=== PATIENT | male | born 1960 | race Asian ===

== ENCOUNTER 2020-04-15 07:06 | Day surgery (SDC) | payer OTHER ==
[2020-04-15] MEDS ORDERED: DEXAMETHASONE SODIUM PHOSPHATE IVPB ONE (09:30)
[2020-04-15] MEDS ORDERED: PALONOSETRON HCL 0.25 MG/5 ML VIAL IVPUSH ONE (09:30)
[2020-04-15] MEDS ORDERED: DIPHENHYDRAMINE IVPB ONE (09:30)
[2020-04-15] MEDS ORDERED: [UNRECOGNIZED DRUG - OTHER] IVPB ONE (09:30)
[2020-04-15] MEDS ORDERED: LEUCOVORIN IVPB ONE (10:00)
[2020-04-15] MEDS ORDERED: DEXTROSE 5% IVPB ONE (10:00)
[2020-04-15] MEDS ORDERED: WATER IVPB ONE (10:00)
[2020-04-15] MEDS ORDERED: OXALIPLATIN 100 MG, OXALIPLATIN 30 MG in DEXTROSE 5%-WATER - 500 ML IV ONE (10:00)
[2020-04-15 10:14] LABS: BASO % 0.3 % (0-2.0); EOS % 0.2 % (0-4.5); HEMATOCRIT 43.1 % (35.4-49); HEMOGLOBIN 14.2 GM/dL (11.7-16.9); LYMPH % 6.1 % (8-40); MCH 33.1 pg (25.7-33.7); MEAN CELL VOLUME 100.2 fl (80-96); MEAN PLT VOLUME 9.3 fl (7.5-11.1); MONO % 1.2 % (3.8-10.2); NEUT % 92.2 % (42.8-82.8); PLATELET COUNT 72 K/MM3 (134-434); RDW 14.5 % (11.9-15.9); WHITE BLOOD COUNT 6.7 K/mm3 (4.0-10.0)
[2020-04-15] MEDS ORDERED: DEXTROSE 5% IV ONE (10:48)
[2020-04-15] MEDS ORDERED: OXALIPLATIN IV ONE (10:48)
[2020-04-15] MEDS ORDERED: WATER IV ONE (10:48)
[2020-04-15 11:18] LABS: ANISOCYTOSIS 1+; MACROCYTOSIS 1+; PLATELET ESTIMATE DECREASED
[2020-04-15 11:31] LABS: ALBUMIN 3.7 g/dl (3.4-5.0); BILIRUBIN,DIRECT 0.2 mg/dL (0.0-0.2); BILIRUBIN,TOTAL 0.5 mg/dL (0.2-1); BLOOD UREA NITROGEN 17.1 mg/dL (7-18); CALCIUM 9.1 mg/dL (8.5-10.1); CREATININE 0.8 mg/dL (0.55-1.3); POTASSIUM 3.5 mmol/L (3.5-5.1); TOT PROT 7.4 g/dl (6.4-8.2)
[2020-04-15] MEDS ORDERED: FLUOROURACIL 3,000 MG in SODIUM CHLORIDE 32 ML CP ONE (13:00)
[2020-04-15 16:12] VITALS: TEMP 98.4
[2020-04-15 16:13] VITALS: BP 121/79; PULSE 80
== END 2020-04-15 16:10 | disposition home or self-care (01) ==
LOC: JONCCHEMO 07:06
PROVIDERS: ATTEND Nurse Practitioner Family
PROC: 3E04305 Introduction of Other Antineoplastic into Central Vein, Percutaneous Approach (ICD-10-PCS; principal; 2020-04-15)
PROC: 3E04305 Introduction of Other Antineoplastic into Central Vein, Percutaneous Approach (ICD-10-PCS; 2020-04-15)
PROC: 3E043GC Introduction of Other Therapeutic Substance into Central Vein, Percutaneous Approach (ICD-10-PCS; 2020-04-15)
DX: Z51.11 Encounter for antineoplastic chemotherapy (principal); C20 Malignant neoplasm of rectum; I10 Essential (primary) hypertension; E11.9 Type 2 diabetes mellitus without complications; E78.00 Pure hypercholesterolemia, unspecified
CPT/HCPCS: 36415; 80048; 80076; 82607; 83735; 85025; 96366; 96367; 96375; 96413; 96415; G0498; J2469; J9263

== ENCOUNTER 2020-04-17 07:18 | Day surgery (SDC) | payer OTHER ==
[2020-04-17 17:39] VITALS: BP 120/75; PULSE 84; TEMP 98
[2020-04-17] MEDS ORDERED: PORTA CATH FLUSH 10 ML IVPUSH ONE (17:51)
== END 2020-04-17 14:30 | disposition home or self-care (01) ==
LOC: JONCCHEMO 07:18
PROVIDERS: ATTEND Internal Medicine Hematology & Oncology
PROC: 2W54XYZ Removal of Other Device on Chest Wall (ICD-10-PCS; principal; 2020-04-17)
DX: Z53.8 Procedure and treatment not carried out for other reasons (principal)
CPT/HCPCS: 96379

== ENCOUNTER 2020-04-29 07:16 | Day surgery (SDC) | payer OTHER ==
[2020-04-29] MEDS ORDERED: PALONOSETRON HCL 0.25 MG/5 ML VIAL IVPUSH ONE (09:30)
[2020-04-29] MEDS ORDERED: [UNRECOGNIZED DRUG - OTHER] IVPB ONE (09:30)
[2020-04-29] MEDS ORDERED: DEXAMETHASONE SODIUM PHOSPHATE IVPB ONE (09:30)
[2020-04-29] MEDS ORDERED: DIPHENHYDRAMINE IVPB ONE (09:30)
[2020-04-29 09:59] LABS: BASO % 0.4 % (0-2.0); EOS % 0.8 % (0-4.5); HEMATOCRIT 42.4 % (35.4-49); HEMOGLOBIN 13.9 GM/dL (11.7-16.9); LYMPH % 5.9 % (8-40); MCH 32.3 pg (25.7-33.7); MCHC 32.8 g/dl (32.0-35.9); MEAN CELL VOLUME 98.4 fl (80-96); MONO % 1.9 % (3.8-10.2); PLATELET COUNT 68 K/MM3 (134-434); RBC 4.31 M/mm3 (4.00-5.60); RDW 13.9 % (11.9-15.9); WHITE BLOOD COUNT 7.2 K/mm3 (4.0-10.0)
[2020-04-29] MEDS ORDERED: LEUCOVORIN IVPB ONE (10:00)
[2020-04-29] MEDS ORDERED: OXALIPLATIN 100 MG, OXALIPLATIN 30 MG in DEXTROSE 5%-WATER - 500 ML IV ONE (10:00)
[2020-04-29] MEDS ORDERED: DEXTROSE 5% IVPB ONE (10:00)
[2020-04-29] MEDS ORDERED: WATER IVPB ONE (10:00)
[2020-04-29 10:20] LABS: ANISOCYTOSIS 0; MACROCYTOSIS 0; PLATELET ESTIMATE DECREASED
[2020-04-29 10:23] LABS: BLOOD UREA NITROGEN 17.6 mg/dL (7-18); CALCIUM 9.1 mg/dL (8.5-10.1); CREATININE 0.7 mg/dL (0.55-1.3); POTASSIUM 3.7 mmol/L (3.5-5.1)
[2020-04-29 10:32] LABS: MAGNESIUM 1.8 mg/dL (1.8-2.4)
[2020-04-29 10:47] LABS: INR 1.02 (0.83-1.09)
[2020-04-29 11:36] LABS: ALBUMIN 3.6 g/dl (3.4-5.0); BILIRUBIN,DIRECT 0.1 mg/dL (0.0-0.2); BILIRUBIN,TOTAL 0.4 mg/dL (0.2-1); TOT PROT 7.3 g/dl (6.4-8.2)
[2020-04-29] MEDS ORDERED: OXALIPLATIN IV ONE (11:43)
[2020-04-29] MEDS ORDERED: DEXTROSE 5% IV ONE (11:43)
[2020-04-29] MEDS ORDERED: WATER IV ONE (11:43)
[2020-04-29] MEDS ORDERED: FLUOROURACIL CP ONE ×2 (11:45→12:00)
[2020-04-29] MEDS ORDERED: SODIUM CHLORIDE CP ONE ×2 (11:45→12:00)
[2020-04-29 18:00] VITALS: BP 143/75; PULSE 76; TEMP 98.3
[2020-04-29] MEDS ORDERED: PORTA CATH FLUSH 10 ML IVPUSH ONE (18:00)
== END 2020-04-29 18:01 | disposition home or self-care (01) ==
LOC: JONCCHEMO 07:16
PROVIDERS: ATTEND Internal Medicine Hematology & Oncology
PROC: 3E04305 Introduction of Other Antineoplastic into Central Vein, Percutaneous Approach (ICD-10-PCS; principal; 2020-04-29)
PROC: 3E04305 Introduction of Other Antineoplastic into Central Vein, Percutaneous Approach (ICD-10-PCS; 2020-04-29)
PROC: 3E043GC Introduction of Other Therapeutic Substance into Central Vein, Percutaneous Approach (ICD-10-PCS; 2020-04-29)
DX: Z51.11 Encounter for antineoplastic chemotherapy (principal); C20 Malignant neoplasm of rectum; E11.9 Type 2 diabetes mellitus without complications; I10 Essential (primary) hypertension; E78.00 Pure hypercholesterolemia, unspecified
CPT/HCPCS: 36415; 80048; 80076; 82378; 82607; 82728; 83540; 83550; 83735; 85025; 85610; 96367; 96368; 96375; 96413; 96415; G0498; J2469; J9263

== ENCOUNTER 2020-05-01 07:16 | Day surgery (SDC) | payer OTHER ==
[2020-05-01 15:40] VITALS: BP 100/53; PULSE 72; TEMP 98.1
[2020-05-01] MEDS ORDERED: PORTA CATH FLUSH 10 ML IVPUSH ONE (15:40)
== END 2020-05-01 17:48 | disposition home or self-care (01) ==
LOC: JONCCHEMO 07:16
PROVIDERS: ATTEND Nurse Practitioner Family
DX: Z53.8 Procedure and treatment not carried out for other reasons (principal)

== ENCOUNTER 2020-12-09 04:59 | Day surgery (SDC) | payer OTHER ==
[2020-12-05 16:53] VITALS: BMI 35.4
[2020-12-09 14:47] VITALS: BP 125/75; PULSE 67; TEMP 98
== END 2020-12-09 14:35 | disposition home or self-care (01) ==
LOC: JRADIR 04:59
PROVIDERS: ATTEND Internal Medicine Hematology & Oncology
PROC: 07DD3ZX Extraction of Aortic Lymphatic, Percutaneous Approach, Diagnostic (ICD-10-PCS; principal; 2020-12-09)
DX: C20 Malignant neoplasm of rectum (principal); C77.2 Secondary and unspecified malignant neoplasm of intra-abdominal lymph nodes
CPT/HCPCS: 49180; 82962

== ENCOUNTER 2021-01-14 04:19 | Day surgery (SDC) | payer OTHER ==
[2021-01-14 07:25] VITALS: BMI 35.2
[2021-01-14 08:42] VITALS: TEMP 97.6
[2021-01-14 09:09] VITALS: PULSE 86
[2021-01-14 09:35] VITALS: BP 100/58
== END 2021-01-14 10:05 | disposition home or self-care (01) ==
LOC: JASU-ENDO 04:19
PROVIDERS: ATTEND Internal Medicine Gastroenterology
PROC: 0DBM8ZX Excision of Descending Colon, Via Natural or Artificial Opening Endoscopic, Diagnostic (ICD-10-PCS; 2021-01-14)
PROC: 0DBH8ZX Excision of Cecum, Via Natural or Artificial Opening Endoscopic, Diagnostic (ICD-10-PCS; principal; 2021-01-14 08:13)
DX: Z12.11 Encounter for screening for malignant neoplasm of colon (principal); Z86.010 Personal history of colon polyps; C20 Malignant neoplasm of rectum; D12.0 Benign neoplasm of cecum; D12.3 Benign neoplasm of transverse colon; K63.5 Polyp of colon
CPT/HCPCS: 82962; 88305-TC

== ENCOUNTER 2021-01-20 06:28 | Day surgery (SDC) | payer OTHER ==
[2021-01-20 08:45] LABS: CALCIUM 9.1 mg/dL (8.5-10.1)
[2021-01-20 08:47] LABS: BLOOD UREA NITROGEN 19.4 mg/dL (7-18); MAGNESIUM 1.7 mg/dL (1.8-2.4)
[2021-01-20 08:50] LABS: BILIRUBIN,DIRECT 0.2 mg/dL (0.0-0.2); BILIRUBIN,TOTAL 0.6 mg/dL (0.2-1); CREATININE 0.8 mg/dL (0.55-1.3); IRON SERUM 117 ug/dL (50-175)
[2021-01-20 08:51] LABS: TOT PROT 7.6 g/dl (6.4-8.2)
[2021-01-20 08:52] LABS: TOTAL IRON BINDING CAPACITY 329 ug/dL (250-450)
[2021-01-20] MEDS ORDERED: SODIUM CHLORIDE 250 ML IV ONE (09:00)
[2021-01-20] MEDS ORDERED: DEXAMETHASONE SODIUM PHOSPHATE 10 MG in SODIUM CHLORIDE 50 ML IVPB ONE (09:30)
[2021-01-20] MEDS ORDERED: PALONOSETRON HCL 0.25 MG/5 ML VIAL IVPUSH ONE (09:30)
[2021-01-20] MEDS ORDERED: ATROPINE SULFATE 1 MG/10 ML DISP.SYRIN IVPUSH ONE (09:30)
[2021-01-20 09:34] LABS: BASO % 0.8 % (0-2.0); EOS % 3.8 % (0-4.5); HEMATOCRIT 36.4 % (35.4-49); HEMOGLOBIN 12.6 GM/dL (11.7-16.9); LYMPH % 14.9 % (8-40); MCH 32.3 pg (25.7-33.7); MCHC 34.6 g/dl (32.0-35.9); MEAN CELL VOLUME 93.2 fl (80-96); NEUT % 72.5 % (42.8-82.8); PLATELET COUNT 164 K/MM3 (134-434); RDW 13.4 % (11.9-15.9)
[2021-01-20] MEDS ORDERED: BEVACIZUMAB AWWB IVPB ONE (10:00)
[2021-01-20] MEDS ORDERED: MAGNESIUM OXIDE 400 MG TABLET (FP) PO ONE (10:00)
[2021-01-20] MEDS ORDERED: SODIUM CHLORIDE IVPB ONE (10:00)
[2021-01-20] MEDS ORDERED: LEUCOVORIN INJECTION - 832 MG in DEXTROSE 5%-WATER - 250 ML IVPB ONE (10:30)
[2021-01-20] MEDS ORDERED: IRINOTECAN HCL 370 MG in DEXTROSE 5%-WATER - 500 ML IVPB ONE (10:30)
[2021-01-20] MEDS ORDERED: FLUOROURACIL 500 MG/10 ML VIAL IVPUSH ONE (12:00)
[2021-01-20] MEDS ORDERED: SODIUM CHLORIDE CP ONE (12:15)
[2021-01-20] MEDS ORDERED: FLUOROURACIL CP ONE (12:15)
[2021-01-20 17:35] VITALS: TEMP 98.1
[2021-01-20 17:49] VITALS: BP 127/72; PULSE 70
== END 2021-01-20 14:30 | disposition home or self-care (01) ==
LOC: JONCCHEMO 06:28
PROVIDERS: ATTEND Internal Medicine Hematology & Oncology
PROC: 3E043GC Introduction of Other Therapeutic Substance into Central Vein, Percutaneous Approach (ICD-10-PCS; principal; 2021-01-20)
PROC: 3E043GC Introduction of Other Therapeutic Substance into Central Vein, Percutaneous Approach (ICD-10-PCS; 2021-01-20)
PROC: 3E04305 Introduction of Other Antineoplastic into Central Vein, Percutaneous Approach (ICD-10-PCS; 2021-01-20)
DX: Z51.11 Encounter for antineoplastic chemotherapy (principal); C20 Malignant neoplasm of rectum; I10 Essential (primary) hypertension; E11.9 Type 2 diabetes mellitus without complications; E78.00 Pure hypercholesterolemia, unspecified; Z79.84 Long term (current) use of oral hypoglycemic drugs
CPT/HCPCS: 36415; 80048; 80076; 82378; 82728; 83540; 83550; 83735; 84156; 85025; 96360; 96375; 96413; 96415; G0498; J2469; J9190; J9206; Q5107

== ENCOUNTER 2021-01-22 07:01 | Day surgery (SDC) | payer OTHER ==
[2021-01-22] MEDS ORDERED: SODIUM CHLORIDE 500 ML IV ONE (10:00)
[2021-01-22 16:32] VITALS: TEMP 97.9
[2021-01-22] MEDS ORDERED: PORTA CATH FLUSH 10 ML IVPUSH ONE (16:42)
[2021-01-22 16:43] VITALS: BP 118/69; PULSE 56
== END 2021-01-22 12:30 | disposition home or self-care (01) ==
LOC: JONCNONCHE 07:01
PROVIDERS: ATTEND Internal Medicine Hematology & Oncology
PROC: 3E0437Z Introduction of Electrolytic and Water Balance Substance into Central Vein, Percutaneous Approach (ICD-10-PCS; principal; 2021-01-22)
DX: C20 Malignant neoplasm of rectum (principal); Z76.89 Persons encountering health services in other specified circumstances; I10 Essential (primary) hypertension; E11.9 Type 2 diabetes mellitus without complications; E78.00 Pure hypercholesterolemia, unspecified
CPT/HCPCS: 96360

== ENCOUNTER 2021-02-03 07:19 | Day surgery (SDC) | payer OTHER ==
[2021-02-03 08:39] LABS: EOS % 4.9 % (0-4.5); HEMATOCRIT 34.8 % (35.4-49); HEMOGLOBIN 12.1 GM/dL (11.7-16.9); LYMPH % 15.2 % (8-40); MCH 32.4 pg (25.7-33.7); MCHC 34.8 g/dl (32.0-35.9); MEAN CELL VOLUME 93.2 fl (80-96); MEAN PLT VOLUME 7.6 fl (7.5-11.1); MONO % 9.7 % (3.8-10.2); NEUT % 69.2 % (42.8-82.8); PLATELET COUNT 180 K/MM3 (134-434); RBC 3.73 M/mm3 (4.00-5.60); RDW 13.9 % (11.9-15.9); WHITE BLOOD COUNT 4.3 K/mm3 (4.0-10.0)
[2021-02-03 08:59] LABS: ALBUMIN 3.8 g/dl (3.4-5.0); CALCIUM 8.9 mg/dL (8.5-10.1); MAGNESIUM 1.7 mg/dL (1.8-2.4)
[2021-02-03] MEDS ORDERED: SODIUM CHLORIDE 250 ML IV ONE (09:00)
[2021-02-03 09:02] LABS: BILIRUBIN,DIRECT 0.2 mg/dL (0.0-0.2)
[2021-02-03 09:03] LABS: CREATININE 0.9 mg/dL (0.55-1.3)
[2021-02-03 09:04] LABS: TOT PROT 7.2 g/dl (6.4-8.2)
[2021-02-03 09:05] LABS: BILIRUBIN,TOTAL 0.4 mg/dL (0.2-1)
[2021-02-03] MEDS ORDERED: MAGNESIUM SULF 50% (8.12 MEQ/2 ML-1 GM VIAL) IVPB ONE (09:21)
[2021-02-03] MEDS ORDERED: DEXAMETHASONE SODIUM PHOSPHATE 6 MG in SODIUM CHLORIDE 50 ML IVPB ONE (09:30)
[2021-02-03] MEDS ORDERED: PALONOSETRON HCL 0.25 MG/5 ML VIAL IVPUSH ONE (09:30)
[2021-02-03] MEDS ORDERED: ATROPINE SULFATE 1 MG/10 ML DISP.SYRIN IVPUSH ONE (09:30)
[2021-02-03] MEDS ORDERED: MAGNESIUM SULFATE IN WATER 2 GM/50 ML IVPB IVPB ONE (09:30)
[2021-02-03] MEDS ORDERED: SODIUM CHLORIDE IVPB ONE (10:00)
[2021-02-03] MEDS ORDERED: BEVACIZUMAB AWWB IVPB ONE (10:00)
[2021-02-03] MEDS ORDERED: LEUCOVORIN INJECTION - 832 MG in DEXTROSE 5%-WATER - 250 ML IVPB ONE (10:30)
[2021-02-03] MEDS ORDERED: IRINOTECAN HCL 370 MG in DEXTROSE 5%-WATER - 500 ML IVPB ONE (10:30)
[2021-02-03] MEDS ORDERED: FLUOROURACIL 500 MG/10 ML VIAL IVPUSH ONE (12:00)
[2021-02-03] MEDS ORDERED: SODIUM CHLORIDE CP ONE (12:15)
[2021-02-03] MEDS ORDERED: FLUOROURACIL CP ONE (12:15)
[2021-02-03 15:48] VITALS: TEMP 98.2
[2021-02-03 17:38] VITALS: BP 108/52; PULSE 69
== END 2021-02-03 13:10 | disposition home or self-care (01) ==
LOC: JONCCHEMO 07:19
PROVIDERS: ATTEND Internal Medicine Hematology & Oncology
DX: Z51.11 Encounter for antineoplastic chemotherapy (principal); C20 Malignant neoplasm of rectum
CPT/HCPCS: 36415; 80048; 80076; 83735; 84156; 85025; 96361; 96367; 96375; 96413; 96417; G0498; J2469; J9190; J9206; Q5107

== ENCOUNTER 2021-02-05 08:01 | Day surgery (SDC) | payer OTHER ==
[2021-02-05] MEDS ORDERED: MAGNESIUM SULFATE IV ONE (10:00)
[2021-02-05] MEDS ORDERED: POTASSIUM CHLORIDE IV ONE (10:00)
[2021-02-05] MEDS ORDERED: SODIUM CHLORIDE IV ONE (10:00)
[2021-02-05 17:49] VITALS: PULSE 67; TEMP 97.8
[2021-02-05 18:07] VITALS: BP 99/60
== END 2021-02-05 14:00 | disposition home or self-care (01) ==
LOC: JONCNONCHE 08:01
PROVIDERS: ATTEND Internal Medicine Hematology & Oncology
DX: C20 Malignant neoplasm of rectum (principal); Z76.89 Persons encountering health services in other specified circumstances
CPT/HCPCS: 96360

== ENCOUNTER 2021-02-17 06:59 | Day surgery (SDC) | payer OTHER ==
[2021-02-17 08:50] LABS: BASO % 1.3 % (0-2.0); EOS % 4.3 % (0-4.5); HEMATOCRIT 33.2 % (35.4-49); HEMOGLOBIN 11.5 GM/dL (11.7-16.9); LYMPH % 14.6 % (8-40); MCH 32.8 pg (25.7-33.7); MCHC 34.6 g/dl (32.0-35.9); MEAN PLT VOLUME 7.7 fl (7.5-11.1); MONO % 9.7 % (3.8-10.2); NEUT % 70.1 % (42.8-82.8); PLATELET COUNT 159 K/MM3 (134-434); RBC 3.49 M/mm3 (4.00-5.60); RDW 14.5 % (11.9-15.9); WHITE BLOOD COUNT 4.1 K/mm3 (4.0-10.0)
[2021-02-17] MEDS ORDERED: SODIUM CHLORIDE 250 ML IV ONE (09:00)
[2021-02-17 09:15] LABS: ALBUMIN 3.6 g/dl (3.4-5.0); BLOOD UREA NITROGEN 18.2 mg/dL (7-18); CALCIUM 8.4 mg/dL (8.5-10.1); MAGNESIUM 1.7 mg/dL (1.8-2.4)
[2021-02-17 09:18] LABS: BILIRUBIN,DIRECT 0.2 mg/dL (0.0-0.2); CREATININE 0.9 mg/dL (0.55-1.3)
[2021-02-17 09:20] LABS: BILIRUBIN,TOTAL 0.5 mg/dL (0.2-1); TOT PROT 6.8 g/dl (6.4-8.2)
[2021-02-17] MEDS ORDERED: PALONOSETRON HCL 0.25 MG/5 ML VIAL IVPUSH ONE (10:00)
[2021-02-17] MEDS ORDERED: DEXAMETHASONE SODIUM PHOSPHATE 6 MG in SODIUM CHLORIDE 50 ML IVPB ONE (10:00)
[2021-02-17] MEDS ORDERED: ATROPINE SO4 0.4 MG/1 ML VIAL IVPUSH ONE (10:00)
[2021-02-17] MEDS ORDERED: BEVACIZUMAB AWWB IVPB ONE (10:30)
[2021-02-17] MEDS ORDERED: SODIUM CHLORIDE IVPB ONE (10:30)
[2021-02-17] MEDS ORDERED: MAGNESIUM OXIDE 400 MG TABLET (FP) PO ONE (10:30)
[2021-02-17] MEDS ORDERED: LEUCOVORIN INJECTION - 832 MG in DEXTROSE 5%-WATER - 250 ML IVPB ONE (11:00)
[2021-02-17] MEDS ORDERED: IRINOTECAN HCL 370 MG in DEXTROSE 5%-WATER - 500 ML IVPB ONE (11:30)
[2021-02-17] MEDS ORDERED: FLUOROURACIL 2,500 MG/50 ML VIAL IVPUSH ONE (13:00)
[2021-02-17] MEDS ORDERED: SODIUM CHLORIDE CP ONE (13:15)
[2021-02-17] MEDS ORDERED: FLUOROURACIL CP ONE (13:15)
[2021-02-17 17:38] VITALS: TEMP 97.7
[2021-02-17 17:39] VITALS: BP 133/74; PULSE 77
== END 2021-02-17 12:40 | disposition home or self-care (01) ==
LOC: JONCCHEMO 06:59
PROVIDERS: ATTEND Internal Medicine Hematology & Oncology
DX: Z51.11 Encounter for antineoplastic chemotherapy (principal); C20 Malignant neoplasm of rectum
CPT/HCPCS: 36415; 80048; 80076; 83036; 83735; 84156; 85025; 96361; 96375; 96413; 96415; 96417; G0498; J2469; J9206; Q5107

== ENCOUNTER 2021-02-19 07:08 | Day surgery (SDC) | payer OTHER ==
[2021-02-19] MEDS ORDERED: MAGNESIUM SULFATE IVPB ONE (10:00)
[2021-02-19] MEDS ORDERED: SODIUM CHLORIDE IVPB ONE (10:00)
[2021-02-19] MEDS ORDERED: POTASSIUM CHLORIDE IVPB ONE (10:00)
[2021-02-19 16:44] VITALS: TEMP 98.2
[2021-02-19 16:52] VITALS: BP 104/61; PULSE 59
== END 2021-02-19 12:45 | disposition home or self-care (01) ==
LOC: JONCCHEMO 07:08
PROVIDERS: ATTEND Internal Medicine Hematology & Oncology
PROC: 3E043GC Introduction of Other Therapeutic Substance into Central Vein, Percutaneous Approach (ICD-10-PCS; principal; 2021-02-19)
DX: C20 Malignant neoplasm of rectum (principal); Z76.89 Persons encountering health services in other specified circumstances
CPT/HCPCS: 96365

== ENCOUNTER 2021-03-03 07:32 | Day surgery (SDC) | payer OTHER ==
[2021-03-03 08:19] LABS: BASO % 1.1 % (0-2.0); EOS % 4.5 % (0-4.5); HEMATOCRIT 34.6 % (35.4-49); HEMOGLOBIN 11.6 GM/dL (11.7-16.9); LYMPH % 14.6 % (8-40); MCH 32.5 pg (25.7-33.7); MCHC 33.6 g/dl (32.0-35.9); MEAN CELL VOLUME 96.9 fl (80-96); MEAN PLT VOLUME 7.9 fl (7.5-11.1); MONO % 8.6 % (3.8-10.2); NEUT % 71.2 % (42.8-82.8); PLATELET COUNT 155 K/MM3 (134-434); RBC 3.57 M/mm3 (4.00-5.60); RDW 16.2 % (11.9-15.9); WHITE BLOOD COUNT 4.2 K/mm3 (4.0-10.0)
[2021-03-03 08:38] LABS: ALBUMIN 3.9 g/dl (3.4-5.0); BLOOD UREA NITROGEN 18.6 mg/dL (7-18); CALCIUM 8.7 mg/dL (8.5-10.1)
[2021-03-03 08:39] LABS: MAGNESIUM 1.9 mg/dL (1.8-2.4)
[2021-03-03 08:41] LABS: BILIRUBIN,DIRECT 0.2 mg/dL (0.0-0.2)
[2021-03-03 08:42] LABS: CREATININE 0.9 mg/dL (0.55-1.3)
[2021-03-03 08:43] LABS: BILIRUBIN,TOTAL 0.7 mg/dL (0.2-1)
[2021-03-03] MEDS ORDERED: SODIUM CHLORIDE 250 ML IV ONE (09:00)
[2021-03-03] MEDS ORDERED: DEXAMETHASONE SODIUM PHOSPHATE 6 MG in SODIUM CHLORIDE 50 ML IVPB ONE (10:00)
[2021-03-03] MEDS ORDERED: ATROPINE SO4 0.4 MG/1 ML VIAL IVPUSH ONE (10:00)
[2021-03-03] MEDS ORDERED: PALONOSETRON HCL 0.25 MG/5 ML VIAL IVPUSH ONE (10:00)
[2021-03-03] MEDS ORDERED: SODIUM CHLORIDE IVPB ONE (10:30)
[2021-03-03] MEDS ORDERED: BEVACIZUMAB AWWB IVPB ONE (10:30)
[2021-03-03] MEDS ORDERED: LEUCOVORIN INJECTION - 848 MG in DEXTROSE 5%-WATER - 250 ML IVPB ONE (11:00)
[2021-03-03] MEDS ORDERED: IRINOTECAN HCL 380 MG in DEXTROSE 5%-WATER - 500 ML IVPB ONE (11:30)
[2021-03-03] MEDS ORDERED: FLUOROURACIL 2,500 MG/50 ML VIAL IVPUSH ONE (12:30)
[2021-03-03] MEDS ORDERED: FLUOROURACIL CP ONE (12:30)
[2021-03-03] MEDS ORDERED: SODIUM CHLORIDE CP ONE (12:30)
[2021-03-03 15:28] VITALS: TEMP 98.3
[2021-03-03 15:32] VITALS: BP 113/62; PULSE 68
== END 2021-03-03 14:10 | disposition home or self-care (01) ==
LOC: JONCCHEMO 07:32
PROVIDERS: ATTEND Internal Medicine Hematology & Oncology
DX: Z51.11 Encounter for antineoplastic chemotherapy (principal); C20 Malignant neoplasm of rectum
CPT/HCPCS: 36415; 80048; 80076; 82378; 82607; 82746; 83735; 84156; 85025; 96361; 96366; 96367; 96375; 96413; 96417; G0498; J2469; J9206; Q5107

== ENCOUNTER 2021-03-05 08:15 | Day surgery (SDC) | payer OTHER ==
[2021-03-05] MEDS ORDERED: SODIUM CHLORIDE IVPB ONE (12:30)
[2021-03-05] MEDS ORDERED: MAGNESIUM SULFATE IVPB ONE (12:30)
[2021-03-05] MEDS ORDERED: POTASSIUM CHLORIDE IVPB ONE (12:30)
[2021-03-05 15:32] VITALS: TEMP 98.6
[2021-03-05 15:36] VITALS: BP 115/72; PULSE 65
== END 2021-03-05 14:50 | disposition home or self-care (01) ==
LOC: JONCNONCHE 08:15
PROVIDERS: ATTEND Internal Medicine Hematology & Oncology
DX: C20 Malignant neoplasm of rectum (principal); Z76.89 Persons encountering health services in other specified circumstances
CPT/HCPCS: 96360

== ENCOUNTER 2021-03-17 06:39 | Day surgery (SDC) | payer OTHER ==
[~2021-03-17 06:39] MED LIST: BEVACIZUMAB AWWB IVPB ONE; SODIUM CHLORIDE IVPB ONE
[2021-03-17 08:34] LABS: BASO % 1.1 % (0-2.0); EOS % 4.6 % (0-4.5); HEMATOCRIT 33.5 % (35.4-49); HEMOGLOBIN 11.3 GM/dL (11.7-16.9); LYMPH % 15.1 % (8-40); MCH 32.9 pg (25.7-33.7); MCHC 33.8 g/dl (32.0-35.9); MEAN CELL VOLUME 97.3 fl (80-96); MEAN PLT VOLUME 7.8 fl (7.5-11.1); MONO % 9.8 % (3.8-10.2); NEUT % 69.4 % (42.8-82.8); PLATELET COUNT 149 K/MM3 (134-434); RBC 3.45 M/mm3 (4.00-5.60); RDW 17.8 % (11.9-15.9); WHITE BLOOD COUNT 3.9 K/mm3 (4.0-10.0)
[2021-03-17 08:59] LABS: CALCIUM 8.7 mg/dL (8.5-10.1)
[2021-03-17 09:00] LABS: ALBUMIN 3.7 g/dl (3.4-5.0); BLOOD UREA NITROGEN 24.3 mg/dL (7-18); MAGNESIUM 2.2 mg/dL (1.8-2.4)
[2021-03-17] MEDS ORDERED: SODIUM CHLORIDE 250 ML IV ONE (09:00)
[2021-03-17 09:03] LABS: BILIRUBIN,DIRECT 0.2 mg/dL (0.0-0.2); CREATININE 0.8 mg/dL (0.55-1.3)
[2021-03-17 09:04] LABS: BILIRUBIN,TOTAL 0.5 mg/dL (0.2-1)
[2021-03-17 09:10] LABS: TOT PROT 6.7 g/dl (6.4-8.2)
[2021-03-17] MEDS ORDERED: PALONOSETRON HCL 0.25 MG/5 ML VIAL IVPUSH ONE (09:30)
[2021-03-17] MEDS ORDERED: SODIUM CHLORIDE IVPB ONE (09:30)
[2021-03-17] MEDS ORDERED: DEXAMETHASONE SODIUM PHOSPHATE 6 MG in SODIUM CHLORIDE 50 ML IVPB ONE (09:30)
[2021-03-17] MEDS ORDERED: ATROPINE SULFATE 1 MG/10 ML DISP.SYRIN IVPUSH ONE (09:30)
[2021-03-17] MEDS ORDERED: BEVACIZUMAB AWWB IVPB ONE (09:30)
[2021-03-17] MEDS ORDERED: WATER IVPB ONE (10:30)
[2021-03-17] MEDS ORDERED: DEXTROSE 5% IVPB ONE (10:30)
[2021-03-17] MEDS ORDERED: IRINOTECAN HCL 380 MG in DEXTROSE 5%-WATER - 500 ML IVPB ONE (10:30)
[2021-03-17] MEDS ORDERED: LEUCOVORIN IVPB ONE (10:30)
[2021-03-17] MEDS ORDERED: FLUOROURACIL 2,500 MG/50 ML VIAL IVPUSH ONE (12:00)
[2021-03-17] MEDS ORDERED: SODIUM CHLORIDE CP ONE (12:15)
[2021-03-17] MEDS ORDERED: FLUOROURACIL CP ONE (12:15)
[2021-03-17 14:46] VITALS: TEMP 97.8
[2021-03-17] MEDS ORDERED: PORTA CATH FLUSH 10 ML IVPUSH ONE (14:46)
[2021-03-17 16:03] VITALS: BP 127/70; PULSE 59
== END 2021-03-17 14:45 | disposition home or self-care (01) ==
LOC: JONCCHEMO 06:39
PROVIDERS: ATTEND Internal Medicine Hematology & Oncology
DX: Z51.11 Encounter for antineoplastic chemotherapy (principal); C20 Malignant neoplasm of rectum
CPT/HCPCS: 36415; 80048; 80076; 83735; 84156; 85025; 96361; 96368; 96375; 96413; 96417; G0498; J2469; J9206; Q5107

== ENCOUNTER 2021-03-19 06:45 | Day surgery (SDC) | payer OTHER ==
[2021-03-19] MEDS ORDERED: POTASSIUM CHLORIDE IV ONE (10:00)
[2021-03-19] MEDS ORDERED: SODIUM CHLORIDE IV ONE (10:00)
[2021-03-19] MEDS ORDERED: MAGNESIUM SULFATE IV ONE (10:00)
[2021-03-19 19:06] VITALS: BP 119/64; PULSE 64; TEMP 98.2
== END 2021-03-19 12:45 | disposition home or self-care (01) ==
LOC: JONCNONCHE 06:45
PROVIDERS: ATTEND Internal Medicine Hematology & Oncology
PROC: 3E0437Z Introduction of Electrolytic and Water Balance Substance into Central Vein, Percutaneous Approach (ICD-10-PCS; principal; 2021-03-19)
DX: C20 Malignant neoplasm of rectum (principal); Z76.89 Persons encountering health services in other specified circumstances
CPT/HCPCS: 96360

== ENCOUNTER 2021-03-31 07:17 | Day surgery (SDC) | payer OTHER ==
[2021-03-31 08:41] LABS: BASO % 1.6 % (0-2.0); EOS % 6.5 % (0-4.5); HEMATOCRIT 36.5 % (35.4-49); HEMOGLOBIN 12.1 GM/dL (11.7-16.9); LYMPH % 17.7 % (8-40); MCH 32.6 pg (25.7-33.7); MCHC 33.1 g/dl (32.0-35.9); MEAN CELL VOLUME 98.5 fl (80-96); MEAN PLT VOLUME 7.8 fl (7.5-11.1); MONO % 13.1 % (3.8-10.2); NEUT % 61.1 % (42.8-82.8); PLATELET COUNT 164 10^3/uL (134-434); RBC 3.71 M/mm3 (4.00-5.60); RDW 18.2 % (11.9-15.9); WHITE BLOOD COUNT 3.5 K/mm3 (4.0-10.0)
[2021-03-31 08:59] LABS: ALBUMIN 3.7 g/dl (3.4-5.0); CALCIUM 9.3 mg/dL (8.5-10.1)
[2021-03-31] MEDS ORDERED: SODIUM CHLORIDE 250 ML IV ONE (09:00)
[2021-03-31 09:01] LABS: BILIRUBIN,DIRECT 0.2 mg/dL (0.0-0.2)
[2021-03-31 09:02] LABS: CREATININE 0.9 mg/dL (0.55-1.3)
[2021-03-31 09:03] LABS: BILIRUBIN,TOTAL 0.6 mg/dL (0.2-1)
[2021-03-31 09:06] LABS: BLOOD UREA NITROGEN 22.2 mg/dL (7-18)
[2021-03-31] MEDS ORDERED: PALONOSETRON HCL 0.25 MG/5 ML VIAL IVPUSH ONE (09:30)
[2021-03-31] MEDS ORDERED: DEXAMETHASONE SODIUM PHOSPHATE 6 MG in SODIUM CHLORIDE 50 ML IVPB ONE (09:30)
[2021-03-31] MEDS ORDERED: ATROPINE SULFATE 1 MG/10 ML DISP.SYRIN IVPUSH ONE (09:30)
[2021-03-31] MEDS ORDERED: SODIUM CHLORIDE IVPB ONE (10:00)
[2021-03-31] MEDS ORDERED: BEVACIZUMAB AWWB IVPB ONE (10:00)
[2021-03-31] MEDS ORDERED: DEXTROSE 5% IVPB ONE (10:30)
[2021-03-31] MEDS ORDERED: IRINOTECAN HCL 380 MG in DEXTROSE 5%-WATER - 500 ML IVPB ONE (10:30)
[2021-03-31] MEDS ORDERED: WATER IVPB ONE (10:30)
[2021-03-31] MEDS ORDERED: LEUCOVORIN IVPB ONE (10:30)
[2021-03-31] MEDS ORDERED: FLUOROURACIL 2,500 MG/50 ML VIAL IVPUSH ONE (12:00)
[2021-03-31] MEDS ORDERED: SODIUM CHLORIDE CP ONE (12:15)
[2021-03-31] MEDS ORDERED: FLUOROURACIL CP ONE (12:15)
[2021-03-31 18:15] VITALS: TEMP 97.9
[2021-03-31 18:28] VITALS: BP 137/79; PULSE 64
== END 2021-03-31 15:15 | disposition home or self-care (01) ==
LOC: JONCCHEMO 07:17
PROVIDERS: ATTEND Internal Medicine Hematology & Oncology
DX: Z51.11 Encounter for antineoplastic chemotherapy (principal); C20 Malignant neoplasm of rectum
CPT/HCPCS: 36415; 80048; 80076; 83735; 84156; 85025; 96361; 96367; 96375; 96413; 96417; G0498; J2469; J9206; Q5107

== ENCOUNTER 2021-04-02 07:05 | Day surgery (SDC) | payer OTHER ==
[2021-04-02] MEDS ORDERED: SODIUM CHLORIDE IV ONE (10:00)
[2021-04-02] MEDS ORDERED: MAGNESIUM SULFATE IV ONE (10:00)
[2021-04-02] MEDS ORDERED: POTASSIUM CHLORIDE IV ONE (10:00)
[2021-04-02 17:47] VITALS: TEMP 97.8
[2021-04-02 17:48] VITALS: BP 119/71; PULSE 63
[2021-04-02] MEDS ORDERED: PORTA CATH FLUSH 10 ML IVPUSH ONE (17:55)
== END 2021-04-02 13:20 | disposition home or self-care (01) ==
LOC: JONCCHEMO 07:05
PROVIDERS: ATTEND Internal Medicine Hematology & Oncology
DX: C20 Malignant neoplasm of rectum (principal); Z76.89 Persons encountering health services in other specified circumstances
CPT/HCPCS: 96360

== ENCOUNTER 2021-04-15 07:11 | Day surgery (SDC) | payer OTHER ==
[2021-04-15] MEDS ORDERED: SODIUM CHLORIDE 250 ML IV ONE (09:00)
[2021-04-15 09:07] LABS: BASO % 1.3 % (0-2.0); EOS % 8.3 % (0-4.5); HEMATOCRIT 35.4 % (35.4-49); HEMOGLOBIN 11.9 GM/dL (11.7-16.9); LYMPH % 14.6 % (8-40); MCH 33.2 pg (25.7-33.7); MCHC 33.5 g/dl (32.0-35.9); MEAN CELL VOLUME 99.1 fl (80-96); MEAN PLT VOLUME 7.7 fl (7.5-11.1); MONO % 12.7 % (3.8-10.2); NEUT % 63.1 % (42.8-82.8); PLATELET COUNT 164 10^3/uL (134-434); RBC 3.57 M/mm3 (4.00-5.60); RDW 18.3 % (11.9-15.9); WHITE BLOOD COUNT 3.5 K/mm3 (4.0-10.0)
[2021-04-15 09:13] LABS: ALBUMIN 3.7 g/dl (3.4-5.0); CALCIUM 8.8 mg/dL (8.5-10.1)
[2021-04-15 09:14] LABS: BLOOD UREA NITROGEN 19.4 mg/dL (7-18); MAGNESIUM 2.1 mg/dL (1.8-2.4)
[2021-04-15 09:16] LABS: BILIRUBIN,DIRECT 0.2 mg/dL (0.0-0.2)
[2021-04-15 09:17] LABS: CREATININE 0.8 mg/dL (0.55-1.3)
[2021-04-15 09:18] LABS: BILIRUBIN,TOTAL 0.7 mg/dL (0.2-1); TOT PROT 6.9 g/dl (6.4-8.2)
[2021-04-15] MEDS ORDERED: MAGNESIUM SULFATE IVPB ONE (10:00)
[2021-04-15] MEDS ORDERED: DEXAMETHASONE SODIUM PHOSPHATE 6 MG in SODIUM CHLORIDE 50 ML IVPB ONE (10:00)
[2021-04-15] MEDS ORDERED: SODIUM CHLORIDE IVPB ONE ×2 (10:00→10:30)
[2021-04-15] MEDS ORDERED: PALONOSETRON HCL 0.25 MG/5 ML VIAL IVPUSH ONE (10:00)
[2021-04-15] MEDS ORDERED: POTASSIUM CHLORIDE IVPB ONE (10:00)
[2021-04-15] MEDS ORDERED: ATROPINE SO4 0.4 MG/1 ML VIAL IVPUSH ONE (10:00)
[2021-04-15] MEDS ORDERED: BEVACIZUMAB AWWB IVPB ONE (10:30)
[2021-04-15] MEDS ORDERED: WATER IVPB ONE ×2 (11:00→11:30)
[2021-04-15] MEDS ORDERED: LEUCOVORIN IVPB ONE (11:00)
[2021-04-15] MEDS ORDERED: DEXTROSE 5% IVPB ONE ×2 (11:00→11:30)
[2021-04-15] MEDS ORDERED: IRINOTECAN HCL IVPB ONE (11:30)
[2021-04-15] MEDS ORDERED: FLUOROURACIL 500 MG/10 ML VIAL IVPUSH ONE (12:30)
[2021-04-15] MEDS ORDERED: FLUOROURACIL CP ONE (12:45)
[2021-04-15] MEDS ORDERED: SODIUM CHLORIDE CP ONE (12:45)
[2021-04-15 15:54] VITALS: TEMP 98.2
[2021-04-15 15:56] VITALS: BP 122/70; PULSE 76
== END 2021-04-15 14:35 | disposition home or self-care (01) ==
LOC: JONCCHEMO 07:11
PROVIDERS: ATTEND Internal Medicine Hematology & Oncology
DX: Z12.11 Encounter for screening for malignant neoplasm of colon (principal); C20 Malignant neoplasm of rectum
CPT/HCPCS: 36415; 80048; 80076; 83735; 84156; 85025; 96361; 96367; 96375; 96411; 96413; G0498; J2469; J9190; J9206; Q5107

== ENCOUNTER 2021-04-17 06:36 | Day surgery (SDC) | payer OTHER ==
[2021-04-17] MEDS ORDERED: SODIUM CHLORIDE IV ONE (12:00)
[2021-04-17] MEDS ORDERED: POTASSIUM CHLORIDE IV ONE (12:00)
[2021-04-17] MEDS ORDERED: MAGNESIUM SULFATE IV ONE (12:00)
[2021-04-17 16:15] VITALS: TEMP 98.1
[2021-04-17 16:18] VITALS: BP 100/51; PULSE 67
== END 2021-04-17 13:30 | disposition home or self-care (01) ==
LOC: JONCNONCHE 06:36
PROVIDERS: ATTEND Internal Medicine Hematology & Oncology
DX: Z53.8 Procedure and treatment not carried out for other reasons (principal)

== ENCOUNTER 2021-04-28 05:31 | Day surgery (SDC) | payer OTHER ==
[2021-04-28] MEDS ORDERED: SODIUM CHLORIDE 250 ML IV ONE (09:00)
[2021-04-28 09:44] LABS: BASO % 1.3 % (0-2.0); EOS % 4.7 % (0-4.5); LYMPH % 15.5 % (8-40); MCH 32.6 pg (25.7-33.7); MCHC 32.6 g/dl (32.0-35.9); MEAN CELL VOLUME 100.2 fl (80-96); MEAN PLT VOLUME 8.3 fl (7.5-11.1); MONO % 9.2 % (3.8-10.2); NEUT % 69.3 % (42.8-82.8); PLATELET COUNT 178 10^3/uL (134-434); RBC 3.69 M/mm3 (4.00-5.60); RDW 17.6 % (11.9-15.9); WHITE BLOOD COUNT 3.7 K/mm3 (4.0-10.0)
[2021-04-28 10:00] LABS: CALCIUM 9.1 mg/dL (8.5-10.1)
[2021-04-28] MEDS ORDERED: PALONOSETRON HCL 0.25 MG/5 ML VIAL IVPUSH ONE (10:00)
[2021-04-28] MEDS ORDERED: DEXAMETHASONE SODIUM PHOSPHATE 6 MG in SODIUM CHLORIDE 50 ML IVPB ONE (10:00)
[2021-04-28] MEDS ORDERED: ATROPINE SO4 0.4 MG/1 ML VIAL IVPUSH ONE (10:00)
[2021-04-28 10:01] LABS: ALBUMIN 3.7 g/dl (3.4-5.0); BLOOD UREA NITROGEN 21.9 mg/dL (7-18); MAGNESIUM 2.1 mg/dL (1.8-2.4)
[2021-04-28 10:03] LABS: BILIRUBIN,DIRECT 0.2 mg/dL (0.0-0.2)
[2021-04-28 10:04] LABS: CREATININE 0.9 mg/dL (0.55-1.3)
[2021-04-28 10:05] LABS: BILIRUBIN,TOTAL 0.5 mg/dL (0.2-1)
[2021-04-28] MEDS ORDERED: BEVACIZUMAB AWWB IVPB ONE ×2 (10:30→12:30)
[2021-04-28] MEDS ORDERED: SODIUM CHLORIDE IVPB ONE ×2 (10:30→12:30)
[2021-04-28] MEDS ORDERED: LEUCOVORIN INJECTION - 856 MG in DEXTROSE 5%-WATER - 250 ML IVPB ONE (11:00)
[2021-04-28] MEDS ORDERED: WATER IVPB ONE (11:30)
[2021-04-28] MEDS ORDERED: IRINOTECAN HCL IVPB ONE (11:30)
[2021-04-28] MEDS ORDERED: DEXTROSE 5% IVPB ONE (11:30)
[2021-04-28] MEDS ORDERED: FLUOROURACIL 500 MG/10 ML VIAL IVPUSH ONE (12:30)
[2021-04-28] MEDS ORDERED: FLUOROURACIL CP ONE (13:00)
[2021-04-28] MEDS ORDERED: SODIUM CHLORIDE CP ONE (13:00)
[2021-04-28 16:23] VITALS: BP 118/69; PULSE 75; TEMP 97.4
== END 2021-04-28 16:29 | disposition home or self-care (01) ==
LOC: JONCCHEMO 05:31
PROVIDERS: ATTEND Internal Medicine Hematology & Oncology
DX: Z51.11 Encounter for antineoplastic chemotherapy (principal); C20 Malignant neoplasm of rectum
CPT/HCPCS: 36415; 80048; 80076; 82378; 82728; 83540; 83550; 83735; 84156; 85025; 96361; 96367; 96375; 96413; 96417; G0498; J2469; J9190; J9206; Q5107

== ENCOUNTER 2021-04-30 06:50 | Day surgery (SDC) | payer OTHER ==
[2021-04-30] MEDS ORDERED: SODIUM CHLORIDE IVPB ONE (10:00)
[2021-04-30] MEDS ORDERED: POTASSIUM CHLORIDE IVPB ONE (10:00)
[2021-04-30] MEDS ORDERED: MAGNESIUM SO4 IVPB ONE (10:00)
[2021-04-30 16:10] VITALS: TEMP 98
[2021-04-30 16:17] VITALS: BP 117/71; PULSE 71
== END 2021-04-30 15:05 | disposition home or self-care (01) ==
LOC: JONCNONCHE 06:50
PROVIDERS: ATTEND Internal Medicine Hematology & Oncology
PROC: 3E0437Z Introduction of Electrolytic and Water Balance Substance into Central Vein, Percutaneous Approach (ICD-10-PCS; principal; 2021-04-30)
DX: C20 Malignant neoplasm of rectum (principal); Z76.89 Persons encountering health services in other specified circumstances
CPT/HCPCS: 96360

== ENCOUNTER → 2021-05-12 | Day surgery (SDC) | payer OTHER ==
[~2021-05-12] MED LIST changes: +ATROPINE SO4 0.4 MG/1 ML VIAL IVPUSH ONE; +DEXAMETHASONE SODIUM PHOSPHATE 6 MG in SODIUM CHLORIDE 50 ML IVPB ONE; +FLUOROURACIL 5,100 MG in SODIUM CHLORIDE 3.8 ML CP ONE; +FLUOROURACIL 500 MG/10 ML VIAL IVPUSH ONE; +IRINOTECAN HCL 380 MG in DEXTROSE 5%-WATER - 500 ML IVPB ONE; +LEUCOVORIN INJECTION - 852 MG in DEXTROSE 5%-WATER - 250 ML IVPB ONE; +PALONOSETRON HCL 0.25 MG/5 ML VIAL IVPUSH ONE; +SODIUM CHLORIDE 250 ML IV ONE
[2021-05-12 08:50] LABS: BASO % 1.2 % (0-2.0); EOS % 4.2 % (0-4.5); HEMATOCRIT 32.4 % (35.4-49); HEMOGLOBIN 11.2 GM/dL (11.7-16.9); LYMPH % 12.1 % (8-40); MCH 34.8 pg (25.7-33.7); MCHC 34.6 g/dl (32.0-35.9); MEAN CELL VOLUME 100.8 fl (80-96); MEAN PLT VOLUME 8.2 fl (7.5-11.1); MONO % 11.1 % (3.8-10.2); NEUT % 71.4 % (42.8-82.8); PLATELET COUNT 155 10^3/uL (134-434); RBC 3.22 M/mm3 (4.00-5.60); RDW 16.9 % (11.9-15.9); WHITE BLOOD COUNT 4.1 K/mm3 (4.0-10.0)
[2021-05-12 09:07] LABS: ALBUMIN 3.4 g/dl (3.4-5.0); CALCIUM 8.1 mg/dL (8.5-10.1); MAGNESIUM 1.9 mg/dL (1.8-2.4)
[2021-05-12 09:10] LABS: BILIRUBIN,DIRECT 0.2 mg/dL (0.0-0.2); CREATININE 0.9 mg/dL (0.55-1.3)
[2021-05-12 09:12] LABS: BILIRUBIN,TOTAL 0.5 mg/dL (0.2-1); TOT PROT 6.5 g/dl (6.4-8.2)
== END | disposition home or self-care (01) ==
LOC: JONCCHEMO 06:21
PROVIDERS: ATTEND Internal Medicine Hematology & Oncology
DX: Z53.8 Procedure and treatment not carried out for other reasons (principal)
CPT/HCPCS: 36415; 80048; 80076; 83735; 84156; 85025; 96365

== ENCOUNTER → 2021-05-14 | Day surgery (SDC) | payer OTHER | END | disposition home or self-care (01) | LOC: JRADIR 08:34 | PROVIDERS: ATTEND Internal Medicine Hematology & Oncology | PROC: 4A043B0 Measurement of Venous Pressure, Central, Percutaneous Approach (ICD-10-PCS; principal; 2021-05-14) | DX: C20 Malignant neoplasm of rectum (principal) | CPT/HCPCS: 36598 ==

== ENCOUNTER 2021-05-19 06:43 | Day surgery (SDC) | payer OTHER ==
[2021-05-19] MEDS ORDERED: SODIUM CHLORIDE 250 ML IV ONE (09:00)
[2021-05-19 09:01] LABS: BASO % 1.6 % (0-2.0); EOS % 7.9 % (0-4.5); HEMATOCRIT 36.9 % (35.4-49); HEMOGLOBIN 12.4 GM/dL (11.7-16.9); LYMPH % 14.6 % (8-40); MCH 34.4 pg (25.7-33.7); MCHC 33.8 g/dl (32.0-35.9); MEAN CELL VOLUME 101.9 fl (80-96); MEAN PLT VOLUME 8.1 fl (7.5-11.1); MONO % 19.7 % (3.8-10.2); NEUT % 56.2 % (42.8-82.8); PLATELET COUNT 172 10^3/uL (134-434); RBC 3.62 M/mm3 (4.00-5.60); RDW 17.1 % (11.9-15.9)
[2021-05-19 09:27] LABS: ALBUMIN 3.9 g/dl (3.4-5.0); BLOOD UREA NITROGEN 21.5 mg/dL (7-18); CALCIUM 8.9 mg/dL (8.5-10.1)
[2021-05-19 09:28] LABS: MAGNESIUM 2.1 mg/dL (1.8-2.4)
[2021-05-19 09:30] LABS: BILIRUBIN,DIRECT 0.2 mg/dL (0.0-0.2)
[2021-05-19] MEDS ORDERED: ATROPINE SO4 0.4 MG/1 ML VIAL IVPUSH ONE (09:30)
[2021-05-19] MEDS ORDERED: DEXAMETHASONE SODIUM PHOSPHATE 6 MG in SODIUM CHLORIDE 50 ML IVPB ONE (09:30)
[2021-05-19] MEDS ORDERED: PALONOSETRON HCL 0.25 MG/5 ML VIAL IVPUSH ONE (09:30)
[2021-05-19 09:32] LABS: BILIRUBIN,TOTAL 0.7 mg/dL (0.2-1); CREATININE 0.9 mg/dL (0.55-1.3); TOT PROT 7.4 g/dl (6.4-8.2)
[2021-05-19] MEDS ORDERED: BEVACIZUMAB AWWB IVPB ONE (10:00)
[2021-05-19] MEDS ORDERED: SODIUM CHLORIDE IVPB ONE (10:00)
[2021-05-19] MEDS ORDERED: LEUCOVORIN INJECTION - 852 MG in DEXTROSE 5%-WATER - 250 ML IVPB ONE (10:30)
[2021-05-19] MEDS ORDERED: IRINOTECAN HCL 380 MG in DEXTROSE 5%-WATER - 500 ML IVPB ONE (10:30)
[2021-05-19 10:37] LABS: ANISOCYTOSIS 1+; MACROCYTOSIS 1+; PLATELET ESTIMATE NORMAL
[2021-05-19] MEDS ORDERED: FLUOROURACIL 500 MG/10 ML VIAL IVPUSH ONE (12:00)
[2021-05-19] MEDS ORDERED: FLUOROURACIL 5,100 MG in SODIUM CHLORIDE 3.8 ML CP ONE (12:15)
[2021-05-19 16:24] VITALS: BP 117/63; PULSE 72; TEMP 97.6
== END 2021-05-19 14:00 | disposition home or self-care (01) ==
LOC: JONCNONCHE 06:43
PROVIDERS: ATTEND Internal Medicine Hematology & Oncology
DX: Z51.11 Encounter for antineoplastic chemotherapy (principal); C20 Malignant neoplasm of rectum
CPT/HCPCS: 36415; 80048; 80076; 83735; 84156; 85025; 96361; 96367; 96375; 96411; 96413; 96417; G0498; J2469; J9190; J9206; Q5107

== ENCOUNTER 2021-05-21 07:10 | Day surgery (SDC) | payer OTHER ==
[2021-05-21] MEDS ORDERED: SODIUM CHLORIDE IV ONE (10:00)
[2021-05-21] MEDS ORDERED: POTASSIUM CHLORIDE IV ONE (10:00)
[2021-05-21] MEDS ORDERED: MAGNESIUM SULFATE IV ONE (10:00)
[2021-05-21 18:47] VITALS: BP 116/64; PULSE 72; TEMP 97.9
[2021-05-21] MEDS ORDERED: PORTA CATH FLUSH 10 ML IVPUSH ONE (18:47)
== END 2021-05-21 14:00 | disposition home or self-care (01) ==
LOC: JONCNONCHE 07:10
PROVIDERS: ATTEND Nurse Practitioner Family
PROC: 3E0337Z Introduction of Electrolytic and Water Balance Substance into Peripheral Vein, Percutaneous Approach (ICD-10-PCS; principal; 2021-05-21)
DX: Z76.89 Persons encountering health services in other specified circumstances (principal); C20 Malignant neoplasm of rectum; E11.9 Type 2 diabetes mellitus without complications; I10 Essential (primary) hypertension; E78.00 Pure hypercholesterolemia, unspecified
CPT/HCPCS: 96360

== ENCOUNTER 2021-06-02 06:49 | Day surgery (SDC) | payer OTHER ==
[2021-06-02 08:56] LABS: BASO % 1.1 % (0-2.0); EOS % 8.7 % (0-4.5); HEMATOCRIT 36.8 % (35.4-49); HEMOGLOBIN 12.5 GM/dL (11.7-16.9); LYMPH % 13.3 % (8-40); MCH 34.7 pg (25.7-33.7); MEAN CELL VOLUME 101.9 fl (80-96); MEAN PLT VOLUME 7.7 fl (7.5-11.1); MONO % 14.5 % (3.8-10.2); NEUT % 62.4 % (42.8-82.8); PLATELET COUNT 150 10^3/uL (134-434); RBC 3.61 M/mm3 (4.00-5.60); RDW 15.4 % (11.9-15.9); WHITE BLOOD COUNT 4.5 K/mm3 (4.0-10.0)
[2021-06-02] MEDS ORDERED: SODIUM CHLORIDE 250 ML IV ONE (09:00)
[2021-06-02 09:18] LABS: ALBUMIN 3.7 g/dl (3.4-5.0); BLOOD UREA NITROGEN 24.9 mg/dL (7-18); MAGNESIUM 2.3 mg/dL (1.8-2.4)
[2021-06-02 09:20] LABS: BILIRUBIN,DIRECT 0.2 mg/dL (0.0-0.2)
[2021-06-02 09:21] LABS: CREATININE 0.9 mg/dL (0.55-1.3)
[2021-06-02 09:22] LABS: BILIRUBIN,TOTAL 0.5 mg/dL (0.2-1); TOT PROT 7.4 g/dl (6.4-8.2)
[2021-06-02] MEDS ORDERED: DEXAMETHASONE SODIUM PHOSPHATE 6 MG in SODIUM CHLORIDE 50 ML IVPB ONE (09:30)
[2021-06-02] MEDS ORDERED: ATROPINE SO4 0.4 MG/1 ML VIAL IVPUSH ONE (09:30)
[2021-06-02] MEDS ORDERED: PALONOSETRON HCL 0.25 MG/5 ML VIAL IVPUSH ONE (09:30)
[2021-06-02] MEDS ORDERED: SODIUM CHLORIDE IVPB ONE (10:00)
[2021-06-02] MEDS ORDERED: BEVACIZUMAB AWWB IVPB ONE (10:00)
[2021-06-02] MEDS ORDERED: IRINOTECAN HCL IVPB ONE (10:30)
[2021-06-02] MEDS ORDERED: WATER IVPB ONE (10:30)
[2021-06-02] MEDS ORDERED: DEXTROSE 5% IVPB ONE (10:30)
[2021-06-02] MEDS ORDERED: LEUCOVORIN INJECTION - 856 MG in DEXTROSE 5%-WATER - 250 ML IVPB ONE (10:30)
[2021-06-02] MEDS ORDERED: FLUOROURACIL 500 MG/10 ML VIAL IVPUSH ONE (12:00)
[2021-06-02] MEDS ORDERED: FLUOROURACIL CP ONE (12:15)
[2021-06-02] MEDS ORDERED: SODIUM CHLORIDE CP ONE (12:15)
[2021-06-03 08:29] VITALS: BP 116/53; PULSE 78; TEMP 97.8
== END 2021-06-02 13:50 | disposition home or self-care (01) ==
LOC: JONCCHEMO 06:49
PROVIDERS: ATTEND Internal Medicine Hematology & Oncology
DX: Z51.11 Encounter for antineoplastic chemotherapy (principal); C20 Malignant neoplasm of rectum
CPT/HCPCS: 36415; 80048; 80076; 83735; 85025; 96361; 96367; 96375; 96411; 96413; G0498; J2469; J9190; J9206; Q5107

== ENCOUNTER 2021-06-04 06:47 | Day surgery (SDC) | payer OTHER ==
[2021-06-04] MEDS ORDERED: SODIUM CHLORIDE IV ONE (10:00)
[2021-06-04] MEDS ORDERED: POTASSIUM CHLORIDE IV ONE (10:00)
[2021-06-04] MEDS ORDERED: MAGNESIUM SULFATE IV ONE (10:00)
[2021-06-04 15:06] VITALS: PULSE 86; TEMP 98.4
[2021-06-04 15:11] VITALS: BP 116/64
== END 2021-06-04 13:20 | disposition home or self-care (01) ==
LOC: JONCNONCHE 06:47
PROVIDERS: ATTEND Internal Medicine Hematology & Oncology
DX: C20 Malignant neoplasm of rectum (principal); Z76.89 Persons encountering health services in other specified circumstances
CPT/HCPCS: 96360

== ENCOUNTER 2021-06-17 06:54 | Day surgery (SDC) | payer OTHER ==
[2021-06-17 08:50] LABS: HEMATOCRIT 30.6 % (35.4-49); HEMOGLOBIN 10.8 GM/dL (11.7-16.9); MCH 34.9 pg (25.7-33.7); MCHC 35.4 g/dl (32.0-35.9); MEAN CELL VOLUME 98.5 fl (80-96); MEAN PLT VOLUME 7.5 fl (7.5-11.1); PLATELET COUNT 162 10^3/uL (134-434); RBC 3.11 M/mm3 (4.00-5.60); RDW 15.2 % (11.9-15.9); WHITE BLOOD COUNT 2.2 K/mm3 (4.0-10.0)
[2021-06-17] MEDS ORDERED: SODIUM CHLORIDE 250 ML IV ONE (09:00)
[2021-06-17 09:15] LABS: CALCIUM 8.5 mg/dL (8.5-10.1)
[2021-06-17 09:16] LABS: ALBUMIN 3.3 g/dl (3.4-5.0); BLOOD UREA NITROGEN 24.5 mg/dL (7-18)
[2021-06-17 09:19] LABS: BILIRUBIN,DIRECT 0.2 mg/dL (0.0-0.2)
[2021-06-17 09:20] LABS: BILIRUBIN,TOTAL 0.5 mg/dL (0.2-1); TOT PROT 6.7 g/dl (6.4-8.2)
[2021-06-17 09:51] LABS: ANISOCYTOSIS 0; HELMET CELLS 0; HOWELL-JOLLY BODIES 0; MACROCYTOSIS 0; OVALOCYTE 0; PLATELET ESTIMATE NORMAL; ROULEAU 0; SICKELED CELLS 0; TARGET CELLS 0; TEAR DROP CELLS 0; TOXIC GRANULATION 0
[2021-06-17] MEDS ORDERED: PALONOSETRON HCL 0.25 MG/5 ML VIAL IVPUSH ONE (10:00)
[2021-06-17] MEDS ORDERED: ATROPINE SO4 0.4 MG/1 ML VIAL IVPUSH ONE (10:00)
[2021-06-17] MEDS ORDERED: TBO-FILGRASTIM 480 MCG/0.8 ML DISP.SYRIN SQ ONE (10:00)
[2021-06-17] MEDS ORDERED: DEXAMETHASONE SODIUM PHOSPHATE 6 MG in SODIUM CHLORIDE 50 ML IVPB ONE (10:00)
[2021-06-17] MEDS ORDERED: SODIUM CHLORIDE IVPB ONE (10:30)
[2021-06-17] MEDS ORDERED: BEVACIZUMAB AWWB IVPB ONE (10:30)
[2021-06-17] MEDS ORDERED: LEUCOVORIN INJECTION - 856 MG in DEXTROSE 5%-WATER - 250 ML IVPB ONE (11:00)
[2021-06-17] MEDS ORDERED: DEXTROSE 5% IVPB ONE (11:30)
[2021-06-17] MEDS ORDERED: IRINOTECAN HCL IVPB ONE (11:30)
[2021-06-17] MEDS ORDERED: WATER IVPB ONE (11:30)
[2021-06-17] MEDS ORDERED: SODIUM CHLORIDE CP ONE (13:00)
[2021-06-17] MEDS ORDERED: FLUOROURACIL 2,500 MG/50 ML VIAL IVPUSH ONE (13:00)
[2021-06-17] MEDS ORDERED: FLUOROURACIL CP ONE (13:00)
[2021-06-17] MEDS ORDERED: PORTA CATH FLUSH 10 ML IVPUSH ONE (16:54)
[2021-06-17 16:55] VITALS: BP 107/66; PULSE 79; TEMP 98.2
== END 2021-06-17 11:20 | disposition home or self-care (01) ==
LOC: JONCCHEMO 06:54
PROVIDERS: ATTEND Internal Medicine Hematology & Oncology
PROC: 3E013GC Introduction of Other Therapeutic Substance into Subcutaneous Tissue, Percutaneous Approach (ICD-10-PCS; principal; 2021-06-17)
PROC: 3E0337Z Introduction of Electrolytic and Water Balance Substance into Peripheral Vein, Percutaneous Approach (ICD-10-PCS; 2021-06-17)
DX: Z76.89 Persons encountering health services in other specified circumstances (principal); C20 Malignant neoplasm of rectum
CPT/HCPCS: 36415; 80048; 80076; 82378; 83735; 84156; 85025; 96360; 96372; J1447

== ENCOUNTER 2021-06-18 08:00 | Day surgery (SDC) | payer OTHER ==
[2021-06-18] MEDS ORDERED: TBO-FILGRASTIM 480 MCG/0.8 ML DISP.SYRIN SQ ONE (10:00)
[2021-06-18 16:54] VITALS: BP 117/71; PULSE 82; TEMP 98.4
== END 2021-06-18 11:05 | disposition home or self-care (01) ==
LOC: JONCCHEMO 08:00
PROVIDERS: ATTEND Internal Medicine Hematology & Oncology
PROC: 3E013GC Introduction of Other Therapeutic Substance into Subcutaneous Tissue, Percutaneous Approach (ICD-10-PCS; principal; 2021-06-18)
DX: Z76.89 Persons encountering health services in other specified circumstances (principal); C20 Malignant neoplasm of rectum
CPT/HCPCS: 96372; J1447

== ENCOUNTER 2021-06-23 07:36 | Day surgery (SDC) | payer OTHER ==
[2021-06-23] MEDS ORDERED: SODIUM CHLORIDE 250 ML IV ONE (09:00)
[2021-06-23 09:05] VITALS: BP 111/66; PULSE 73; TEMP 98
[2021-06-23 09:09] LABS: HEMATOCRIT 35.5 % (35.4-49); HEMOGLOBIN 12.1 GM/dL (11.7-16.9); MCH 34.2 pg (25.7-33.7); MEAN CELL VOLUME 100.5 fl (80-96); MEAN PLT VOLUME 8.9 fl (7.5-11.1); PLATELET COUNT 138 10^3/uL (134-434); RBC 3.54 M/mm3 (4.00-5.60); RDW 15.5 % (11.9-15.9); WHITE BLOOD COUNT 6.6 K/mm3 (4.0-10.0)
[2021-06-23 09:22] LABS: ALBUMIN 3.6 g/dl (3.4-5.0); BLOOD UREA NITROGEN 16.6 mg/dL (7-18); MAGNESIUM 1.8 mg/dL (1.8-2.4)
[2021-06-23 09:25] LABS: BILIRUBIN,DIRECT 0.2 mg/dL (0.0-0.2); CREATININE 0.8 mg/dL (0.55-1.3)
[2021-06-23 09:27] LABS: BILIRUBIN,TOTAL 0.5 mg/dL (0.2-1); TOT PROT 7.4 g/dl (6.4-8.2)
[2021-06-23 09:59] LABS: ANISOCYTOSIS 1+; MACROCYTOSIS 1+; PLATELET ESTIMATE DECREASED
[2021-06-23] MEDS ORDERED: ATROPINE SO4 0.4 MG/1 ML VIAL IVPUSH ONE (10:00)
[2021-06-23] MEDS ORDERED: PALONOSETRON HCL 0.25 MG/5 ML VIAL IVPUSH ONE (10:00)
[2021-06-23] MEDS ORDERED: DEXAMETHASONE SODIUM PHOSPHATE 6 MG in SODIUM CHLORIDE 50 ML IVPB ONE (10:00)
[2021-06-23] MEDS ORDERED: BEVACIZUMAB AWWB IVPB ONE (10:30)
[2021-06-23] MEDS ORDERED: SODIUM CHLORIDE IVPB ONE (10:30)
[2021-06-23] MEDS ORDERED: LEUCOVORIN INJECTION - 856 MG in DEXTROSE 5%-WATER - 250 ML IVPB ONE (11:00)
[2021-06-23] MEDS ORDERED: WATER IVPB ONE (11:30)
[2021-06-23] MEDS ORDERED: IRINOTECAN HCL IVPB ONE (11:30)
[2021-06-23] MEDS ORDERED: DEXTROSE 5% IVPB ONE (11:30)
[2021-06-23] MEDS ORDERED: FLUOROURACIL CP ONE (13:00)
[2021-06-23] MEDS ORDERED: FLUOROURACIL 500 MG/10 ML VIAL IVPUSH ONE (13:00)
[2021-06-23] MEDS ORDERED: SODIUM CHLORIDE CP ONE (13:00)
[2021-06-23] MEDS ORDERED: PORTA CATH FLUSH 10 ML IVPUSH ONE (17:42)
== END 2021-06-23 15:00 | disposition home or self-care (01) ==
LOC: JONCCHEMO 07:36
PROVIDERS: ATTEND Internal Medicine Hematology & Oncology
DX: Z51.11 Encounter for antineoplastic chemotherapy (principal); C20 Malignant neoplasm of rectum
CPT/HCPCS: 36415; 80048; 80076; 83735; 84156; 85025; 96361; 96366; 96367; 96375; 96411; 96413; 96415; 96417; G0498; J2469; J9190; J9206; Q5107

== ENCOUNTER 2021-06-25 07:06 | Day surgery (SDC) | payer OTHER ==
[2021-06-25] MEDS ORDERED: SODIUM CHLORIDE IVPB ONE (10:00)
[2021-06-25] MEDS ORDERED: POTASSIUM CHLORIDE IVPB ONE (10:00)
[2021-06-25] MEDS ORDERED: MAGNESIUM SULFATE IVPB ONE (10:00)
[2021-06-25 17:09] VITALS: BP 108/65; PULSE 84; TEMP 98.6
[2021-06-25] MEDS ORDERED: PORTA CATH FLUSH 10 ML IVPUSH ONE (17:09)
== END 2021-06-25 12:20 | disposition home or self-care (01) ==
LOC: JONCNONCHE 07:06
PROVIDERS: ATTEND Internal Medicine Hematology & Oncology
PROC: 3E0437Z Introduction of Electrolytic and Water Balance Substance into Central Vein, Percutaneous Approach (ICD-10-PCS; principal; 2021-06-25)
DX: C20 Malignant neoplasm of rectum (principal); Z76.89 Persons encountering health services in other specified circumstances
CPT/HCPCS: 96360

== ENCOUNTER 2021-07-07 07:20 | Day surgery (SDC) | payer OTHER ==
[2021-07-07 08:20] LABS: BASO % 1.9 % (0-2.0); EOS % 10.8 % (0-4.5); HEMATOCRIT 34.9 % (35.4-49); HEMOGLOBIN 11.8 GM/dL (11.7-16.9); LYMPH % 12.4 % (8-40); MCH 34.2 pg (25.7-33.7); MEAN CELL VOLUME 100.7 fl (80-96); MEAN PLT VOLUME 7.4 fl (7.5-11.1); MONO % 8.2 % (3.8-10.2); NEUT % 66.7 % (42.8-82.8); PLATELET COUNT 207 10^3/uL (134-434); RBC 3.46 M/mm3 (4.00-5.60); WHITE BLOOD COUNT 4.6 K/mm3 (4.0-10.0)
[2021-07-07 08:41] LABS: ALBUMIN 3.5 g/dl (3.4-5.0); BLOOD UREA NITROGEN 20.4 mg/dL (7-18); CALCIUM 8.8 mg/dL (8.5-10.1); MAGNESIUM 1.9 mg/dL (1.8-2.4)
[2021-07-07 08:44] LABS: BILIRUBIN,DIRECT 0.2 mg/dL (0.0-0.2)
[2021-07-07 08:45] LABS: CREATININE 0.9 mg/dL (0.55-1.3)
[2021-07-07 08:46] LABS: BILIRUBIN,TOTAL 0.5 mg/dL (0.2-1); TOT PROT 7.3 g/dl (6.4-8.2)
[2021-07-07] MEDS ORDERED: SODIUM CHLORIDE 250 ML IV ONE (09:00)
[2021-07-07] MEDS ORDERED: DEXAMETHASONE SODIUM PHOSPHATE 6 MG in SODIUM CHLORIDE 50 ML IVPB ONE (09:30)
[2021-07-07] MEDS ORDERED: ATROPINE SO4 0.4 MG/1 ML VIAL IVPUSH ONE (09:30)
[2021-07-07] MEDS ORDERED: PALONOSETRON HCL 0.25 MG/5 ML VIAL IVPUSH ONE (09:30)
[2021-07-07] MEDS ORDERED: BEVACIZUMAB AWWB IVPB ONE (10:00)
[2021-07-07] MEDS ORDERED: SODIUM CHLORIDE IVPB ONE (10:00)
[2021-07-07] MEDS ORDERED: LEUCOVORIN INJECTION - 856 MG in DEXTROSE 5%-WATER - 250 ML IVPB ONE (10:30)
[2021-07-07] MEDS ORDERED: DEXTROSE 5% IVPB ONE (10:30)
[2021-07-07] MEDS ORDERED: WATER IVPB ONE (10:30)
[2021-07-07] MEDS ORDERED: IRINOTECAN HCL IVPB ONE (10:30)
[2021-07-07] MEDS ORDERED: FLUOROURACIL 500 MG/10 ML VIAL IVPUSH ONE (12:00)
[2021-07-07] MEDS ORDERED: SODIUM CHLORIDE CP ONE (12:15)
[2021-07-07] MEDS ORDERED: FLUOROURACIL CP ONE (12:15)
[2021-07-07 17:00] VITALS: TEMP 97.2
[2021-07-07 17:01] VITALS: BP 115/68; PULSE 78
== END 2021-07-07 13:50 | disposition home or self-care (01) ==
LOC: JONCCHEMO 07:20
PROVIDERS: ATTEND Internal Medicine Hematology & Oncology
DX: Z51.11 Encounter for antineoplastic chemotherapy (principal); C20 Malignant neoplasm of rectum
CPT/HCPCS: 36415; 80048; 80076; 83735; 84156; 85025; 96361; 96411; 96413; 96417; G0498; J2469; J9190; J9206; Q5107

== ENCOUNTER 2021-07-09 07:46 | Day surgery (SDC) | payer OTHER ==
[2021-07-09] MEDS ORDERED: SODIUM CHLORIDE IVPB ONE (10:00)
[2021-07-09] MEDS ORDERED: POTASSIUM CHLORIDE IVPB ONE (10:00)
[2021-07-09] MEDS ORDERED: MAGNESIUM SULFATE IVPB ONE (10:00)
[2021-07-09 17:17] VITALS: TEMP 97.9
[2021-07-09 17:22] VITALS: BP 127/72; PULSE 59
[2021-07-09] MEDS ORDERED: PORTA CATH FLUSH 10 ML IVPUSH ONE (17:22)
== END 2021-07-09 13:30 | disposition home or self-care (01) ==
LOC: JONCNONCHE 07:46
PROVIDERS: ATTEND Internal Medicine Hematology & Oncology
PROC: 3E0437Z Introduction of Electrolytic and Water Balance Substance into Central Vein, Percutaneous Approach (ICD-10-PCS; principal; 2021-07-09)
DX: C20 Malignant neoplasm of rectum (principal); Z76.89 Persons encountering health services in other specified circumstances
CPT/HCPCS: 96360

== ENCOUNTER 2021-07-21 06:55 | Day surgery (SDC) | payer OTHER ==
[2021-07-21] MEDS ORDERED: PROCHLORPERAZINE INJECTION 10 MG/2 ML VIAL IVPB ONE (08:48)
[2021-07-21 08:55] LABS: BASO % 1.5 % (0-2.0); EOS % 3.5 % (0-4.5); HEMATOCRIT 32.7 % (35.4-49); HEMOGLOBIN 11.1 GM/dL (11.7-16.9); LYMPH % 20.1 % (8-40); MCH 34.2 pg (25.7-33.7); MEAN CELL VOLUME 100.7 fl (80-96); MEAN PLT VOLUME 8.3 fl (7.5-11.1); MONO % 17.1 % (3.8-10.2); NEUT % 57.8 % (42.8-82.8); PLATELET COUNT 159 10^3/uL (134-434); RBC 3.24 M/mm3 (4.00-5.60); RDW 15.9 % (11.9-15.9); WHITE BLOOD COUNT 2.4 K/mm3 (4.0-10.0)
[2021-07-21] MEDS ORDERED: SODIUM CHLORIDE 250 ML IV ONE (09:00)
[2021-07-21 09:23] LABS: ALBUMIN 3.3 g/dl (3.4-5.0); BLOOD UREA NITROGEN 18.9 mg/dL (7-18); CALCIUM 8.8 mg/dL (8.5-10.1); MAGNESIUM 1.8 mg/dL (1.8-2.4)
[2021-07-21 09:26] LABS: BILIRUBIN,DIRECT 0.2 mg/dL (0.0-0.2); CREATININE 0.9 mg/dL (0.55-1.3)
[2021-07-21 09:28] LABS: BILIRUBIN,TOTAL 0.5 mg/dL (0.2-1)
[2021-07-21] MEDS ORDERED: DEXAMETHASONE SODIUM PHOSPHATE 6 MG in SODIUM CHLORIDE 50 ML IVPB ONE (09:30)
[2021-07-21] MEDS ORDERED: ATROPINE SO4 0.4 MG/1 ML VIAL IVPUSH ONE (09:30)
[2021-07-21] MEDS ORDERED: PALONOSETRON HCL 0.25 MG/5 ML VIAL IVPUSH ONE (09:30)
[2021-07-21] MEDS ORDERED: TBO-FILGRASTIM 480 MCG/0.8 ML DISP.SYRIN SQ ONE (09:33)
[2021-07-21] MEDS ORDERED: SODIUM CHLORIDE IVPB ONE (10:00)
[2021-07-21] MEDS ORDERED: BEVACIZUMAB AWWB IVPB ONE (10:00)
[2021-07-21] MEDS ORDERED: IRINOTECAN HCL 380 MG in DEXTROSE 5%-WATER - 500 ML IVPB ONE (10:30)
[2021-07-21] MEDS ORDERED: LEUCOVORIN INJECTION - 852 MG in DEXTROSE 5%-WATER - 250 ML IVPB ONE (10:30)
[2021-07-21] MEDS ORDERED: FLUOROURACIL 500 MG/10 ML VIAL IVPUSH ONE (12:00)
[2021-07-21] MEDS ORDERED: FLUOROURACIL 5,100 MG in SODIUM CHLORIDE 3.8 ML CP ONE (12:15)
[2021-07-21 17:37] VITALS: BP 121/68; PULSE 76; TEMP 98.3
== END 2021-07-21 11:25 | disposition home or self-care (01) ==
LOC: JONCCHEMO 06:55
PROVIDERS: ATTEND Internal Medicine Hematology & Oncology
PROC: 3E013GC Introduction of Other Therapeutic Substance into Subcutaneous Tissue, Percutaneous Approach (ICD-10-PCS; principal; 2021-07-21)
DX: C19 Malignant neoplasm of rectosigmoid junction (principal); C78.7 Secondary malignant neoplasm of liver and intrahepatic bile duct; E11.9 Type 2 diabetes mellitus without complications; Z79.4 Long term (current) use of insulin; Z76.89 Persons encountering health services in other specified circumstances
CPT/HCPCS: 36415; 80048; 80076; 83735; 84156; 85025; 96372; J1447

== ENCOUNTER 2021-07-28 07:31 | Day surgery (SDC) | payer OTHER ==
[2021-07-28 08:28] LABS: HEMATOCRIT 36.1 % (35.4-49); HEMOGLOBIN 12.3 GM/dL (11.7-16.9); MCH 34.3 pg (25.7-33.7); MCHC 34.1 g/dl (32.0-35.9); MEAN CELL VOLUME 100.4 fl (80-96); PLATELET COUNT 136 10^3/uL (134-434); RDW 16.1 % (11.9-15.9); WHITE BLOOD COUNT 5.8 K/mm3 (4.0-10.0)
[2021-07-28 08:47] LABS: ALBUMIN 3.6 g/dl (3.4-5.0); BLOOD UREA NITROGEN 21.9 mg/dL (7-18); CALCIUM 9.5 mg/dL (8.5-10.1); MAGNESIUM 1.6 mg/dL (1.8-2.4)
[2021-07-28 08:49] LABS: ADD RBC MORPHOLOGY YES; BILIRUBIN,DIRECT 0.2 mg/dL (0.0-0.2)
[2021-07-28 08:50] LABS: CREATININE 0.9 mg/dL (0.55-1.3)
[2021-07-28 08:51] LABS: BILIRUBIN,TOTAL 0.4 mg/dL (0.2-1); TOT PROT 7.3 g/dl (6.4-8.2)
[2021-07-28] MEDS ORDERED: SODIUM CHLORIDE 250 ML IV ONE (09:00)
[2021-07-28] MEDS ORDERED: MAGNESIUM SULF 50% (8.12 MEQ/2 ML-1 GM VIAL) IVPB ONE (09:23)
[2021-07-28] MEDS ORDERED: MAGNESIUM SULFATE IN WATER 2 GM/50 ML IVPB IVPB ONE (09:30)
[2021-07-28] MEDS ORDERED: PALONOSETRON HCL 0.25 MG/5 ML VIAL IVPUSH ONE (09:30)
[2021-07-28] MEDS ORDERED: DEXAMETHASONE SODIUM PHOSPHATE 6 MG in SODIUM CHLORIDE 50 ML IVPB ONE (09:30)
[2021-07-28] MEDS ORDERED: ATROPINE SO4 0.4 MG/1 ML VIAL IVPUSH ONE (09:30)
[2021-07-28] MEDS ORDERED: PROCHLORPERAZINE INJECTION 10 MG/2 ML VIAL IVPB ONE (09:45)
[2021-07-28] MEDS ORDERED: BEVACIZUMAB AWWB IVPB ONE (10:00)
[2021-07-28] MEDS ORDERED: SODIUM CHLORIDE IVPB ONE (10:00)
[2021-07-28] MEDS ORDERED: IRINOTECAN HCL 380 MG in DEXTROSE 5%-WATER - 500 ML IVPB ONE (10:30)
[2021-07-28] MEDS ORDERED: LEUCOVORIN INJECTION - 852 MG in DEXTROSE 5%-WATER - 250 ML IVPB ONE (10:30)
[2021-07-28 11:25] LABS: ANISOCYTOSIS 0; MACROCYTOSIS 0; PLATELET ESTIMATE DECREASED; TEAR DROP CELLS 1+
[2021-07-28] MEDS ORDERED: FLUOROURACIL 500 MG/10 ML VIAL IVPUSH ONE (12:00)
[2021-07-28] MEDS ORDERED: FLUOROURACIL 5,100 MG in SODIUM CHLORIDE 3.8 ML CP ONE (12:15)
[2021-07-28 15:49] VITALS: BP 127/72; PULSE 76; TEMP 98.1
== END 2021-07-28 14:55 | disposition home or self-care (01) ==
LOC: JONCCHEMO 07:31
PROVIDERS: ATTEND Internal Medicine Hematology & Oncology
DX: Z51.11 Encounter for antineoplastic chemotherapy (principal); C19 Malignant neoplasm of rectosigmoid junction; C78.7 Secondary malignant neoplasm of liver and intrahepatic bile duct; E11.9 Type 2 diabetes mellitus without complications; Z79.4 Long term (current) use of insulin
CPT/HCPCS: 36415; 80048; 80076; 83735; 85025; 96361; 96366; 96367; 96375; 96411; 96413; 96415; 96417; G0498; J2469; J9190; J9206; Q5107

== ENCOUNTER 2021-07-30 07:43 | Day surgery (SDC) | payer OTHER ==
[2021-07-30] MEDS ORDERED: MAGNESIUM SULFATE IVPB ONE (10:00)
[2021-07-30] MEDS ORDERED: SODIUM CHLORIDE IVPB ONE (10:00)
[2021-07-30] MEDS ORDERED: POTASSIUM CHLORIDE IVPB ONE (10:00)
[2021-07-30 19:12] VITALS: BP 125/72
[2021-07-30 19:13] VITALS: PULSE 59; TEMP 98
== END 2021-07-30 14:45 | disposition home or self-care (01) ==
LOC: JONCNONCHE 07:43
PROVIDERS: ATTEND Internal Medicine Hematology & Oncology
PROC: 3E0437Z Introduction of Electrolytic and Water Balance Substance into Central Vein, Percutaneous Approach (ICD-10-PCS; principal; 2021-07-30)
DX: C19 Malignant neoplasm of rectosigmoid junction (principal); Z76.89 Persons encountering health services in other specified circumstances
CPT/HCPCS: 96360

== ENCOUNTER → 2021-08-11 | Day surgery (SDC) | payer OTHER ==
[~2021-08-11] MED LIST changes: +DEXTROSE 5% IVPB ONE; -FLUOROURACIL 5,100 MG in SODIUM CHLORIDE 3.8 ML CP ONE; +FLUOROURACIL CP ONE; -IRINOTECAN HCL 380 MG in DEXTROSE 5%-WATER - 500 ML IVPB ONE; +IRINOTECAN HCL IVPB ONE; -LEUCOVORIN INJECTION - 852 MG in DEXTROSE 5%-WATER - 250 ML IVPB ONE; +LEUCOVORIN INJECTION - 856 MG in DEXTROSE 5%-WATER - 250 ML IVPB ONE; +PROCHLORPERAZINE INJECTION 10 MG/2 ML VIAL IVPB ONE; +SODIUM CHLORIDE CP ONE; +WATER IVPB ONE
[2021-08-11 08:41] LABS: BASO % 0.9 % (0-2.0); HEMATOCRIT 34.4 % (35.4-49); HEMOGLOBIN 11.6 GM/dL (11.7-16.9); LYMPH % 12.3 % (8-40); MCH 33.8 pg (25.7-33.7); MCHC 33.9 g/dl (32.0-35.9); MEAN CELL VOLUME 99.9 fl (80-96); MEAN PLT VOLUME 7.5 fl (7.5-11.1); MONO % 9.6 % (3.8-10.2); NEUT % 70.2 % (42.8-82.8); PLATELET COUNT 186 10^3/uL (134-434); RBC 3.44 M/mm3 (4.00-5.60); RDW 16.3 % (11.9-15.9); WHITE BLOOD COUNT 4.5 K/mm3 (4.0-10.0)
[2021-08-11 08:58] LABS: CALCIUM 9.3 mg/dL (8.5-10.1)
[2021-08-11 08:59] LABS: ALBUMIN 3.3 g/dl (3.4-5.0); BLOOD UREA NITROGEN 25.9 mg/dL (7-18)
[2021-08-11 09:02] LABS: BILIRUBIN,DIRECT 0.2 mg/dL (0.0-0.2)
[2021-08-11 09:04] LABS: BILIRUBIN,TOTAL 0.6 mg/dL (0.2-1); TOT PROT 6.9 g/dl (6.4-8.2)
[2021-08-11 09:23] LABS: MAGNESIUM 1.9 mg/dL (1.8-2.4)
== END | disposition home or self-care (01) ==
LOC: JONCCHEMO 07:08
PROVIDERS: ATTEND Internal Medicine Hematology & Oncology
DX: Z53.8 Procedure and treatment not carried out for other reasons (principal)
CPT/HCPCS: 36415; 80048; 80076; 83735; 84156; 85025; 96365

== ENCOUNTER 2021-08-12 07:02 | Day surgery (SDC) | payer OTHER ==
[2021-08-12] MEDS ORDERED: SODIUM CHLORIDE 250 ML IV ONE (09:30)
[2021-08-12] MEDS ORDERED: PALONOSETRON HCL 0.25 MG/5 ML VIAL IVPUSH ONE (10:00)
[2021-08-12] MEDS ORDERED: DEXAMETHASONE SODIUM PHOSPHATE 6 MG in SODIUM CHLORIDE 50 ML IVPB ONE (10:00)
[2021-08-12] MEDS ORDERED: ATROPINE SO4 0.4 MG/1 ML VIAL IVPUSH ONE (10:00)
[2021-08-12] MEDS ORDERED: PROCHLORPERAZINE INJECTION 10 MG/2 ML VIAL IVPB ONE (10:00)
[2021-08-12] MEDS ORDERED: SODIUM CHLORIDE IVPB ONE (10:30)
[2021-08-12] MEDS ORDERED: BEVACIZUMAB AWWB IVPB ONE (10:30)
[2021-08-12] MEDS ORDERED: LEUCOVORIN INJECTION - 856 MG in DEXTROSE 5%-WATER - 250 ML IVPB ONE (11:00)
[2021-08-12] MEDS ORDERED: IRINOTECAN HCL IVPB ONE (11:00)
[2021-08-12] MEDS ORDERED: DEXTROSE 5% IVPB ONE (11:00)
[2021-08-12] MEDS ORDERED: WATER IVPB ONE (11:00)
[2021-08-12] MEDS ORDERED: FLUOROURACIL 500 MG/10 ML VIAL IVPUSH ONE (12:30)
[2021-08-12] MEDS ORDERED: SODIUM CHLORIDE CP ONE (12:45)
[2021-08-12] MEDS ORDERED: FLUOROURACIL CP ONE (12:45)
[2021-08-12 17:53] VITALS: TEMP 97.8
[2021-08-12 17:55] VITALS: BP 99/54; PULSE 73
== END 2021-08-12 14:00 | disposition home or self-care (01) ==
LOC: JONCCHEMO 07:02
PROVIDERS: ATTEND Internal Medicine Hematology & Oncology
DX: Z51.11 Encounter for antineoplastic chemotherapy (principal); C19 Malignant neoplasm of rectosigmoid junction
CPT/HCPCS: 96367; 96375; 96411; 96413; 96417; G0498; J2469; J9190; J9206; Q5107

== ENCOUNTER 2021-08-14 08:09 | Day surgery (SDC) | payer OTHER ==
[2021-08-14] MEDS ORDERED: SODIUM CHLORIDE IV ONE (10:00)
[2021-08-14] MEDS ORDERED: POTASSIUM CHLORIDE IV ONE (10:00)
[2021-08-14] MEDS ORDERED: MAGNESIUM SULFATE IV ONE (10:00)
[2021-08-14 16:38] VITALS: TEMP 98
[2021-08-15 10:50] VITALS: BP 116/62; PULSE 61
== END 2021-08-14 14:10 | disposition home or self-care (01) ==
LOC: JONCNONCHE 08:09
PROVIDERS: ATTEND Internal Medicine Hematology & Oncology
PROC: 3E0437Z Introduction of Electrolytic and Water Balance Substance into Central Vein, Percutaneous Approach (ICD-10-PCS; principal; 2021-08-14)
DX: C19 Malignant neoplasm of rectosigmoid junction (principal); Z76.89 Persons encountering health services in other specified circumstances
CPT/HCPCS: 96360

== ENCOUNTER 2021-08-25 07:23 | Day surgery (SDC) | payer OTHER ==
[2021-08-25 08:52] LABS: BASO % 1.3 % (0-2.0); EOS % 3.7 % (0-4.5); HEMATOCRIT 33.9 % (35.4-49); HEMOGLOBIN 11.6 GM/dL (11.7-16.9); MCH 34.1 pg (25.7-33.7); MCHC 34.2 g/dl (32.0-35.9); MEAN CELL VOLUME 99.9 fl (80-96); MEAN PLT VOLUME 7.6 fl (7.5-11.1); MONO % 12.8 % (3.8-10.2); NEUT % 63.2 % (42.8-82.8); PLATELET COUNT 179 10^3/uL (134-434); RBC 3.39 M/mm3 (4.00-5.60); WHITE BLOOD COUNT 3.1 K/mm3 (4.0-10.0)
[2021-08-25] MEDS ORDERED: SODIUM CHLORIDE 250 ML IV ONE (09:00)
[2021-08-25 09:30] LABS: ALBUMIN 3.6 g/dl (3.4-5.0); BLOOD UREA NITROGEN 18.8 mg/dL (7-18)
[2021-08-25 09:33] LABS: BILIRUBIN,DIRECT 0.2 mg/dL (0.0-0.2); CREATININE 0.9 mg/dL (0.55-1.3)
[2021-08-25 09:35] LABS: BILIRUBIN,TOTAL 0.5 mg/dL (0.2-1); TOT PROT 7.1 g/dl (6.4-8.2)
[2021-08-25] MEDS ORDERED: DEXAMETHASONE SODIUM PHOSPHATE 6 MG in SODIUM CHLORIDE 50 ML IVPB ONE (10:00)
[2021-08-25] MEDS ORDERED: PALONOSETRON HCL 0.25 MG/5 ML VIAL IVPUSH ONE (10:00)
[2021-08-25] MEDS ORDERED: ATROPINE SO4 0.4 MG/1 ML VIAL IVPUSH ONE (10:00)
[2021-08-25] MEDS ORDERED: PROCHLORPERAZINE INJECTION 10 MG/2 ML VIAL IVPB ONE (10:00)
[2021-08-25] MEDS ORDERED: BEVACIZUMAB AWWB IVPB ONE (10:30)
[2021-08-25] MEDS ORDERED: SODIUM CHLORIDE IVPB ONE (10:30)
[2021-08-25] MEDS ORDERED: LEUCOVORIN INJECTION - 856 MG in DEXTROSE 5%-WATER - 250 ML IVPB ONE (11:00)
[2021-08-25] MEDS ORDERED: IRINOTECAN HCL IVPB ONE (11:30)
[2021-08-25] MEDS ORDERED: WATER IVPB ONE (11:30)
[2021-08-25] MEDS ORDERED: DEXTROSE 5% IVPB ONE (11:30)
[2021-08-25] MEDS ORDERED: FLUOROURACIL 2,500 MG/50 ML VIAL IVPUSH ONE (13:00)
[2021-08-25] MEDS ORDERED: SODIUM CHLORIDE CP ONE (13:15)
[2021-08-25] MEDS ORDERED: FLUOROURACIL CP ONE (13:15)
[2021-08-25 17:11] VITALS: TEMP 97.7
[2021-08-25 17:12] VITALS: BP 97/54; PULSE 79
[2021-08-27 14:11] LABS: TOTAL PROTEIN, URINE <4.0 mg/dL (Not Estab.)
== END 2021-08-25 16:00 | disposition home or self-care (01) ==
LOC: JONCCHEMO 07:23
PROVIDERS: ATTEND Internal Medicine Hematology & Oncology
DX: Z51.11 Encounter for antineoplastic chemotherapy (principal); C19 Malignant neoplasm of rectosigmoid junction
CPT/HCPCS: 36415; 80048; 80076; 83735; 84156; 84157; 85025; 96361; 96367; 96375; 96411; 96413; 96415; 96417; G0498; J2469; J9206; Q5107

== ENCOUNTER 2021-08-27 08:36 | Day surgery (SDC) | payer OTHER ==
[2021-08-27] MEDS ORDERED: MAGNESIUM SULFATE IVPB ONE (10:00)
[2021-08-27] MEDS ORDERED: SODIUM CHLORIDE IVPB ONE (10:00)
[2021-08-27] MEDS ORDERED: POTASSIUM CHLORIDE IVPB ONE (10:00)
[2021-08-27] MEDS ORDERED: PORTA CATH FLUSH 10 ML IVPUSH ONE (13:45)
[2021-08-27 13:46] VITALS: TEMP 98.3
[2021-08-27 13:48] VITALS: BP 100/57; PULSE 69
== END 2021-08-27 14:00 | disposition home or self-care (01) ==
LOC: JONCNONCHE 08:36
PROVIDERS: ATTEND Internal Medicine Hematology & Oncology
PROC: 3E0437Z Introduction of Electrolytic and Water Balance Substance into Central Vein, Percutaneous Approach (ICD-10-PCS; principal; 2021-08-27)
DX: C19 Malignant neoplasm of rectosigmoid junction (principal); Z76.89 Persons encountering health services in other specified circumstances
CPT/HCPCS: 96360

== ENCOUNTER 2021-09-08 07:16 | Day surgery (SDC) | payer OTHER ==
[2021-09-08 08:53] LABS: BASO % 1.8 % (0-2.0); EOS % 4.3 % (0-4.5); HEMATOCRIT 34.5 % (35.4-49); HEMOGLOBIN 11.7 GM/dL (11.7-16.9); LYMPH % 21.2 % (8-40); MCH 34.3 pg (25.7-33.7); MEAN CELL VOLUME 100.8 fl (80-96); MONO % 19.4 % (3.8-10.2); NEUT % 53.3 % (42.8-82.8); PLATELET COUNT 177 10^3/uL (134-434); RBC 3.42 M/mm3 (4.00-5.60); RDW 16.6 % (11.9-15.9); WHITE BLOOD COUNT 2.6 K/mm3 (4.0-10.0)
[2021-09-08 09:12] LABS: CALCIUM 9.1 mg/dL (8.5-10.1)
[2021-09-08 09:13] LABS: ALBUMIN 3.6 g/dl (3.4-5.0); BLOOD UREA NITROGEN 15.9 mg/dL (7-18); MAGNESIUM 2.1 mg/dL (1.8-2.4)
[2021-09-08 09:15] LABS: BILIRUBIN,DIRECT 0.2 mg/dL (0.0-0.2)
[2021-09-08 09:16] LABS: CREATININE 0.9 mg/dL (0.55-1.3)
[2021-09-08 09:17] LABS: BILIRUBIN,TOTAL 0.7 mg/dL (0.2-1); TOT PROT 7.1 g/dl (6.4-8.2)
[2021-09-08] MEDS ORDERED: TBO-FILGRASTIM 480 MCG/0.8 ML DISP.SYRIN SQ ONE (09:40)
[2021-09-08] MEDS ORDERED: SODIUM CHLORIDE 250 ML IV ONE (10:00)
[2021-09-08] MEDS ORDERED: ATROPINE SO4 0.4 MG/1 ML VIAL IVPUSH ONE (10:30)
[2021-09-08] MEDS ORDERED: PROCHLORPERAZINE INJECTION 10 MG/2 ML VIAL IVPB ONE (10:30)
[2021-09-08] MEDS ORDERED: PALONOSETRON HCL 0.25 MG/5 ML VIAL IVPUSH ONE (10:30)
[2021-09-08] MEDS ORDERED: DEXAMETHASONE SODIUM PHOSPHATE 6 MG in SODIUM CHLORIDE 50 ML IVPB ONE (10:30)
[2021-09-08] MEDS ORDERED: SODIUM CHLORIDE IVPB ONE (11:00)
[2021-09-08] MEDS ORDERED: BEVACIZUMAB AWWB IVPB ONE (11:00)
[2021-09-08] MEDS ORDERED: IRINOTECAN HCL IVPB ONE (11:30)
[2021-09-08] MEDS ORDERED: LEUCOVORIN INJECTION - 856 MG in DEXTROSE 5%-WATER - 250 ML IVPB ONE (11:30)
[2021-09-08] MEDS ORDERED: WATER IVPB ONE (11:30)
[2021-09-08] MEDS ORDERED: DEXTROSE 5% IVPB ONE (11:30)
[2021-09-08] MEDS ORDERED: FLUOROURACIL 2,500 MG/50 ML VIAL IVPUSH ONE (13:00)
[2021-09-08] MEDS ORDERED: FLUOROURACIL CP ONE (13:15)
[2021-09-08] MEDS ORDERED: SODIUM CHLORIDE CP ONE (13:15)
[2021-09-08 16:25] VITALS: BP 107/63; PULSE 77; TEMP 97.7
== END 2021-09-08 10:30 | disposition home or self-care (01) ==
LOC: JONCCHEMO 07:16
PROVIDERS: ATTEND Internal Medicine Hematology & Oncology
PROC: 3E013GC Introduction of Other Therapeutic Substance into Subcutaneous Tissue, Percutaneous Approach (ICD-10-PCS; principal; 2021-09-08)
DX: C19 Malignant neoplasm of rectosigmoid junction (principal); Z76.89 Persons encountering health services in other specified circumstances
CPT/HCPCS: 36415; 80048; 80076; 82378; 83735; 84156; 85025; 96372; J1447

== ENCOUNTER 2021-09-09 07:31 | Day surgery (SDC) | payer OTHER ==
[2021-09-09 09:38] LABS: HEMATOCRIT 34.1 % (35.4-49); HEMOGLOBIN 11.6 GM/dL (11.7-16.9); MCH 34.2 pg (25.7-33.7); MCHC 34.1 g/dl (32.0-35.9); MEAN CELL VOLUME 100.4 fl (80-96); MEAN PLT VOLUME 7.6 fl (7.5-11.1); PLATELET COUNT 152 10^3/uL (134-434); RBC 3.39 M/mm3 (4.00-5.60); WHITE BLOOD COUNT 5.3 K/mm3 (4.0-10.0)
[2021-09-09] MEDS ORDERED: SODIUM CHLORIDE 250 ML IV ONE (10:00)
[2021-09-09 10:20] LABS: ANISOCYTOSIS 0; MACROCYTOSIS 0; PLATELET ESTIMATE DECREASED
[2021-09-09] MEDS ORDERED: PROCHLORPERAZINE INJECTION 10 MG/2 ML VIAL IVPB ONE (10:30)
[2021-09-09] MEDS ORDERED: PALONOSETRON HCL 0.25 MG/5 ML VIAL IVPUSH ONE (10:30)
[2021-09-09] MEDS ORDERED: ATROPINE SO4 0.4 MG/1 ML VIAL IVPUSH ONE (10:30)
[2021-09-09] MEDS ORDERED: DEXAMETHASONE SODIUM PHOSPHATE 6 MG in SODIUM CHLORIDE 50 ML IVPB ONE (10:30)
[2021-09-09] MEDS ORDERED: BEVACIZUMAB AWWB IVPB ONE ×3 (11:00→12:30)
[2021-09-09] MEDS ORDERED: SODIUM CHLORIDE IVPB ONE ×3 (11:00→12:30)
[2021-09-09] MEDS ORDERED: IRINOTECAN HCL IVPB ONE ×2 (11:30→13:00)
[2021-09-09] MEDS ORDERED: WATER IVPB ONE ×4 (11:30→13:00)
[2021-09-09] MEDS ORDERED: DEXTROSE 5% IVPB ONE ×4 (11:30→13:00)
[2021-09-09] MEDS ORDERED: LEUCOVORIN INJECTION - 856 MG in DEXTROSE 5%-WATER - 250 ML IVPB ONE (11:30)
[2021-09-09] MEDS ORDERED: LEUCOVORIN IVPB ONE ×2 (12:15→13:00)
[2021-09-09] MEDS ORDERED: FLUOROURACIL 2,500 MG/50 ML VIAL IVPUSH ONE (13:00)
[2021-09-09] MEDS ORDERED: FLUOROURACIL 5,100 MG in SODIUM CHLORIDE 3.8 ML CP ONE (13:15)
[2021-09-09 15:51] VITALS: TEMP 98.2
[2021-09-09 16:01] VITALS: BP 129/73; PULSE 91
== END 2021-09-09 16:01 | disposition home or self-care (01) ==
LOC: JONCCHEMO 07:31
PROVIDERS: ATTEND Internal Medicine Hematology & Oncology
DX: Z51.11 Encounter for antineoplastic chemotherapy (principal); C19 Malignant neoplasm of rectosigmoid junction
CPT/HCPCS: 36415; 85025; 96366; 96367; 96375; 96413; 96415; 96417; G0498; J2469; J9206; Q5107

== ENCOUNTER 2021-09-11 07:47 | Day surgery (SDC) | payer OTHER ==
[2021-09-11] MEDS ORDERED: SODIUM CHLORIDE IVPB ONE (10:00)
[2021-09-11] MEDS ORDERED: MAGNESIUM SULFATE IVPB ONE (10:00)
[2021-09-11] MEDS ORDERED: POTASSIUM CHLORIDE IVPB ONE (10:00)
[2021-09-11 16:40] VITALS: TEMP 98
[2021-09-11 16:43] VITALS: BP 110/67; PULSE 66
== END 2021-09-11 14:00 | disposition home or self-care (01) ==
LOC: JONCCHEMO 07:47
PROVIDERS: ATTEND Internal Medicine Hematology & Oncology
DX: C19 Malignant neoplasm of rectosigmoid junction (principal); Z76.89 Persons encountering health services in other specified circumstances
CPT/HCPCS: 96360

== ENCOUNTER 2021-09-12 11:45 | Day surgery (SDC) | payer OTHER ==
[~2021-09-12 11:45] MED LIST changes: -ATROPINE SO4 0.4 MG/1 ML VIAL IVPUSH ONE; -BEVACIZUMAB AWWB IVPB ONE; -DEXAMETHASONE SODIUM PHOSPHATE 6 MG in SODIUM CHLORIDE 50 ML IVPB ONE; -DEXTROSE 5% IVPB ONE; -FLUOROURACIL 500 MG/10 ML VIAL IVPUSH ONE; -FLUOROURACIL CP ONE; -IRINOTECAN HCL IVPB ONE; -LEUCOVORIN INJECTION - 856 MG in DEXTROSE 5%-WATER - 250 ML IVPB ONE; -PALONOSETRON HCL 0.25 MG/5 ML VIAL IVPUSH ONE; -PROCHLORPERAZINE INJECTION 10 MG/2 ML VIAL IVPB ONE; -SODIUM CHLORIDE 250 ML IV ONE; -SODIUM CHLORIDE CP ONE; -SODIUM CHLORIDE IVPB ONE; +TBO-FILGRASTIM 480 MCG/0.8 ML DISP.SYRIN SQ ONE; -WATER IVPB ONE
[2021-09-12 16:13] VITALS: BP 101/57; PULSE 75; TEMP 98
== END 2021-09-12 12:00 | disposition home or self-care (01) ==
LOC: JONCCHEMO 11:45
PROVIDERS: ATTEND Internal Medicine Hematology & Oncology
PROC: 3E013GC Introduction of Other Therapeutic Substance into Subcutaneous Tissue, Percutaneous Approach (ICD-10-PCS; principal; 2021-09-12)
DX: C19 Malignant neoplasm of rectosigmoid junction (principal); Z76.89 Persons encountering health services in other specified circumstances
CPT/HCPCS: 96372; J1447

== ENCOUNTER 2021-09-22 07:00 | Day surgery (SDC) | payer OTHER ==
[2021-09-22 08:36] LABS: HEMATOCRIT 32.5 % (35.4-49); HEMOGLOBIN 11.1 GM/dL (11.7-16.9); MCHC 34.1 g/dl (32.0-35.9); MEAN CELL VOLUME 99.7 fl (80-96); MEAN PLT VOLUME 7.3 fl (7.5-11.1); PLATELET COUNT 201 10^3/uL (134-434); RBC 3.26 M/mm3 (4.00-5.60); RDW 16.6 % (11.9-15.9); WHITE BLOOD COUNT 2.1 K/mm3 (4.0-10.0)
[2021-09-22] MEDS ORDERED: TBO-FILGRASTIM 480 MCG/0.8 ML DISP.SYRIN SQ ONE (08:53)
[2021-09-22 09:02] LABS: ALBUMIN 3.3 g/dl (3.4-5.0); BLOOD UREA NITROGEN 21.2 mg/dL (7-18); CALCIUM 9.2 mg/dL (8.5-10.1)
[2021-09-22 09:04] LABS: BILIRUBIN,DIRECT 0.2 mg/dL (0.0-0.2)
[2021-09-22 09:06] LABS: CREATININE 1.1 mg/dL (0.55-1.3); TOT PROT 7.1 g/dl (6.4-8.2)
[2021-09-22 09:09] LABS: BILIRUBIN,TOTAL 0.6 mg/dL (0.2-1)
[2021-09-22] MEDS ORDERED: SODIUM CHLORIDE 250 ML IV ONE (10:00)
[2021-09-22] MEDS ORDERED: DEXAMETHASONE SODIUM PHOSPHATE 6 MG in SODIUM CHLORIDE 50 ML IVPB ONE (10:30)
[2021-09-22] MEDS ORDERED: PROCHLORPERAZINE INJECTION 10 MG/2 ML VIAL IVPB ONE (10:30)
[2021-09-22] MEDS ORDERED: PALONOSETRON HCL 0.25 MG/5 ML VIAL IVPUSH ONE (10:30)
[2021-09-22] MEDS ORDERED: ATROPINE SO4 0.4 MG/1 ML VIAL IVPUSH ONE (10:30)
[2021-09-22] MEDS ORDERED: BEVACIZUMAB AWWB IVPB ONE (11:00)
[2021-09-22] MEDS ORDERED: SODIUM CHLORIDE IVPB ONE (11:00)
[2021-09-22] MEDS ORDERED: IRINOTECAN HCL 380 MG in DEXTROSE 5%-WATER - 500 ML IVPB ONE (11:30)
[2021-09-22] MEDS ORDERED: LEUCOVORIN INJECTION - 852 MG in DEXTROSE 5%-WATER - 250 ML IVPB ONE (11:30)
[2021-09-22 12:14] LABS: ANISOCYTOSIS 2+; MACROCYTOSIS 1+; OVALOCYTE 1+; PLATELET ESTIMATE NORMAL; TEAR DROP CELLS 1+
[2021-09-22] MEDS ORDERED: FLUOROURACIL 2,500 MG/50 ML VIAL IVPUSH ONE (13:00)
[2021-09-22] MEDS ORDERED: FLUOROURACIL 5,100 MG in SODIUM CHLORIDE 3.8 ML CP ONE (13:15)
[2021-09-22 17:12] VITALS: BP 120/61; PULSE 90; TEMP 98
[2021-09-25 15:08] LABS: TOTAL PROTEIN, URINE 7.1 mg/dL (Not Estab.)
== END 2021-09-22 09:45 | disposition home or self-care (01) ==
LOC: JONCCHEMO 07:00
PROVIDERS: ATTEND Internal Medicine Hematology & Oncology
PROC: 3E013GC Introduction of Other Therapeutic Substance into Subcutaneous Tissue, Percutaneous Approach (ICD-10-PCS; principal; 2021-09-22)
DX: C19 Malignant neoplasm of rectosigmoid junction (principal); Z76.89 Persons encountering health services in other specified circumstances
CPT/HCPCS: 36415; 80048; 80076; 83735; 84156; 84157; 85025; 96372; J1447

== ENCOUNTER 2021-09-23 07:44 | Day surgery (SDC) | payer OTHER ==
[2021-09-23] MEDS ORDERED: TBO-FILGRASTIM 480 MCG/0.8 ML DISP.SYRIN SQ ONE (08:00)
[2021-09-23 16:47] VITALS: BP 123/69; PULSE 88; TEMP 98.3
== END 2021-09-23 08:40 | disposition home or self-care (01) ==
LOC: JONCCHEMO 07:44
PROVIDERS: ATTEND Internal Medicine Hematology & Oncology
PROC: 3E013GC Introduction of Other Therapeutic Substance into Subcutaneous Tissue, Percutaneous Approach (ICD-10-PCS; principal; 2021-09-23)
DX: C19 Malignant neoplasm of rectosigmoid junction (principal); Z76.89 Persons encountering health services in other specified circumstances
CPT/HCPCS: 96372; J1447

== ENCOUNTER 2021-09-24 07:02 | Day surgery (SDC) | payer OTHER ==
[2021-09-24 08:35] LABS: HEMATOCRIT 31.6 % (35.4-49); HEMOGLOBIN 10.7 GM/dL (11.7-16.9); MCH 34.1 pg (25.7-33.7); MCHC 33.9 g/dl (32.0-35.9); MEAN CELL VOLUME 100.4 fl (80-96); MEAN PLT VOLUME 7.9 fl (7.5-11.1); PLATELET COUNT 184 10^3/uL (134-434); RBC 3.15 M/mm3 (4.00-5.60); WHITE BLOOD COUNT 18.7 K/mm3 (4.0-10.0)
[2021-09-24] MEDS ORDERED: SODIUM CHLORIDE 250 ML IV ONE (10:00)
[2021-09-24] MEDS ORDERED: ATROPINE SO4 0.4 MG/1 ML VIAL IVPUSH ONE (10:30)
[2021-09-24] MEDS ORDERED: PALONOSETRON HCL 0.25 MG/5 ML VIAL IVPUSH ONE (10:30)
[2021-09-24] MEDS ORDERED: PROCHLORPERAZINE INJECTION 10 MG/2 ML VIAL IVPB ONE (10:30)
[2021-09-24] MEDS ORDERED: DEXAMETHASONE SODIUM PHOSPHATE 6 MG in SODIUM CHLORIDE 50 ML IVPB ONE (10:30)
[2021-09-24 10:45] LABS: ANISOCYTOSIS 1+; MACROCYTOSIS 1+; PLATELET ESTIMATE NORMAL
[2021-09-24] MEDS ORDERED: SODIUM CHLORIDE IVPB ONE (11:00)
[2021-09-24] MEDS ORDERED: BEVACIZUMAB AWWB IVPB ONE (11:00)
[2021-09-24] MEDS ORDERED: LEUCOVORIN INJECTION - 852 MG in DEXTROSE 5%-WATER - 250 ML IVPB ONE (11:30)
[2021-09-24] MEDS ORDERED: IRINOTECAN HCL 380 MG in DEXTROSE 5%-WATER - 500 ML IVPB ONE (11:30)
[2021-09-24] MEDS ORDERED: FLUOROURACIL 2,500 MG/50 ML VIAL IVPUSH ONE (13:00)
[2021-09-24] MEDS ORDERED: FLUOROURACIL 5,100 MG in SODIUM CHLORIDE 3.8 ML CP ONE (13:15)
[2021-09-24 17:16] VITALS: TEMP 98.7
[2021-09-24 18:00] VITALS: BP 103/51; PULSE 69
[2021-09-24] MEDS ORDERED: PORTA CATH FLUSH 10 ML IVPUSH ONE ×2 (18:00→18:15)
== END 2021-09-24 15:40 | disposition home or self-care (01) ==
LOC: JONCNONCHE 07:02
PROVIDERS: ATTEND Internal Medicine Hematology & Oncology
DX: Z51.11 Encounter for antineoplastic chemotherapy (principal); C19 Malignant neoplasm of rectosigmoid junction
CPT/HCPCS: 36415; 85025; 96361; 96366; 96367; 96375; 96411; 96413; 96417; G0498; J2469; J9206; Q5107

== ENCOUNTER 2021-09-26 07:25 | Day surgery (SDC) | payer OTHER ==
[2021-09-26] MEDS ORDERED: POTASSIUM CHLORIDE IV ONE (12:30)
[2021-09-26] MEDS ORDERED: SODIUM CHLORIDE IV ONE (12:30)
[2021-09-26] MEDS ORDERED: MAGNESIUM SULFATE IV ONE (12:30)
[2021-09-26 16:34] VITALS: BP 139/79; PULSE 69; TEMP 97.9
== END 2021-09-26 14:00 | disposition home or self-care (01) ==
LOC: JONCNONCHE 07:25
PROVIDERS: ATTEND Internal Medicine Hematology & Oncology
PROC: 3E0437Z Introduction of Electrolytic and Water Balance Substance into Central Vein, Percutaneous Approach (ICD-10-PCS; principal; 2021-09-26)
DX: C19 Malignant neoplasm of rectosigmoid junction (principal); Z76.89 Persons encountering health services in other specified circumstances
CPT/HCPCS: 96360

== ENCOUNTER 2021-10-28 08:16 | Day surgery (SDC) | payer OTHER ==
[2021-10-28 09:57] LABS: BASO % 1.3 % (0-2.0); EOS % 9.5 % (0-4.5); HEMATOCRIT 36.3 % (35.4-49); HEMOGLOBIN 11.7 GM/dL (11.7-16.9); LYMPH % 10.7 % (8-40); MCHC 32.3 g/dl (32.0-35.9); MEAN CELL VOLUME 99.1 fl (80-96); MEAN PLT VOLUME 8.6 fl (7.5-11.1); MONO % 10.9 % (3.8-10.2); NEUT % 67.6 % (42.8-82.8); PLATELET COUNT 233 10^3/uL (134-434); RBC 3.66 M/mm3 (4.00-5.60); RDW 16.3 % (11.9-15.9); WHITE BLOOD COUNT 7.7 K/mm3 (4.0-10.0)
[2021-10-28] MEDS ORDERED: SODIUM CHLORIDE 250 ML IV ONE (10:00)
[2021-10-28 10:29] LABS: CALCIUM 9.2 mg/dL (8.5-10.1)
[2021-10-28 10:30] LABS: ALBUMIN 3.7 g/dl (3.4-5.0); BLOOD UREA NITROGEN 22.6 mg/dL (7-18); MAGNESIUM 1.7 mg/dL (1.8-2.4)
[2021-10-28] MEDS ORDERED: DEXAMETHASONE SODIUM PHOSPHATE 6 MG in SODIUM CHLORIDE 50 ML IVPB ONE (10:30)
[2021-10-28] MEDS ORDERED: PROCHLORPERAZINE INJECTION 10 MG/2 ML VIAL IVPB ONE (10:30)
[2021-10-28] MEDS ORDERED: PALONOSETRON HCL 0.25 MG/5 ML VIAL IVPUSH ONE (10:30)
[2021-10-28] MEDS ORDERED: ATROPINE SO4 0.4 MG/1 ML VIAL IVPUSH ONE (10:30)
[2021-10-28 10:32] LABS: BILIRUBIN,DIRECT 0.2 mg/dL (0.0-0.2)
[2021-10-28 10:33] LABS: BILIRUBIN,TOTAL 0.6 mg/dL (0.2-1); TOT PROT 7.1 g/dl (6.4-8.2)
[2021-10-28] MEDS ORDERED: MAGNESIUM SULF 50% (8.12 MEQ/2 ML-1 GM VIAL) IVPB ONE (10:33)
[2021-10-28] MEDS ORDERED: MAGNESIUM SULFATE IN WATER 2 GM/50 ML IVPB IVPB ONE (11:00)
[2021-10-28] MEDS ORDERED: SODIUM CHLORIDE IVPB ONE (11:00)
[2021-10-28] MEDS ORDERED: BEVACIZUMAB AWWB IVPB ONE (11:00)
[2021-10-28] MEDS ORDERED: LEUCOVORIN INJECTION - 876 MG in DEXTROSE 5%-WATER - 250 ML IVPB ONE (11:30)
[2021-10-28] MEDS ORDERED: IRINOTECAN HCL IVPB ONE (11:30)
[2021-10-28] MEDS ORDERED: WATER IVPB ONE (11:30)
[2021-10-28] MEDS ORDERED: DEXTROSE 5% IVPB ONE (11:30)
[2021-10-28] MEDS ORDERED: FLUOROURACIL 2,500 MG/50 ML VIAL IVPUSH ONE (13:00)
[2021-10-28] MEDS ORDERED: FLUOROURACIL CP ONE (13:10)
[2021-10-28] MEDS ORDERED: SODIUM CHLORIDE CP ONE (13:10)
[2021-10-28 17:44] VITALS: BP 99/49; PULSE 77; TEMP 97.8
== END 2021-10-28 17:00 | disposition home or self-care (01) ==
LOC: JONCCHEMO 08:16
PROVIDERS: ATTEND Internal Medicine Hematology & Oncology
DX: Z51.11 Encounter for antineoplastic chemotherapy (principal); C19 Malignant neoplasm of rectosigmoid junction
CPT/HCPCS: 36415; 80048; 80076; 83735; 84156; 85025; 96361; 96366; 96367; 96375; 96413; 96415; 96417; G0498; J2469; J9206; Q5107

== ENCOUNTER 2021-10-30 07:56 | Day surgery (SDC) | payer OTHER ==
[2021-10-30] MEDS ORDERED: MAGNESIUM SULFATE IN WATER 2 GM/50 ML IVPB IVPB ONE (10:00)
[2021-10-30] MEDS ORDERED: SODIUM CHLORIDE 500 ML IV ONE (10:00)
[2021-10-30] MEDS ORDERED: KCL 10 MEQ IVPB 10 MEQ/100 ML INFUS.BAG IVPB ONE (10:00)
[2021-10-30 16:20] VITALS: BP 144/76; PULSE 72; TEMP 98.1
== END 2021-10-30 16:20 | disposition home or self-care (01) ==
LOC: JONCNONCHE 07:56
PROVIDERS: ATTEND Internal Medicine Hematology & Oncology
PROC: 3E043GC Introduction of Other Therapeutic Substance into Central Vein, Percutaneous Approach (ICD-10-PCS; principal; 2021-10-30)
PROC: 3E043GC Introduction of Other Therapeutic Substance into Central Vein, Percutaneous Approach (ICD-10-PCS; 2021-10-30)
DX: C19 Malignant neoplasm of rectosigmoid junction (principal); Z76.89 Persons encountering health services in other specified circumstances
CPT/HCPCS: 96365; 96367

== ENCOUNTER → 2021-11-10 | Day surgery (SDC) | payer OTHER ==
[~2021-11-10] MED LIST changes: +ATROPINE SO4 0.4 MG/1 ML VIAL IVPUSH ONE; +BEVACIZUMAB AWWB IVPB ONE; +DEXAMETHASONE SODIUM PHOSPHATE 6 MG in SODIUM CHLORIDE 50 ML IVPB ONE; +FLUOROURACIL 2,500 MG/50 ML VIAL IVPUSH ONE; +FLUOROURACIL CP ONE; +IRINOTECAN HCL 380 MG in DEXTROSE 5%-WATER - 500 ML IVPB ONE; +LEUCOVORIN INJECTION - 848 MG in DEXTROSE 5%-WATER - 250 ML IVPB ONE; +PALONOSETRON HCL 0.25 MG/5 ML VIAL IVPUSH ONE; +PROCHLORPERAZINE INJECTION 10 MG/2 ML VIAL IVPB ONE; +SODIUM CHLORIDE 250 ML IV ONE; +SODIUM CHLORIDE CP ONE; +SODIUM CHLORIDE IVPB ONE; -TBO-FILGRASTIM 480 MCG/0.8 ML DISP.SYRIN SQ ONE
[2021-11-10 10:03] LABS: HEMATOCRIT 34.2 % (35.4-49); HEMOGLOBIN 11.5 GM/dL (11.7-16.9); MCH 32.7 pg (25.7-33.7); MCHC 33.6 g/dl (32.0-35.9); MEAN CELL VOLUME 97.2 fl (80-96); MEAN PLT VOLUME 7.5 fl (7.5-11.1); PLATELET COUNT 167 10^3/uL (134-434); RBC 3.52 M/mm3 (4.00-5.60); RDW 15.7 % (11.9-15.9); WHITE BLOOD COUNT 3.4 K/mm3 (4.0-10.0)
[2021-11-10 10:24] LABS: CALCIUM 9.2 mg/dL (8.5-10.1)
[2021-11-10 10:25] LABS: ALBUMIN 3.5 g/dl (3.4-5.0); BLOOD UREA NITROGEN 14.3 mg/dL (7-18); MAGNESIUM 1.6 mg/dL (1.8-2.4)
[2021-11-10 10:27] LABS: BILIRUBIN,DIRECT 0.2 mg/dL (0.0-0.2)
[2021-11-10 10:29] LABS: BILIRUBIN,TOTAL 0.6 mg/dL (0.2-1); TOT PROT 7.6 g/dl (6.4-8.2)
[2021-11-10 10:31] LABS: ANISOCYTOSIS 0; HELMET CELLS 0; HOWELL-JOLLY BODIES 0; MACROCYTOSIS 0; OVALOCYTE 0; PLATELET ESTIMATE NORMAL; ROULEAU 0; SICKELED CELLS 0; TARGET CELLS 0; TEAR DROP CELLS 0; TOXIC GRANULATION 0
== END | disposition home or self-care (01) ==
LOC: JONCCHEMO 07:51
PROVIDERS: ATTEND Internal Medicine Hematology & Oncology
DX: Z53.8 Procedure and treatment not carried out for other reasons (principal)
CPT/HCPCS: 36415; 80048; 80076; 83735; 84156; 85025

== ENCOUNTER 2021-11-24 06:50 | Day surgery (SDC) | payer OTHER ==
[2021-11-24 08:43] LABS: EOS % 1.8 % (0-4.5); HEMATOCRIT 36.8 % (35.4-49); HEMOGLOBIN 11.9 GM/dL (11.7-16.9); LYMPH % 13.4 % (8-40); MCHC 32.3 g/dl (32.0-35.9); MEAN CELL VOLUME 98.9 fl (80-96); MEAN PLT VOLUME 8.4 fl (7.5-11.1); MONO % 10.1 % (3.8-10.2); NEUT % 72.6 % (42.8-82.8); PLATELET COUNT 207 10^3/uL (134-434); RBC 3.72 M/mm3 (4.00-5.60); RDW 16.3 % (11.9-15.9); WHITE BLOOD COUNT 5.8 K/mm3 (4.0-10.0)
[2021-11-24 08:44] LABS: BASO % 2.1 % (0-2.0)
[2021-11-24 08:52] LABS: BLOOD UREA NITROGEN 15.8 mg/dL (7-18); CALCIUM 9.6 mg/dL (8.5-10.1)
[2021-11-24 08:53] LABS: ALBUMIN 3.7 g/dl (3.4-5.0)
[2021-11-24 08:56] LABS: CREATININE 0.9 mg/dL (0.55-1.3)
[2021-11-24 08:57] LABS: BILIRUBIN,DIRECT 0.2 mg/dL (0.0-0.2)
[2021-11-24 08:58] LABS: BILIRUBIN,TOTAL 0.6 mg/dL (0.2-1); TOT PROT 7.5 g/dl (6.4-8.2)
[2021-11-24] MEDS ORDERED: SODIUM CHLORIDE 250 ML IV ONE (09:00)
[2021-11-24] MEDS ORDERED: ATROPINE SO4 0.4 MG/1 ML VIAL IVPUSH ONE (10:00)
[2021-11-24] MEDS ORDERED: PALONOSETRON HCL 0.25 MG/5 ML VIAL IVPUSH ONE (10:00)
[2021-11-24] MEDS ORDERED: DEXAMETHASONE SODIUM PHOSPHATE IVPB ONE (10:00)
[2021-11-24] MEDS ORDERED: [UNRECOGNIZED DRUG - OTHER] IVPB ONE (10:00)
[2021-11-24] MEDS ORDERED: PROCHLORPERAZINE IVPB ONE (10:00)
[2021-11-24] MEDS ORDERED: SODIUM CHLORIDE IVPB ONE (10:30)
[2021-11-24] MEDS ORDERED: BEVACIZUMAB AWWB IVPB ONE (10:30)
[2021-11-24] MEDS ORDERED: LEUCOVORIN INJECTION - 848 MG in DEXTROSE 5%-WATER - 250 ML IVPB ONE (11:00)
[2021-11-24] MEDS ORDERED: IRINOTECAN HCL 380 MG in DEXTROSE 5%-WATER - 500 ML IVPB ONE (11:30)
[2021-11-24] MEDS ORDERED: SODIUM CHLORIDE CP ONE (13:00)
[2021-11-24] MEDS ORDERED: FLUOROURACIL 2,500 MG/50 ML VIAL IVPUSH ONE (13:00)
[2021-11-24] MEDS ORDERED: FLUOROURACIL CP ONE (13:00)
[2021-11-24 16:18] VITALS: TEMP 97.9
[2021-11-24] MEDS ORDERED: PORTA CATH FLUSH 10 ML IVPUSH ONE (16:18)
[2021-11-25 07:50] VITALS: BP 106/47; PULSE 61
== END 2021-11-24 16:30 | disposition home or self-care (01) ==
LOC: JONCCHEMO 06:50
PROVIDERS: ATTEND Internal Medicine Hematology & Oncology
PROC: 3E04305 Introduction of Other Antineoplastic into Central Vein, Percutaneous Approach (ICD-10-PCS; principal; 2021-11-24)
PROC: 3E04305 Introduction of Other Antineoplastic into Central Vein, Percutaneous Approach (ICD-10-PCS; 2021-11-24)
PROC: 3E043GC Introduction of Other Therapeutic Substance into Central Vein, Percutaneous Approach (ICD-10-PCS; 2021-11-24)
PROC: 3E0437Z Introduction of Electrolytic and Water Balance Substance into Central Vein, Percutaneous Approach (ICD-10-PCS; 2021-11-24)
DX: Z51.11 Encounter for antineoplastic chemotherapy (principal); C20 Malignant neoplasm of rectum
CPT/HCPCS: 36415; 80048; 80076; 82378; 83735; 84156; 85025; 96361; 96366; 96367; 96375; 96413; 96417; G0498; J2469; J9206; Q5107

== ENCOUNTER 2021-11-26 08:28 | Day surgery (SDC) | payer OTHER ==
[2021-11-26] MEDS ORDERED: KCL 10 MEQ IVPB 10 MEQ/100 ML INFUS.BAG IVPB ONE (13:00)
[2021-11-26] MEDS ORDERED: MAGNESIUM SULFATE IN WATER 2 GM/50 ML IVPB IVPB ONE (13:00)
[2021-11-26] MEDS ORDERED: SODIUM CHLORIDE 500 ML IV ONE (13:00)
[2021-11-26 16:08] VITALS: TEMP 98
[2021-11-26 16:17] VITALS: BP 124/70; PULSE 65
[2021-11-26] MEDS ORDERED: PORTA CATH FLUSH 10 ML IVPUSH ONE (16:17)
== END 2021-11-26 14:15 | disposition home or self-care (01) ==
LOC: JONCNONCHE 08:28
PROVIDERS: ATTEND Internal Medicine Hematology & Oncology
PROC: 3E033GC Introduction of Other Therapeutic Substance into Peripheral Vein, Percutaneous Approach (ICD-10-PCS; principal; 2021-11-26)
PROC: 3E0337Z Introduction of Electrolytic and Water Balance Substance into Peripheral Vein, Percutaneous Approach (ICD-10-PCS; 2021-11-26)
DX: Z76.89 Persons encountering health services in other specified circumstances (principal); C20 Malignant neoplasm of rectum
CPT/HCPCS: 96365; 96368

== ENCOUNTER 2021-12-08 06:27 | Day surgery (SDC) | payer OTHER ==
[2021-12-08 08:43] LABS: BASO % 1.6 % (0-2.0); EOS % 14.2 % (0-4.5); HEMATOCRIT 32.4 % (35.4-49); HEMOGLOBIN 11.1 GM/dL (11.7-16.9); LYMPH % 19.6 % (8-40); MCH 33.5 pg (25.7-33.7); MCHC 34.3 g/dl (32.0-35.9); MEAN CELL VOLUME 97.7 fl (80-96); MEAN PLT VOLUME 7.8 fl (7.5-11.1); MONO % 12.3 % (3.8-10.2); NEUT % 52.3 % (42.8-82.8); PLATELET COUNT 155 10^3/uL (134-434); RBC 3.32 M/mm3 (4.00-5.60); RDW 16.4 % (11.9-15.9); WHITE BLOOD COUNT 2.5 K/mm3 (4.0-10.0)
[2021-12-08 08:50] LABS: BLOOD UREA NITROGEN 16.4 mg/dL (7-18); CALCIUM 8.9 mg/dL (8.5-10.1)
[2021-12-08 08:52] LABS: ALBUMIN 3.6 g/dl (3.4-5.0); MAGNESIUM 1.9 mg/dL (1.8-2.4)
[2021-12-08 08:54] LABS: BILIRUBIN,DIRECT 0.2 mg/dL (0.0-0.2); CREATININE 0.9 mg/dL (0.55-1.3)
[2021-12-08 08:56] LABS: BILIRUBIN,TOTAL 0.3 mg/dL (0.2-1); TOT PROT 6.9 g/dl (6.4-8.2)
[2021-12-08] MEDS ORDERED: SODIUM CHLORIDE 250 ML IV ONE (09:00)
[2021-12-08] MEDS ORDERED: PROCHLORPERAZINE INJECTION 10 MG/2 ML VIAL IVPB ONE (10:00)
[2021-12-08] MEDS ORDERED: ATROPINE SO4 0.4 MG/1 ML VIAL IVPUSH ONE (10:00)
[2021-12-08] MEDS ORDERED: PALONOSETRON HCL 0.25 MG/5 ML VIAL IVPUSH ONE (10:00)
[2021-12-08] MEDS ORDERED: DEXAMETHASONE SODIUM PHOSPHATE 6 MG in SODIUM CHLORIDE 50 ML IVPB ONE (10:00)
[2021-12-08] MEDS ORDERED: BEVACIZUMAB AWWB IVPB ONE (10:30)
[2021-12-08] MEDS ORDERED: SODIUM CHLORIDE IVPB ONE (10:30)
[2021-12-08] MEDS ORDERED: LEUCOVORIN INJECTION - 848 MG in DEXTROSE 5%-WATER - 250 ML IVPB ONE (11:00)
[2021-12-08] MEDS ORDERED: IRINOTECAN HCL 380 MG in DEXTROSE 5%-WATER - 500 ML IVPB ONE (11:30)
[2021-12-08] MEDS ORDERED: SODIUM CHLORIDE CP ONE (12:30)
[2021-12-08] MEDS ORDERED: FLUOROURACIL 500 MG/10 ML VIAL IVPUSH ONE (12:30)
[2021-12-08] MEDS ORDERED: FLUOROURACIL CP ONE (12:30)
[2021-12-08 16:54] VITALS: TEMP 98
[2021-12-08] MEDS ORDERED: PORTA CATH FLUSH 10 ML IVPUSH ONE (16:54)
[2021-12-08 16:57] VITALS: BP 106/53; PULSE 65
== END 2021-12-08 17:11 | disposition home or self-care (01) ==
LOC: JONCCHEMO 06:27
PROVIDERS: ATTEND Internal Medicine Hematology & Oncology
DX: Z51.11 Encounter for antineoplastic chemotherapy (principal); C19 Malignant neoplasm of rectosigmoid junction
CPT/HCPCS: 36415; 80048; 80076; 83615; 83735; 84156; 85025; 96361; 96366; 96367; 96375; 96413; 96415; 96417; G0498; J2469; J9206; Q5107

== ENCOUNTER 2021-12-10 07:08 | Day surgery (SDC) | payer OTHER ==
[2021-12-10] MEDS ORDERED: SODIUM CHLORIDE 500 ML IV ONE (10:30)
[2021-12-10] MEDS ORDERED: MAGNESIUM SULFATE IN WATER 2 GM/50 ML IVPB IVPB ONE (10:30)
[2021-12-10] MEDS ORDERED: KCL 10 MEQ IVPB 10 MEQ/100 ML INFUS.BAG IVPB ONE (10:30)
[2021-12-10 18:00] VITALS: TEMP 98
[2021-12-10 18:12] VITALS: BP 118/67; PULSE 82
== END 2021-12-10 17:00 | disposition home or self-care (01) ==
LOC: JONCNONCHE 07:08
PROVIDERS: ATTEND Internal Medicine Hematology & Oncology
PROC: 3E043GC Introduction of Other Therapeutic Substance into Central Vein, Percutaneous Approach (ICD-10-PCS; principal; 2021-12-10)
PROC: 3E043GC Introduction of Other Therapeutic Substance into Central Vein, Percutaneous Approach (ICD-10-PCS; 2021-12-10)
DX: C19 Malignant neoplasm of rectosigmoid junction (principal); Z76.89 Persons encountering health services in other specified circumstances
CPT/HCPCS: 96365; 96368

== ENCOUNTER 2021-12-15 07:42 | Day surgery (SDC) | payer OTHER ==
[2021-12-15 08:55] LABS: HEMATOCRIT 30.5 % (35.4-49); HEMOGLOBIN 10.3 GM/dL (11.7-16.9); MCH 32.8 pg (25.7-33.7); MCHC 33.8 g/dl (32.0-35.9); MEAN CELL VOLUME 96.8 fl (80-96); MEAN PLT VOLUME 8.2 fl (7.5-11.1); PLATELET COUNT 131 10^3/uL (134-434); RBC 3.15 M/mm3 (4.00-5.60); RDW 16.2 % (11.9-15.9)
[2021-12-15 09:00] LABS: WHITE BLOOD COUNT 1.2 K/mm3 (4.0-10.0)
[2021-12-15] MEDS ORDERED: TBO-FILGRASTIM 480 MCG/0.8 ML DISP.SYRIN SQ ONE (11:30)
[2021-12-15 11:59] VITALS: BP 98/62; PULSE 94; TEMP 98
[2021-12-15 12:24] LABS: ANISOCYTOSIS 0; MACROCYTOSIS 0
== END 2021-12-15 12:20 | disposition home or self-care (01) ==
LOC: JLAB 07:42 → JONCCHEMO 07:42 → EDSTATUS 10:56 → JONCCHEMO 12:20
PROVIDERS: ATTEND Internal Medicine Hematology & Oncology
PROC: 3E013GC Introduction of Other Therapeutic Substance into Subcutaneous Tissue, Percutaneous Approach (ICD-10-PCS; principal; 2021-12-15)
DX: C19 Malignant neoplasm of rectosigmoid junction (principal); Z76.89 Persons encountering health services in other specified circumstances; E11.9 Type 2 diabetes mellitus without complications; I10 Essential (primary) hypertension
CPT/HCPCS: 36415; 85025; 96372; J1447

== ENCOUNTER 2021-12-16 07:58 | Day surgery (SDC) | payer OTHER ==
[2021-12-16 08:48] VITALS: BP 113/62; PULSE 87; TEMP 98.1
[2021-12-16] MEDS ORDERED: TBO-FILGRASTIM 480 MCG/0.8 ML DISP.SYRIN SQ ONE (10:00)
== END 2021-12-16 09:50 | disposition home or self-care (01) ==
LOC: JONCCHEMO 07:58
PROVIDERS: ATTEND Internal Medicine Hematology & Oncology
PROC: 3E013GC Introduction of Other Therapeutic Substance into Subcutaneous Tissue, Percutaneous Approach (ICD-10-PCS; principal; 2021-12-16)
DX: C19 Malignant neoplasm of rectosigmoid junction (principal); Z76.89 Persons encountering health services in other specified circumstances; E11.9 Type 2 diabetes mellitus without complications; I10 Essential (primary) hypertension; Z79.84 Long term (current) use of oral hypoglycemic drugs
CPT/HCPCS: 96372; J1447

== ENCOUNTER 2021-12-17 07:43 | Day surgery (SDC) | payer OTHER ==
[2021-12-17] MEDS ORDERED: TBO-FILGRASTIM 480 MCG/0.8 ML DISP.SYRIN SQ ONE (10:00)
[2021-12-17 17:00] VITALS: BP 115/69; PULSE 74; TEMP 97.7
== END 2021-12-17 09:50 | disposition home or self-care (01) ==
LOC: JONCCHEMO 07:43
PROVIDERS: ATTEND Internal Medicine Hematology & Oncology
PROC: 3E013GC Introduction of Other Therapeutic Substance into Subcutaneous Tissue, Percutaneous Approach (ICD-10-PCS; principal; 2021-12-17)
DX: Z76.89 Persons encountering health services in other specified circumstances (principal); C19 Malignant neoplasm of rectosigmoid junction; I10 Essential (primary) hypertension; E11.9 Type 2 diabetes mellitus without complications; Z79.84 Long term (current) use of oral hypoglycemic drugs
CPT/HCPCS: 96372; J1447

== ENCOUNTER 2021-12-22 06:42 | Day surgery (SDC) | payer OTHER ==
[2021-12-22 08:55] LABS: ALBUMIN 3.7 g/dl (3.4-5.0); BLOOD UREA NITROGEN 14.4 mg/dL (7-18); CALCIUM 9.2 mg/dL (8.5-10.1); MAGNESIUM 1.9 mg/dL (1.8-2.4)
[2021-12-22 08:57] LABS: HEMATOCRIT 33.9 % (35.4-49); HEMOGLOBIN 11.2 GM/dL (11.7-16.9); MCH 32.3 pg (25.7-33.7); MCHC 33.1 g/dl (32.0-35.9); MEAN CELL VOLUME 97.6 fl (80-96); MEAN PLT VOLUME 8.2 fl (7.5-11.1); PLATELET COUNT 144 10^3/uL (134-434); RBC 3.48 M/mm3 (4.00-5.60); RDW 16.6 % (11.9-15.9); WHITE BLOOD COUNT 4.8 K/mm3 (4.0-10.0)
[2021-12-22 08:58] LABS: BILIRUBIN,DIRECT 0.1 mg/dL (0.0-0.2); CREATININE 0.9 mg/dL (0.55-1.3)
[2021-12-22 09:00] LABS: BILIRUBIN,TOTAL 0.3 mg/dL (0.2-1); TOT PROT 7.2 g/dl (6.4-8.2)
[2021-12-22] MEDS ORDERED: SODIUM CHLORIDE 250 ML IV ONE (10:00)
[2021-12-22 10:04] LABS: ANISOCYTOSIS 1+; MACROCYTOSIS 1+; OVALOCYTE 1+
[2021-12-22] MEDS ORDERED: DEXAMETHASONE SODIUM PHOSPHATE IVPB ONE (10:30)
[2021-12-22] MEDS ORDERED: PROCHLORPERAZINE IVPB ONE (10:30)
[2021-12-22] MEDS ORDERED: PALONOSETRON HCL 0.25 MG/5 ML VIAL IVPUSH ONE (10:30)
[2021-12-22] MEDS ORDERED: ATROPINE SO4 0.4 MG/1 ML VIAL IVPUSH ONE (10:30)
[2021-12-22] MEDS ORDERED: [UNRECOGNIZED DRUG - OTHER] IVPB ONE (10:30)
[2021-12-22] MEDS ORDERED: BEVACIZUMAB AWWB IVPB ONE (11:00)
[2021-12-22] MEDS ORDERED: SODIUM CHLORIDE IVPB ONE (11:00)
[2021-12-22] MEDS ORDERED: LEUCOVORIN INJECTION - 844 MG in DEXTROSE 5%-WATER - 250 ML IVPB ONE (11:30)
[2021-12-22] MEDS ORDERED: IRINOTECAN HCL 380 MG in DEXTROSE 5%-WATER - 500 ML IVPB ONE (11:30)
[2021-12-22] MEDS ORDERED: FLUOROURACIL 5,075 MG in SODIUM CHLORIDE 4.3 ML CP ONE (13:00)
[2021-12-22 15:03] VITALS: TEMP 97.9
[2021-12-22] MEDS ORDERED: PORTA CATH FLUSH 10 ML IVPUSH ONE (15:24)
[2021-12-22 15:25] VITALS: BP 113/59; PULSE 57
== END 2021-12-22 15:54 | disposition home or self-care (01) ==
LOC: JONCCHEMO 06:42
PROVIDERS: ATTEND Internal Medicine Hematology & Oncology
DX: Z51.11 Encounter for antineoplastic chemotherapy (principal); C19 Malignant neoplasm of rectosigmoid junction; E11.9 Type 2 diabetes mellitus without complications
CPT/HCPCS: 36415; 80048; 80076; 83735; 84156; 85025; 96361; 96366; 96367; 96375; 96413; 96415; 96417; G0498; J2469; J9206; Q5107

== ENCOUNTER 2021-12-24 07:27 | Day surgery (SDC) | payer OTHER ==
[2021-12-24] MEDS ORDERED: SODIUM CHLORIDE IV ONE (10:00)
[2021-12-24] MEDS ORDERED: MAGNESIUM SULFATE IV ONE (10:00)
[2021-12-24] MEDS ORDERED: POTASSIUM CHLORIDE IV ONE (10:00)
[2021-12-24 17:49] VITALS: TEMP 98.2
[2021-12-24 17:54] VITALS: BP 117/70; PULSE 62
== END 2021-12-24 14:00 | disposition home or self-care (01) ==
LOC: JONCNONCHE 07:27
PROVIDERS: ATTEND Internal Medicine Hematology & Oncology
PROC: 3E0437Z Introduction of Electrolytic and Water Balance Substance into Central Vein, Percutaneous Approach (ICD-10-PCS; principal; 2021-12-24)
DX: C19 Malignant neoplasm of rectosigmoid junction (principal); E11.9 Type 2 diabetes mellitus without complications; Z76.89 Persons encountering health services in other specified circumstances
CPT/HCPCS: 96365

== ENCOUNTER 2022-01-05 06:51 | Day surgery (SDC) | payer OTHER ==
[2022-01-05 08:31] LABS: HEMOGLOBIN 11.3 GM/dL (11.7-16.9); MCH 32.5 pg (25.7-33.7); MCHC 33.2 g/dl (32.0-35.9); MEAN CELL VOLUME 97.8 fl (80-96); MEAN PLT VOLUME 7.8 fl (7.5-11.1); PLATELET COUNT 220 10^3/uL (134-434); RBC 3.48 M/mm3 (4.00-5.60); RDW 16.9 % (11.9-15.9); WHITE BLOOD COUNT 4.6 K/mm3 (4.0-10.0)
[2022-01-05 08:52] LABS: CALCIUM 8.9 mg/dL (8.5-10.1)
[2022-01-05 08:53] LABS: ALBUMIN 3.8 g/dl (3.4-5.0); BLOOD UREA NITROGEN 22.1 mg/dL (7-18); MAGNESIUM 2.1 mg/dL (1.8-2.4)
[2022-01-05 08:55] LABS: BILIRUBIN,DIRECT 0.2 mg/dL (0.0-0.2)
[2022-01-05 08:56] LABS: CREATININE 0.9 mg/dL (0.55-1.3)
[2022-01-05 08:57] LABS: TOT PROT 7.2 g/dl (6.4-8.2)
[2022-01-05 08:58] LABS: BILIRUBIN,TOTAL 0.4 mg/dL (0.2-1)
[2022-01-05 09:38] VITALS: BP 103/44; PULSE 77; TEMP 98.3
[2022-01-05 10:00] LABS: ANISOCYTOSIS 0; HELMET CELLS 0; HOWELL-JOLLY BODIES 0; MACROCYTOSIS 0; OVALOCYTE 0; ROULEAU 0; SICKELED CELLS 0; TARGET CELLS 0; TEAR DROP CELLS 0; TOXIC GRANULATION 0
[2022-01-05] MEDS ORDERED: SODIUM CHLORIDE 250 ML IV ONE (10:00)
[2022-01-05] MEDS ORDERED: PALONOSETRON HCL 0.25 MG/5 ML VIAL IVPUSH ONE (10:30)
[2022-01-05] MEDS ORDERED: [UNRECOGNIZED DRUG - OTHER] IVPB ONE (10:30)
[2022-01-05] MEDS ORDERED: ATROPINE SO4 0.4 MG/1 ML VIAL IVPUSH ONE (10:30)
[2022-01-05] MEDS ORDERED: DEXAMETHASONE SODIUM PHOSPHATE IVPB ONE (10:30)
[2022-01-05] MEDS ORDERED: PROCHLORPERAZINE IVPB ONE (10:30)
[2022-01-05] MEDS ORDERED: BEVACIZUMAB AWWB IVPB ONE (11:00)
[2022-01-05] MEDS ORDERED: SODIUM CHLORIDE IVPB ONE (11:00)
[2022-01-05] MEDS ORDERED: IRINOTECAN HCL 380 MG in DEXTROSE 5%-WATER - 500 ML IVPB ONE (11:30)
[2022-01-05] MEDS ORDERED: LEUCOVORIN INJECTION - 848 MG in DEXTROSE 5%-WATER - 250 ML IVPB ONE (11:30)
[2022-01-05] MEDS ORDERED: FLUOROURACIL 5,100 MG in SODIUM CHLORIDE 3.8 ML CP ONE (12:00)
== END 2022-01-05 15:30 | disposition home or self-care (01) ==
LOC: JONCCHEMO 06:51
PROVIDERS: ATTEND Internal Medicine Hematology & Oncology
DX: Z51.11 Encounter for antineoplastic chemotherapy (principal); C19 Malignant neoplasm of rectosigmoid junction
CPT/HCPCS: 36415; 80048; 80076; 82378; 83735; 84156; 85025; 96361; 96367; 96375; 96413; 96417; G0498; J2469; J9206; Q5107

== ENCOUNTER 2022-01-07 07:12 | Day surgery (SDC) | payer OTHER ==
[2022-01-07] MEDS ORDERED: MAGNESIUM SULFATE IV ONE (10:00)
[2022-01-07] MEDS ORDERED: POTASSIUM CHLORIDE IV ONE (10:00)
[2022-01-07] MEDS ORDERED: SODIUM CHLORIDE IV ONE (10:00)
[2022-01-07 16:42] VITALS: BP 121/62; PULSE 65; TEMP 98.1
[2022-01-07] MEDS ORDERED: PORTA CATH FLUSH 10 ML IVPUSH ONE (16:42)
== END 2022-01-07 14:10 | disposition home or self-care (01) ==
LOC: JONCNONCHE 07:12
PROVIDERS: ATTEND Internal Medicine Hematology & Oncology
PROC: 3E0437Z Introduction of Electrolytic and Water Balance Substance into Central Vein, Percutaneous Approach (ICD-10-PCS; principal; 2022-01-07)
DX: Z76.89 Persons encountering health services in other specified circumstances (principal); C19 Malignant neoplasm of rectosigmoid junction
CPT/HCPCS: 96360

== ENCOUNTER 2022-01-19 06:51 | Day surgery (SDC) | payer OTHER ==
[2022-01-19 09:00] LABS: HEMATOCRIT 34.4 % (35.4-49); HEMOGLOBIN 11.4 GM/dL (11.7-16.9); MEAN CELL VOLUME 96.8 fl (80-96); RBC 3.55 M/mm3 (4.00-5.60); WHITE BLOOD COUNT 4.6 K/mm3 (4.0-10.0)
[2022-01-19] MEDS ORDERED: SODIUM CHLORIDE 250 ML IV ONE (09:00)
[2022-01-19 09:01] LABS: BASO % 1.7 % (0-2.0); LYMPH % 12.9 % (8-40); MCHC 33.1 g/dl (32.0-35.9); MEAN PLT VOLUME 8.5 fl (7.5-11.1); MONO % 10.9 % (3.8-10.2); NEUT % 66.5 % (42.8-82.8); PLATELET COUNT 189 10^3/uL (134-434); RDW 17.1 % (11.9-15.9)
[2022-01-19 09:19] VITALS: TEMP 98.3
[2022-01-19 09:23] LABS: ALBUMIN 3.4 g/dl (3.4-5.0); BLOOD UREA NITROGEN 19.6 mg/dL (7-18); MAGNESIUM 1.9 mg/dL (1.8-2.4)
[2022-01-19 09:25] LABS: BILIRUBIN,DIRECT 0.2 mg/dL (0.0-0.2)
[2022-01-19 09:26] LABS: CREATININE 0.9 mg/dL (0.55-1.3)
[2022-01-19 09:27] LABS: BILIRUBIN,TOTAL 0.5 mg/dL (0.2-1); TOT PROT 7.1 g/dl (6.4-8.2)
[2022-01-19] MEDS ORDERED: DEXAMETHASONE SODIUM PHOSPHATE IVPB ONE (09:30)
[2022-01-19] MEDS ORDERED: [UNRECOGNIZED DRUG - OTHER] IVPB ONE (09:30)
[2022-01-19] MEDS ORDERED: PROCHLORPERAZINE IVPB ONE (09:30)
[2022-01-19] MEDS ORDERED: ATROPINE SO4 0.4 MG/1 ML VIAL IVPUSH ONE (09:30)
[2022-01-19] MEDS ORDERED: PALONOSETRON HCL 0.25 MG/5 ML VIAL IVPUSH ONE (09:30)
[2022-01-19] MEDS ORDERED: BEVACIZUMAB AWWB IVPB ONE (10:00)
[2022-01-19] MEDS ORDERED: SODIUM CHLORIDE IVPB ONE (10:00)
[2022-01-19] MEDS ORDERED: LEUCOVORIN INJECTION - 836 MG in DEXTROSE 5%-WATER - 250 ML IVPB ONE (10:30)
[2022-01-19] MEDS ORDERED: IRINOTECAN HCL 380 MG in DEXTROSE 5%-WATER - 500 ML IVPB ONE (10:30)
[2022-01-19] MEDS ORDERED: SODIUM CHLORIDE CP ONE (12:00)
[2022-01-19] MEDS ORDERED: FLUOROURACIL CP ONE (12:00)
[2022-01-19 16:22] VITALS: BP 108/56; PULSE 64
== END 2022-01-19 14:15 | disposition home or self-care (01) ==
LOC: JONCCHEMO 06:51
PROVIDERS: ATTEND Internal Medicine Hematology & Oncology
DX: Z51.11 Encounter for antineoplastic chemotherapy (principal); C19 Malignant neoplasm of rectosigmoid junction
CPT/HCPCS: 36415; 80048; 80076; 83735; 85025; 96361; 96367; 96375; 96413; 96417; G0498; J2469; J9206; Q5107

== ENCOUNTER 2022-01-21 08:02 | Day surgery (SDC) | payer OTHER ==
[2022-01-21] MEDS ORDERED: POTASSIUM CHLORIDE 10 MEQ, MAGNESIUM SULFATE 1 GM in SODIUM CHLORIDE 500 ML IVPB ONE (09:00)
[2022-01-21 18:01] VITALS: BP 109/52; PULSE 66; TEMP 98
[2022-01-21] MEDS ORDERED: PORTA CATH FLUSH 10 ML IVPUSH PRN (18:01)
== END 2022-01-21 13:00 | disposition home or self-care (01) ==
LOC: JONCCHEMO 08:02
PROVIDERS: ATTEND Internal Medicine Hematology & Oncology
PROC: 3E0437Z Introduction of Electrolytic and Water Balance Substance into Central Vein, Percutaneous Approach (ICD-10-PCS; principal; 2022-01-21)
DX: C19 Malignant neoplasm of rectosigmoid junction (principal); Z76.89 Persons encountering health services in other specified circumstances
CPT/HCPCS: 96360

== ENCOUNTER → 2022-02-02 | Day surgery (SDC) | payer OTHER ==
[~2022-02-02] MED LIST changes: -DEXAMETHASONE SODIUM PHOSPHATE 6 MG in SODIUM CHLORIDE 50 ML IVPB ONE; +DEXAMETHASONE SODIUM PHOSPHATE IVPB ONE; -FLUOROURACIL 2,500 MG/50 ML VIAL IVPUSH ONE; +LEUCOVORIN INJECTION - 836 MG in DEXTROSE 5%-WATER - 250 ML IVPB ONE; -LEUCOVORIN INJECTION - 848 MG in DEXTROSE 5%-WATER - 250 ML IVPB ONE; +PORTA CATH FLUSH 10 ML IVPUSH PRN; -PROCHLORPERAZINE INJECTION 10 MG/2 ML VIAL IVPB ONE; +PROCHLORPERAZINE IVPB ONE; +[UNRECOGNIZED DRUG - OTHER] IVPB ONE
[2022-02-02 08:43] LABS: BASO % 1.5 % (0-2.0); EOS % 8.3 % (0-4.5); HEMOGLOBIN 11.7 GM/dL (11.7-16.9); LYMPH % 13.4 % (8-40); MCH 32.4 pg (25.7-33.7); MCHC 33.5 g/dl (32.0-35.9); MEAN CELL VOLUME 96.7 fl (80-96); MEAN PLT VOLUME 7.5 fl (7.5-11.1); NEUT % 63.8 % (42.8-82.8); PLATELET COUNT 167 10^3/uL (134-434); RBC 3.62 M/mm3 (4.00-5.60); RDW 17.8 % (11.9-15.9); WHITE BLOOD COUNT 3.6 K/mm3 (4.0-10.0)
[2022-02-02 08:59] LABS: CALCIUM 9.2 mg/dL (8.5-10.1)
[2022-02-02 09:00] LABS: ALBUMIN 3.4 g/dl (3.4-5.0); BLOOD UREA NITROGEN 16.9 mg/dL (7-18); MAGNESIUM 2.2 mg/dL (1.8-2.4)
[2022-02-02 09:02] LABS: BILIRUBIN,DIRECT 0.2 mg/dL (0.0-0.2)
[2022-02-02 09:03] LABS: CREATININE 0.9 mg/dL (0.55-1.3)
[2022-02-02 09:04] LABS: TOT PROT 6.8 g/dl (6.4-8.2)
[2022-02-02 09:05] LABS: BILIRUBIN,TOTAL 0.4 mg/dL (0.2-1)
[2022-02-02 17:53] VITALS: BP 118/82; PULSE 63; TEMP 97.5
== END | disposition home or self-care (01) ==
LOC: JONCCHEMO 06:26
PROVIDERS: ATTEND Internal Medicine Hematology & Oncology
PROC: 3E04305 Introduction of Other Antineoplastic into Central Vein, Percutaneous Approach (ICD-10-PCS; principal; 2022-02-02)
PROC: 3E043GC Introduction of Other Therapeutic Substance into Central Vein, Percutaneous Approach (ICD-10-PCS; 2022-02-02)
PROC: 3E0437Z Introduction of Electrolytic and Water Balance Substance into Central Vein, Percutaneous Approach (ICD-10-PCS; 2022-02-02)
DX: Z51.11 Encounter for antineoplastic chemotherapy (principal); C19 Malignant neoplasm of rectosigmoid junction
CPT/HCPCS: 36415; 80048; 80076; 82378; 83735; 84156; 85025; 96361; 96367; 96368; 96375; 96413; G0498; J2469; J9206; Q5107

== ENCOUNTER 2022-02-04 06:19 | Day surgery (SDC) | payer OTHER ==
[2022-02-04] MEDS ORDERED: SODIUM CHLORIDE IV ONE (10:00)
[2022-02-04] MEDS ORDERED: MAGNESIUM SO4 IV ONE (10:00)
[2022-02-04] MEDS ORDERED: POTASSIUM CHLORIDE IV ONE (10:00)
[2022-02-04 15:19] VITALS: BP 112/63; PULSE 71; TEMP 98.2
[2022-02-04] MEDS ORDERED: PORTA CATH FLUSH 10 ML IVPUSH PRN (15:19)
== END 2022-02-04 13:30 | disposition home or self-care (01) ==
LOC: JONCNONCHE 06:19
PROVIDERS: ATTEND Internal Medicine Hematology & Oncology
PROC: 3E0437Z Introduction of Electrolytic and Water Balance Substance into Central Vein, Percutaneous Approach (ICD-10-PCS; principal; 2022-02-04)
DX: C19 Malignant neoplasm of rectosigmoid junction (principal); Z76.89 Persons encountering health services in other specified circumstances
CPT/HCPCS: 96360

== ENCOUNTER 2022-02-16 07:08 | Day surgery (SDC) | payer OTHER ==
[2022-02-16 08:51] LABS: BASO % 2.4 % (0-2.0); EOS % 8.9 % (0-4.5); HEMATOCRIT 35.3 % (35.4-49); LYMPH % 13.3 % (8-40); MCH 33.2 pg (25.7-33.7); MCHC 34.1 g/dl (32.0-35.9); MEAN CELL VOLUME 97.3 fl (80-96); MEAN PLT VOLUME 7.6 fl (7.5-11.1); MONO % 12.6 % (3.8-10.2); NEUT % 62.8 % (42.8-82.8); PLATELET COUNT 194 10^3/uL (134-434); RBC 3.62 M/mm3 (4.00-5.60); RDW 17.5 % (11.9-15.9)
[2022-02-16] MEDS ORDERED: SODIUM CHLORIDE 250 ML IV ONE (09:00)
[2022-02-16 09:15] LABS: ALBUMIN 3.6 g/dl (3.4-5.0); BLOOD UREA NITROGEN 19.4 mg/dL (7-18); MAGNESIUM 2.1 mg/dL (1.8-2.4)
[2022-02-16 09:18] LABS: BILIRUBIN,DIRECT 0.1 mg/dL (0.0-0.2)
[2022-02-16 09:20] LABS: BILIRUBIN,TOTAL 0.5 mg/dL (0.2-1); TOT PROT 6.9 g/dl (6.4-8.2)
[2022-02-16] MEDS ORDERED: DEXAMETHASONE SODIUM PHOSPHATE IVPB ONE (09:30)
[2022-02-16] MEDS ORDERED: [UNRECOGNIZED DRUG - OTHER] IVPB ONE (09:30)
[2022-02-16] MEDS ORDERED: PROCHLORPERAZINE IVPB ONE (09:30)
[2022-02-16] MEDS ORDERED: PALONOSETRON HCL 0.25 MG/5 ML VIAL IVPUSH ONE (09:30)
[2022-02-16] MEDS ORDERED: ATROPINE SO4 0.4 MG/1 ML VIAL IVPUSH ONE (09:30)
[2022-02-16] MEDS ORDERED: BEVACIZUMAB AWWB IVPB ONE (10:00)
[2022-02-16] MEDS ORDERED: SODIUM CHLORIDE IVPB ONE (10:00)
[2022-02-16] MEDS ORDERED: IRINOTECAN HCL IVPB ONE (10:30)
[2022-02-16] MEDS ORDERED: DEXTROSE 5% IVPB ONE (10:30)
[2022-02-16] MEDS ORDERED: LEUCOVORIN INJECTION - 856 MG in DEXTROSE 5%-WATER - 250 ML IVPB ONE (10:30)
[2022-02-16] MEDS ORDERED: WATER IVPB ONE (10:30)
[2022-02-16] MEDS ORDERED: FLUOROURACIL CP ONE (12:00)
[2022-02-16] MEDS ORDERED: SODIUM CHLORIDE CP ONE (12:00)
[2022-02-16 17:38] VITALS: TEMP 98.4
[2022-02-16] MEDS ORDERED: PORTA CATH FLUSH 10 ML IVPUSH PRN (17:38)
[2022-02-16 17:42] VITALS: BP 115/59; PULSE 52
== END 2022-02-16 15:00 | disposition home or self-care (01) ==
LOC: JONCCHEMO 07:08
PROVIDERS: ATTEND Internal Medicine Hematology & Oncology
DX: Z51.11 Encounter for antineoplastic chemotherapy (principal); C19 Malignant neoplasm of rectosigmoid junction
CPT/HCPCS: 36415; 80048; 80076; 82378; 83735; 84156; 85025; 96361; 96367; 96375; 96411; 96413; G0498; J2469; J9206; Q5107

== ENCOUNTER 2022-02-18 07:00 | Day surgery (SDC) | payer OTHER ==
[2022-02-18] MEDS ORDERED: SODIUM CHLORIDE IVPB ONE (09:00)
[2022-02-18] MEDS ORDERED: MAGNESIUM SULFATE IVPB ONE (09:00)
[2022-02-18] MEDS ORDERED: POTASSIUM CHLORIDE IVPB ONE (09:00)
[2022-02-18 14:18] VITALS: BP 108/64; PULSE 65; TEMP 98.7
[2022-02-18] MEDS ORDERED: PORTA CATH FLUSH 10 ML IVPUSH PRN (14:18)
== END 2022-02-18 13:30 | disposition home or self-care (01) ==
LOC: JONCNONCHE 07:00
PROVIDERS: ATTEND Internal Medicine Hematology & Oncology
PROC: 3E0437Z Introduction of Electrolytic and Water Balance Substance into Central Vein, Percutaneous Approach (ICD-10-PCS; principal; 2022-02-18)
DX: C19 Malignant neoplasm of rectosigmoid junction (principal); Z76.89 Persons encountering health services in other specified circumstances
CPT/HCPCS: 96360

== ENCOUNTER 2022-03-02 06:21 | Day surgery (SDC) | payer OTHER ==
[2022-03-02 08:49] LABS: BASO % 0.8 % (0-2.0); EOS % 7.1 % (0-4.5); HEMATOCRIT 35.6 % (35.4-49); MCH 33.2 pg (25.7-33.7); MCHC 33.6 g/dl (32.0-35.9); MEAN CELL VOLUME 98.7 fl (80-96); MEAN PLT VOLUME 7.7 fl (7.5-11.1); MONO % 12.8 % (3.8-10.2); NEUT % 69.3 % (42.8-82.8); PLATELET COUNT 194 10^3/uL (134-434); RBC 3.61 M/mm3 (4.00-5.60); RDW 17.8 % (11.9-15.9); WHITE BLOOD COUNT 4.5 K/mm3 (4.0-10.0)
[2022-03-02] MEDS ORDERED: SODIUM CHLORIDE 250 ML IV ONE (09:00)
[2022-03-02] MEDS ORDERED: ATROPINE SO4 0.4 MG/1 ML VIAL IVPUSH ONE (09:30)
[2022-03-02] MEDS ORDERED: PALONOSETRON HCL 0.25 MG/5 ML VIAL IVPUSH ONE (09:30)
[2022-03-02] MEDS ORDERED: [UNRECOGNIZED DRUG - OTHER] IVPB ONE (09:30)
[2022-03-02] MEDS ORDERED: DEXAMETHASONE SODIUM PHOSPHATE IVPB ONE (09:30)
[2022-03-02] MEDS ORDERED: PROCHLORPERAZINE IVPB ONE (09:30)
[2022-03-02 09:33] VITALS: BP 96/61; PULSE 71; TEMP 98.3
[2022-03-02 09:40] LABS: ALBUMIN 3.6 g/dl (3.4-5.0); MAGNESIUM 2.3 mg/dL (1.8-2.4)
[2022-03-02 09:43] LABS: BILIRUBIN,DIRECT 0.2 mg/dL (0.0-0.2)
[2022-03-02 09:44] LABS: BILIRUBIN,TOTAL 0.6 mg/dL (0.2-1); TOT PROT 6.8 g/dl (6.4-8.2)
[2022-03-02 10:00] LABS: CREATININE 0.9 mg/dL (0.55-1.3)
[2022-03-02] MEDS ORDERED: SODIUM CHLORIDE IVPB ONE (10:00)
[2022-03-02] MEDS ORDERED: BEVACIZUMAB AWWB IVPB ONE (10:00)
[2022-03-02] MEDS ORDERED: WATER IVPB ONE (10:30)
[2022-03-02] MEDS ORDERED: DEXTROSE 5% IVPB ONE (10:30)
[2022-03-02] MEDS ORDERED: LEUCOVORIN INJECTION - 860 MG in DEXTROSE 5%-WATER - 250 ML IVPB ONE (10:30)
[2022-03-02] MEDS ORDERED: IRINOTECAN HCL IVPB ONE (10:30)
[2022-03-02] MEDS ORDERED: FLUOROURACIL CP ONE (12:00)
[2022-03-02] MEDS ORDERED: SODIUM CHLORIDE CP ONE (12:00)
[2022-03-02] MEDS ORDERED: PORTA CATH FLUSH 10 ML IVPUSH PRN (12:44)
== END 2022-03-02 14:55 | disposition home or self-care (01) ==
LOC: JONCCHEMO 06:21
PROVIDERS: ATTEND Internal Medicine Hematology & Oncology
DX: Z51.11 Encounter for antineoplastic chemotherapy (principal); C19 Malignant neoplasm of rectosigmoid junction
CPT/HCPCS: 36415; 80048; 80076; 83036; 83735; 84156; 85025; 96366; 96367; 96375; 96413; 96417; G0498; J2469; J9206; Q5107

== ENCOUNTER 2022-03-04 07:06 | Day surgery (SDC) | payer OTHER ==
[2022-03-04] MEDS ORDERED: SODIUM CHLORIDE IV ONE (10:00)
[2022-03-04] MEDS ORDERED: MAGNESIUM SULFATE IV ONE (10:00)
[2022-03-04] MEDS ORDERED: POTASSIUM CHLORIDE IV ONE (10:00)
[2022-03-04 17:45] VITALS: TEMP 97.5
[2022-03-04 17:52] VITALS: BP 105/68; PULSE 66
== END 2022-03-04 13:30 | disposition home or self-care (01) ==
LOC: JONCNONCHE 07:06
PROVIDERS: ATTEND Internal Medicine Hematology & Oncology
PROC: 3E0437Z Introduction of Electrolytic and Water Balance Substance into Central Vein, Percutaneous Approach (ICD-10-PCS; principal; 2022-03-04)
DX: C19 Malignant neoplasm of rectosigmoid junction (principal); Z76.89 Persons encountering health services in other specified circumstances
CPT/HCPCS: 96360

== ENCOUNTER 2022-03-16 07:35 | Day surgery (SDC) | payer OTHER ==
[2022-03-16] MEDS ORDERED: SODIUM CHLORIDE 250 ML IV ONE (09:00)
[2022-03-16 09:28] LABS: BASO % 1.2 % (0-2.0); EOS % 8.3 % (0-4.5); HEMATOCRIT 33.6 % (35.4-49); HEMOGLOBIN 11.1 GM/dL (11.7-16.9); LYMPH % 13.5 % (8-40); MCHC 33.1 g/dl (32.0-35.9); MEAN CELL VOLUME 99.8 fl (80-96); MEAN PLT VOLUME 7.4 fl (7.5-11.1); MONO % 11.1 % (3.8-10.2); NEUT % 65.9 % (42.8-82.8); PLATELET COUNT 190 10^3/uL (134-434); RBC 3.37 M/mm3 (4.00-5.60); RDW 16.7 % (11.9-15.9)
[2022-03-16] MEDS ORDERED: PROCHLORPERAZINE IVPB ONE (09:30)
[2022-03-16] MEDS ORDERED: PALONOSETRON HCL 0.25 MG/5 ML VIAL IVPUSH ONE (09:30)
[2022-03-16] MEDS ORDERED: ATROPINE SO4 0.4 MG/1 ML VIAL IVPUSH ONE (09:30)
[2022-03-16] MEDS ORDERED: [UNRECOGNIZED DRUG - OTHER] IVPB ONE (09:30)
[2022-03-16] MEDS ORDERED: DEXAMETHASONE SODIUM PHOSPHATE IVPB ONE (09:30)
[2022-03-16 09:38] LABS: CALCIUM 8.9 mg/dL (8.5-10.1)
[2022-03-16 09:39] LABS: ALBUMIN 3.4 g/dl (3.4-5.0); BLOOD UREA NITROGEN 18.8 mg/dL (7-18)
[2022-03-16 09:42] LABS: BILIRUBIN,DIRECT 0.2 mg/dL (0.0-0.2); CREATININE 0.8 mg/dL (0.55-1.3)
[2022-03-16 09:44] LABS: BILIRUBIN,TOTAL 0.4 mg/dL (0.2-1); TOT PROT 6.6 g/dl (6.4-8.2)
[2022-03-16] MEDS ORDERED: SODIUM CHLORIDE IVPB ONE (10:00)
[2022-03-16] MEDS ORDERED: BEVACIZUMAB AWWB IVPB ONE (10:00)
[2022-03-16 10:08] VITALS: TEMP 97.9
[2022-03-16] MEDS ORDERED: WATER IVPB ONE (10:30)
[2022-03-16] MEDS ORDERED: IRINOTECAN HCL IVPB ONE (10:30)
[2022-03-16] MEDS ORDERED: LEUCOVORIN INJECTION - 860 MG in DEXTROSE 5%-WATER - 250 ML IVPB ONE (10:30)
[2022-03-16] MEDS ORDERED: DEXTROSE 5% IVPB ONE (10:30)
[2022-03-16] MEDS ORDERED: FLUOROURACIL CP ONE (12:00)
[2022-03-16] MEDS ORDERED: SODIUM CHLORIDE CP ONE (12:00)
[2022-03-16 16:53] VITALS: BP 120/61; PULSE 55
[2022-03-16] MEDS ORDERED: PORTA CATH FLUSH 10 ML IVPUSH PRN (16:53)
== END 2022-03-16 15:45 | disposition home or self-care (01) ==
LOC: JONCCHEMO 07:35
PROVIDERS: ATTEND Internal Medicine Hematology & Oncology
DX: Z51.11 Encounter for antineoplastic chemotherapy (principal); C19 Malignant neoplasm of rectosigmoid junction
CPT/HCPCS: 36415; 80048; 80076; 82378; 83735; 84156; 85025; 96361; 96366; 96367; 96375; 96413; 96415; 96417; G0498; J2469; J9206; Q5107

== ENCOUNTER 2022-03-18 06:30 | Day surgery (SDC) | payer OTHER ==
[2022-03-18] MEDS ORDERED: MAGNESIUM SULFATE IV ONE (10:00)
[2022-03-18] MEDS ORDERED: SODIUM CHLORIDE IV ONE (10:00)
[2022-03-18] MEDS ORDERED: POTASSIUM CHLORIDE IV ONE (10:00)
[2022-03-18 18:08] VITALS: TEMP 98.1
[2022-03-18] MEDS ORDERED: PORTA CATH FLUSH 10 ML IVPUSH PRN (18:14)
[2022-03-18 18:15] VITALS: BP 111/69; PULSE 59
== END 2022-03-18 14:00 | disposition home or self-care (01) ==
LOC: JONCCHEMO 06:30
PROVIDERS: ATTEND Internal Medicine Hematology & Oncology
PROC: 3E043GC Introduction of Other Therapeutic Substance into Central Vein, Percutaneous Approach (ICD-10-PCS; principal; 2022-03-18)
DX: C19 Malignant neoplasm of rectosigmoid junction (principal); Z76.89 Persons encountering health services in other specified circumstances
CPT/HCPCS: 96365

== ENCOUNTER 2022-03-31 06:22 | Day surgery (SDC) | payer OTHER ==
[2022-03-31 08:30] LABS: BASO % 1.4 % (0-2.0); EOS % 11.1 % (0-4.5); HEMATOCRIT 34.2 % (35.4-49); HEMOGLOBIN 11.5 GM/dL (11.7-16.9); LYMPH % 12.7 % (8-40); MCH 33.2 pg (25.7-33.7); MCHC 33.6 g/dl (32.0-35.9); MEAN CELL VOLUME 98.8 fl (80-96); MEAN PLT VOLUME 7.8 fl (7.5-11.1); MONO % 13.4 % (3.8-10.2); NEUT % 61.4 % (42.8-82.8); PLATELET COUNT 199 10^3/uL (134-434); RBC 3.46 M/mm3 (4.00-5.60); RDW 16.7 % (11.9-15.9); WHITE BLOOD COUNT 4.5 K/mm3 (4.0-10.0)
[2022-03-31 09:00] LABS: ALBUMIN 3.4 g/dl (3.4-5.0); BLOOD UREA NITROGEN 22.6 mg/dL (7-18); CALCIUM 9.1 mg/dL (8.5-10.1); MAGNESIUM 1.9 mg/dL (1.8-2.4)
[2022-03-31] MEDS ORDERED: SODIUM CHLORIDE 250 ML IV ONE (09:00)
[2022-03-31 09:04] LABS: BILIRUBIN,DIRECT 0.2 mg/dL (0.0-0.2); BILIRUBIN,TOTAL 0.4 mg/dL (0.2-1); TOT PROT 6.6 g/dl (6.4-8.2)
[2022-03-31 09:16] VITALS: BP 100/59; PULSE 91; TEMP 98.2
[2022-03-31] MEDS ORDERED: PROCHLORPERAZINE INJECTION 10 MG/2 ML VIAL IVPB ONE (10:00)
[2022-03-31] MEDS ORDERED: ATROPINE SO4 0.4 MG/1 ML VIAL IVPUSH ONE (10:00)
[2022-03-31] MEDS ORDERED: DEXAMETHASONE SODIUM PHOSPHATE 6 MG in SODIUM CHLORIDE 50 ML IVPB ONE (10:00)
[2022-03-31] MEDS ORDERED: PALONOSETRON HCL 0.25 MG/5 ML VIAL IVPUSH ONE (10:00)
[2022-03-31] MEDS ORDERED: SODIUM CHLORIDE IVPB ONE (10:30)
[2022-03-31] MEDS ORDERED: BEVACIZUMAB AWWB IVPB ONE (10:30)
[2022-03-31] MEDS ORDERED: LEUCOVORIN INJECTION - 860 MG in DEXTROSE 5%-WATER - 250 ML IVPB ONE (11:00)
[2022-03-31] MEDS ORDERED: DEXTROSE 5% IVPB ONE (11:30)
[2022-03-31] MEDS ORDERED: WATER IVPB ONE (11:30)
[2022-03-31] MEDS ORDERED: IRINOTECAN HCL IVPB ONE (11:30)
[2022-03-31] MEDS ORDERED: FLUOROURACIL CP ONE (13:00)
[2022-03-31] MEDS ORDERED: SODIUM CHLORIDE CP ONE (13:00)
[2022-03-31] MEDS ORDERED: PORTA CATH FLUSH 10 ML IVPUSH PRN (16:49)
== END 2022-03-31 16:30 | disposition home or self-care (01) ==
LOC: JONCCHEMO 06:22
PROVIDERS: ATTEND Internal Medicine Hematology & Oncology
DX: Z51.11 Encounter for antineoplastic chemotherapy (principal); C20 Malignant neoplasm of rectum
CPT/HCPCS: 36415; 80048; 80076; 82378; 83735; 84156; 85025; 96361; 96366; 96367; 96375; 96413; 96415; G0498; J2469; J9206; Q5107

== ENCOUNTER 2022-04-02 06:58 | Day surgery (SDC) | payer OTHER ==
[2022-04-02] MEDS ORDERED: MAGNESIUM SULFATE IV ONE (10:00)
[2022-04-02] MEDS ORDERED: SODIUM CHLORIDE IV ONE (10:00)
[2022-04-02] MEDS ORDERED: POTASSIUM CHLORIDE IV ONE (10:00)
[2022-04-02 12:57] VITALS: TEMP 98.1
[2022-04-02] MEDS ORDERED: PORTA CATH FLUSH 10 ML IVPUSH PRN (15:42)
[2022-04-02 17:17] VITALS: BP 119/65; PULSE 61
== END 2022-04-02 14:30 | disposition home or self-care (01) ==
LOC: JONCCHEMO 06:58
PROVIDERS: ATTEND Internal Medicine Hematology & Oncology
PROC: 3E043GC Introduction of Other Therapeutic Substance into Central Vein, Percutaneous Approach (ICD-10-PCS; principal; 2022-04-02)
DX: C20 Malignant neoplasm of rectum (principal); Z76.89 Persons encountering health services in other specified circumstances
CPT/HCPCS: 96365

== ENCOUNTER 2022-04-14 06:43 | Day surgery (SDC) | payer OTHER ==
[2022-04-14 08:33] LABS: HEMATOCRIT 36.4 % (35.4-49); HEMOGLOBIN 12.2 GM/dL (11.7-16.9); MCH 33.1 pg (25.7-33.7); MCHC 33.5 g/dl (32.0-35.9); MEAN PLT VOLUME 7.2 fl (7.5-11.1); NEUT % 66.1 % (42.8-82.8); PLATELET COUNT 207 10^3/uL (134-434); RBC 3.68 M/mm3 (4.00-5.60); RDW 16.5 % (11.9-15.9); WHITE BLOOD COUNT 4.2 K/mm3 (4.0-10.0)
[2022-04-14 08:34] LABS: BASO % 1.3 % (0-2.0); EOS % 6.6 % (0-4.5); LYMPH % 13.3 % (8-40); MONO % 12.7 % (3.8-10.2)
[2022-04-14 08:51] LABS: CALCIUM 8.9 mg/dL (8.5-10.1)
[2022-04-14 08:52] LABS: ALBUMIN 3.6 g/dl (3.4-5.0); BLOOD UREA NITROGEN 22.3 mg/dL (7-18); MAGNESIUM 2.2 mg/dL (1.8-2.4)
[2022-04-14 08:54] LABS: BILIRUBIN,DIRECT 0.2 mg/dL (0.0-0.2)
[2022-04-14 08:55] LABS: CREATININE 0.9 mg/dL (0.55-1.3)
[2022-04-14 08:56] LABS: BILIRUBIN,TOTAL 0.5 mg/dL (0.2-1); TOT PROT 6.7 g/dl (6.4-8.2)
[2022-04-14] MEDS ORDERED: SODIUM CHLORIDE 250 ML IV ONE (09:00)
[2022-04-14 09:25] VITALS: TEMP 98
[2022-04-14] MEDS ORDERED: DEXAMETHASONE SODIUM PHOSPHATE IVPB ONE (09:30)
[2022-04-14] MEDS ORDERED: ATROPINE SO4 0.4 MG/1 ML VIAL IVPUSH ONE (09:30)
[2022-04-14] MEDS ORDERED: [UNRECOGNIZED DRUG - OTHER] IVPB ONE (09:30)
[2022-04-14] MEDS ORDERED: PALONOSETRON HCL 0.25 MG/5 ML VIAL IVPUSH ONE (09:30)
[2022-04-14] MEDS ORDERED: PROCHLORPERAZINE IVPB ONE (09:30)
[2022-04-14] MEDS ORDERED: SODIUM CHLORIDE IVPB ONE (10:00)
[2022-04-14] MEDS ORDERED: BEVACIZUMAB AWWB IVPB ONE (10:00)
[2022-04-14] MEDS ORDERED: LEUCOVORIN INJECTION - 860 MG in DEXTROSE 5%-WATER - 250 ML IVPB ONE (10:30)
[2022-04-14] MEDS ORDERED: WATER IVPB ONE (10:30)
[2022-04-14] MEDS ORDERED: DEXTROSE 5% IVPB ONE (10:30)
[2022-04-14] MEDS ORDERED: IRINOTECAN HCL IVPB ONE (10:30)
[2022-04-14] MEDS ORDERED: PORTA CATH FLUSH 10 ML IVPUSH PRN (11:14)
[2022-04-14] MEDS ORDERED: FLUOROURACIL CP ONE (12:00)
[2022-04-14] MEDS ORDERED: SODIUM CHLORIDE CP ONE (12:00)
[2022-04-14 17:39] VITALS: BP 127/64; PULSE 70
== END 2022-04-14 15:00 | disposition home or self-care (01) ==
LOC: JONCCHEMO 06:43
PROVIDERS: ATTEND Internal Medicine Hematology & Oncology
PROC: 3E04305 Introduction of Other Antineoplastic into Central Vein, Percutaneous Approach (ICD-10-PCS; principal; 2022-04-14)
PROC: 3E04305 Introduction of Other Antineoplastic into Central Vein, Percutaneous Approach (ICD-10-PCS; 2022-04-14)
PROC: 3E043GC Introduction of Other Therapeutic Substance into Central Vein, Percutaneous Approach (ICD-10-PCS; 2022-04-14)
PROC: 3E0437Z Introduction of Electrolytic and Water Balance Substance into Central Vein, Percutaneous Approach (ICD-10-PCS; 2022-04-14)
DX: Z51.11 Encounter for antineoplastic chemotherapy (principal); C20 Malignant neoplasm of rectum
CPT/HCPCS: 36415; 80048; 80076; 82378; 83735; 84156; 85025; 96361; 96367; 96368; 96413; 96417; G0498; J2469; J9206; Q5107

== ENCOUNTER 2022-04-16 07:03 | Day surgery (SDC) | payer OTHER ==
[2022-04-16] MEDS ORDERED: SODIUM CHLORIDE IV ONE (10:00)
[2022-04-16] MEDS ORDERED: MAGNESIUM SULFATE IV ONE (10:00)
[2022-04-16] MEDS ORDERED: POTASSIUM CHLORIDE IV ONE (10:00)
[2022-04-16 15:59] VITALS: TEMP 98.4
[2022-04-16 16:05] VITALS: BP 106/57; PULSE 59
[2022-04-16] MEDS ORDERED: PORTA CATH FLUSH 10 ML IVPUSH PRN (16:05)
== END 2022-04-16 14:30 | disposition home or self-care (01) ==
LOC: JONCCHEMO 07:03
PROVIDERS: ATTEND Internal Medicine Hematology & Oncology
PROC: 3E043GC Introduction of Other Therapeutic Substance into Central Vein, Percutaneous Approach (ICD-10-PCS; principal; 2022-04-16)
DX: Z76.89 Persons encountering health services in other specified circumstances (principal); C20 Malignant neoplasm of rectum
CPT/HCPCS: 96365

== ENCOUNTER 2022-04-27 07:56 | Day surgery (SDC) | payer OTHER ==
[2022-04-27] MEDS ORDERED: SODIUM CHLORIDE 250 ML IV ONE (09:00)
[2022-04-27 09:07] LABS: EOS % 4.6 % (0-4.5); HEMATOCRIT 36.2 % (35.4-49); HEMOGLOBIN 12.3 GM/dL (11.7-16.9); LYMPH % 9.8 % (8-40); MCH 33.2 pg (25.7-33.7); MCHC 34.1 g/dl (32.0-35.9); MEAN CELL VOLUME 97.4 fl (80-96); MEAN PLT VOLUME 7.4 fl (7.5-11.1); MONO % 12.5 % (3.8-10.2); NEUT % 72.1 % (42.8-82.8); PLATELET COUNT 215 10^3/uL (134-434); RBC 3.72 M/mm3 (4.00-5.60); RDW 16.2 % (11.9-15.9); WHITE BLOOD COUNT 5.5 K/mm3 (4.0-10.0)
[2022-04-27] MEDS ORDERED: ATROPINE SO4 0.4 MG/1 ML VIAL IVPUSH ONE (09:30)
[2022-04-27] MEDS ORDERED: PALONOSETRON HCL 0.25 MG/5 ML VIAL IVPUSH ONE (09:30)
[2022-04-27] MEDS ORDERED: DEXAMETHASONE SODIUM PHOSPHATE IVPB ONE (09:30)
[2022-04-27] MEDS ORDERED: PROCHLORPERAZINE IVPB ONE (09:30)
[2022-04-27] MEDS ORDERED: [UNRECOGNIZED DRUG - OTHER] IVPB ONE (09:30)
[2022-04-27 09:34] LABS: CALCIUM 8.8 mg/dL (8.5-10.1)
[2022-04-27 09:35] LABS: ALBUMIN 3.6 g/dl (3.4-5.0); BLOOD UREA NITROGEN 17.7 mg/dL (7-18); MAGNESIUM 2.5 mg/dL (1.8-2.4)
[2022-04-27 09:37] LABS: BILIRUBIN,DIRECT 0.2 mg/dL (0.0-0.2)
[2022-04-27 09:39] LABS: BILIRUBIN,TOTAL 0.7 mg/dL (0.2-1)
[2022-04-27] MEDS ORDERED: BEVACIZUMAB AWWB IVPB ONE (10:00)
[2022-04-27] MEDS ORDERED: SODIUM CHLORIDE IVPB ONE (10:00)
[2022-04-27] MEDS ORDERED: WATER IVPB ONE (10:30)
[2022-04-27] MEDS ORDERED: IRINOTECAN HCL IVPB ONE (10:30)
[2022-04-27] MEDS ORDERED: DEXTROSE 5% IVPB ONE (10:30)
[2022-04-27] MEDS ORDERED: LEUCOVORIN INJECTION - 860 MG in DEXTROSE 5%-WATER - 250 ML IVPB ONE (10:30)
[2022-04-27] MEDS ORDERED: FLUOROURACIL CP ONE (12:00)
[2022-04-27] MEDS ORDERED: SODIUM CHLORIDE CP ONE (12:00)
[2022-04-27 16:54] VITALS: TEMP 98.4
[2022-04-27 17:16] VITALS: BP 116/57; PULSE 76
[2022-04-27] MEDS ORDERED: PORTA CATH FLUSH 10 ML IVPUSH PRN (17:16)
== END 2022-04-27 14:45 | disposition home or self-care (01) ==
LOC: JONCCHEMO 07:56 → J7W 07:57 → JONCCHEMO 14:45
PROVIDERS: ATTEND Internal Medicine Hematology & Oncology
PROC: 3E04305 Introduction of Other Antineoplastic into Central Vein, Percutaneous Approach (ICD-10-PCS; principal; 2022-04-27)
PROC: 3E04305 Introduction of Other Antineoplastic into Central Vein, Percutaneous Approach (ICD-10-PCS; 2022-04-27)
PROC: 3E043GC Introduction of Other Therapeutic Substance into Central Vein, Percutaneous Approach (ICD-10-PCS; 2022-04-27)
PROC: 3E0437Z Introduction of Electrolytic and Water Balance Substance into Central Vein, Percutaneous Approach (ICD-10-PCS; 2022-04-27)
DX: Z51.11 Encounter for antineoplastic chemotherapy (principal); C20 Malignant neoplasm of rectum
CPT/HCPCS: 36415; 80048; 80076; 83735; 84156; 85025; 96361; 96367; 96368; 96375; 96413; 96417; G0498; J2469; J9206; Q5107

== ENCOUNTER 2022-04-29 07:50 | Day surgery (SDC) | payer OTHER ==
[2022-04-29] MEDS ORDERED: MAGNESIUM SULFATE IV ONE (10:00)
[2022-04-29] MEDS ORDERED: SODIUM CHLORIDE IV ONE (10:00)
[2022-04-29] MEDS ORDERED: POTASSIUM CHLORIDE IV ONE (10:00)
[2022-04-29 13:22] VITALS: TEMP 98.4
[2022-04-29] MEDS ORDERED: PORTA CATH FLUSH 10 ML IVPUSH PRN (14:44)
[2022-04-29 14:45] VITALS: BP 122/69; PULSE 67
== END 2022-04-29 14:00 | disposition home or self-care (01) ==
LOC: JONCCHEMO 07:50
PROVIDERS: ATTEND Internal Medicine Hematology & Oncology
PROC: 3E043GC Introduction of Other Therapeutic Substance into Central Vein, Percutaneous Approach (ICD-10-PCS; principal; 2022-04-29)
DX: C20 Malignant neoplasm of rectum (principal); Z76.89 Persons encountering health services in other specified circumstances
CPT/HCPCS: 96365

== ENCOUNTER 2022-05-19 06:14 | Day surgery (SDC) | payer OTHER ==
[2022-05-19 09:14] LABS: HEMATOCRIT 37.5 % (35.4-49); HEMOGLOBIN 12.4 GM/dL (11.7-16.9); MCH 32.2 pg (25.7-33.7); MEAN CELL VOLUME 97.5 fl (80-96); MEAN PLT VOLUME 8.1 fl (7.5-11.1); PLATELET COUNT 195 10^3/uL (134-434); RBC 3.84 M/mm3 (4.00-5.60); RDW 16.4 % (11.9-15.9)
[2022-05-19 09:43] LABS: BLOOD UREA NITROGEN 18.7 mg/dL (7-18); CALCIUM 9.4 mg/dL (8.5-10.1)
[2022-05-19 09:44] LABS: ALBUMIN 3.6 g/dl (3.4-5.0)
[2022-05-19 09:46] LABS: BILIRUBIN,DIRECT 0.2 mg/dL (0.0-0.2); CREATININE 0.9 mg/dL (0.55-1.3)
[2022-05-19 09:48] LABS: BILIRUBIN,TOTAL 0.6 mg/dL (0.2-1)
[2022-05-19 09:52] LABS: ANISOCYTOSIS 1+; MACROCYTOSIS 1+
[2022-05-19] MEDS ORDERED: PROCHLORPERAZINE INJECTION 10 MG in SODIUM CHLORIDE 50 ML IVPB ONE (10:00)
[2022-05-19] MEDS ORDERED: PALONOSETRON HCL 0.25 MG/5 ML VIAL IVPUSH ONE (10:00)
[2022-05-19] MEDS ORDERED: DEXAMETHASONE SODIUM PHOSPHATE 6 MG in SODIUM CHLORIDE 50 ML IVPB ONE (10:00)
[2022-05-19] MEDS ORDERED: SODIUM CHLORIDE 250 ML IV ONE (10:00)
[2022-05-19] MEDS ORDERED: ATROPINE SO4 0.4 MG/1 ML VIAL IVPUSH ONE (10:00)
[2022-05-19] MEDS ORDERED: BEVACIZUMAB AWWB IVPB ONE (10:30)
[2022-05-19] MEDS ORDERED: SODIUM CHLORIDE IVPB ONE (10:30)
[2022-05-19] MEDS ORDERED: LEUCOVORIN INJECTION - 856 MG in DEXTROSE 5%-WATER - 250 ML IVPB ONE (11:00)
[2022-05-19] MEDS ORDERED: DEXTROSE 5% IVPB ONE (11:30)
[2022-05-19] MEDS ORDERED: IRINOTECAN HCL IVPB ONE (11:30)
[2022-05-19] MEDS ORDERED: WATER IVPB ONE (11:30)
[2022-05-19] MEDS ORDERED: SODIUM CHLORIDE CP ONE (13:00)
[2022-05-19] MEDS ORDERED: FLUOROURACIL CP ONE (13:00)
[2022-05-19 18:12] VITALS: RESP 20; TEMP 98.5
[2022-05-19 18:19] VITALS: BP 129/67; PULSE 61
== END 2022-05-19 16:10 | disposition home or self-care (01) ==
LOC: JONCCHEMO 06:14
PROVIDERS: ATTEND Internal Medicine Hematology & Oncology
DX: Z51.11 Encounter for antineoplastic chemotherapy (principal); C20 Malignant neoplasm of rectum
CPT/HCPCS: 36415; 80048; 80076; 83735; 84156; 85025; 96366; 96367; 96375; 96413; 96417; G0498; J2469; J9206; Q5107

== ENCOUNTER 2022-05-21 07:07 | Day surgery (SDC) | payer OTHER ==
[2022-05-21] MEDS ORDERED: KCL 10 MEQ IVPB 10 MEQ/100 ML INFUS.BAG IVPB ONE (10:00)
[2022-05-21] MEDS ORDERED: MAGNESIUM SULFATE IN WATER 2 GM/50 ML IVPB IVPB ONE (10:00)
[2022-05-21] MEDS ORDERED: SODIUM CHLORIDE 500 ML IV ONE (10:00)
[2022-05-21] MEDS ORDERED: MAGNESIUM SULF 50% (8.12 MEQ/2 ML-1 GM VIAL) IVPB ONE (10:15)
[2022-05-21 12:08] VITALS: RESP 18; TEMP 98.1
[2022-05-21 16:59] VITALS: BP 123/67; PULSE 60
[2022-05-21] MEDS ORDERED: PORTA CATH FLUSH 10 ML IVPUSH PRN (16:59)
== END 2022-05-21 13:45 | disposition home or self-care (01) ==
LOC: JONCCHEMO 07:07
PROVIDERS: ATTEND Internal Medicine Hematology & Oncology
PROC: 3E043GC Introduction of Other Therapeutic Substance into Central Vein, Percutaneous Approach (ICD-10-PCS; principal; 2022-05-21)
DX: C20 Malignant neoplasm of rectum (principal); Z76.89 Persons encountering health services in other specified circumstances
CPT/HCPCS: 96365; 96368

== ENCOUNTER 2022-06-01 07:50 | Day surgery (SDC) | payer OTHER ==
[2022-06-01] MEDS ORDERED: SODIUM CHLORIDE 250 ML IV ONE (09:00)
[2022-06-01 09:38] LABS: BASO % 0.7 % (0-2.0); EOS % 13.3 % (0-4.5); HEMATOCRIT 35.6 % (35.4-49); HEMOGLOBIN 12.1 GM/dL (11.7-16.9); LYMPH % 11.4 % (8-40); MEAN PLT VOLUME 7.9 fl (7.5-11.1); NEUT % 62.6 % (42.8-82.8); PLATELET COUNT 183 10^3/uL (134-434); RBC 3.67 M/mm3 (4.00-5.60); RDW 16.2 % (11.9-15.9); WHITE BLOOD COUNT 4.3 K/mm3 (4.0-10.0)
[2022-06-01 09:49] LABS: BLOOD UREA NITROGEN 17.5 mg/dL (7-18)
[2022-06-01 09:50] LABS: ALBUMIN 3.5 g/dl (3.4-5.0); MAGNESIUM 1.9 mg/dL (1.8-2.4)
[2022-06-01 09:54] LABS: BILIRUBIN,DIRECT 0.2 mg/dL (0.0-0.2)
[2022-06-01 09:55] LABS: BILIRUBIN,TOTAL 0.5 mg/dL (0.2-1); TOT PROT 6.6 g/dl (6.4-8.2)
[2022-06-01] MEDS ORDERED: ATROPINE SO4 0.4 MG/1 ML VIAL IVPUSH ONE (10:00)
[2022-06-01] MEDS ORDERED: PROCHLORPERAZINE INJECTION 10 MG in SODIUM CHLORIDE 50 ML IVPB ONE (10:00)
[2022-06-01] MEDS ORDERED: PALONOSETRON HCL 0.25 MG/5 ML VIAL IVPUSH ONE (10:00)
[2022-06-01] MEDS ORDERED: DEXAMETHASONE SODIUM PHOSPHATE 6 MG in SODIUM CHLORIDE 50 ML IVPB ONE (10:00)
[2022-06-01] MEDS ORDERED: SODIUM CHLORIDE IVPB ONE (10:30)
[2022-06-01] MEDS ORDERED: BEVACIZUMAB AWWB IVPB ONE (10:30)
[2022-06-01] MEDS ORDERED: LEUCOVORIN INJECTION - 856 MG in DEXTROSE 5%-WATER - 250 ML IVPB ONE (11:00)
[2022-06-01] MEDS ORDERED: WATER IVPB ONE (11:30)
[2022-06-01] MEDS ORDERED: IRINOTECAN HCL IVPB ONE (11:30)
[2022-06-01] MEDS ORDERED: DEXTROSE 5% IVPB ONE (11:30)
[2022-06-01] MEDS ORDERED: FLUOROURACIL CP ONE (13:00)
[2022-06-01] MEDS ORDERED: SODIUM CHLORIDE CP ONE (13:00)
[2022-06-01 16:50] VITALS: BP 121/64; PULSE 69; RESP 18; TEMP 98.2
== END 2022-06-01 14:45 | disposition home or self-care (01) ==
LOC: JONCCHEMO 07:50
PROVIDERS: ATTEND Internal Medicine Hematology & Oncology
DX: Z51.11 Encounter for antineoplastic chemotherapy (principal); C20 Malignant neoplasm of rectum
CPT/HCPCS: 36415; 80048; 80076; 83735; 84156; 85025; 96366; 96367; 96375; 96413; 96417; G0498; J2469; J9206; Q5107

== ENCOUNTER 2022-06-03 07:08 | Day surgery (SDC) | payer OTHER ==
[2022-06-03] MEDS ORDERED: MAGNESIUM SULFATE IN WATER 2 GM/50 ML IVPB IVPB ONE (10:00)
[2022-06-03] MEDS ORDERED: SODIUM CHLORIDE 0.9%/KCL 10 MEQ/500 ML INFUS.BAG IV ONE (10:00)
[2022-06-03 15:47] VITALS: BP 127/67; PULSE 68; RESP 16; TEMP 98.4
[2022-06-03] MEDS ORDERED: PORTA CATH FLUSH 10 ML IVPUSH PRN (15:47)
== END 2022-06-03 13:30 | disposition home or self-care (01) ==
LOC: JONCCHEMO 07:08
PROVIDERS: ATTEND Internal Medicine Hematology & Oncology
PROC: 3E043GC Introduction of Other Therapeutic Substance into Central Vein, Percutaneous Approach (ICD-10-PCS; principal; 2022-06-03)
DX: C20 Malignant neoplasm of rectum (principal); Z76.89 Persons encountering health services in other specified circumstances
CPT/HCPCS: 96365

== ENCOUNTER 2022-06-16 08:04 | Day surgery (SDC) | payer OTHER ==
[2022-06-16] MEDS ORDERED: SODIUM CHLORIDE 250 ML IV ONE (09:00)
[2022-06-16 09:28] LABS: BASO % 1.3 % (0-2.0); EOS % 10.4 % (0-4.5); MCHC 33.5 g/dl (32.0-35.9); MEAN CELL VOLUME 98.6 fl (80-96); MEAN PLT VOLUME 8.1 fl (7.5-11.1); MONO % 16.2 % (3.8-10.2); NEUT % 56.1 % (42.8-82.8); PLATELET COUNT 185 10^3/uL (134-434); RBC 3.65 M/mm3 (4.00-5.60); RDW 16.4 % (11.9-15.9); WHITE BLOOD COUNT 3.5 K/mm3 (4.0-10.0)
[2022-06-16 09:29] LABS: ALBUMIN 3.4 g/dl (3.4-5.0); BLOOD UREA NITROGEN 20.7 mg/dL (7-18); CALCIUM 9.1 mg/dL (8.5-10.1)
[2022-06-16] MEDS ORDERED: DEXAMETHASONE SODIUM PHOSPHATE IVPB ONE (09:30)
[2022-06-16] MEDS ORDERED: PROCHLORPERAZINE IVPB ONE (09:30)
[2022-06-16] MEDS ORDERED: PALONOSETRON HCL 0.25 MG/5 ML VIAL IVPUSH ONE (09:30)
[2022-06-16] MEDS ORDERED: [UNRECOGNIZED DRUG - OTHER] IVPB ONE (09:30)
[2022-06-16] MEDS ORDERED: ATROPINE SO4 0.4 MG/1 ML VIAL IVPUSH ONE (09:30)
[2022-06-16 09:32] LABS: CREATININE 0.9 mg/dL (0.55-1.3)
[2022-06-16 09:34] LABS: BILIRUBIN,DIRECT 0.3 mg/dL (0.0-0.2); BILIRUBIN,TOTAL 0.7 mg/dL (0.2-1); TOT PROT 6.7 g/dl (6.4-8.2)
[2022-06-16] MEDS ORDERED: SODIUM CHLORIDE IVPB ONE (10:00)
[2022-06-16] MEDS ORDERED: BEVACIZUMAB AWWB IVPB ONE (10:00)
[2022-06-16] MEDS ORDERED: LEUCOVORIN INJECTION - 856 MG in DEXTROSE 5%-WATER - 250 ML IVPB ONE ×2 (10:30→13:00)
[2022-06-16] MEDS ORDERED: IRINOTECAN HCL IVPB ONE (10:30)
[2022-06-16] MEDS ORDERED: WATER IVPB ONE (10:30)
[2022-06-16] MEDS ORDERED: DEXTROSE 5% IVPB ONE (10:30)
[2022-06-16] MEDS ORDERED: FLUOROURACIL CP ONE (12:00)
[2022-06-16] MEDS ORDERED: SODIUM CHLORIDE CP ONE (12:00)
[2022-06-16 17:48] VITALS: RESP 18; TEMP 98.7
[2022-06-16 18:01] VITALS: BP 132/63; PULSE 64
[2022-06-16] MEDS ORDERED: PORTA CATH FLUSH 10 ML IVPUSH PRN (18:01)
== END 2022-06-16 15:45 | disposition home or self-care (01) ==
LOC: JONCCHEMO 08:04
PROVIDERS: ATTEND Internal Medicine Hematology & Oncology
DX: Z51.11 Encounter for antineoplastic chemotherapy (principal); C20 Malignant neoplasm of rectum
CPT/HCPCS: 36415; 80048; 80076; 82378; 83735; 84156; 85025; 96361; 96366; 96367; 96375; 96413; 96417; G0498; J2469; J9206; Q5107

== ENCOUNTER 2022-06-18 07:19 | Day surgery (SDC) | payer OTHER ==
[2022-06-18] MEDS ORDERED: SODIUM CHLORIDE IV ONE (10:00)
[2022-06-18] MEDS ORDERED: POTASSIUM CHLORIDE IV ONE (10:00)
[2022-06-18] MEDS ORDERED: MAGNESIUM SULFATE IV ONE (10:00)
[2022-06-18 13:06] VITALS: RESP 20; TEMP 97.9
[2022-06-18] MEDS ORDERED: PORTA CATH FLUSH 10 ML IVPUSH PRN (16:56)
[2022-06-18 16:57] VITALS: BP 125/71; PULSE 64
== END 2022-06-18 14:45 | disposition home or self-care (01) ==
LOC: JONCCHEMO 07:19
PROVIDERS: ATTEND Internal Medicine Hematology & Oncology
PROC: 3E043GC Introduction of Other Therapeutic Substance into Central Vein, Percutaneous Approach (ICD-10-PCS; principal; 2022-06-18)
DX: C20 Malignant neoplasm of rectum (principal); Z76.89 Persons encountering health services in other specified circumstances
CPT/HCPCS: 96365

== ENCOUNTER 2022-06-29 07:58 | Day surgery (SDC) | payer OTHER ==
[2022-06-29] MEDS ORDERED: SODIUM CHLORIDE 250 ML IV ONE (09:00)
[2022-06-29 09:02] LABS: BASO % 1.2 % (0-2.0); EOS % 8.4 % (0-4.5); HEMATOCRIT 35.4 % (35.4-49); MCHC 33.8 g/dl (32.0-35.9); MEAN CELL VOLUME 97.7 fl (80-96); MEAN PLT VOLUME 7.4 fl (7.5-11.1); MONO % 10.8 % (3.8-10.2); NEUT % 67.6 % (42.8-82.8); PLATELET COUNT 193 10^3/uL (134-434); RBC 3.62 M/mm3 (4.00-5.60); RDW 16.3 % (11.9-15.9); WHITE BLOOD COUNT 4.8 K/mm3 (4.0-10.0)
[2022-06-29 09:15] LABS: ALBUMIN 3.6 g/dl (3.4-5.0); BLOOD UREA NITROGEN 23.4 mg/dL (7-18); CALCIUM 9.1 mg/dL (8.5-10.1); MAGNESIUM 1.8 mg/dL (1.8-2.4)
[2022-06-29 09:17] LABS: BILIRUBIN,DIRECT 0.2 mg/dL (0.0-0.2); CREATININE 1.2 mg/dL (0.55-1.3)
[2022-06-29 09:19] LABS: BILIRUBIN,TOTAL 0.5 mg/dL (0.2-1); TOT PROT 6.7 g/dl (6.4-8.2)
[2022-06-29] MEDS ORDERED: PROCHLORPERAZINE IVPB ONE (09:30)
[2022-06-29] MEDS ORDERED: [UNRECOGNIZED DRUG - OTHER] IVPB ONE (09:30)
[2022-06-29] MEDS ORDERED: ATROPINE SO4 0.4 MG/1 ML VIAL IVPUSH ONE (09:30)
[2022-06-29] MEDS ORDERED: PALONOSETRON HCL 0.25 MG/5 ML VIAL IVPUSH ONE (09:30)
[2022-06-29] MEDS ORDERED: DEXAMETHASONE SODIUM PHOSPHATE IVPB ONE (09:30)
[2022-06-29] MEDS ORDERED: BEVACIZUMAB AWWB IVPB ONE (10:00)
[2022-06-29] MEDS ORDERED: SODIUM CHLORIDE IVPB ONE (10:00)
[2022-06-29] MEDS ORDERED: WATER IVPB ONE (10:30)
[2022-06-29] MEDS ORDERED: LEUCOVORIN INJECTION - 860 MG in DEXTROSE 5%-WATER - 250 ML IVPB ONE (10:30)
[2022-06-29] MEDS ORDERED: IRINOTECAN HCL IVPB ONE (10:30)
[2022-06-29] MEDS ORDERED: DEXTROSE 5% IVPB ONE (10:30)
[2022-06-29] MEDS ORDERED: SODIUM CHLORIDE CP ONE (12:30)
[2022-06-29] MEDS ORDERED: FLUOROURACIL CP ONE (12:30)
[2022-06-29 16:19] VITALS: BP 110/60; PULSE 84; RESP 18; TEMP 98.2
[2022-06-29] MEDS ORDERED: PORTA CATH FLUSH 10 ML IVPUSH PRN (16:19)
== END 2022-06-29 14:30 | disposition home or self-care (01) ==
LOC: JONCCHEMO 07:58
PROVIDERS: ATTEND Internal Medicine Hematology & Oncology
DX: Z51.11 Encounter for antineoplastic chemotherapy (principal); C20 Malignant neoplasm of rectum
CPT/HCPCS: 36415; 80048; 80076; 83735; 84156; 85025; 96366; 96367; 96375; 96413; 96417; G0498; J2469; J9206; Q5107

== ENCOUNTER 2022-07-01 12:45 | Day surgery (SDC) | payer OTHER ==
[~2022-07-01 12:45] MED LIST changes: -ATROPINE SO4 0.4 MG/1 ML VIAL IVPUSH ONE; -BEVACIZUMAB AWWB IVPB ONE; -DEXAMETHASONE SODIUM PHOSPHATE IVPB ONE; -FLUOROURACIL CP ONE; -IRINOTECAN HCL 380 MG in DEXTROSE 5%-WATER - 500 ML IVPB ONE; -LEUCOVORIN INJECTION - 836 MG in DEXTROSE 5%-WATER - 250 ML IVPB ONE; +MAGNESIUM SULFATE IN WATER 2 GM/50 ML IVPB IVPB ONE; -PALONOSETRON HCL 0.25 MG/5 ML VIAL IVPUSH ONE; -PORTA CATH FLUSH 10 ML IVPUSH PRN; -PROCHLORPERAZINE IVPB ONE; +SODIUM CHLORIDE 0.9%/KCL 10 MEQ/500 ML INFUS.BAG IV ONE; -SODIUM CHLORIDE 250 ML IV ONE; -SODIUM CHLORIDE CP ONE; -SODIUM CHLORIDE IVPB ONE; -[UNRECOGNIZED DRUG - OTHER] IVPB ONE
[2022-07-01] MEDS ORDERED: PORTA CATH FLUSH 10 ML IVPUSH PRN (13:00)
[2022-07-01 17:45] VITALS: RESP 18; TEMP 98.1
[2022-07-01 17:57] VITALS: BP 116/68; PULSE 60
== END 2022-07-01 15:30 | disposition home or self-care (01) ==
LOC: JONCCHEMO 12:45
PROVIDERS: ATTEND Internal Medicine Hematology & Oncology
PROC: 3E043GC Introduction of Other Therapeutic Substance into Central Vein, Percutaneous Approach (ICD-10-PCS; principal; 2022-07-01)
DX: Z76.89 Persons encountering health services in other specified circumstances (principal); C20 Malignant neoplasm of rectum
CPT/HCPCS: 96365; 96368

== ENCOUNTER 2022-07-13 07:57 | Day surgery (SDC) | payer OTHER ==
[2022-07-13 08:44] LABS: BASO % 0.5 % (0-2.0); HEMATOCRIT 37.2 % (35.4-49); LYMPH % 12.4 % (8-40); MCH 32.1 pg (25.7-33.7); MCHC 32.4 g/dl (32.0-35.9); MEAN CELL VOLUME 99.1 fl (80-96); MEAN PLT VOLUME 7.6 fl (7.5-11.1); MONO % 12.4 % (3.8-10.2); NEUT % 64.7 % (42.8-82.8); PLATELET COUNT 216 10^3/uL (134-434); RBC 3.75 M/mm3 (4.00-5.60); RDW 17.1 % (11.9-15.9); WHITE BLOOD COUNT 4.8 K/mm3 (4.0-10.0)
[2022-07-13] MEDS ORDERED: SODIUM CHLORIDE 250 ML IV ONE (09:00)
[2022-07-13 09:02] LABS: BLOOD UREA NITROGEN 17.6 mg/dL (7-18)
[2022-07-13 09:03] LABS: ALBUMIN 3.5 g/dl (3.4-5.0)
[2022-07-13 09:06] LABS: BILIRUBIN,DIRECT 0.2 mg/dL (0.0-0.2); CREATININE 0.9 mg/dL (0.55-1.3)
[2022-07-13 09:07] LABS: BILIRUBIN,TOTAL 0.6 mg/dL (0.2-1); TOT PROT 6.9 g/dl (6.4-8.2)
[2022-07-13] MEDS ORDERED: PALONOSETRON HCL 0.25 MG/5 ML VIAL IVPUSH ONE (10:00)
[2022-07-13] MEDS ORDERED: PROCHLORPERAZINE INJECTION 10 MG in SODIUM CHLORIDE 50 ML IVPB ONE (10:00)
[2022-07-13] MEDS ORDERED: DEXAMETHASONE SODIUM PHOSPHATE 6 MG in SODIUM CHLORIDE 50 ML IVPB ONE (10:00)
[2022-07-13] MEDS ORDERED: ATROPINE SO4 0.4 MG/1 ML VIAL IVPUSH ONE (10:00)
[2022-07-13] MEDS ORDERED: BEVACIZUMAB AWWB IVPB ONE (10:30)
[2022-07-13] MEDS ORDERED: SODIUM CHLORIDE IVPB ONE (10:30)
[2022-07-13] MEDS ORDERED: LEUCOVORIN INJECTION - 856 MG in DEXTROSE 5%-WATER - 250 ML IVPB ONE (11:00)
[2022-07-13] MEDS ORDERED: IRINOTECAN HCL IVPB ONE (11:30)
[2022-07-13] MEDS ORDERED: DEXTROSE 5% IVPB ONE (11:30)
[2022-07-13] MEDS ORDERED: WATER IVPB ONE (11:30)
[2022-07-13] MEDS ORDERED: SODIUM CHLORIDE CP ONE (13:00)
[2022-07-13] MEDS ORDERED: FLUOROURACIL CP ONE (13:00)
[2022-07-13 16:03] VITALS: TEMP 97.8
[2022-07-13] MEDS ORDERED: PORTA CATH FLUSH 10 ML IVPUSH PRN (16:03)
[2022-07-13 16:11] VITALS: BP 120/69; PULSE 76; RESP 20
== END 2022-07-13 17:00 | disposition home or self-care (01) ==
LOC: JONCCHEMO 07:57
PROVIDERS: ATTEND Internal Medicine Hematology & Oncology
DX: Z51.11 Encounter for antineoplastic chemotherapy (principal); C20 Malignant neoplasm of rectum
CPT/HCPCS: 36415; 80048; 80076; 82378; 83735; 84156; 85025; 96361; 96366; 96367; 96374; 96411; 96413; 96417; G0498; J2469; J9206; Q5107

== ENCOUNTER 2022-07-15 08:39 | Day surgery (SDC) | payer OTHER ==
[2022-07-15] MEDS ORDERED: SODIUM CHLORIDE IVPB ONE (10:00)
[2022-07-15] MEDS ORDERED: POTASSIUM CHLORIDE IVPB ONE (10:00)
[2022-07-15] MEDS ORDERED: MAGNESIUM SULFATE IVPB ONE (10:00)
[2022-07-15] MEDS ORDERED: PORTA CATH FLUSH 10 ML IVPUSH PRN (17:11)
[2022-07-15 17:12] VITALS: BP 116/69; PULSE 76; RESP 18; TEMP 97.9
== END 2022-07-15 15:00 | disposition home or self-care (01) ==
LOC: JONCCHEMO 08:39
PROVIDERS: ATTEND Internal Medicine Hematology & Oncology
PROC: 3E0437Z Introduction of Electrolytic and Water Balance Substance into Central Vein, Percutaneous Approach (ICD-10-PCS; principal; 2022-07-15)
DX: C20 Malignant neoplasm of rectum (principal); Z76.89 Persons encountering health services in other specified circumstances
CPT/HCPCS: 96360

== ENCOUNTER 2022-07-27 07:32 | Day surgery (SDC) | payer OTHER ==
[2022-07-27 08:29] LABS: BASO % 0.9 % (0-2.0); EOS % 10.6 % (0-4.5); HEMATOCRIT 37.3 % (35.4-49); HEMOGLOBIN 12.1 GM/dL (11.7-16.9); LYMPH % 11.3 % (8-40); MCH 32.5 pg (25.7-33.7); MCHC 32.3 g/dl (32.0-35.9); MEAN CELL VOLUME 100.6 fl (80-96); MEAN PLT VOLUME 7.3 fl (7.5-11.1); MONO % 11.3 % (3.8-10.2); NEUT % 65.9 % (42.8-82.8); PLATELET COUNT 205 10^3/uL (134-434); RBC 3.71 M/mm3 (4.00-5.60); RDW 17.2 % (11.9-15.9); WHITE BLOOD COUNT 5.5 K/mm3 (4.0-10.0)
[2022-07-27 08:48] LABS: CALCIUM 9.7 mg/dL (8.5-10.1)
[2022-07-27 08:49] LABS: ALBUMIN 3.5 g/dl (3.4-5.0); BLOOD UREA NITROGEN 22.8 mg/dL (7-18)
[2022-07-27 08:51] LABS: BILIRUBIN,DIRECT 0.2 mg/dL (0.0-0.2)
[2022-07-27 08:52] LABS: CREATININE 1.2 mg/dL (0.55-1.3)
[2022-07-27 08:53] LABS: BILIRUBIN,TOTAL 0.4 mg/dL (0.2-1)
[2022-07-27 08:54] LABS: TOT PROT 6.8 g/dl (6.4-8.2)
[2022-07-27] MEDS ORDERED: SODIUM CHLORIDE 250 ML IV ONE (09:00)
[2022-07-27] MEDS ORDERED: PROCHLORPERAZINE INJECTION 10 MG in SODIUM CHLORIDE 50 ML IVPB ONE (09:30)
[2022-07-27] MEDS ORDERED: PALONOSETRON HCL 0.25 MG/5 ML VIAL IVPUSH ONE (09:30)
[2022-07-27] MEDS ORDERED: ATROPINE SO4 0.4 MG/1 ML VIAL IVPUSH ONE (09:30)
[2022-07-27] MEDS ORDERED: DEXAMETHASONE SODIUM PHOSPHATE 6 MG in SODIUM CHLORIDE 50 ML IVPB ONE (09:30)
[2022-07-27] MEDS ORDERED: SODIUM CHLORIDE IVPB ONE (10:00)
[2022-07-27] MEDS ORDERED: BEVACIZUMAB AWWB IVPB ONE (10:00)
[2022-07-27] MEDS ORDERED: LEUCOVORIN INJECTION - 856 MG in DEXTROSE 5%-WATER - 250 ML IVPB ONE (10:30)
[2022-07-27] MEDS ORDERED: DEXTROSE 5% IVPB ONE (11:00)
[2022-07-27] MEDS ORDERED: IRINOTECAN HCL IVPB ONE (11:00)
[2022-07-27] MEDS ORDERED: WATER IVPB ONE (11:00)
[2022-07-27] MEDS ORDERED: FLUOROURACIL CP ONE (12:00)
[2022-07-27] MEDS ORDERED: SODIUM CHLORIDE CP ONE (12:00)
[2022-07-27 18:10] VITALS: BP 109/63; PULSE 80; RESP 20; TEMP 97.9
[2022-07-27] MEDS ORDERED: PORTA CATH FLUSH 10 ML IVPUSH PRN (18:41)
== END 2022-07-27 15:30 | disposition home or self-care (01) ==
LOC: JONCCHEMO 07:32
PROVIDERS: ATTEND Internal Medicine Hematology & Oncology
DX: Z51.11 Encounter for antineoplastic chemotherapy (principal); C20 Malignant neoplasm of rectum
CPT/HCPCS: 36415; 80048; 80076; 83735; 84156; 85025; 96366; 96367; 96375; 96413; 96415; 96417; G0498; J2469; J9206; Q5107

== ENCOUNTER 2022-07-29 12:40 | Day surgery (SDC) | payer OTHER ==
[2022-07-29] MEDS ORDERED: MAGNESIUM SULFATE IN WATER 2 GM/50 ML IVPB IVPB ONE (13:00)
[2022-07-29] MEDS ORDERED: SODIUM CHLORIDE 0.9%/KCL 10 MEQ/500 ML INFUS.BAG IV ONE (13:00)
[2022-07-29] MEDS ORDERED: KCL 10 MEQ IVPB 10 MEQ/100 ML INFUS.BAG IVPB ONE (13:00)
[2022-07-29] MEDS ORDERED: SODIUM CHLORIDE 500 ML IV ONE (13:00)
[2022-07-29 16:42] VITALS: BP 113/76; PULSE 70; RESP 20; TEMP 98
[2022-07-29] MEDS ORDERED: PORTA CATH FLUSH 10 ML IVPUSH PRN (16:58)
== END 2022-07-29 14:35 | disposition home or self-care (01) ==
LOC: J7W 12:40 → JONCCHEMO 12:40
PROVIDERS: ATTEND Internal Medicine Hematology & Oncology
PROC: 3E043GC Introduction of Other Therapeutic Substance into Central Vein, Percutaneous Approach (ICD-10-PCS; principal; 2022-07-29)
DX: C20 Malignant neoplasm of rectum (principal); Z76.89 Persons encountering health services in other specified circumstances
CPT/HCPCS: 96365; 96368

== ENCOUNTER 2022-08-10 07:50 | Day surgery (SDC) | payer OTHER ==
[2022-08-10 08:59] LABS: BASO % 1.3 % (0-2.0); EOS % 10.9 % (0-4.5); HEMATOCRIT 34.6 % (35.4-49); HEMOGLOBIN 11.8 GM/dL (11.7-16.9); LYMPH % 13.9 % (8-40); MCH 33.8 pg (25.7-33.7); MCHC 34.1 g/dl (32.0-35.9); MEAN CELL VOLUME 99.1 fl (80-96); MEAN PLT VOLUME 7.4 fl (7.5-11.1); MONO % 12.4 % (3.8-10.2); NEUT % 61.5 % (42.8-82.8); PLATELET COUNT 186 10^3/uL (134-434); RBC 3.49 M/mm3 (4.00-5.60); RDW 17.4 % (11.9-15.9); WHITE BLOOD COUNT 4.4 K/mm3 (4.0-10.0)
[2022-08-10] MEDS ORDERED: SODIUM CHLORIDE 250 ML IV ONE (09:00)
[2022-08-10 09:20] LABS: CALCIUM 9.1 mg/dL (8.5-10.1)
[2022-08-10 09:21] LABS: ALBUMIN 3.4 g/dl (3.4-5.0); BLOOD UREA NITROGEN 23.2 mg/dL (7-18); MAGNESIUM 1.8 mg/dL (1.8-2.4)
[2022-08-10 09:23] LABS: BILIRUBIN,DIRECT 0.2 mg/dL (0.0-0.2)
[2022-08-10 09:25] LABS: TOT PROT 6.5 g/dl (6.4-8.2)
[2022-08-10 09:26] LABS: BILIRUBIN,TOTAL 0.5 mg/dL (0.2-1)
[2022-08-10] MEDS ORDERED: PALONOSETRON HCL 0.25 MG/5 ML VIAL IVPUSH ONE (09:30)
[2022-08-10] MEDS ORDERED: DEXAMETHASONE SODIUM PHOSPHATE 6 MG in SODIUM CHLORIDE 50 ML IVPB ONE (09:30)
[2022-08-10] MEDS ORDERED: ATROPINE SO4 0.4 MG/1 ML VIAL IVPUSH ONE (09:30)
[2022-08-10] MEDS ORDERED: PROCHLORPERAZINE INJECTION 10 MG in SODIUM CHLORIDE 50 ML IVPB ONE (09:30)
[2022-08-10] MEDS ORDERED: SODIUM CHLORIDE IVPB ONE (10:00)
[2022-08-10] MEDS ORDERED: BEVACIZUMAB AWWB IVPB ONE (10:00)
[2022-08-10] MEDS ORDERED: DEXTROSE 5% IVPB ONE (10:30)
[2022-08-10] MEDS ORDERED: LEUCOVORIN INJECTION - 856 MG in DEXTROSE 5%-WATER - 250 ML IVPB ONE (10:30)
[2022-08-10] MEDS ORDERED: IRINOTECAN HCL IVPB ONE (10:30)
[2022-08-10] MEDS ORDERED: WATER IVPB ONE (10:30)
[2022-08-10] MEDS ORDERED: SODIUM CHLORIDE CP ONE (12:30)
[2022-08-10] MEDS ORDERED: FLUOROURACIL CP ONE (12:30)
[2022-08-10] MEDS ORDERED: PORTA CATH FLUSH 10 ML IVPUSH PRN (15:17)
[2022-08-10 15:18] VITALS: RESP 18; TEMP 98.4
[2022-08-10 15:45] VITALS: BP 115/66; PULSE 83
== END 2022-08-10 16:30 | disposition home or self-care (01) ==
LOC: JONCCHEMO 07:50
PROVIDERS: ATTEND Internal Medicine Hematology & Oncology
PROC: 3E04305 Introduction of Other Antineoplastic into Central Vein, Percutaneous Approach (ICD-10-PCS; principal; 2022-08-10)
PROC: 3E04305 Introduction of Other Antineoplastic into Central Vein, Percutaneous Approach (ICD-10-PCS; 2022-08-10)
PROC: 3E043GC Introduction of Other Therapeutic Substance into Central Vein, Percutaneous Approach (ICD-10-PCS; 2022-08-10)
PROC: 3E0437Z Introduction of Electrolytic and Water Balance Substance into Central Vein, Percutaneous Approach (ICD-10-PCS; 2022-08-10)
DX: Z51.11 Encounter for antineoplastic chemotherapy (principal); C20 Malignant neoplasm of rectum
CPT/HCPCS: 36415; 80048; 80076; 82378; 83735; 84156; 85025; 96361; 96366; 96367; 96375; 96413; 96417; G0498; J2469; J9206; Q5107

== ENCOUNTER 2022-08-12 12:52 | Day surgery (SDC) | payer OTHER ==
[2022-08-12] MEDS ORDERED: PORTA CATH FLUSH 10 ML IVPUSH PRN (14:25)
[2022-08-12 16:06] VITALS: RESP 18; TEMP 97.9
[2022-08-12 16:09] VITALS: BP 130/71; PULSE 70
== END 2022-08-12 14:40 | disposition home or self-care (01) ==
LOC: JONCCHEMO 12:52
PROVIDERS: ATTEND Internal Medicine Hematology & Oncology
PROC: 3E043GC Introduction of Other Therapeutic Substance into Central Vein, Percutaneous Approach (ICD-10-PCS; principal; 2022-08-12)
DX: C20 Malignant neoplasm of rectum (principal); Z76.89 Persons encountering health services in other specified circumstances
CPT/HCPCS: 96365

== ENCOUNTER 2022-08-24 07:39 | Day surgery (SDC) | payer OTHER ==
[2022-08-24 08:43] LABS: BASO % 1.2 % (0-2.0); EOS % 9.6 % (0-4.5); HEMOGLOBIN 11.9 GM/dL (11.7-16.9); LYMPH % 11.1 % (8-40); MEAN CELL VOLUME 99.9 fl (80-96); MEAN PLT VOLUME 7.7 fl (7.5-11.1); MONO % 12.8 % (3.8-10.2); NEUT % 65.3 % (42.8-82.8); PLATELET COUNT 177 10^3/uL (134-434); RBC 3.51 M/mm3 (4.00-5.60); RDW 16.8 % (11.9-15.9); WHITE BLOOD COUNT 4.9 K/mm3 (4.0-10.0)
[2022-08-24] MEDS ORDERED: SODIUM CHLORIDE 250 ML IV ONE (09:00)
[2022-08-24 09:06] LABS: ALBUMIN 3.4 g/dl (3.4-5.0); BLOOD UREA NITROGEN 23.4 mg/dL (7-18); CALCIUM 9.1 mg/dL (8.5-10.1)
[2022-08-24 09:07] LABS: MAGNESIUM 1.8 mg/dL (1.8-2.4)
[2022-08-24 09:08] LABS: BILIRUBIN,DIRECT 0.2 mg/dL (0.0-0.2)
[2022-08-24 09:10] LABS: BILIRUBIN,TOTAL 0.4 mg/dL (0.2-1); TOT PROT 6.8 g/dl (6.4-8.2)
[2022-08-24] MEDS ORDERED: PROCHLORPERAZINE INJECTION 10 MG in SODIUM CHLORIDE 50 ML IVPB ONE (09:30)
[2022-08-24] MEDS ORDERED: PALONOSETRON HCL 0.25 MG/5 ML VIAL IVPUSH ONE (09:30)
[2022-08-24] MEDS ORDERED: ATROPINE SO4 0.4 MG/1 ML VIAL IVPUSH ONE (09:30)
[2022-08-24] MEDS ORDERED: DEXAMETHASONE SODIUM PHOSPHATE 6 MG in SODIUM CHLORIDE 50 ML IVPB ONE (09:30)
[2022-08-24] MEDS ORDERED: BEVACIZUMAB AWWB IVPB ONE (10:00)
[2022-08-24] MEDS ORDERED: SODIUM CHLORIDE IVPB ONE (10:00)
[2022-08-24] MEDS ORDERED: IRINOTECAN HCL IVPB ONE (10:30)
[2022-08-24] MEDS ORDERED: WATER IVPB ONE (10:30)
[2022-08-24] MEDS ORDERED: LEUCOVORIN INJECTION - 856 MG in DEXTROSE 5%-WATER - 250 ML IVPB ONE (10:30)
[2022-08-24] MEDS ORDERED: DEXTROSE 5% IVPB ONE (10:30)
[2022-08-24] MEDS ORDERED: FLUOROURACIL CP ONE (12:30)
[2022-08-24] MEDS ORDERED: SODIUM CHLORIDE CP ONE (12:30)
[2022-08-24 17:01] VITALS: BP 103/60; PULSE 82; RESP 18; TEMP 98.6
[2022-08-24] MEDS ORDERED: PORTA CATH FLUSH 10 ML IVPUSH PRN (17:11)
== END 2022-08-24 16:00 | disposition home or self-care (01) ==
LOC: JONCCHEMO 07:39
PROVIDERS: ATTEND Internal Medicine Hematology & Oncology
DX: Z51.11 Encounter for antineoplastic chemotherapy (principal); C20 Malignant neoplasm of rectum
CPT/HCPCS: 36415; 80048; 80076; 82378; 83735; 84156; 85025; 96361; 96367; 96375; 96413; 96415; 96417; G0498; J2469; J9206; Q5107

== ENCOUNTER 2022-08-26 13:17 | Day surgery (SDC) | payer OTHER ==
[2022-08-26 16:25] VITALS: BP 119/66; PULSE 81; RESP 10; TEMP 97.6
[2022-08-26] MEDS ORDERED: PORTA CATH FLUSH 10 ML IVPUSH PRN (16:31)
== END 2022-08-26 14:30 | disposition home or self-care (01) ==
LOC: JONCCHEMO 13:17
PROVIDERS: ATTEND Internal Medicine Hematology & Oncology
PROC: 3E033GC Introduction of Other Therapeutic Substance into Peripheral Vein, Percutaneous Approach (ICD-10-PCS; principal; 2022-08-26)
DX: C20 Malignant neoplasm of rectum (principal); Z76.89 Persons encountering health services in other specified circumstances
CPT/HCPCS: 96365

== ENCOUNTER 2022-09-07 07:49 | Day surgery (SDC) | payer OTHER ==
[2022-09-07 08:35] LABS: BASO % 1.5 % (0-2.0); EOS % 14.9 % (0-4.5); HEMATOCRIT 34.7 % (35.4-49); HEMOGLOBIN 11.4 GM/dL (11.7-16.9); LYMPH % 13.9 % (8-40); MEAN CELL VOLUME 100.1 fl (80-96); MEAN PLT VOLUME 7.7 fl (7.5-11.1); MONO % 18.2 % (3.8-10.2); NEUT % 51.5 % (42.8-82.8); PLATELET COUNT 204 10^3/uL (134-434); RBC 3.46 M/mm3 (4.00-5.60); RDW 16.1 % (11.9-15.9); WHITE BLOOD COUNT 3.5 K/mm3 (4.0-10.0)
[2022-09-07] MEDS ORDERED: SODIUM CHLORIDE 250 ML IV ONE (09:00)
[2022-09-07 09:06] LABS: ALBUMIN 3.2 g/dl (3.4-5.0); BLOOD UREA NITROGEN 24.8 mg/dL (7-18)
[2022-09-07 09:08] LABS: BILIRUBIN,DIRECT 0.2 mg/dL (0.0-0.2)
[2022-09-07 09:09] LABS: CREATININE 1.2 mg/dL (0.55-1.3)
[2022-09-07 09:10] LABS: BILIRUBIN,TOTAL 0.6 mg/dL (0.2-1); TOT PROT 6.3 g/dl (6.4-8.2)
[2022-09-07] MEDS ORDERED: ATROPINE SO4 0.4 MG/1 ML VIAL IVPUSH ONE (10:00)
[2022-09-07] MEDS ORDERED: PALONOSETRON HCL 0.25 MG/5 ML VIAL IVPUSH ONE (10:00)
[2022-09-07] MEDS ORDERED: PROCHLORPERAZINE INJECTION 10 MG in SODIUM CHLORIDE 50 ML IVPB ONE (10:00)
[2022-09-07] MEDS ORDERED: DEXAMETHASONE SODIUM PHOSPHATE 6 MG in SODIUM CHLORIDE 50 ML IVPB ONE (10:00)
[2022-09-07] MEDS ORDERED: BEVACIZUMAB AWWB IVPB ONE (10:30)
[2022-09-07] MEDS ORDERED: SODIUM CHLORIDE IVPB ONE (10:30)
[2022-09-07] MEDS ORDERED: WATER IVPB ONE ×2 (11:00→11:30)
[2022-09-07] MEDS ORDERED: DEXTROSE 5% IVPB ONE ×2 (11:00→11:30)
[2022-09-07] MEDS ORDERED: LEUCOVORIN IVPB ONE (11:00)
[2022-09-07] MEDS ORDERED: IRINOTECAN HCL IVPB ONE (11:30)
[2022-09-07] MEDS ORDERED: SODIUM CHLORIDE CP ONE (13:00)
[2022-09-07] MEDS ORDERED: FLUOROURACIL CP ONE (13:00)
[2022-09-07 15:53] VITALS: RESP 20
[2022-09-07 16:10] VITALS: TEMP 98.1
[2022-09-07] MEDS ORDERED: PORTA CATH FLUSH 10 ML IVPUSH PRN (16:10)
[2022-09-07 16:18] VITALS: BP 108/58; PULSE 70
== END 2022-09-07 15:00 | disposition home or self-care (01) ==
LOC: JONCCHEMO 07:49
PROVIDERS: ATTEND Internal Medicine Hematology & Oncology
DX: C20 Malignant neoplasm of rectum (principal)
CPT/HCPCS: 36415; 80048; 80076; 83735; 84156; 85025; 96366; 96367; 96375; 96413; 96417; G0498; J2469; J9206; Q5107

== ENCOUNTER 2022-09-09 16:35 | Day surgery (SDC) | payer OTHER ==
[2022-09-09 16:39] VITALS: RESP 20
[2022-09-09 16:40] VITALS: BP 122/68; PULSE 70
[2022-09-09] MEDS ORDERED: PORTA CATH FLUSH 10 ML IVPUSH PRN (16:45)
== END 2022-09-09 16:51 | disposition home or self-care (01) ==
LOC: JONCCHEMO 16:35 → J7W 16:36 → JONCCHEMO 16:51
PROVIDERS: ATTEND Internal Medicine Hematology & Oncology
PROC: 3E043GC Introduction of Other Therapeutic Substance into Central Vein, Percutaneous Approach (ICD-10-PCS; principal; 2022-09-09)
DX: C20 Malignant neoplasm of rectum (principal); Z76.89 Persons encountering health services in other specified circumstances
CPT/HCPCS: 96365

== ENCOUNTER 2022-09-21 07:35 | Day surgery (SDC) | payer OTHER ==
[2022-09-21 08:53] LABS: HEMATOCRIT 36.2 % (35.4-49); HEMOGLOBIN 11.8 GM/dL (11.7-16.9); MCH 32.8 pg (25.7-33.7); MCHC 32.6 g/dl (32.0-35.9); MEAN CELL VOLUME 100.9 fl (80-96); MEAN PLT VOLUME 7.8 fl (7.5-11.1); PLATELET COUNT 239 10^3/uL (134-434); RBC 3.59 M/mm3 (4.00-5.60); RDW 15.7 % (11.9-15.9); WHITE BLOOD COUNT 4.6 K/mm3 (4.0-10.0)
[2022-09-21] MEDS ORDERED: SODIUM CHLORIDE 250 ML IV ONE (09:00)
[2022-09-21] MEDS ORDERED: DEXAMETHASONE SODIUM PHOSPHATE 6 MG in SODIUM CHLORIDE 50 ML IVPB ONE (09:30)
[2022-09-21] MEDS ORDERED: PROCHLORPERAZINE INJECTION 10 MG in SODIUM CHLORIDE 50 ML IVPB ONE (09:30)
[2022-09-21] MEDS ORDERED: ATROPINE SO4 0.4 MG/1 ML VIAL IVPUSH ONE (09:30)
[2022-09-21] MEDS ORDERED: PALONOSETRON HCL 0.25 MG/5 ML VIAL IVPUSH ONE (09:30)
[2022-09-21 09:36] LABS: ANISOCYTOSIS 1+; MACROCYTOSIS 1+; TEAR DROP CELLS 1+
[2022-09-21 09:59] LABS: ALBUMIN 3.4 g/dl (3.4-5.0); BLOOD UREA NITROGEN 19.5 mg/dL (7-18); CALCIUM 9.6 mg/dL (8.5-10.1)
[2022-09-21] MEDS ORDERED: BEVACIZUMAB AWWB IVPB ONE (10:00)
[2022-09-21] MEDS ORDERED: SODIUM CHLORIDE IVPB ONE (10:00)
[2022-09-21 10:01] LABS: BILIRUBIN,DIRECT 0.2 mg/dL (0.0-0.2); CREATININE 1.1 mg/dL (0.55-1.3); MAGNESIUM 1.8 mg/dL (1.8-2.4)
[2022-09-21 10:03] LABS: BILIRUBIN,TOTAL 0.4 mg/dL (0.2-1); TOT PROT 6.9 g/dl (6.4-8.2)
[2022-09-21] MEDS ORDERED: DEXTROSE 5% IVPB ONE (10:30)
[2022-09-21] MEDS ORDERED: IRINOTECAN HCL IVPB ONE (10:30)
[2022-09-21] MEDS ORDERED: WATER IVPB ONE (10:30)
[2022-09-21] MEDS ORDERED: LEUCOVORIN INJECTION - 856 MG in DEXTROSE 5%-WATER - 250 ML IVPB ONE (10:30)
[2022-09-21] MEDS ORDERED: SODIUM CHLORIDE CP ONE (12:30)
[2022-09-21] MEDS ORDERED: FLUOROURACIL CP ONE (12:30)
[2022-09-21 16:09] VITALS: TEMP 98.5
[2022-09-21] MEDS ORDERED: PORTA CATH FLUSH 10 ML IVPUSH PRN (16:16)
[2022-09-21 16:57] VITALS: BP 109/62; PULSE 64; RESP 18
== END 2022-09-21 16:00 | disposition home or self-care (01) ==
LOC: JONCCHEMO 07:35
PROVIDERS: ATTEND Internal Medicine Hematology & Oncology
DX: Z51.11 Encounter for antineoplastic chemotherapy (principal); C20 Malignant neoplasm of rectum
CPT/HCPCS: 36415; 80048; 80076; 82378; 83036; 83735; 84156; 85025; 96366; 96367; 96375; 96413; 96415; 96417; G0498; J2469; J9206; Q5107

== ENCOUNTER 2022-09-23 12:46 | Day surgery (SDC) | payer OTHER ==
[2022-09-23 14:38] VITALS: RESP 18; TEMP 97.7
[2022-09-23 14:43] VITALS: BP 105/56; PULSE 72
[2022-09-23] MEDS ORDERED: PORTA CATH FLUSH 10 ML IVPUSH PRN (14:43)
== END 2022-09-23 14:20 | disposition home or self-care (01) ==
LOC: JONCCHEMO 12:46
PROVIDERS: ATTEND Internal Medicine Hematology & Oncology
PROC: 3E043GC Introduction of Other Therapeutic Substance into Central Vein, Percutaneous Approach (ICD-10-PCS; principal; 2022-09-23)
DX: C20 Malignant neoplasm of rectum (principal)
CPT/HCPCS: 96365

== ENCOUNTER 2022-10-13 07:32 | Day surgery (SDC) | payer OTHER ==
[2022-10-13 08:46] LABS: HEMATOCRIT 36.7 % (35.4-49); MCH 32.9 pg (25.7-33.7); MCHC 32.7 g/dl (32.0-35.9); MEAN CELL VOLUME 100.8 fl (80-96); MEAN PLT VOLUME 8.1 fl (7.5-11.1); PLATELET COUNT 216 10^3/uL (134-434); RBC 3.64 M/mm3 (4.00-5.60); RDW 16.1 % (11.9-15.9); WHITE BLOOD COUNT 5.9 K/mm3 (4.0-10.0)
[2022-10-13] MEDS ORDERED: SODIUM CHLORIDE 250 ML IV ONE (09:00)
[2022-10-13 09:02] LABS: ALBUMIN 3.4 g/dl (3.4-5.0); BLOOD UREA NITROGEN 22.5 mg/dL (7-18); CALCIUM 8.9 mg/dL (8.5-10.1)
[2022-10-13 09:03] LABS: MAGNESIUM 2.1 mg/dL (1.8-2.4)
[2022-10-13 09:05] LABS: BILIRUBIN,DIRECT 0.1 mg/dL (0.0-0.2)
[2022-10-13 09:08] LABS: BILIRUBIN,TOTAL 0.4 mg/dL (0.2-1); TOT PROT 6.7 g/dl (6.4-8.2)
[2022-10-13] MEDS ORDERED: PALONOSETRON HCL 0.25 MG/5 ML VIAL IVPUSH ONE (10:00)
[2022-10-13] MEDS ORDERED: ATROPINE SO4 0.4 MG/1 ML VIAL IVPUSH ONE (10:00)
[2022-10-13] MEDS ORDERED: DEXAMETHASONE SODIUM PHOSPHATE 6 MG in SODIUM CHLORIDE 50 ML IVPB ONE (10:00)
[2022-10-13] MEDS ORDERED: PROCHLORPERAZINE INJECTION 10 MG in SODIUM CHLORIDE 50 ML IVPB ONE (10:00)
[2022-10-13 10:02] LABS: ANISOCYTOSIS 2+; MACROCYTOSIS 2+
[2022-10-13] MEDS ORDERED: BEVACIZUMAB AWWB IVPB ONE (10:30)
[2022-10-13] MEDS ORDERED: SODIUM CHLORIDE IVPB ONE (10:30)
[2022-10-13] MEDS ORDERED: LEUCOVORIN INJECTION - 852 MG in DEXTROSE 5%-WATER - 250 ML IVPB ONE (11:00)
[2022-10-13] MEDS ORDERED: IRINOTECAN HCL 380 MG in DEXTROSE 5%-WATER - 500 ML IVPB ONE (11:30)
[2022-10-13] MEDS ORDERED: SODIUM CHLORIDE CP ONE (13:00)
[2022-10-13] MEDS ORDERED: FLUOROURACIL CP ONE (13:00)
[2022-10-13 17:48] VITALS: TEMP 98.3
[2022-10-13] MEDS ORDERED: PORTA CATH FLUSH 10 ML IVPUSH PRN (17:48)
[2022-10-13 18:30] VITALS: BP 118/58; PULSE 63; RESP 18
== END 2022-10-13 15:30 | disposition home or self-care (01) ==
LOC: JONCCHEMO 07:32
PROVIDERS: ATTEND Internal Medicine Hematology & Oncology
DX: Z51.11 Encounter for antineoplastic chemotherapy (principal); C20 Malignant neoplasm of rectum
CPT/HCPCS: 36415; 80048; 80076; 82378; 83735; 84156; 85025; 96366; 96367; 96375; 96413; 96417; G0498; J2469; J9206; Q5107

== ENCOUNTER 2022-10-15 12:35 | Day surgery (SDC) | payer OTHER ==
[2022-10-15] MEDS ORDERED: MAGNESIUM SULFATE IN WATER 2 GM/50 ML IVPB IVPB ONE (13:00)
[2022-10-15] MEDS ORDERED: SODIUM CHLORIDE 0.9%/KCL 10 MEQ/500 ML INFUS.BAG IV ONE (14:00)
[2022-10-15 14:37] VITALS: RESP 18; TEMP 97.8
[2022-10-15] MEDS ORDERED: PORTA CATH FLUSH 10 ML IVPUSH PRN (14:42)
[2022-10-15 14:43] VITALS: BP 103/56; PULSE 71
== END 2022-10-15 14:30 | disposition home or self-care (01) ==
LOC: JONCCHEMO 12:35
PROVIDERS: ATTEND Internal Medicine Hematology & Oncology
PROC: 3E043GC Introduction of Other Therapeutic Substance into Central Vein, Percutaneous Approach (ICD-10-PCS; principal; 2022-10-15)
DX: C20 Malignant neoplasm of rectum (principal); Z76.89 Persons encountering health services in other specified circumstances
CPT/HCPCS: 96365

== ENCOUNTER 2022-10-27 07:36 | Day surgery (SDC) | payer OTHER ==
[2022-10-27 08:50] LABS: BASO % 1.1 % (0-2.0); EOS % 11.1 % (0-4.5); HEMATOCRIT 38.2 % (35.4-49); HEMOGLOBIN 12.5 GM/dL (11.7-16.9); MCH 32.6 pg (25.7-33.7); MCHC 32.7 g/dl (32.0-35.9); MEAN CELL VOLUME 99.6 fl (80-96); MEAN PLT VOLUME 7.9 fl (7.5-11.1); MONO % 11.5 % (3.8-10.2); NEUT % 63.3 % (42.8-82.8); PLATELET COUNT 190 10^3/uL (134-434); RBC 3.83 M/mm3 (4.00-5.60); RDW 15.2 % (11.9-15.9); WHITE BLOOD COUNT 5.1 K/mm3 (4.0-10.0)
[2022-10-27] MEDS ORDERED: SODIUM CHLORIDE 250 ML IV ONE (09:00)
[2022-10-27 09:10] LABS: CALCIUM 9.4 mg/dL (8.5-10.1)
[2022-10-27 09:11] LABS: ALBUMIN 3.5 g/dl (3.4-5.0); BLOOD UREA NITROGEN 22.7 mg/dL (7-18)
[2022-10-27 09:13] LABS: BILIRUBIN,DIRECT 0.2 mg/dL (0.0-0.2); CREATININE 0.9 mg/dL (0.55-1.3)
[2022-10-27 09:15] LABS: TOT PROT 6.8 g/dl (6.4-8.2)
[2022-10-27 09:16] LABS: BILIRUBIN,TOTAL 0.5 mg/dL (0.2-1)
[2022-10-27] MEDS ORDERED: PROCHLORPERAZINE INJECTION 10 MG in SODIUM CHLORIDE 50 ML IVPB ONE (09:30)
[2022-10-27] MEDS ORDERED: ATROPINE SO4 0.4 MG/1 ML VIAL IVPUSH ONE (09:30)
[2022-10-27] MEDS ORDERED: DEXAMETHASONE SODIUM PHOSPHATE 6 MG in SODIUM CHLORIDE 50 ML IVPB ONE (09:30)
[2022-10-27] MEDS ORDERED: PALONOSETRON HCL 0.25 MG/5 ML VIAL IVPUSH ONE (09:30)
[2022-10-27] MEDS ORDERED: SODIUM CHLORIDE IVPB ONE (10:00)
[2022-10-27] MEDS ORDERED: BEVACIZUMAB AWWB IVPB ONE (10:00)
[2022-10-27] MEDS ORDERED: LEUCOVORIN IVPB ONE (10:30)
[2022-10-27] MEDS ORDERED: DEXTROSE 5% IVPB ONE ×2 (10:30)
[2022-10-27] MEDS ORDERED: IRINOTECAN HCL IVPB ONE (10:30)
[2022-10-27] MEDS ORDERED: WATER IVPB ONE ×2 (10:30)
[2022-10-27] MEDS ORDERED: FLUOROURACIL CP ONE (12:30)
[2022-10-27] MEDS ORDERED: SODIUM CHLORIDE CP ONE (12:30)
[2022-10-27] MEDS ORDERED: PORTA CATH FLUSH 10 ML IVPUSH PRN (16:18)
[2022-10-27 16:19] VITALS: BP 97/53; PULSE 96; RESP 20; TEMP 98.4
== END 2022-10-27 15:40 | disposition home or self-care (01) ==
LOC: JONCCHEMO 07:36
PROVIDERS: ATTEND Internal Medicine Hematology & Oncology
DX: C20 Malignant neoplasm of rectum (principal)
CPT/HCPCS: 36415; 80048; 80076; 82785; 83735; 84156; 85025; 96366; 96367; 96375; 96413; 96415; 96417; G0498; J2469; J9206; Q5107

== ENCOUNTER 2022-10-29 12:39 | Day surgery (SDC) | payer OTHER ==
[2022-10-29 16:01] VITALS: RESP 18; TEMP 98
[2022-10-29 16:05] VITALS: BP 109/61; PULSE 62
[2022-10-29] MEDS ORDERED: PORTA CATH FLUSH 10 ML IVPUSH PRN (16:05)
== END 2022-10-29 14:30 | disposition home or self-care (01) ==
LOC: JONCCHEMO 12:39
PROVIDERS: ATTEND Internal Medicine Hematology & Oncology
PROC: 3E043GC Introduction of Other Therapeutic Substance into Central Vein, Percutaneous Approach (ICD-10-PCS; principal; 2022-10-29)
DX: C20 Malignant neoplasm of rectum (principal); Z76.89 Persons encountering health services in other specified circumstances
CPT/HCPCS: 96365

== ENCOUNTER 2022-11-09 07:42 | Day surgery (SDC) | payer OTHER ==
[2022-11-09] MEDS ORDERED: DEXAMETHASONE SODIUM PHOSPHATE 6 MG in SODIUM CHLORIDE 50 ML IVPB ONE ×2 (08:30→09:30)
[2022-11-09] MEDS ORDERED: SODIUM CHLORIDE 250 ML IV ONE (09:00)
[2022-11-09] MEDS ORDERED: PROCHLORPERAZINE INJECTION 10 MG in SODIUM CHLORIDE 50 ML IVPB ONE (09:30)
[2022-11-09] MEDS ORDERED: PALONOSETRON HCL 0.25 MG/5 ML VIAL IVPUSH ONE (09:30)
[2022-11-09] MEDS ORDERED: ATROPINE SO4 0.4 MG/1 ML VIAL IVPUSH ONE (09:30)
[2022-11-09] MEDS ORDERED: SODIUM CHLORIDE IVPB ONE (10:00)
[2022-11-09] MEDS ORDERED: BEVACIZUMAB AWWB IVPB ONE (10:00)
[2022-11-09 10:26] LABS: BASO % 0.8 % (0-2.0); EOS % 7.4 % (0-4.5); HEMATOCRIT 36.9 % (35.4-49); HEMOGLOBIN 12.3 GM/dL (11.7-16.9); LYMPH % 17.5 % (8-40); MCH 33.4 pg (25.7-33.7); MCHC 33.2 g/dl (32.0-35.9); MEAN CELL VOLUME 100.4 fl (80-96); MONO % 12.1 % (3.8-10.2); NEUT % 62.2 % (42.8-82.8); PLATELET COUNT 208 10^3/uL (134-434); RBC 3.67 M/mm3 (4.00-5.60); RDW 15.8 % (11.9-15.9); WHITE BLOOD COUNT 3.9 K/mm3 (4.0-10.0)
[2022-11-09] MEDS ORDERED: WATER IVPB ONE (10:30)
[2022-11-09] MEDS ORDERED: LEUCOVORIN INJECTION - 860 MG in DEXTROSE 5%-WATER - 250 ML IVPB ONE (10:30)
[2022-11-09] MEDS ORDERED: IRINOTECAN HCL IVPB ONE (10:30)
[2022-11-09] MEDS ORDERED: DEXTROSE 5% IVPB ONE (10:30)
[2022-11-09 10:49] LABS: ALBUMIN 3.4 g/dl (3.4-5.0); BLOOD UREA NITROGEN 19.7 mg/dL (7-18)
[2022-11-09 10:52] LABS: BILIRUBIN,DIRECT 0.2 mg/dL (0.0-0.2); CREATININE 0.9 mg/dL (0.55-1.3)
[2022-11-09 10:53] LABS: TOT PROT 6.9 g/dl (6.4-8.2)
[2022-11-09 10:54] LABS: BILIRUBIN,TOTAL 0.4 mg/dL (0.2-1)
[2022-11-09] MEDS ORDERED: FLUOROURACIL CP ONE (12:30)
[2022-11-09] MEDS ORDERED: SODIUM CHLORIDE CP ONE (12:30)
[2022-11-09 15:28] VITALS: RESP 20; TEMP 98
[2022-11-09] MEDS ORDERED: PORTA CATH FLUSH 10 ML IVPUSH PRN (15:41)
[2022-11-09 15:42] VITALS: BP 113/60; PULSE 62
== END 2022-11-09 15:52 | disposition home or self-care (01) ==
LOC: JONCCHEMO 07:42
PROVIDERS: ATTEND Internal Medicine Hematology & Oncology
DX: Z51.11 Encounter for antineoplastic chemotherapy (principal); C20 Malignant neoplasm of rectum
CPT/HCPCS: 36415; 80048; 80076; 83735; 84156; 85025; 96366; 96367; 96375; 96413; G0498; J2469; J9206; Q5107

== ENCOUNTER 2022-11-11 12:54 | Day surgery (SDC) | payer OTHER ==
[2022-11-11 15:59] VITALS: BP 115/62; PULSE 64; TEMP 98.1
[2022-11-11] MEDS ORDERED: PORTA CATH FLUSH 10 ML IVPUSH PRN (15:59)
[2022-11-11 17:00] VITALS: RESP 16
== END 2022-11-11 14:15 | disposition home or self-care (01) ==
LOC: JONCCHEMO 12:54
PROVIDERS: ATTEND Internal Medicine Hematology & Oncology
PROC: 3E043GC Introduction of Other Therapeutic Substance into Central Vein, Percutaneous Approach (ICD-10-PCS; principal; 2022-11-11)
DX: C20 Malignant neoplasm of rectum (principal); Z76.89 Persons encountering health services in other specified circumstances
CPT/HCPCS: 96365

== ENCOUNTER 2022-11-23 07:30 | Day surgery (SDC) | payer OTHER ==
[2022-11-23 08:14] LABS: EOS % 9.7 % (0-4.5); HEMOGLOBIN 11.5 GM/dL (11.7-16.9); LYMPH % 14.1 % (8-40); MCH 32.6 pg (25.7-33.7); MCHC 32.7 g/dl (32.0-35.9); MEAN CELL VOLUME 99.7 fl (80-96); MEAN PLT VOLUME 7.6 fl (7.5-11.1); MONO % 10.3 % (3.8-10.2); NEUT % 64.9 % (42.8-82.8); PLATELET COUNT 179 10^3/uL (134-434); RBC 3.51 M/mm3 (4.00-5.60); RDW 16.6 % (11.9-15.9); WHITE BLOOD COUNT 4.1 K/mm3 (4.0-10.0)
[2022-11-23 08:34] LABS: CALCIUM 8.4 mg/dL (8.5-10.1)
[2022-11-23 08:35] LABS: ALBUMIN 3.1 g/dl (3.4-5.0); BLOOD UREA NITROGEN 20.6 mg/dL (7-18); MAGNESIUM 1.8 mg/dL (1.8-2.4)
[2022-11-23 08:37] LABS: BILIRUBIN,DIRECT 0.1 mg/dL (0.0-0.2)
[2022-11-23 08:38] LABS: CREATININE 0.9 mg/dL (0.55-1.3)
[2022-11-23 08:39] LABS: BILIRUBIN,TOTAL 0.4 mg/dL (0.2-1); TOT PROT 6.3 g/dl (6.4-8.2)
[2022-11-23] MEDS ORDERED: SODIUM CHLORIDE 250 ML IV ONE (09:00)
[2022-11-23] MEDS ORDERED: ATROPINE SO4 0.4 MG/1 ML VIAL IVPUSH ONE (10:00)
[2022-11-23] MEDS ORDERED: DEXAMETHASONE SODIUM PHOSPHATE 6 MG in SODIUM CHLORIDE 50 ML IVPB ONE (10:00)
[2022-11-23] MEDS ORDERED: PROCHLORPERAZINE INJECTION 10 MG in SODIUM CHLORIDE 50 ML IVPB ONE (10:00)
[2022-11-23] MEDS ORDERED: PALONOSETRON HCL 0.25 MG/5 ML VIAL IVPUSH ONE (10:00)
[2022-11-23] MEDS ORDERED: BEVACIZUMAB AWWB IVPB ONE (10:30)
[2022-11-23] MEDS ORDERED: SODIUM CHLORIDE IVPB ONE (10:30)
[2022-11-23] MEDS ORDERED: LEUCOVORIN INJECTION - 860 MG in DEXTROSE 5%-WATER - 250 ML IVPB ONE (11:00)
[2022-11-23] MEDS ORDERED: DEXTROSE 5% IVPB ONE (11:30)
[2022-11-23] MEDS ORDERED: WATER IVPB ONE (11:30)
[2022-11-23] MEDS ORDERED: IRINOTECAN HCL IVPB ONE (11:30)
[2022-11-23] MEDS ORDERED: SODIUM CHLORIDE CP ONE (13:00)
[2022-11-23] MEDS ORDERED: FLUOROURACIL CP ONE (13:00)
[2022-11-23 17:31] VITALS: BP 128/76; PULSE 108; RESP 20; TEMP 98.5
[2022-11-23] MEDS ORDERED: PORTA CATH FLUSH 10 ML IVPUSH PRN (18:20)
== END 2022-11-23 14:45 | disposition home or self-care (01) ==
LOC: JONCCHEMO 07:30
PROVIDERS: ATTEND Internal Medicine Hematology & Oncology
DX: Z51.11 Encounter for antineoplastic chemotherapy (principal); C20 Malignant neoplasm of rectum; C78.7 Secondary malignant neoplasm of liver and intrahepatic bile duct
CPT/HCPCS: 36415; 80048; 80076; 83735; 84156; 85025; 96366; 96367; 96375; 96413; G0498; J2469; J9206; Q5107

== ENCOUNTER 2022-11-25 13:34 | Day surgery (SDC) | payer OTHER ==
[2022-11-25] MEDS ORDERED: SODIUM CHLORIDE 500 ML IV ONE (13:45)
[2022-11-25] MEDS ORDERED: KCL 10 MEQ IVPB 10 MEQ/100 ML INFUS.BAG IVPB ONE (13:45)
[2022-11-25] MEDS ORDERED: MAGNESIUM SULFATE IN WATER 2 GM/50 ML IVPB IVPB ONE (13:45)
[2022-11-25 17:20] VITALS: BP 117/63; PULSE 58; RESP 16; TEMP 97.9
[2022-11-25] MEDS ORDERED: PORTA CATH FLUSH 10 ML IVPUSH PRN (17:25)
== END 2022-11-25 15:00 | disposition home or self-care (01) ==
LOC: JONCCHEMO 13:34
PROVIDERS: ATTEND Internal Medicine Hematology & Oncology
PROC: 3E043GC Introduction of Other Therapeutic Substance into Central Vein, Percutaneous Approach (ICD-10-PCS; principal; 2022-11-25)
DX: C20 Malignant neoplasm of rectum (principal); C78.7 Secondary malignant neoplasm of liver and intrahepatic bile duct; Z76.89 Persons encountering health services in other specified circumstances
CPT/HCPCS: 96365

== ENCOUNTER 2022-12-07 07:50 | Day surgery (SDC) | payer OTHER ==
[2022-12-07 08:44] LABS: BASO % 1.4 % (0-2.0); EOS % 10.1 % (0-4.5); HEMATOCRIT 38.1 % (35.4-49); HEMOGLOBIN 12.7 GM/dL (11.7-16.9); LYMPH % 12.4 % (8-40); MCHC 33.3 g/dl (32.0-35.9); MEAN PLT VOLUME 8.1 fl (7.5-11.1); MONO % 12.9 % (3.8-10.2); NEUT % 63.2 % (42.8-82.8); PLATELET COUNT 201 10^3/uL (134-434); RBC 3.85 M/mm3 (4.00-5.60); RDW 16.8 % (11.9-15.9); WHITE BLOOD COUNT 4.4 K/mm3 (4.0-10.0)
[2022-12-07 08:58] LABS: ALBUMIN 3.6 g/dl (3.4-5.0); CALCIUM 9.1 mg/dL (8.5-10.1)
[2022-12-07 08:59] LABS: BLOOD UREA NITROGEN 19.2 mg/dL (7-18); MAGNESIUM 1.9 mg/dL (1.8-2.4)
[2022-12-07 09:02] LABS: BILIRUBIN,DIRECT 0.2 mg/dL (0.0-0.2); CREATININE 1.2 mg/dL (0.55-1.3)
[2022-12-07 09:04] LABS: BILIRUBIN,TOTAL 0.5 mg/dL (0.2-1)
[2022-12-07] MEDS ORDERED: PROCHLORPERAZINE INJECTION 10 MG in SODIUM CHLORIDE 50 ML IVPB ONE (10:00)
[2022-12-07] MEDS ORDERED: DEXAMETHASONE SODIUM PHOSPHATE 6 MG in SODIUM CHLORIDE 50 ML IVPB ONE (10:00)
[2022-12-07] MEDS ORDERED: ATROPINE SO4 0.4 MG/1 ML VIAL IVPUSH ONE (10:00)
[2022-12-07] MEDS ORDERED: PALONOSETRON HCL 0.25 MG/5 ML VIAL IVPUSH ONE (10:00)
[2022-12-07] MEDS ORDERED: SODIUM CHLORIDE 250 ML IV ONE (10:00)
[2022-12-07] MEDS ORDERED: BEVACIZUMAB AWWB IVPB ONE (10:30)
[2022-12-07] MEDS ORDERED: SODIUM CHLORIDE IVPB ONE (10:30)
[2022-12-07] MEDS ORDERED: LEUCOVORIN CALCIUM IVPB ONE (11:00)
[2022-12-07] MEDS ORDERED: DEXTROSE 5% IVPB ONE ×2 (11:00→11:30)
[2022-12-07] MEDS ORDERED: WATER IVPB ONE ×2 (11:00→11:30)
[2022-12-07] MEDS ORDERED: IRINOTECAN HCL IVPB ONE (11:30)
[2022-12-07] MEDS ORDERED: SODIUM CHLORIDE CP ONE (13:00)
[2022-12-07] MEDS ORDERED: FLUOROURACIL CP ONE (13:00)
[2022-12-07 16:46] VITALS: BP 97/60; PULSE 91; RESP 20; TEMP 98.3
[2022-12-07] MEDS ORDERED: PORTA CATH FLUSH 10 ML IVPUSH PRN (16:46)
== END 2022-12-07 15:00 | disposition home or self-care (01) ==
LOC: JONCCHEMO 07:50
PROVIDERS: ATTEND Internal Medicine Hematology & Oncology
DX: Z51.11 Encounter for antineoplastic chemotherapy (principal); C20 Malignant neoplasm of rectum; C78.7 Secondary malignant neoplasm of liver and intrahepatic bile duct
CPT/HCPCS: 36415; 80048; 80076; 83735; 84156; 85025; 96366; 96367; 96413; 96417; G0498; J2469; J9206; Q5107

== ENCOUNTER 2022-12-09 12:50 | Day surgery (SDC) | payer OTHER ==
[~2022-12-09 12:50] MED LIST changes: +KCL 10 MEQ IVPB 10 MEQ/100 ML INFUS.BAG IVPB ONE; -SODIUM CHLORIDE 0.9%/KCL 10 MEQ/500 ML INFUS.BAG IV ONE; +SODIUM CHLORIDE 500 ML IV ONE
[2022-12-09 17:33] VITALS: BP 126/70; PULSE 69; RESP 20; TEMP 97.8
== END 2022-12-09 16:00 | disposition home or self-care (01) ==
LOC: JONCCHEMO 12:50
PROVIDERS: ATTEND Internal Medicine Hematology & Oncology
PROC: 3E043GC Introduction of Other Therapeutic Substance into Central Vein, Percutaneous Approach (ICD-10-PCS; principal; 2022-12-09)
DX: C20 Malignant neoplasm of rectum (principal); C78.7 Secondary malignant neoplasm of liver and intrahepatic bile duct; Z76.89 Persons encountering health services in other specified circumstances
CPT/HCPCS: 96365; 96368

== ENCOUNTER 2022-12-21 07:38 | Day surgery (SDC) | payer OTHER ==
[2022-12-21 08:10] LABS: BASO % 1.1 % (0-2.0); HEMATOCRIT 37.3 % (35.4-49); HEMOGLOBIN 12.3 GM/dL (11.7-16.9); LYMPH % 17.2 % (8-40); MCH 32.8 pg (25.7-33.7); MEAN CELL VOLUME 99.4 fl (80-96); MEAN PLT VOLUME 7.9 fl (7.5-11.1); MONO % 12.3 % (3.8-10.2); NEUT % 58.4 % (42.8-82.8); PLATELET COUNT 192 10^3/uL (134-434); RBC 3.75 M/mm3 (4.00-5.60); RDW 17.2 % (11.9-15.9); WHITE BLOOD COUNT 4.3 K/mm3 (4.0-10.0)
[2022-12-21 08:29] LABS: ALBUMIN 3.4 g/dl (3.4-5.0)
[2022-12-21 08:30] LABS: BLOOD UREA NITROGEN 16.8 mg/dL (7-18); CALCIUM 8.8 mg/dL (8.5-10.1)
[2022-12-21 08:31] LABS: BILIRUBIN,DIRECT 0.1 mg/dL (0.0-0.2)
[2022-12-21 08:33] LABS: TOT PROT 6.8 g/dl (6.4-8.2)
[2022-12-21 08:34] LABS: BILIRUBIN,TOTAL 0.4 mg/dL (0.2-1)
[2022-12-21] MEDS ORDERED: SODIUM CHLORIDE 250 ML IV ONE (09:00)
[2022-12-21] MEDS ORDERED: ATROPINE SO4 0.4 MG/1 ML VIAL IVPUSH ONE (09:30)
[2022-12-21] MEDS ORDERED: DEXAMETHASONE SODIUM PHOSPHATE 6 MG in SODIUM CHLORIDE 50 ML IVPB ONE (09:30)
[2022-12-21] MEDS ORDERED: PROCHLORPERAZINE INJECTION 10 MG in SODIUM CHLORIDE 50 ML IVPB ONE (09:30)
[2022-12-21] MEDS ORDERED: PALONOSETRON HCL 0.25 MG/5 ML VIAL IVPUSH ONE (09:30)
[2022-12-21] MEDS ORDERED: SODIUM CHLORIDE IVPB ONE (10:00)
[2022-12-21] MEDS ORDERED: BEVACIZUMAB AWWB IVPB ONE (10:00)
[2022-12-21] MEDS ORDERED: IRINOTECAN HCL IVPB ONE (10:30)
[2022-12-21] MEDS ORDERED: DEXTROSE 5% IVPB ONE ×2 (10:30)
[2022-12-21] MEDS ORDERED: LEUCOVORIN CALCIUM IVPB ONE (10:30)
[2022-12-21] MEDS ORDERED: WATER IVPB ONE ×2 (10:30)
[2022-12-21] MEDS ORDERED: FLUOROURACIL CP ONE (12:30)
[2022-12-21] MEDS ORDERED: SODIUM CHLORIDE CP ONE (12:30)
[2022-12-21 16:12] VITALS: BP 103/64; PULSE 81; RESP 18; TEMP 97.3
== END 2022-12-21 15:45 | disposition home or self-care (01) ==
LOC: JONCCHEMO 07:38
PROVIDERS: ATTEND Internal Medicine Hematology & Oncology
DX: Z51.11 Encounter for antineoplastic chemotherapy (principal); C20 Malignant neoplasm of rectum; C78.7 Secondary malignant neoplasm of liver and intrahepatic bile duct
CPT/HCPCS: 36415; 80048; 80076; 82378; 83735; 84156; 85025; 96366; 96367; 96375; 96413; 96417; G0498; J2469; J9206; Q5107

== ENCOUNTER 2022-12-23 14:00 | Day surgery (SDC) | payer OTHER ==
[2022-12-23 16:57] VITALS: BP 131/68; PULSE 68; RESP 20; TEMP 98.2
[2022-12-23] MEDS ORDERED: PORTA CATH FLUSH 10 ML IVPUSH PRN (17:03)
== END 2022-12-23 15:00 | disposition home or self-care (01) ==
LOC: JONCCHEMO 14:00
PROVIDERS: ATTEND Internal Medicine Hematology & Oncology
PROC: 3E043GC Introduction of Other Therapeutic Substance into Central Vein, Percutaneous Approach (ICD-10-PCS; principal; 2022-12-23)
DX: C20 Malignant neoplasm of rectum (principal); C78.7 Secondary malignant neoplasm of liver and intrahepatic bile duct; Z76.89 Persons encountering health services in other specified circumstances
CPT/HCPCS: 96365

== ENCOUNTER 2023-01-04 07:39 | Day surgery (SDC) | payer OTHER ==
[2023-01-04 08:41] LABS: ALBUMIN 3.2 g/dl (3.4-5.0); BLOOD UREA NITROGEN 15.2 mg/dL (7-18); CALCIUM 8.9 mg/dL (8.5-10.1); MAGNESIUM 1.9 mg/dL (1.8-2.4)
[2023-01-04 08:44] LABS: BILIRUBIN,DIRECT 0.2 mg/dL (0.0-0.2); CREATININE 0.9 mg/dL (0.55-1.3)
[2023-01-04 08:46] LABS: BILIRUBIN,TOTAL 0.5 mg/dL (0.2-1); TOT PROT 6.5 g/dl (6.4-8.2)
[2023-01-04 08:53] LABS: BASO % 1.8 % (0-2.0); EOS % 11.2 % (0-4.5); HEMATOCRIT 34.4 % (35.4-49); HEMOGLOBIN 11.7 GM/dL (11.7-16.9); LYMPH % 14.6 % (8-40); MCH 33.1 pg (25.7-33.7); MCHC 34.1 g/dl (32.0-35.9); MEAN CELL VOLUME 97.2 fl (80-96); MEAN PLT VOLUME 7.5 fl (7.5-11.1); MONO % 13.2 % (3.8-10.2); NEUT % 59.2 % (42.8-82.8); PLATELET COUNT 189 10^3/uL (134-434); RBC 3.54 M/mm3 (4.00-5.60); RDW 17.4 % (11.9-15.9); WHITE BLOOD COUNT 4.2 K/mm3 (4.0-10.0)
[2023-01-04] MEDS ORDERED: SODIUM CHLORIDE 250 ML IV ONE (09:00)
[2023-01-04] MEDS ORDERED: PROCHLORPERAZINE INJECTION 10 MG in SODIUM CHLORIDE 50 ML IVPB ONE (09:30)
[2023-01-04] MEDS ORDERED: ATROPINE SO4 0.4 MG/1 ML VIAL IVPUSH ONE (09:30)
[2023-01-04] MEDS ORDERED: PALONOSETRON HCL 0.25 MG/5 ML VIAL IVPUSH ONE (09:30)
[2023-01-04] MEDS ORDERED: DEXAMETHASONE SODIUM PHOSPHATE 6 MG in SODIUM CHLORIDE 50 ML IVPB ONE (09:30)
[2023-01-04] MEDS ORDERED: SODIUM CHLORIDE IVPB ONE (10:00)
[2023-01-04] MEDS ORDERED: BEVACIZUMAB AWWB IVPB ONE (10:00)
[2023-01-04] MEDS ORDERED: WATER IVPB ONE ×2 (10:30)
[2023-01-04] MEDS ORDERED: DEXTROSE 5% IVPB ONE ×2 (10:30)
[2023-01-04] MEDS ORDERED: IRINOTECAN HCL IVPB ONE (10:30)
[2023-01-04] MEDS ORDERED: LEUCOVORIN CALCIUM IVPB ONE (10:30)
[2023-01-04] MEDS ORDERED: SODIUM CHLORIDE CP ONE (12:30)
[2023-01-04] MEDS ORDERED: FLUOROURACIL CP ONE (12:30)
[2023-01-04 16:02] VITALS: BP 98/62; PULSE 81; RESP 19; TEMP 98.2
[2023-01-04] MEDS ORDERED: PORTA CATH FLUSH 10 ML IVPUSH PRN (16:02)
== END 2023-01-04 14:45 | disposition home or self-care (01) ==
LOC: JONCCHEMO 07:39
PROVIDERS: ATTEND Internal Medicine Hematology & Oncology
DX: Z51.11 Encounter for antineoplastic chemotherapy (principal); C20 Malignant neoplasm of rectum; C78.7 Secondary malignant neoplasm of liver and intrahepatic bile duct
CPT/HCPCS: 36415; 80048; 80076; 82378; 83735; 84156; 85025; 96366; 96367; 96375; 96413; 96417; G0498; J2469; J9206; Q5107

== ENCOUNTER 2023-01-06 12:40 | Day surgery (SDC) | payer OTHER ==
[2023-01-06] MEDS ORDERED: PORTA CATH FLUSH 10 ML IVPUSH PRN (15:46)
[2023-01-06 15:47] VITALS: BP 122/70; PULSE 67; RESP 18; TEMP 97.6
== END 2023-01-06 14:00 | disposition home or self-care (01) ==
LOC: JONCCHEMO 12:40
PROVIDERS: ATTEND Internal Medicine Hematology & Oncology
DX: C20 Malignant neoplasm of rectum (principal); C78.7 Secondary malignant neoplasm of liver and intrahepatic bile duct; Z76.89 Persons encountering health services in other specified circumstances
CPT/HCPCS: 96365

== ENCOUNTER 2023-01-18 07:41 | Day surgery (SDC) | payer OTHER ==
[2023-01-18 08:08] LABS: BASO % 1.4 % (0-2.0); EOS % 11.6 % (0-4.5); HEMATOCRIT 33.9 % (35.4-49); HEMOGLOBIN 11.7 GM/dL (11.7-16.9); LYMPH % 14.3 % (8-40); MCH 33.5 pg (25.7-33.7); MCHC 34.4 g/dl (32.0-35.9); MEAN CELL VOLUME 97.6 fl (80-96); MEAN PLT VOLUME 7.6 fl (7.5-11.1); MONO % 13.2 % (3.8-10.2); NEUT % 59.5 % (42.8-82.8); PLATELET COUNT 178 10^3/uL (134-434); RBC 3.48 M/mm3 (4.00-5.60); RDW 17.8 % (11.9-15.9); WHITE BLOOD COUNT 4.3 K/mm3 (4.0-10.0)
[2023-01-18 08:16] LABS: CALCIUM 9.2 mg/dL (8.5-10.1)
[2023-01-18 08:17] LABS: ALBUMIN 3.3 g/dl (3.4-5.0); BLOOD UREA NITROGEN 22.9 mg/dL (7-18); MAGNESIUM 1.7 mg/dL (1.8-2.4)
[2023-01-18 08:19] LABS: BILIRUBIN,DIRECT 0.2 mg/dL (0.0-0.2)
[2023-01-18 08:20] LABS: CREATININE 1.1 mg/dL (0.55-1.3)
[2023-01-18 08:21] LABS: BILIRUBIN,TOTAL 0.4 mg/dL (0.2-1); TOT PROT 6.7 g/dl (6.4-8.2)
[2023-01-18] MEDS ORDERED: MAGNESIUM 2GM/50ML STERILE WATER IVPB IVPB ONE (08:52)
[2023-01-18] MEDS ORDERED: SODIUM CHLORIDE 250 ML IV ONE (09:00)
[2023-01-18] MEDS ORDERED: DEXAMETHASONE SODIUM PHOSPHATE 6 MG in SODIUM CHLORIDE 50 ML IVPB ONE (10:00)
[2023-01-18] MEDS ORDERED: PALONOSETRON HCL 0.25 MG/5 ML VIAL IVPUSH ONE (10:00)
[2023-01-18] MEDS ORDERED: PROCHLORPERAZINE INJECTION 10 MG in SODIUM CHLORIDE 50 ML IVPB ONE (10:00)
[2023-01-18] MEDS ORDERED: ATROPINE SO4 0.4 MG/1 ML VIAL IVPUSH ONE (10:00)
[2023-01-18] MEDS ORDERED: BEVACIZUMAB AWWB IVPB ONE (10:30)
[2023-01-18] MEDS ORDERED: SODIUM CHLORIDE IVPB ONE (10:30)
[2023-01-18] MEDS ORDERED: DEXTROSE 5% IVPB ONE ×2 (11:00→11:30)
[2023-01-18] MEDS ORDERED: WATER IVPB ONE ×2 (11:00→11:30)
[2023-01-18] MEDS ORDERED: LEUCOVORIN IVPB ONE (11:00)
[2023-01-18] MEDS ORDERED: IRINOTECAN HCL IVPB ONE (11:30)
[2023-01-18] MEDS ORDERED: SODIUM CHLORIDE CP ONE (13:00)
[2023-01-18] MEDS ORDERED: FLUOROURACIL CP ONE (13:00)
[2023-01-18 15:12] VITALS: BP 99/60; PULSE 90; RESP 18; TEMP 98.4
== END 2023-01-18 15:00 | disposition home or self-care (01) ==
LOC: JONCCHEMO 07:41
PROVIDERS: ATTEND Internal Medicine Hematology & Oncology
PROC: 3E04305 Introduction of Other Antineoplastic into Central Vein, Percutaneous Approach (ICD-10-PCS; principal; 2023-01-18)
PROC: 3E04305 Introduction of Other Antineoplastic into Central Vein, Percutaneous Approach (ICD-10-PCS; 2023-01-18)
PROC: 3E043GC Introduction of Other Therapeutic Substance into Central Vein, Percutaneous Approach (ICD-10-PCS; 2023-01-18)
PROC: 3E0337Z Introduction of Electrolytic and Water Balance Substance into Peripheral Vein, Percutaneous Approach (ICD-10-PCS; 2023-01-18)
DX: Z51.11 Encounter for antineoplastic chemotherapy (principal); C20 Malignant neoplasm of rectum; C78.7 Secondary malignant neoplasm of liver and intrahepatic bile duct; I10 Essential (primary) hypertension; E11.9 Type 2 diabetes mellitus without complications; E78.00 Pure hypercholesterolemia, unspecified; L81.9 Disorder of pigmentation, unspecified; E83.42 Hypomagnesemia
CPT/HCPCS: 36415; 80048; 80076; 83735; 84156; 85025; 96361; 96366; 96367; 96375; 96413; 96417; G0498; J2469; J9206; Q5107

== ENCOUNTER → 2023-01-20 | Day surgery (SDC) | payer OTHER ==
[~2023-01-20] MED LIST changes: -KCL 10 MEQ IVPB 10 MEQ/100 ML INFUS.BAG IVPB ONE; -MAGNESIUM SULFATE IN WATER 2 GM/50 ML IVPB IVPB ONE; +MAGNESIUM SULFATE IVPB ONE; +PORTA CATH FLUSH 10 ML IVPUSH PRN; +POTASSIUM CHLORIDE IVPB ONE; -SODIUM CHLORIDE 500 ML IV ONE; +SODIUM CHLORIDE IVPB ONE
[2023-01-20 15:46] VITALS: BP 113/62; PULSE 72; RESP 20; TEMP 97.5
== END | disposition home or self-care (01) ==
LOC: JONCCHEMO 12:54
PROVIDERS: ATTEND Internal Medicine Hematology & Oncology
PROC: 3E043GC Introduction of Other Therapeutic Substance into Central Vein, Percutaneous Approach (ICD-10-PCS; principal; 2023-01-20)
DX: Z76.89 Persons encountering health services in other specified circumstances (principal); C20 Malignant neoplasm of rectum; C78.7 Secondary malignant neoplasm of liver and intrahepatic bile duct
CPT/HCPCS: 96365; 96368

== ENCOUNTER 2023-02-01 08:16 | Day surgery (SDC) | payer OTHER ==
[2023-02-01 08:15] LABS: BASO % 1.4 % (0-2.0); EOS % 8.8 % (0-4.5); HEMATOCRIT 34.8 % (35.4-49); LYMPH % 12.3 % (8-40); MCH 33.6 pg (25.7-33.7); MCHC 34.3 g/dl (32.0-35.9); MEAN CELL VOLUME 97.8 fl (80-96); MEAN PLT VOLUME 7.8 fl (7.5-11.1); MONO % 10.8 % (3.8-10.2); NEUT % 66.7 % (42.8-82.8); PLATELET COUNT 189 10^3/uL (134-434); RBC 3.56 M/mm3 (4.00-5.60); RDW 17.9 % (11.9-15.9); WHITE BLOOD COUNT 4.7 K/mm3 (4.0-10.0)
[2023-02-01 08:25] LABS: ALBUMIN 3.4 g/dl (3.4-5.0); CALCIUM 9.5 mg/dL (8.5-10.1)
[2023-02-01 08:26] LABS: BLOOD UREA NITROGEN 21.6 mg/dL (7-18); MAGNESIUM 2.1 mg/dL (1.8-2.4)
[2023-02-01 08:28] LABS: BILIRUBIN,DIRECT 0.2 mg/dL (0.0-0.2); CREATININE 0.9 mg/dL (0.55-1.3)
[2023-02-01 08:30] LABS: BILIRUBIN,TOTAL 0.6 mg/dL (0.2-1); TOT PROT 6.6 g/dl (6.4-8.2)
[2023-02-01] MEDS ORDERED: SODIUM CHLORIDE 250 ML IV ONE (09:00)
[2023-02-01] MEDS ORDERED: DEXAMETHASONE SODIUM PHOSPHATE 6 MG in SODIUM CHLORIDE 50 ML IVPB ONE (10:00)
[2023-02-01] MEDS ORDERED: PALONOSETRON HCL 0.25 MG/5 ML VIAL IVPUSH ONE (10:00)
[2023-02-01] MEDS ORDERED: PROCHLORPERAZINE INJECTION 10 MG in SODIUM CHLORIDE 50 ML IVPB ONE (10:00)
[2023-02-01] MEDS ORDERED: ATROPINE SO4 0.4 MG/1 ML VIAL IVPUSH ONE (10:00)
[2023-02-01] MEDS ORDERED: SODIUM CHLORIDE IVPB ONE (10:30)
[2023-02-01] MEDS ORDERED: BEVACIZUMAB AWWB IVPB ONE (10:30)
[2023-02-01] MEDS ORDERED: LEUCOVORIN CALCIUM IVPB ONE (11:00)
[2023-02-01] MEDS ORDERED: WATER IVPB ONE ×2 (11:00→11:30)
[2023-02-01] MEDS ORDERED: DEXTROSE 5% IVPB ONE ×2 (11:00→11:30)
[2023-02-01] MEDS ORDERED: IRINOTECAN HCL IVPB ONE (11:30)
[2023-02-01] MEDS ORDERED: FLUOROURACIL CP ONE (13:00)
[2023-02-01] MEDS ORDERED: SODIUM CHLORIDE CP ONE (13:00)
[2023-02-01 16:44] VITALS: BP 108/66; PULSE 70; RESP 18; TEMP 98.1
== END 2023-02-01 15:30 | disposition home or self-care (01) ==
LOC: JONCCHEMO 08:16
PROVIDERS: ATTEND Internal Medicine Hematology & Oncology
DX: Z51.11 Encounter for antineoplastic chemotherapy (principal); C20 Malignant neoplasm of rectum; C78.7 Secondary malignant neoplasm of liver and intrahepatic bile duct
CPT/HCPCS: 36415; 80048; 80076; 82378; 83735; 84156; 85025; 96366; 96367; 96375; 96413; 96417; G0498; J2469; J9206; Q5107

== ENCOUNTER 2023-02-03 12:15 | Day surgery (SDC) | payer OTHER ==
[~2023-02-03 12:15] MED LIST changes: -PORTA CATH FLUSH 10 ML IVPUSH PRN
[2023-02-03 15:25] VITALS: RESP 18; TEMP 98.1
[2023-02-03] MEDS ORDERED: PORTA CATH FLUSH 10 ML IVPUSH PRN (15:27)
[2023-02-03 15:28] VITALS: BP 105/43; PULSE 63
== END 2023-02-03 14:30 | disposition home or self-care (01) ==
LOC: JONCCHEMO 12:15
PROVIDERS: ATTEND Internal Medicine Hematology & Oncology
PROC: 3E043GC Introduction of Other Therapeutic Substance into Central Vein, Percutaneous Approach (ICD-10-PCS; principal; 2023-02-03)
DX: C20 Malignant neoplasm of rectum (principal); C78.7 Secondary malignant neoplasm of liver and intrahepatic bile duct
CPT/HCPCS: 96365

== ENCOUNTER 2023-02-15 07:39 | Day surgery (SDC) | payer OTHER ==
[2023-02-15 08:13] LABS: BASO % 2.3 % (0-2.0); EOS % 9.9 % (0-4.5); HEMATOCRIT 34.8 % (35.4-49); LYMPH % 14.1 % (8-40); MCH 33.9 pg (25.7-33.7); MCHC 34.4 g/dl (32.0-35.9); MEAN CELL VOLUME 98.5 fl (80-96); MEAN PLT VOLUME 7.5 fl (7.5-11.1); MONO % 12.2 % (3.8-10.2); NEUT % 61.5 % (42.8-82.8); PLATELET COUNT 168 10^3/uL (134-434); RBC 3.53 M/mm3 (4.00-5.60); RDW 17.5 % (11.9-15.9); WHITE BLOOD COUNT 4.1 K/mm3 (4.0-10.0)
[2023-02-15 08:16] LABS: POTASSIUM 3.7 mmol/L (3.5-5.1)
[2023-02-15 08:19] LABS: ALBUMIN 3.4 g/dl (3.4-5.0); BLOOD UREA NITROGEN 23.4 mg/dL (7-18); MAGNESIUM 2.2 mg/dL (1.8-2.4)
[2023-02-15 08:21] LABS: BILIRUBIN,DIRECT 0.2 mg/dL (0.0-0.2)
[2023-02-15 08:23] LABS: BILIRUBIN,TOTAL 0.6 mg/dL (0.2-1); TOT PROT 6.7 g/dl (6.4-8.2)
[2023-02-15] MEDS ORDERED: LEUCOVORIN INJECTION - 856 MG in DEXTROSE 5%-WATER - 250 ML IVPB ONE (09:00)
[2023-02-15] MEDS ORDERED: SODIUM CHLORIDE 250 ML IV ONE (09:00)
[2023-02-15] MEDS ORDERED: PALONOSETRON HCL 0.25 MG/5 ML VIAL IVPUSH ONE (09:30)
[2023-02-15] MEDS ORDERED: PROCHLORPERAZINE INJECTION 10 MG in SODIUM CHLORIDE 50 ML IVPB ONE (09:30)
[2023-02-15] MEDS ORDERED: DEXAMETHASONE SODIUM PHOSPHATE 6 MG in SODIUM CHLORIDE 50 ML IVPB ONE (09:30)
[2023-02-15] MEDS ORDERED: SODIUM CHLORIDE IVPB ONE (10:00)
[2023-02-15] MEDS ORDERED: BEVACIZUMAB AWWB IVPB ONE (10:00)
[2023-02-15] MEDS ORDERED: WATER IVPB ONE ×2 (10:30)
[2023-02-15] MEDS ORDERED: LEUCOVORIN CALCIUM IVPB ONE (10:30)
[2023-02-15] MEDS ORDERED: IRINOTECAN HCL IVPB ONE (10:30)
[2023-02-15] MEDS ORDERED: DEXTROSE 5% IVPB ONE ×2 (10:30)
[2023-02-15] MEDS: ATROPINE SO4 0.4 MG/1 ML VIAL IVPUSH ONE ×2 (11:09→12:33)
[2023-02-15] MEDS ORDERED: SODIUM CHLORIDE CP ONE (12:30)
[2023-02-15] MEDS ORDERED: FLUOROURACIL CP ONE (12:30)
[2023-02-15 18:08] VITALS: BP 94/52; PULSE 73; RESP 20; TEMP 97.9
[2023-02-15] MEDS ORDERED: PORTA CATH FLUSH 10 ML IVPUSH PRN (18:08)
== END 2023-02-15 15:07 | disposition home or self-care (01) ==
LOC: JONCCHEMO 07:39 → J7W 07:40 → JONCCHEMO 15:07
PROVIDERS: ATTEND Internal Medicine Hematology & Oncology
DX: Z51.11 Encounter for antineoplastic chemotherapy (principal); C20 Malignant neoplasm of rectum; C78.7 Secondary malignant neoplasm of liver and intrahepatic bile duct
CPT/HCPCS: 36415; 80048; 80076; 83735; 84156; 85025; 96366; 96367; 96375; 96413; 96417; G0498; J2469; J9206; Q5107

== ENCOUNTER 2023-02-17 12:51 | Day surgery (SDC) | payer OTHER ==
[2023-02-17 18:21] VITALS: BP 121/62; PULSE 70; RESP 16; TEMP 97.9
[2023-02-17] MEDS ORDERED: PORTA CATH FLUSH 10 ML IVPUSH PRN (18:21)
== END 2023-02-17 14:25 | disposition home or self-care (01) ==
LOC: JONCCHEMO 12:51 → J7W 12:52 → JONCCHEMO 14:25
PROVIDERS: ATTEND Internal Medicine Hematology & Oncology
PROC: 3E043GC Introduction of Other Therapeutic Substance into Central Vein, Percutaneous Approach (ICD-10-PCS; principal; 2023-02-17)
DX: C20 Malignant neoplasm of rectum (principal); C78.7 Secondary malignant neoplasm of liver and intrahepatic bile duct; Z76.89 Persons encountering health services in other specified circumstances
CPT/HCPCS: 96365

== ENCOUNTER 2023-03-01 07:59 | Day surgery (SDC) | payer OTHER ==
[2023-03-01] MEDS ORDERED: SODIUM CHLORIDE 250 ML IV ONE (09:00)
[2023-03-01 09:02] LABS: BASO % 1.9 % (0-2.0); EOS % 12.3 % (0-4.5); HEMATOCRIT 33.7 % (35.4-49); HEMOGLOBIN 11.5 GM/dL (11.7-16.9); LYMPH % 19.9 % (8-40); MCH 33.7 pg (25.7-33.7); MCHC 34.1 g/dl (32.0-35.9); MEAN PLT VOLUME 7.4 fl (7.5-11.1); MONO % 16.9 % (3.8-10.2); PLATELET COUNT 190 10^3/uL (134-434); RDW 17.1 % (11.9-15.9)
[2023-03-01 09:06] LABS: POTASSIUM 3.9 mmol/L (3.5-5.1)
[2023-03-01 09:08] LABS: CALCIUM 9.4 mg/dL (8.5-10.1)
[2023-03-01 09:10] LABS: ALBUMIN 3.3 g/dl (3.4-5.0); BLOOD UREA NITROGEN 14.4 mg/dL (7-18); MAGNESIUM 1.8 mg/dL (1.8-2.4)
[2023-03-01 09:12] LABS: BILIRUBIN,DIRECT 0.2 mg/dL (0.0-0.2); CREATININE 0.9 mg/dL (0.55-1.3)
[2023-03-01 09:13] LABS: BILIRUBIN,TOTAL 0.7 mg/dL (0.2-1); TOT PROT 6.6 g/dl (6.4-8.2)
[2023-03-01] MEDS ORDERED: DEXAMETHASONE SODIUM PHOSPHATE 6 MG in SODIUM CHLORIDE 50 ML IVPB ONE (10:00)
[2023-03-01] MEDS ORDERED: ATROPINE SO4 0.4 MG/1 ML VIAL IVPUSH ONE (10:00)
[2023-03-01] MEDS ORDERED: PALONOSETRON HCL 0.25 MG/5 ML VIAL IVPUSH ONE (10:00)
[2023-03-01] MEDS ORDERED: PROCHLORPERAZINE INJECTION 10 MG in SODIUM CHLORIDE 50 ML IVPB ONE (10:00)
[2023-03-01] MEDS ORDERED: SODIUM CHLORIDE IVPB ONE (10:30)
[2023-03-01] MEDS ORDERED: BEVACIZUMAB AWWB IVPB ONE (10:30)
[2023-03-01] MEDS ORDERED: WATER IVPB ONE (11:00)
[2023-03-01] MEDS ORDERED: LEUCOVORIN CALCIUM IVPB ONE (11:00)
[2023-03-01] MEDS ORDERED: DEXTROSE 5% IVPB ONE (11:00)
[2023-03-01] MEDS ORDERED: IRINOTECAN HCL 380 MG in DEXTROSE 5%-WATER - 500 ML IVPB ONE (11:30)
[2023-03-01] MEDS ORDERED: FLUOROURACIL CP ONE (13:00)
[2023-03-01] MEDS ORDERED: SODIUM CHLORIDE CP ONE (13:00)
[2023-03-01 15:17] VITALS: BP 106/61; PULSE 85; RESP 18; TEMP 98.3
[2023-03-01] MEDS ORDERED: PORTA CATH FLUSH 10 ML IVPUSH PRN (18:59)
== END 2023-03-01 15:00 | disposition home or self-care (01) ==
LOC: JONCCHEMO 07:59 → J7W 08:03 → JONCCHEMO 15:00
PROVIDERS: ATTEND Internal Medicine Hematology & Oncology
DX: Z51.11 Encounter for antineoplastic chemotherapy (principal); C20 Malignant neoplasm of rectum; C78.7 Secondary malignant neoplasm of liver and intrahepatic bile duct
CPT/HCPCS: 36415; 80048; 80076; 83735; 84156; 85025; 96366; 96367; 96375; 96413; 96417; G0498; J2469; J9206; Q5107

== ENCOUNTER 2023-03-03 13:19 | Day surgery (SDC) | payer OTHER ==
[2023-03-03 16:42] VITALS: BP 114/61; PULSE 68; RESP 20; TEMP 97.8
[2023-03-03] MEDS ORDERED: PORTA CATH FLUSH 10 ML IVPUSH PRN (16:42)
== END 2023-03-03 14:30 | disposition home or self-care (01) ==
LOC: JONCCHEMO 13:19 → J7W 13:20 → JONCCHEMO 14:30
PROVIDERS: ATTEND Internal Medicine Hematology & Oncology
PROC: 3E043GC Introduction of Other Therapeutic Substance into Central Vein, Percutaneous Approach (ICD-10-PCS; principal; 2023-03-03)
DX: C20 Malignant neoplasm of rectum (principal); C78.7 Secondary malignant neoplasm of liver and intrahepatic bile duct; Z76.89 Persons encountering health services in other specified circumstances
CPT/HCPCS: 96365

== ENCOUNTER 2023-03-15 07:54 | Day surgery (SDC) | payer OTHER ==
[2023-03-15] MEDS ORDERED: SODIUM CHLORIDE 250 ML IV ONE (09:00)
[2023-03-15 09:03] LABS: POTASSIUM 3.6 mmol/L (3.5-5.1)
[2023-03-15 09:04] LABS: BASO % 1.3 % (0-2.0); EOS % 8.2 % (0-4.5); HEMATOCRIT 33.5 % (35.4-49); HEMOGLOBIN 11.4 GM/dL (11.7-16.9); MCHC 33.9 g/dl (32.0-35.9); MEAN CELL VOLUME 100.2 fl (80-96); MEAN PLT VOLUME 7.9 fl (7.5-11.1); MONO % 13.1 % (3.8-10.2); NEUT % 63.4 % (42.8-82.8); PLATELET COUNT 204 10^3/uL (134-434); RBC 3.34 M/mm3 (4.00-5.60); RDW 16.8 % (11.9-15.9); WHITE BLOOD COUNT 4.1 K/mm3 (4.0-10.0)
[2023-03-15 09:05] LABS: CALCIUM 9.4 mg/dL (8.5-10.1)
[2023-03-15 09:06] LABS: ALBUMIN 3.4 g/dl (3.4-5.0); MAGNESIUM 1.9 mg/dL (1.8-2.4)
[2023-03-15 09:08] LABS: BILIRUBIN,DIRECT 0.2 mg/dL (0.0-0.2)
[2023-03-15 09:09] LABS: CREATININE 1.1 mg/dL (0.55-1.3)
[2023-03-15 09:10] LABS: BILIRUBIN,TOTAL 0.4 mg/dL (0.2-1); TOT PROT 6.6 g/dl (6.4-8.2)
[2023-03-15] MEDS ORDERED: ATROPINE SO4 0.4 MG/1 ML VIAL IVPUSH ONE (10:00)
[2023-03-15] MEDS ORDERED: PROCHLORPERAZINE INJECTION 10 MG in SODIUM CHLORIDE 50 ML IVPB ONE (10:00)
[2023-03-15] MEDS ORDERED: PALONOSETRON HCL 0.25 MG/5 ML VIAL IVPUSH ONE (10:00)
[2023-03-15] MEDS ORDERED: DEXAMETHASONE SODIUM PHOSPHATE 6 MG in SODIUM CHLORIDE 50 ML IVPB ONE (10:00)
[2023-03-15] MEDS ORDERED: BEVACIZUMAB AWWB IVPB ONE (10:30)
[2023-03-15] MEDS ORDERED: SODIUM CHLORIDE IVPB ONE (10:30)
[2023-03-15] MEDS ORDERED: WATER IVPB ONE ×2 (11:00→11:30)
[2023-03-15] MEDS ORDERED: DEXTROSE 5% IVPB ONE ×2 (11:00→11:30)
[2023-03-15] MEDS ORDERED: LEUCOVORIN CALCIUM IVPB ONE (11:00)
[2023-03-15] MEDS ORDERED: IRINOTECAN HCL IVPB ONE (11:30)
[2023-03-15] MEDS ORDERED: SODIUM CHLORIDE CP ONE (13:00)
[2023-03-15] MEDS ORDERED: FLUOROURACIL CP ONE (13:00)
[2023-03-15 16:23] VITALS: BP 104/61; PULSE 85; RESP 18; TEMP 98.3
[2023-03-15] MEDS ORDERED: PORTA CATH FLUSH 10 ML IVPUSH PRN (16:23)
== END 2023-03-15 14:30 | disposition home or self-care (01) ==
LOC: JONCCHEMO 07:54 → J7W 07:55 → JONCCHEMO 14:30
PROVIDERS: ATTEND Internal Medicine Hematology & Oncology
DX: Z51.11 Encounter for antineoplastic chemotherapy (principal); C20 Malignant neoplasm of rectum; C78.7 Secondary malignant neoplasm of liver and intrahepatic bile duct
CPT/HCPCS: 36415; 80048; 80076; 83735; 84156; 85025; 96366; 96367; 96375; 96413; 96417; G0498; J2469; J9206; Q5107

== ENCOUNTER 2023-03-17 15:21 | Day surgery (SDC) | payer OTHER ==
[2023-03-17 16:16] VITALS: PULSE 63; TEMP 98.1
[2023-03-17 16:20] VITALS: BP 119/63; RESP 18
== END 2023-03-17 15:30 | disposition home or self-care (01) ==
LOC: J7W 15:21 → JONCCHEMO 15:21
PROVIDERS: ATTEND Internal Medicine Hematology & Oncology
PROC: 3E043GC Introduction of Other Therapeutic Substance into Central Vein, Percutaneous Approach (ICD-10-PCS; principal; 2023-03-17)
DX: C20 Malignant neoplasm of rectum (principal); C78.7 Secondary malignant neoplasm of liver and intrahepatic bile duct; Z76.89 Persons encountering health services in other specified circumstances
CPT/HCPCS: 96365

== ENCOUNTER 2023-03-30 07:25 | Day surgery (SDC) | payer OTHER ==
[2023-03-30 08:32] LABS: PH,URINE 5.5 (5.0-8.0); URINE APPEARANCE CLEAR; URINE BILIRUBIN NEGATIVE (NEGATIVE); URINE COLOR YELLOW; URINE GLUCOSE (UA) NEGATIVE (NEGATIVE); URINE KETONE TRACE (NEGATIVE); URINE LEUK ESTERASE NEGATIVE (NEGATIVE); URINE NITRITE NEGATIVE (NEGATIVE); URINE PROTEIN NEGATIVE (NEGATIVE); URINE UROBILINOGEN 0.2 mg/dL (0.2-1.0)
[2023-03-30 08:37] LABS: BASO % 2.1 % (0-2.0); HEMATOCRIT 35.6 % (35.4-49); HEMOGLOBIN 11.6 GM/dL (11.7-16.9); LYMPH % 13.3 % (8-40); MCH 33.5 pg (25.7-33.7); MCHC 32.6 g/dl (32.0-35.9); MEAN CELL VOLUME 102.5 fl (80-96); MEAN PLT VOLUME 8.5 fl (7.5-11.1); MONO % 13.8 % (3.8-10.2); NEUT % 58.8 % (42.8-82.8); PLATELET COUNT 192 10^3/uL (134-434); RBC 3.47 M/mm3 (4.00-5.60); RDW 16.6 % (11.9-15.9); WHITE BLOOD COUNT 4.7 K/mm3 (4.0-10.0)
[2023-03-30 08:54] LABS: POTASSIUM 3.8 mmol/L (3.5-5.1)
[2023-03-30 08:56] LABS: CALCIUM 9.5 mg/dL (8.5-10.1)
[2023-03-30 08:57] LABS: ALBUMIN 3.4 g/dl (3.4-5.0); BLOOD UREA NITROGEN 23.4 mg/dL (7-18)
[2023-03-30 09:00] LABS: BILIRUBIN,DIRECT 0.2 mg/dL (0.0-0.2)
[2023-03-30] MEDS ORDERED: SODIUM CHLORIDE 250 ML IV ONE (09:00)
[2023-03-30 09:02] LABS: BILIRUBIN,TOTAL 0.5 mg/dL (0.2-1); TOT PROT 6.6 g/dl (6.4-8.2)
[2023-03-30] MEDS ORDERED: PALONOSETRON HCL 0.25 MG/5 ML VIAL IVPUSH ONE (10:00)
[2023-03-30] MEDS ORDERED: ATROPINE SO4 0.4 MG/1 ML VIAL IVPUSH ONE (10:00)
[2023-03-30] MEDS ORDERED: DEXAMETHASONE SODIUM PHOSPHATE 6 MG in SODIUM CHLORIDE 50 ML IVPB ONE (10:00)
[2023-03-30] MEDS ORDERED: PROCHLORPERAZINE INJECTION 10 MG in SODIUM CHLORIDE 50 ML IVPB ONE (10:00)
[2023-03-30] MEDS ORDERED: SODIUM CHLORIDE IVPB ONE (10:30)
[2023-03-30] MEDS ORDERED: BEVACIZUMAB AWWB IVPB ONE (10:30)
[2023-03-30] MEDS ORDERED: WATER IVPB ONE ×2 (11:00→11:30)
[2023-03-30] MEDS ORDERED: LEUCOVORIN CALCIUM IVPB ONE (11:00)
[2023-03-30] MEDS ORDERED: DEXTROSE 5% IVPB ONE ×2 (11:00→11:30)
[2023-03-30] MEDS ORDERED: IRINOTECAN HCL IVPB ONE (11:30)
[2023-03-30] MEDS ORDERED: FLUOROURACIL CP ONE (13:00)
[2023-03-30] MEDS ORDERED: SODIUM CHLORIDE CP ONE (13:00)
[2023-03-30 16:29] VITALS: BP 91/49; PULSE 77; RESP 20; TEMP 98.3
[2023-03-30] MEDS ORDERED: PORTA CATH FLUSH 10 ML IVPUSH PRN (16:29)
== END 2023-03-30 15:55 | disposition home or self-care (01) ==
LOC: JONCCHEMO 07:25 → J7W 07:26 → JONCCHEMO 15:55
PROVIDERS: ATTEND Internal Medicine Hematology & Oncology
DX: Z51.11 Encounter for antineoplastic chemotherapy (principal); C20 Malignant neoplasm of rectum; C78.7 Secondary malignant neoplasm of liver and intrahepatic bile duct
CPT/HCPCS: 36415; 80048; 80076; 81003; 82378; 84156; 85025; 96375; 96413; 96415; 96417; G0498; J2469; J9206; Q5107

== ENCOUNTER 2023-04-01 12:38 | Day surgery (SDC) | payer OTHER ==
[~2023-04-01 12:38] MED LIST changes: +KCL 10 MEQ IVPB 10 MEQ/100 ML INFUS.BAG IVPB ONE; +MAGNESIUM SULFATE IN WATER 2 GM/50 ML IVPB IVPB ONE; -MAGNESIUM SULFATE IVPB ONE; -POTASSIUM CHLORIDE IVPB ONE; +SODIUM CHLORIDE 500 ML IV ONE; -SODIUM CHLORIDE IVPB ONE
[2023-04-01 16:59] VITALS: BP 125/76; PULSE 69; RESP 18; TEMP 97.5
[2023-04-01] MEDS ORDERED: PORTA CATH FLUSH 10 ML IVPUSH PRN (16:59)
== END 2023-04-01 14:20 | disposition home or self-care (01) ==
LOC: J7W 12:38 → JONCCHEMO 12:38
PROVIDERS: ATTEND Internal Medicine Hematology & Oncology
PROC: 3E043GC Introduction of Other Therapeutic Substance into Central Vein, Percutaneous Approach (ICD-10-PCS; principal; 2023-04-01)
DX: C20 Malignant neoplasm of rectum (principal); C78.7 Secondary malignant neoplasm of liver and intrahepatic bile duct; Z76.89 Persons encountering health services in other specified circumstances
CPT/HCPCS: 96365; 96368

== ENCOUNTER 2023-04-12 07:46 | Day surgery (SDC) | payer OTHER ==
[2023-04-12] MEDS ORDERED: SODIUM CHLORIDE 250 ML IV ONE (09:00)
[2023-04-12 09:15] LABS: BASO % 0.9 % (0-2.0); EOS % 7.3 % (0-4.5); HEMATOCRIT 36.3 % (35.4-49); HEMOGLOBIN 11.8 GM/dL (11.7-16.9); LYMPH % 12.6 % (8-40); MCHC 32.6 g/dl (32.0-35.9); MEAN CELL VOLUME 101.2 fl (80-96); MEAN PLT VOLUME 8.4 fl (7.5-11.1); MONO % 11.6 % (3.8-10.2); NEUT % 67.6 % (42.8-82.8); PLATELET COUNT 180 10^3/uL (134-434); RBC 3.59 M/mm3 (4.00-5.60); RDW 16.7 % (11.9-15.9); WHITE BLOOD COUNT 4.5 K/mm3 (4.0-10.0)
[2023-04-12] MEDS ORDERED: PROCHLORPERAZINE INJECTION 10 MG in SODIUM CHLORIDE 50 ML IVPB ONE (09:30)
[2023-04-12] MEDS ORDERED: PALONOSETRON HCL 0.25 MG/5 ML VIAL IVPUSH ONE (09:30)
[2023-04-12] MEDS ORDERED: ATROPINE SO4 0.4 MG/1 ML VIAL IVPUSH ONE (09:30)
[2023-04-12] MEDS ORDERED: DEXAMETHASONE SODIUM PHOSPHATE 6 MG in SODIUM CHLORIDE 50 ML IVPB ONE (09:30)
[2023-04-12 09:44] LABS: POTASSIUM 3.5 mmol/L (3.5-5.1)
[2023-04-12 09:46] LABS: CALCIUM 9.2 mg/dL (8.5-10.1)
[2023-04-12 09:47] LABS: ALBUMIN 3.5 g/dl (3.4-5.0); BLOOD UREA NITROGEN 23.7 mg/dL (7-18); MAGNESIUM 2.1 mg/dL (1.8-2.4)
[2023-04-12 09:49] LABS: BILIRUBIN,DIRECT 0.2 mg/dL (0.0-0.2)
[2023-04-12 09:50] LABS: CREATININE 0.9 mg/dL (0.55-1.3)
[2023-04-12 09:51] LABS: BILIRUBIN,TOTAL 0.6 mg/dL (0.2-1); TOT PROT 6.5 g/dl (6.4-8.2)
[2023-04-12] MEDS ORDERED: SODIUM CHLORIDE IVPB ONE (10:00)
[2023-04-12] MEDS ORDERED: BEVACIZUMAB AWWB IVPB ONE (10:00)
[2023-04-12] MEDS ORDERED: IRINOTECAN HCL 380 MG in DEXTROSE 5%-WATER - 500 ML IVPB ONE (10:30)
[2023-04-12] MEDS ORDERED: LEUCOVORIN CALCIUM IVPB ONE (10:30)
[2023-04-12] MEDS ORDERED: DEXTROSE 5% IVPB ONE (10:30)
[2023-04-12] MEDS ORDERED: WATER IVPB ONE (10:30)
[2023-04-12] MEDS ORDERED: FLUOROURACIL 5,100 MG in SODIUM CHLORIDE 3.8 ML CP ONE (12:30)
[2023-04-12 16:31] VITALS: BP 105/61; PULSE 82; RESP 18; TEMP 98.4
== END 2023-04-12 16:00 | disposition home or self-care (01) ==
LOC: JONCCHEMO 07:46 → J7W 07:47 → JONCCHEMO 16:00
PROVIDERS: ATTEND Internal Medicine Hematology & Oncology
DX: Z51.11 Encounter for antineoplastic chemotherapy (principal); C20 Malignant neoplasm of rectum; C78.7 Secondary malignant neoplasm of liver and intrahepatic bile duct
CPT/HCPCS: 36415; 80048; 80076; 83735; 84156; 85025; 96366; 96367; 96375; 96413; 96417; G0498; J2469; J9206; Q5107

== ENCOUNTER 2023-04-14 13:08 | Day surgery (SDC) | payer OTHER ==
[~2023-04-14 13:08] MED LIST changes: -KCL 10 MEQ IVPB 10 MEQ/100 ML INFUS.BAG IVPB ONE; +SODIUM CHLORIDE 0.9%/KCL 10 MEQ/500 ML INFUS.BAG IV ONE; -SODIUM CHLORIDE 500 ML IV ONE
[2023-04-14 18:07] VITALS: BP 112/70; PULSE 63; RESP 18; TEMP 97.9
[2023-04-14] MEDS ORDERED: PORTA CATH FLUSH 10 ML IVPUSH PRN (18:07)
== END 2023-04-14 14:50 | disposition home or self-care (01) ==
LOC: JONCCHEMO 13:08
PROVIDERS: ATTEND Internal Medicine Hematology & Oncology
PROC: 3E043GC Introduction of Other Therapeutic Substance into Central Vein, Percutaneous Approach (ICD-10-PCS; principal; 2023-04-14)
DX: C20 Malignant neoplasm of rectum (principal)
CPT/HCPCS: 96365

== ENCOUNTER 2023-04-26 07:34 | Day surgery (SDC) | payer OTHER ==
[2023-04-26 08:43] LABS: EOS % 9.8 % (0-4.5); HEMATOCRIT 36.9 % (35.4-49); HEMOGLOBIN 12.1 GM/dL (11.7-16.9); LYMPH % 16.1 % (8-40); MCH 33.1 pg (25.7-33.7); MCHC 32.7 g/dl (32.0-35.9); MEAN CELL VOLUME 101.3 fl (80-96); MEAN PLT VOLUME 8.5 fl (7.5-11.1); MONO % 18.6 % (3.8-10.2); NEUT % 53.5 % (42.8-82.8); PLATELET COUNT 194 10^3/uL (134-434); RBC 3.64 M/mm3 (4.00-5.60); RDW 16.3 % (11.9-15.9); WHITE BLOOD COUNT 3.5 K/mm3 (4.0-10.0)
[2023-04-26 08:59] LABS: POTASSIUM 3.7 mmol/L (3.5-5.1)
[2023-04-26] MEDS ORDERED: SODIUM CHLORIDE 250 ML IV ONE (09:00)
[2023-04-26 09:03] LABS: BLOOD UREA NITROGEN 20.9 mg/dL (7-18); CALCIUM 9.2 mg/dL (8.5-10.1)
[2023-04-26 09:04] LABS: ALBUMIN 3.5 g/dl (3.4-5.0)
[2023-04-26 09:06] LABS: BILIRUBIN,DIRECT 0.2 mg/dL (0.0-0.2); CREATININE 1.2 mg/dL (0.55-1.3)
[2023-04-26 09:07] LABS: BILIRUBIN,TOTAL 0.9 mg/dL (0.2-1); TOT PROT 6.8 g/dl (6.4-8.2)
[2023-04-26] MEDS ORDERED: PALONOSETRON HCL 0.25 MG/5 ML VIAL IVPUSH ONE (09:30)
[2023-04-26] MEDS ORDERED: PROCHLORPERAZINE INJECTION 10 MG in SODIUM CHLORIDE 50 ML IVPB ONE (09:30)
[2023-04-26] MEDS ORDERED: DEXAMETHASONE SODIUM PHOSPHATE 6 MG in SODIUM CHLORIDE 50 ML IVPB ONE (09:30)
[2023-04-26] MEDS ORDERED: ATROPINE SO4 0.4 MG/1 ML VIAL IVPUSH ONE (09:30)
[2023-04-26] MEDS ORDERED: BEVACIZUMAB AWWB IVPB ONE (10:00)
[2023-04-26] MEDS ORDERED: SODIUM CHLORIDE IVPB ONE (10:00)
[2023-04-26] MEDS ORDERED: LEUCOVORIN CALCIUM IVPB ONE (10:30)
[2023-04-26] MEDS ORDERED: WATER IVPB ONE (10:30)
[2023-04-26] MEDS ORDERED: DEXTROSE 5% IVPB ONE (10:30)
[2023-04-26] MEDS ORDERED: IRINOTECAN HCL 380 MG in DEXTROSE 5%-WATER - 500 ML IVPB ONE (10:30)
[2023-04-26] MEDS ORDERED: FLUOROURACIL 5,100 MG in SODIUM CHLORIDE 3.8 ML CP ONE (12:30)
[2023-04-26 16:02] VITALS: RESP 18
[2023-04-26 16:28] VITALS: BP 130/69; PULSE 70; TEMP 98.4
[2023-04-26] MEDS ORDERED: PORTA CATH FLUSH 10 ML IVPUSH PRN (16:28)
== END 2023-04-26 15:00 | disposition home or self-care (01) ==
LOC: JONCCHEMO 07:34 → J7W 07:34 → JONCCHEMO 15:00
PROVIDERS: ATTEND Internal Medicine Hematology & Oncology
PROC: 3E04305 Introduction of Other Antineoplastic into Central Vein, Percutaneous Approach (ICD-10-PCS; principal; 2023-04-26)
PROC: 3E04305 Introduction of Other Antineoplastic into Central Vein, Percutaneous Approach (ICD-10-PCS; 2023-04-26)
PROC: 3E0437Z Introduction of Electrolytic and Water Balance Substance into Central Vein, Percutaneous Approach (ICD-10-PCS; 2023-04-26)
PROC: 3E043GC Introduction of Other Therapeutic Substance into Central Vein, Percutaneous Approach (ICD-10-PCS; 2023-04-26)
DX: Z51.11 Encounter for antineoplastic chemotherapy (principal); C20 Malignant neoplasm of rectum
CPT/HCPCS: 36415; 80048; 80076; 82378; 83735; 84156; 85025; 96361; 96366; 96367; 96375; 96413; 96417; G0498; J2469; J9206; Q5107

== ENCOUNTER 2023-05-10 07:29 | Day surgery (SDC) | payer OTHER ==
[2023-05-10 08:24] LABS: BASO % 1.4 % (0-2.0); EOS % 12.5 % (0-4.5); HEMOGLOBIN 11.5 GM/dL (11.7-16.9); LYMPH % 15.8 % (8-40); MCHC 33.8 g/dl (32.0-35.9); MEAN CELL VOLUME 100.3 fl (80-96); MEAN PLT VOLUME 8.2 fl (7.5-11.1); MONO % 14.5 % (3.8-10.2); NEUT % 55.8 % (42.8-82.8); PLATELET COUNT 183 10^3/uL (134-434); RBC 3.39 M/mm3 (4.00-5.60); RDW 16.2 % (11.9-15.9); WHITE BLOOD COUNT 3.9 K/mm3 (4.0-10.0)
[2023-05-10 08:25] LABS: POTASSIUM 3.9 mmol/L (3.5-5.1)
[2023-05-10 08:27] LABS: CALCIUM 8.6 mg/dL (8.5-10.1)
[2023-05-10 08:28] LABS: ALBUMIN 3.3 g/dl (3.4-5.0); BLOOD UREA NITROGEN 25.7 mg/dL (7-18); MAGNESIUM 1.6 mg/dL (1.8-2.4)
[2023-05-10 08:31] LABS: BILIRUBIN,DIRECT 0.1 mg/dL (0.0-0.2)
[2023-05-10 08:32] LABS: BILIRUBIN,TOTAL 0.3 mg/dL (0.2-1); TOT PROT 6.5 g/dl (6.4-8.2)
[2023-05-10] MEDS ORDERED: SODIUM CHLORIDE 250 ML IV ONE (09:00)
[2023-05-10] MEDS ORDERED: DEXAMETHASONE SODIUM PHOSPHATE 6 MG in SODIUM CHLORIDE 50 ML IVPB ONE (10:00)
[2023-05-10] MEDS ORDERED: PROCHLORPERAZINE INJECTION 10 MG in SODIUM CHLORIDE 50 ML IVPB ONE (10:00)
[2023-05-10] MEDS ORDERED: PALONOSETRON HCL 0.25 MG/5 ML VIAL IVPUSH ONE (10:00)
[2023-05-10] MEDS ORDERED: ATROPINE SO4 0.4 MG/1 ML VIAL IVPUSH ONE (10:00)
[2023-05-10] MEDS ORDERED: SODIUM CHLORIDE IVPB ONE (10:30)
[2023-05-10] MEDS ORDERED: PROCHLORPERAZINE INJECTION 10 MG/2 ML VIAL IVPB ONE (10:30)
[2023-05-10] MEDS ORDERED: BEVACIZUMAB AWWB IVPB ONE (10:30)
[2023-05-10] MEDS ORDERED: WATER IVPB ONE (11:00)
[2023-05-10] MEDS ORDERED: DEXTROSE 5% IVPB ONE (11:00)
[2023-05-10] MEDS ORDERED: LEUCOVORIN CALCIUM IVPB ONE (11:00)
[2023-05-10] MEDS ORDERED: IRINOTECAN HCL 380 MG in DEXTROSE 5%-WATER - 500 ML IVPB ONE (11:30)
[2023-05-10] MEDS ORDERED: FLUOROURACIL CP ONE (13:00)
[2023-05-10] MEDS ORDERED: SODIUM CHLORIDE CP ONE (13:00)
[2023-05-10] MEDS ORDERED: PORTA CATH FLUSH 10 ML IVPUSH PRN (15:14)
[2023-05-10 15:15] VITALS: RESP 18; TEMP 97.8
[2023-05-10 15:26] VITALS: BP 99/60; PULSE 94
[2023-05-10] MEDS ORDERED: MAGNESIUM SULFATE IN WATER 2 GM/50 ML IVPB IVPB ONE (15:45)
== END 2023-05-10 14:30 | disposition home or self-care (01) ==
LOC: JONCCHEMO 07:29 → J7W 07:30 → JONCCHEMO 14:30
PROVIDERS: ATTEND Internal Medicine Hematology & Oncology
DX: Z51.11 Encounter for antineoplastic chemotherapy (principal); C20 Malignant neoplasm of rectum
CPT/HCPCS: 36415; 80048; 80076; 83735; 84156; 85025; 96366; 96367; 96375; 96413; 96417; G0498; J2469; J9206; Q5107

== ENCOUNTER 2023-05-12 15:01 | Day surgery (SDC) | payer OTHER ==
[2023-05-12 15:49] VITALS: BP 118/70; PULSE 72; RESP 20; TEMP 98.2
[2023-05-12] MEDS ORDERED: PORTA CATH FLUSH 10 ML IVPUSH PRN (15:49)
== END 2023-05-12 15:05 | disposition home or self-care (01) ==
LOC: JONCCHEMO 15:01
PROVIDERS: ATTEND Internal Medicine Hematology & Oncology
PROC: 3E043GC Introduction of Other Therapeutic Substance into Central Vein, Percutaneous Approach (ICD-10-PCS; principal; 2023-05-12)
DX: C20 Malignant neoplasm of rectum (principal); Z76.89 Persons encountering health services in other specified circumstances
CPT/HCPCS: 96365

== ENCOUNTER 2023-05-24 07:29 | Day surgery (SDC) | payer OTHER ==
[2023-05-24 08:31] LABS: BASO % 1.9 % (0-2.0); EOS % 12.7 % (0-4.5); HEMATOCRIT 35.6 % (35.4-49); LYMPH % 13.9 % (8-40); MCH 33.8 pg (25.7-33.7); MCHC 33.7 g/dl (32.0-35.9); MEAN CELL VOLUME 100.1 fl (80-96); MEAN PLT VOLUME 7.7 fl (7.5-11.1); NEUT % 60.5 % (42.8-82.8); PLATELET COUNT 174 10^3/uL (134-434); RBC 3.55 M/mm3 (4.00-5.60); RDW 16.4 % (11.9-15.9); WHITE BLOOD COUNT 4.7 K/mm3 (4.0-10.0)
[2023-05-24 08:49] LABS: BLOOD UREA NITROGEN 19.3 mg/dL (7-18); CALCIUM 8.6 mg/dL (8.5-10.1)
[2023-05-24 08:50] LABS: ALBUMIN 3.5 g/dl (3.4-5.0)
[2023-05-24 08:52] LABS: BILIRUBIN,DIRECT 0.2 mg/dL (0.0-0.2)
[2023-05-24 08:54] LABS: BILIRUBIN,TOTAL 0.6 mg/dL (0.2-1); TOT PROT 6.8 g/dl (6.4-8.2)
[2023-05-24] MEDS ORDERED: SODIUM CHLORIDE 250 ML IV ONE (09:00)
[2023-05-24] MEDS ORDERED: ATROPINE SO4 0.4 MG/1 ML VIAL IVPUSH ONE (10:00)
[2023-05-24] MEDS ORDERED: PROCHLORPERAZINE INJECTION 10 MG in SODIUM CHLORIDE 50 ML IVPB ONE (10:00)
[2023-05-24] MEDS ORDERED: DEXAMETHASONE SODIUM PHOSPHATE 6 MG in SODIUM CHLORIDE 50 ML IVPB ONE (10:00)
[2023-05-24] MEDS ORDERED: PALONOSETRON HCL 0.25 MG/5 ML VIAL IVPUSH ONE (10:00)
[2023-05-24] MEDS ORDERED: BEVACIZUMAB AWWB IVPB ONE (10:30)
[2023-05-24] MEDS ORDERED: SODIUM CHLORIDE IVPB ONE (10:30)
[2023-05-24] MEDS ORDERED: DEXTROSE 5% IVPB ONE (11:00)
[2023-05-24] MEDS ORDERED: WATER IVPB ONE (11:00)
[2023-05-24] MEDS ORDERED: LEUCOVORIN CALCIUM IVPB ONE (11:00)
[2023-05-24] MEDS ORDERED: IRINOTECAN HCL 380 MG in DEXTROSE 5%-WATER - 500 ML IVPB ONE (11:30)
[2023-05-24] MEDS ORDERED: FLUOROURACIL CP ONE (13:00)
[2023-05-24] MEDS ORDERED: SODIUM CHLORIDE CP ONE (13:00)
[2023-05-24 16:54] VITALS: BP 107/61; PULSE 85; RESP 18; TEMP 98.2
[2023-05-24] MEDS ORDERED: PORTA CATH FLUSH 10 ML IVPUSH PRN (16:54)
== END 2023-05-24 15:10 | disposition home or self-care (01) ==
LOC: JONCCHEMO 07:29 → J7W 07:32 → JONCCHEMO 15:10
PROVIDERS: ATTEND Internal Medicine Hematology & Oncology
DX: Z51.11 Encounter for antineoplastic chemotherapy (principal); C20 Malignant neoplasm of rectum
CPT/HCPCS: 36415; 80048; 80076; 83735; 84156; 85025; 96367; 96368; 96375; 96413; 96417; G0498; J2469; J9206; Q5107

== ENCOUNTER 2023-05-26 12:47 | Day surgery (SDC) | payer OTHER ==
[~2023-05-26 12:47] MED LIST changes: -MAGNESIUM SULFATE IN WATER 2 GM/50 ML IVPB IVPB ONE; +MAGNESIUM SULFATE IVPB ONE; +POTASSIUM CHLORIDE IVPB ONE; -SODIUM CHLORIDE 0.9%/KCL 10 MEQ/500 ML INFUS.BAG IV ONE; +SODIUM CHLORIDE IVPB ONE
[2023-05-26 16:39] VITALS: TEMP 98.1
[2023-05-26 16:42] VITALS: BP 98/45; PULSE 61; RESP 18
[2023-05-26] MEDS ORDERED: PORTA CATH FLUSH 10 ML IVPUSH PRN (16:42)
== END 2023-05-26 14:35 | disposition home or self-care (01) ==
LOC: J7W 12:47 → JONCCHEMO 12:47
PROVIDERS: ATTEND Internal Medicine Hematology & Oncology
PROC: 3E043GC Introduction of Other Therapeutic Substance into Central Vein, Percutaneous Approach (ICD-10-PCS; principal; 2023-05-26)
DX: C20 Malignant neoplasm of rectum (principal); Z76.89 Persons encountering health services in other specified circumstances
CPT/HCPCS: 96365

== ENCOUNTER 2023-06-07 07:52 | Day surgery (SDC) | payer OTHER ==
[2023-06-07 08:12] LABS: BASO % 1.2 % (0-2.0); EOS % 9.2 % (0-4.5); HEMATOCRIT 34.9 % (35.4-49); HEMOGLOBIN 11.6 GM/dL (11.7-16.9); LYMPH % 11.7 % (8-40); MCH 33.6 pg (25.7-33.7); MCHC 33.4 g/dl (32.0-35.9); MEAN CELL VOLUME 100.6 fl (80-96); MEAN PLT VOLUME 8.1 fl (7.5-11.1); MONO % 13.8 % (3.8-10.2); NEUT % 64.1 % (42.8-82.8); PLATELET COUNT 190 10^3/uL (134-434); RBC 3.47 M/mm3 (4.00-5.60); RDW 17.2 % (11.9-15.9); WHITE BLOOD COUNT 4.5 K/mm3 (4.0-10.0)
[2023-06-07 08:30] LABS: ALBUMIN 3.5 g/dl (3.4-5.0); BLOOD UREA NITROGEN 24.1 mg/dL (7-18); CALCIUM 9.1 mg/dL (8.5-10.1)
[2023-06-07 08:31] LABS: BILIRUBIN,DIRECT 0.2 mg/dL (0.0-0.2); CREATININE 1.2 mg/dL (0.55-1.3)
[2023-06-07 08:32] LABS: TOT PROT 6.4 g/dl (6.4-8.2)
[2023-06-07 08:33] LABS: BILIRUBIN,TOTAL 0.8 mg/dL (0.2-1)
[2023-06-07] MEDS ORDERED: SODIUM CHLORIDE 250 ML IV ONE (09:00)
[2023-06-07] MEDS ORDERED: DEXAMETHASONE SODIUM PHOSPHATE 6 MG in SODIUM CHLORIDE 50 ML IVPB ONE (09:30)
[2023-06-07] MEDS ORDERED: ATROPINE SO4 0.4 MG/1 ML VIAL IVPUSH ONE (09:30)
[2023-06-07] MEDS ORDERED: PALONOSETRON HCL 0.25 MG/5 ML VIAL IVPUSH ONE (09:30)
[2023-06-07] MEDS ORDERED: PROCHLORPERAZINE INJECTION 10 MG in SODIUM CHLORIDE 50 ML IVPB ONE (09:30)
[2023-06-07] MEDS ORDERED: SODIUM CHLORIDE IVPB ONE (10:00)
[2023-06-07] MEDS ORDERED: BEVACIZUMAB AWWB IVPB ONE (10:00)
[2023-06-07] MEDS ORDERED: IRINOTECAN HCL 380 MG in DEXTROSE 5%-WATER - 500 ML IVPB ONE (10:30)
[2023-06-07] MEDS ORDERED: LEUCOVORIN CALCIUM IVPB ONE (10:30)
[2023-06-07] MEDS ORDERED: WATER IVPB ONE (10:30)
[2023-06-07] MEDS ORDERED: DEXTROSE 5% IVPB ONE (10:30)
[2023-06-07] MEDS ORDERED: FLUOROURACIL 5,075 MG in SODIUM CHLORIDE 4.3 ML CP ONE (12:30)
[2023-06-07 16:27] VITALS: BP 161/74; PULSE 84; RESP 20; TEMP 98.1
[2023-06-07] MEDS ORDERED: PORTA CATH FLUSH 10 ML IVPUSH PRN (16:27)
== END 2023-06-07 14:35 | disposition home or self-care (01) ==
LOC: JONCCHEMO 07:52 → J7W 07:53 → JONCCHEMO 14:35
PROVIDERS: ATTEND Internal Medicine Hematology & Oncology
DX: Z51.11 Encounter for antineoplastic chemotherapy (principal); C20 Malignant neoplasm of rectum
CPT/HCPCS: 36415; 80048; 80076; 83735; 84156; 85025; 96366; 96367; 96375; 96413; 96415; 96417; G0498; J2469; J9206; Q5107

== ENCOUNTER 2023-06-09 13:08 | Day surgery (SDC) | payer OTHER ==
[2023-06-09 18:20] VITALS: BP 134/79; PULSE 117; RESP 20; TEMP 98.3
[2023-06-09] MEDS ORDERED: PORTA CATH FLUSH 10 ML IVPUSH PRN (18:20)
== END 2023-06-09 15:00 | disposition home or self-care (01) ==
LOC: JONCCHEMO 13:08 → J7W 13:10 → JONCCHEMO 15:00
PROVIDERS: ATTEND Internal Medicine Hematology & Oncology
PROC: 3E043GC Introduction of Other Therapeutic Substance into Central Vein, Percutaneous Approach (ICD-10-PCS; principal; 2023-06-09)
DX: C20 Malignant neoplasm of rectum (principal); Z76.89 Persons encountering health services in other specified circumstances
CPT/HCPCS: 96365; 96368

== ENCOUNTER 2023-06-21 07:30 | Day surgery (SDC) | payer OTHER ==
[2023-06-21 08:38] LABS: HEMATOCRIT 37.6 % (35.4-49); HEMOGLOBIN 12.5 GM/dL (11.7-16.9); MCH 33.3 pg (25.7-33.7); MCHC 33.3 g/dl (32.0-35.9); PLATELET COUNT 185 10^3/uL (134-434); RBC 3.76 M/mm3 (4.00-5.60); RDW 17.5 % (11.9-15.9)
[2023-06-21 08:39] LABS: BASO % 1.5 % (0-2.0); EOS % 12.9 % (0-4.5); MONO % 17.6 % (3.8-10.2)
[2023-06-21 08:48] LABS: ALBUMIN 3.5 g/dl (3.4-5.0); BLOOD UREA NITROGEN 17.6 mg/dL (7-18); CALCIUM 8.9 mg/dL (8.5-10.1); MAGNESIUM 1.9 mg/dL (1.8-2.4)
[2023-06-21 08:51] LABS: BILIRUBIN,DIRECT 0.3 mg/dL (0.0-0.2); CREATININE 1.2 mg/dL (0.55-1.3)
[2023-06-21 08:53] LABS: BILIRUBIN,TOTAL 0.8 mg/dL (0.2-1); TOT PROT 6.5 g/dl (6.4-8.2)
[2023-06-21] MEDS ORDERED: SODIUM CHLORIDE 250 ML IV ONE (09:00)
[2023-06-21] MEDS ORDERED: DEXAMETHASONE SODIUM PHOSPHATE 6 MG in SODIUM CHLORIDE 50 ML IVPB ONE (09:30)
[2023-06-21] MEDS ORDERED: PALONOSETRON HCL 0.25 MG/5 ML VIAL IVPUSH ONE (09:30)
[2023-06-21] MEDS ORDERED: PROCHLORPERAZINE INJECTION 10 MG in SODIUM CHLORIDE 50 ML IVPB ONE (09:30)
[2023-06-21] MEDS ORDERED: ATROPINE SO4 0.4 MG/1 ML VIAL IVPUSH ONE (09:30)
[2023-06-21] MEDS ORDERED: BEVACIZUMAB AWWB IVPB ONE (10:00)
[2023-06-21] MEDS ORDERED: SODIUM CHLORIDE IVPB ONE (10:00)
[2023-06-21] MEDS ORDERED: WATER IVPB ONE (10:30)
[2023-06-21] MEDS ORDERED: IRINOTECAN HCL 380 MG in DEXTROSE 5%-WATER - 500 ML IVPB ONE (10:30)
[2023-06-21] MEDS ORDERED: LEUCOVORIN CALCIUM IVPB ONE (10:30)
[2023-06-21] MEDS ORDERED: DEXTROSE 5% IVPB ONE (10:30)
[2023-06-21] MEDS ORDERED: FLUOROURACIL 5,075 MG in SODIUM CHLORIDE 4.3 ML CP ONE (12:30)
[2023-06-21] MEDS ORDERED: PORTA CATH FLUSH 10 ML IVPUSH PRN (15:09)
[2023-06-21 15:28] VITALS: BP 108/61; PULSE 83; RESP 18; TEMP 98.4
== END 2023-06-21 14:30 | disposition home or self-care (01) ==
LOC: JONCCHEMO 07:30 → J7W 07:31 → JONCCHEMO 14:30
PROVIDERS: ATTEND Internal Medicine Hematology & Oncology
DX: Z51.11 Encounter for antineoplastic chemotherapy (principal); C20 Malignant neoplasm of rectum
CPT/HCPCS: 36415; 80048; 80076; 83735; 84156; 85025; 96367; 96375; 96413; 96417; G0498; J2469; J9206; Q5107

== ENCOUNTER 2023-06-23 13:23 | Day surgery (SDC) | payer OTHER ==
[2023-06-23 16:01] VITALS: BP 113/66; PULSE 65; RESP 20; TEMP 98.3
[2023-06-23] MEDS ORDERED: PORTA CATH FLUSH 10 ML IVPUSH PRN (16:01)
== END 2023-06-23 14:45 | disposition home or self-care (01) ==
LOC: JONCCHEMO 13:23 → J7W 13:23 → JONCCHEMO 14:45
PROVIDERS: ATTEND Internal Medicine Hematology & Oncology
PROC: 3E043GC Introduction of Other Therapeutic Substance into Central Vein, Percutaneous Approach (ICD-10-PCS; principal; 2023-06-23)
PROC: 3E0437Z Introduction of Electrolytic and Water Balance Substance into Central Vein, Percutaneous Approach (ICD-10-PCS; 2023-06-23)
DX: Z76.89 Persons encountering health services in other specified circumstances (principal); C20 Malignant neoplasm of rectum
CPT/HCPCS: 96365; 96368

== ENCOUNTER 2023-07-19 07:22 | Day surgery (SDC) | payer OTHER ==
[2023-07-19 08:00] LABS: BASO % 1.3 % (0-2.0); EOS % 6.5 % (0-4.5); HEMATOCRIT 36.3 % (35.4-49); MCH 34.3 pg (25.7-33.7); MCHC 33.2 g/dl (32.0-35.9); MEAN CELL VOLUME 103.4 fl (80-96); MEAN PLT VOLUME 7.9 fl (7.5-11.1); MONO % 10.8 % (3.8-10.2); NEUT % 71.4 % (42.8-82.8); PLATELET COUNT 189 10^3/uL (134-434); RBC 3.51 M/mm3 (4.00-5.60); RDW 17.3 % (11.9-15.9); WHITE BLOOD COUNT 5.3 K/mm3 (4.0-10.0)
[2023-07-19 08:50] LABS: POTASSIUM 4.3 mmol/L (3.5-5.1)
[2023-07-19 08:52] LABS: ALBUMIN 3.5 g/dl (3.4-5.0); BLOOD UREA NITROGEN 14.9 mg/dL (7-18); CALCIUM 8.9 mg/dL (8.5-10.1)
[2023-07-19 08:55] LABS: BILIRUBIN,DIRECT 0.2 mg/dL (0.0-0.2)
[2023-07-19 08:57] LABS: BILIRUBIN,TOTAL 0.6 mg/dL (0.2-1); TOT PROT 6.7 g/dl (6.4-8.2)
[2023-07-19] MEDS ORDERED: SODIUM CHLORIDE 250 ML IV ONE (09:00)
[2023-07-19] MEDS ORDERED: PROCHLORPERAZINE INJECTION 10 MG in SODIUM CHLORIDE 50 ML IVPB ONE (10:00)
[2023-07-19] MEDS ORDERED: PALONOSETRON HCL 0.25 MG/5 ML VIAL IVPUSH ONE (10:00)
[2023-07-19] MEDS ORDERED: ATROPINE SO4 0.4 MG/1 ML VIAL IVPUSH ONE (10:00)
[2023-07-19] MEDS ORDERED: DEXAMETHASONE SODIUM PHOSPHATE 6 MG in SODIUM CHLORIDE 50 ML IVPB ONE (10:00)
[2023-07-19] MEDS ORDERED: DEXTROSE 5% IVPB ONE (10:30)
[2023-07-19] MEDS ORDERED: LEUCOVORIN IVPB ONE (10:30)
[2023-07-19] MEDS ORDERED: BEVACIZUMAB AWWB IVPB ONE (10:30)
[2023-07-19] MEDS ORDERED: SODIUM CHLORIDE IVPB ONE (10:30)
[2023-07-19] MEDS ORDERED: WATER IVPB ONE (10:30)
[2023-07-19] MEDS ORDERED: IRINOTECAN HCL 380 MG in DEXTROSE 5%-WATER - 500 ML IVPB ONE (11:00)
[2023-07-19] MEDS ORDERED: FLUOROURACIL 5,050 MG in SODIUM CHLORIDE 37 ML CP ONE (12:30)
[2023-07-19] MEDS ORDERED: PORTA CATH FLUSH 10 ML IVPUSH PRN (15:13)
[2023-07-19 15:14] VITALS: BP 113/69; PULSE 77; RESP 20; TEMP 98.2
== END 2023-07-19 14:30 | disposition home or self-care (01) ==
LOC: JONCCHEMO 07:22 → J7W 07:23 → JONCCHEMO 14:30
PROVIDERS: ATTEND Internal Medicine Hematology & Oncology
DX: Z51.11 Encounter for antineoplastic chemotherapy (principal); C20 Malignant neoplasm of rectum; C78.7 Secondary malignant neoplasm of liver and intrahepatic bile duct
CPT/HCPCS: 36415; 80048; 80076; 83735; 84156; 85025; 96366; 96367; 96375; 96413; 96417; G0498; J2469; J9206; Q5107

== ENCOUNTER 2023-07-21 12:30 | Day surgery (SDC) | payer OTHER ==
[~2023-07-21 12:30] MED LIST changes: +MAGNESIUM SULFATE IN WATER 2 GM/50 ML IVPB IVPB ONE; -MAGNESIUM SULFATE IVPB ONE; -POTASSIUM CHLORIDE IVPB ONE; +SODIUM CHLORIDE 0.9%/KCL 10 MEQ/500 ML INFUS.BAG IV ONE; -SODIUM CHLORIDE IVPB ONE
[2023-07-21 18:33] VITALS: BP 127/61; PULSE 70; RESP 18; TEMP 97.7
== END 2023-07-21 14:00 | disposition home or self-care (01) ==
LOC: JONCCHEMO 12:30 → J7W 12:30 → JONCCHEMO 14:00
PROVIDERS: ATTEND Internal Medicine Hematology & Oncology
PROC: 3E043GC Introduction of Other Therapeutic Substance into Central Vein, Percutaneous Approach (ICD-10-PCS; principal; 2023-07-21)
DX: C20 Malignant neoplasm of rectum (principal); C78.7 Secondary malignant neoplasm of liver and intrahepatic bile duct; Z76.89 Persons encountering health services in other specified circumstances
CPT/HCPCS: 96365

== ENCOUNTER 2023-08-16 07:56 | Day surgery (SDC) | payer OTHER ==
[~2023-08-16 07:56] MED LIST changes: +ATROPINE SO4 0.4 MG/1 ML VIAL IVPUSH ONE; +BEVACIZUMAB AWWB IVPB ONE; +DEXAMETHASONE SODIUM PHOSPHATE 6 MG in SODIUM CHLORIDE 50 ML IVPB ONE; +FLUOROURACIL 5,075 MG in SODIUM CHLORIDE 4.3 ML CP ONE; +IRINOTECAN HCL 380 MG in DEXTROSE 5%-WATER - 500 ML IVPB ONE; +LEUCOVORIN INJECTION - 844 MG in DEXTROSE 5%-WATER - 250 ML IVPB ONE; -MAGNESIUM SULFATE IN WATER 2 GM/50 ML IVPB IVPB ONE; +PALONOSETRON HCL 0.25 MG/5 ML VIAL IVPUSH ONE; +PROCHLORPERAZINE INJECTION 10 MG in SODIUM CHLORIDE 50 ML IVPB ONE; -SODIUM CHLORIDE 0.9%/KCL 10 MEQ/500 ML INFUS.BAG IV ONE; +SODIUM CHLORIDE 250 ML IV ONE; +SODIUM CHLORIDE IVPB ONE
[2023-08-16] MEDS ORDERED: SODIUM CHLORIDE 250 ML IV ONE (09:00)
[2023-08-16 09:17] LABS: BASO % 1.4 % (0-2.0); HEMATOCRIT 38.5 % (35.4-49); LYMPH % 9.6 % (8-40); MCH 34.1 pg (25.7-33.7); MCHC 33.7 g/dl (32.0-35.9); MEAN CELL VOLUME 101.3 fl (80-96); MEAN PLT VOLUME 8.4 fl (7.5-11.1); PLATELET COUNT 196 10^3/uL (134-434); RDW 16.9 % (11.9-15.9); WHITE BLOOD COUNT 7.1 K/mm3 (4.0-10.0)
[2023-08-16] MEDS ORDERED: PALONOSETRON HCL 0.25 MG/5 ML VIAL IVPUSH ONE (09:30)
[2023-08-16] MEDS ORDERED: ATROPINE SO4 0.4 MG/1 ML VIAL IVPUSH ONE (09:30)
[2023-08-16] MEDS ORDERED: DEXAMETHASONE SODIUM PHOSPHATE 6 MG in SODIUM CHLORIDE 50 ML IVPB ONE (09:30)
[2023-08-16] MEDS ORDERED: PROCHLORPERAZINE INJECTION 10 MG in SODIUM CHLORIDE 50 ML IVPB ONE (09:30)
[2023-08-16 09:47] LABS: POTASSIUM 3.9 mmol/L (3.5-5.1)
[2023-08-16 09:50] LABS: ALBUMIN 3.4 g/dl (3.4-5.0)
[2023-08-16 09:53] LABS: BILIRUBIN,DIRECT 0.2 mg/dL (0.0-0.2)
[2023-08-16 09:54] LABS: BILIRUBIN,TOTAL 0.7 mg/dL (0.2-1); TOT PROT 6.8 g/dl (6.4-8.2)
[2023-08-16 09:59] LABS: CALCIUM 8.5 mg/dL (8.5-10.1)
[2023-08-16] MEDS ORDERED: BEVACIZUMAB AWWB IVPB ONE (10:00)
[2023-08-16] MEDS ORDERED: SODIUM CHLORIDE IVPB ONE (10:00)
[2023-08-16] MEDS ORDERED: WATER IVPB ONE (10:30)
[2023-08-16] MEDS ORDERED: DEXTROSE 5% IVPB ONE (10:30)
[2023-08-16] MEDS ORDERED: LEUCOVORIN CALCIUM IVPB ONE (10:30)
[2023-08-16] MEDS ORDERED: IRINOTECAN HCL 380 MG in DEXTROSE 5%-WATER - 500 ML IVPB ONE (10:30)
[2023-08-16] MEDS ORDERED: FLUOROURACIL 5,075 MG in SODIUM CHLORIDE 4.3 ML CP ONE (12:30)
[2023-08-16 16:22] VITALS: BP 103/61; PULSE 78; RESP 18; TEMP 98.1
== END 2023-08-16 16:00 | disposition home or self-care (01) ==
LOC: JONCCHEMO 07:56 → J7W 07:57 → JONCCHEMO 16:00
PROVIDERS: ATTEND Internal Medicine Hematology & Oncology
DX: Z51.11 Encounter for antineoplastic chemotherapy (principal); C20 Malignant neoplasm of rectum; C78.7 Secondary malignant neoplasm of liver and intrahepatic bile duct
CPT/HCPCS: 36415; 80048; 80076; 84156; 85025; 96366; 96367; 96375; 96413; 96417; G0498; J2469; J9206; Q5107

== ENCOUNTER 2023-08-18 13:39 | Day surgery (SDC) | payer OTHER ==
[~2023-08-18 13:39] MED LIST changes: -ATROPINE SO4 0.4 MG/1 ML VIAL IVPUSH ONE; -BEVACIZUMAB AWWB IVPB ONE; -DEXAMETHASONE SODIUM PHOSPHATE 6 MG in SODIUM CHLORIDE 50 ML IVPB ONE; -FLUOROURACIL 5,075 MG in SODIUM CHLORIDE 4.3 ML CP ONE; -IRINOTECAN HCL 380 MG in DEXTROSE 5%-WATER - 500 ML IVPB ONE; -LEUCOVORIN INJECTION - 844 MG in DEXTROSE 5%-WATER - 250 ML IVPB ONE; +MAGNESIUM SULFATE IN WATER 2 GM/50 ML IVPB IVPB ONE; -PALONOSETRON HCL 0.25 MG/5 ML VIAL IVPUSH ONE; -PROCHLORPERAZINE INJECTION 10 MG in SODIUM CHLORIDE 50 ML IVPB ONE; +SODIUM CHLORIDE 0.9%/KCL 10 MEQ/500 ML INFUS.BAG IV ONE; -SODIUM CHLORIDE 250 ML IV ONE; -SODIUM CHLORIDE IVPB ONE
[2023-08-18 16:31] VITALS: BP 126/70; PULSE 68; RESP 20; TEMP 97.9
[2023-08-18] MEDS ORDERED: PORTA CATH FLUSH 10 ML IVPUSH PRN (16:31)
== END 2023-08-18 14:40 | disposition home or self-care (01) ==
LOC: JONCCHEMO 13:39 → J7W 13:40 → JONCCHEMO 14:40
PROVIDERS: ATTEND Internal Medicine Hematology & Oncology
PROC: 3E043GC Introduction of Other Therapeutic Substance into Central Vein, Percutaneous Approach (ICD-10-PCS; principal; 2023-08-18)
DX: C20 Malignant neoplasm of rectum (principal); C78.7 Secondary malignant neoplasm of liver and intrahepatic bile duct
CPT/HCPCS: 96365

== ENCOUNTER 2023-09-13 07:40 | Day surgery (SDC) | payer OTHER ==
[2023-09-13 08:59] LABS: BASO % 1.5 % (0-2.0); EOS % 4.9 % (0-4.5); HEMATOCRIT 40.1 % (35.4-49); LYMPH % 11.2 % (8-40); MCH 32.5 pg (25.7-33.7); MCHC 32.4 g/dl (32.0-35.9); MEAN CELL VOLUME 100.1 fl (80-96); MEAN PLT VOLUME 8.5 fl (7.5-11.1); MONO % 10.3 % (3.8-10.2); NEUT % 72.1 % (42.8-82.8); PLATELET COUNT 170 10^3/uL (134-434); RDW 15.7 % (11.9-15.9); WHITE BLOOD COUNT 5.9 K/mm3 (4.0-10.0)
[2023-09-13] MEDS ORDERED: SODIUM CHLORIDE 250 ML IV ONE (09:00)
[2023-09-13 09:15] LABS: ALBUMIN 3.4 g/dl (3.4-5.0); POTASSIUM 3.8 mmol/L (3.5-5.1)
[2023-09-13 09:16] LABS: CALCIUM 8.9 mg/dL (8.5-10.1)
[2023-09-13 09:17] LABS: BLOOD UREA NITROGEN 20.6 mg/dL (7-18); MAGNESIUM 1.8 mg/dL (1.8-2.4)
[2023-09-13 09:18] LABS: BILIRUBIN,DIRECT 0.3 mg/dL (0.0-0.2)
[2023-09-13 09:20] LABS: BILIRUBIN,TOTAL 0.8 mg/dL (0.2-1); CREATININE 0.9 mg/dL (0.55-1.3); TOT PROT 7.2 g/dl (6.4-8.2)
[2023-09-13] MEDS ORDERED: PORTA CATH FLUSH 10 ML IVPUSH PRN (09:20)
[2023-09-13] MEDS ORDERED: ATROPINE SO4 0.4 MG/1 ML VIAL IVPUSH ONE (10:00)
[2023-09-13] MEDS ORDERED: DEXAMETHASONE SODIUM PHOSPHATE 6 MG in SODIUM CHLORIDE 50 ML IVPB ONE (10:00)
[2023-09-13] MEDS ORDERED: PROCHLORPERAZINE INJECTION 10 MG in SODIUM CHLORIDE 50 ML IVPB ONE (10:00)
[2023-09-13] MEDS ORDERED: PALONOSETRON HCL 0.25 MG/5 ML VIAL IVPUSH ONE (10:00)
[2023-09-13] MEDS ORDERED: BEVACIZUMAB AWWB IVPB ONE (10:30)
[2023-09-13] MEDS ORDERED: SODIUM CHLORIDE IVPB ONE (10:30)
[2023-09-13] MEDS ORDERED: WATER IVPB ONE (11:00)
[2023-09-13] MEDS ORDERED: DEXTROSE 5% IVPB ONE (11:00)
[2023-09-13] MEDS ORDERED: IRINOTECAN HCL 380 MG in DEXTROSE 5%-WATER - 500 ML IVPB ONE (11:00)
[2023-09-13] MEDS ORDERED: LEUCOVORIN CALCIUM IVPB ONE (11:00)
[2023-09-13] MEDS ORDERED: FLUOROURACIL 5,075 MG in SODIUM CHLORIDE 36.5 ML CP ONE (14:00)
[2023-09-13 14:51] VITALS: RESP 18; TEMP 98.4
[2023-09-13 16:16] VITALS: BP 126/68; PULSE 54
== END 2023-09-13 14:50 | disposition home or self-care (01) ==
LOC: JONCCHEMO 07:40 → J7W 07:40 → JONCCHEMO 14:50
PROVIDERS: ATTEND Internal Medicine Hematology & Oncology
DX: Z51.11 Encounter for antineoplastic chemotherapy (principal); C20 Malignant neoplasm of rectum
CPT/HCPCS: 36415; 80048; 80076; 82607; 83735; 84156; 85025; 96366; 96367; 96375; 96413; 96417; G0498; J2469; J9206; Q5107

== ENCOUNTER 2023-09-15 12:20 | Day surgery (SDC) | payer OTHER ==
[~2023-09-15 12:20] MED LIST changes: -MAGNESIUM SULFATE IN WATER 2 GM/50 ML IVPB IVPB ONE; +MAGNESIUM SULFATE IVPB ONE; +POTASSIUM CHLORIDE IVPB ONE; -SODIUM CHLORIDE 0.9%/KCL 10 MEQ/500 ML INFUS.BAG IV ONE; +SODIUM CHLORIDE IVPB ONE
[2023-09-15 17:52] VITALS: BP 119/67; PULSE 62; RESP 18; TEMP 97.7
[2023-09-15] MEDS ORDERED: PORTA CATH FLUSH 10 ML IVPUSH PRN (17:52)
== END 2023-09-15 14:00 | disposition home or self-care (01) ==
LOC: J7W 12:20 → JONCCHEMO 12:20
PROVIDERS: ATTEND Internal Medicine Hematology & Oncology
PROC: 3E0437Z Introduction of Electrolytic and Water Balance Substance into Central Vein, Percutaneous Approach (ICD-10-PCS; principal; 2023-09-15)
DX: C20 Malignant neoplasm of rectum (principal); Z76.89 Persons encountering health services in other specified circumstances
CPT/HCPCS: 96360

== ENCOUNTER 2023-09-27 08:40 | Day surgery (SDC) | payer OTHER ==
[2023-09-27] MEDS ORDERED: SODIUM CHLORIDE 250 ML IV ONE (09:00)
[2023-09-27] MEDS ORDERED: PALONOSETRON HCL 0.25 MG/5 ML VIAL IVPUSH ONE (09:30)
[2023-09-27] MEDS ORDERED: PROCHLORPERAZINE INJECTION 10 MG in SODIUM CHLORIDE 50 ML IVPB ONE (09:30)
[2023-09-27] MEDS ORDERED: ATROPINE SO4 0.4 MG/1 ML VIAL IVPUSH ONE ×2 (09:30)
[2023-09-27] MEDS ORDERED: DEXAMETHASONE SODIUM PHOSPHATE 6 MG in SODIUM CHLORIDE 50 ML IVPB ONE (09:30)
[2023-09-27 09:41] LABS: BASO % 1.1 % (0-2.0); EOS % 9.5 % (0-4.5); HEMATOCRIT 41.2 % (35.4-49); HEMOGLOBIN 13.3 GM/dL (11.7-16.9); MCH 32.1 pg (25.7-33.7); MCHC 32.4 g/dl (32.0-35.9); MEAN CELL VOLUME 98.9 fl (80-96); MEAN PLT VOLUME 7.7 fl (7.5-11.1); MONO % 10.3 % (3.8-10.2); NEUT % 59.1 % (42.8-82.8); PLATELET COUNT 162 10^3/uL (134-434); RBC 4.16 M/mm3 (4.00-5.60); RDW 15.8 % (11.9-15.9); WHITE BLOOD COUNT 3.7 K/mm3 (4.0-10.0)
[2023-09-27] MEDS ORDERED: BEVACIZUMAB AWWB IVPB ONE (10:00)
[2023-09-27] MEDS ORDERED: SODIUM CHLORIDE IVPB ONE (10:00)
[2023-09-27 10:12] LABS: POTASSIUM 3.7 mmol/L (3.5-5.1)
[2023-09-27 10:14] LABS: ALBUMIN 3.5 g/dl (3.4-5.0); CALCIUM 9.1 mg/dL (8.5-10.1); MAGNESIUM 1.9 mg/dL (1.8-2.4)
[2023-09-27 10:17] LABS: BILIRUBIN,DIRECT 0.3 mg/dL (0.0-0.2); CREATININE 0.9 mg/dL (0.55-1.3)
[2023-09-27 10:19] LABS: BILIRUBIN,TOTAL 0.8 mg/dL (0.2-1); TOT PROT 7.1 g/dl (6.4-8.2)
[2023-09-27] MEDS ORDERED: IRINOTECAN HCL 380 MG in DEXTROSE 5%-WATER - 500 ML IVPB ONE (10:30)
[2023-09-27] MEDS ORDERED: LEUCOVORIN CALCIUM IVPB ONE (10:30)
[2023-09-27] MEDS ORDERED: DEXTROSE 5% IVPB ONE (10:30)
[2023-09-27] MEDS ORDERED: WATER IVPB ONE (10:30)
[2023-09-27] MEDS ORDERED: FLUOROURACIL 5,025 MG in SODIUM CHLORIDE 0.7 ML CP ONE (12:00)
[2023-09-27 16:45] VITALS: BP 97/58; PULSE 80; RESP 18; TEMP 97.8
[2023-09-28] MEDS ORDERED: PORTA CATH FLUSH 10 ML IVPUSH PRN (07:45)
== END 2023-09-27 15:15 | disposition home or self-care (01) ==
LOC: JONCCHEMO 08:40 → J7W 09:04 → JONCCHEMO 15:15
PROVIDERS: ATTEND Internal Medicine Hematology & Oncology
DX: Z51.11 Encounter for antineoplastic chemotherapy (principal); C20 Malignant neoplasm of rectum
CPT/HCPCS: 36415; 80048; 80076; 83735; 84156; 85025; 96366; 96367; 96375; 96413; 96415; 96417; G0498; J2469; J9206; Q5107

== ENCOUNTER 2023-09-29 12:29 | Day surgery (SDC) | payer OTHER ==
[2023-09-29] MEDS ORDERED: PORTA CATH FLUSH 10 ML IVPUSH PRN (16:28)
[2023-09-29 16:29] VITALS: BP 120/67; PULSE 72; RESP 18; TEMP 97.7
== END 2023-09-29 13:45 | disposition home or self-care (01) ==
LOC: JONCCHEMO 12:29 → J7W 12:30 → JONCCHEMO 13:45
PROVIDERS: ATTEND Internal Medicine Hematology & Oncology
PROC: 3E0437Z Introduction of Electrolytic and Water Balance Substance into Central Vein, Percutaneous Approach (ICD-10-PCS; principal; 2023-09-29)
DX: C20 Malignant neoplasm of rectum (principal)
CPT/HCPCS: 96360

== ENCOUNTER 2023-10-12 07:44 | Day surgery (SDC) | payer OTHER ==
[2023-10-12 08:53] LABS: HEMOGLOBIN 12.8 GM/dL (11.7-16.9); LYMPH % 18.4 % (8-40); MCH 32.5 pg (25.7-33.7); MCHC 32.8 g/dl (32.0-35.9); MEAN PLT VOLUME 7.8 fl (7.5-11.1); NEUT % 58.6 % (42.8-82.8); PLATELET COUNT 182 10^3/uL (134-434); RBC 3.94 M/mm3 (4.00-5.60); RDW 15.9 % (11.9-15.9); WHITE BLOOD COUNT 4.1 K/mm3 (4.0-10.0)
[2023-10-12 08:54] LABS: BASO % 1.3 % (0-2.0); EOS % 7.6 % (0-4.5); MONO % 14.1 % (3.8-10.2)
[2023-10-12] MEDS ORDERED: SODIUM CHLORIDE 250 ML IV ONE (09:00)
[2023-10-12 09:14] LABS: POTASSIUM 4.6 mmol/L (3.5-5.1)
[2023-10-12 09:17] LABS: CALCIUM 9.2 mg/dL (8.5-10.1)
[2023-10-12 09:18] LABS: ALBUMIN 3.4 g/dl (3.4-5.0); BLOOD UREA NITROGEN 27.4 mg/dL (7-18); MAGNESIUM 1.6 mg/dL (1.8-2.4)
[2023-10-12 09:20] LABS: BILIRUBIN,DIRECT 0.1 mg/dL (0.0-0.2); CREATININE 0.8 mg/dL (0.55-1.3)
[2023-10-12 09:22] LABS: BILIRUBIN,TOTAL 0.5 mg/dL (0.2-1)
[2023-10-12] MEDS ORDERED: PALONOSETRON HCL 0.25 MG/5 ML VIAL IVPUSH ONE (09:30)
[2023-10-12] MEDS ORDERED: PROCHLORPERAZINE INJECTION 10 MG in SODIUM CHLORIDE 50 ML IVPB ONE (09:30)
[2023-10-12] MEDS ORDERED: ATROPINE SO4 0.4 MG/1 ML VIAL IVPUSH ONE (09:30)
[2023-10-12] MEDS ORDERED: DEXAMETHASONE SODIUM PHOSPHATE 6 MG in SODIUM CHLORIDE 50 ML IVPB ONE (09:30)
[2023-10-12] MEDS ORDERED: MAGNESIUM SULF 50% (8.12 MEQ/2 ML-1 GM VIAL) ONE (09:38)
[2023-10-12] MEDS ORDERED: SODIUM CHLORIDE IVPB ONE (10:00)
[2023-10-12] MEDS ORDERED: BEVACIZUMAB AWWB IVPB ONE (10:00)
[2023-10-12] MEDS: MAGNESIUM 2GM/50ML STERILE WATER IVPB IVPB ONE ×2 (10:01→13:02)
[2023-10-12] MEDS ORDERED: LEUCOVORIN CALCIUM 840 MG in DEXTROSE 5%-WATER - 166 ML IVPB ONE (10:30)
[2023-10-12] MEDS ORDERED: IRINOTECAN HCL 380 MG in DEXTROSE 5%-WATER - 500 ML IVPB ONE (10:30)
[2023-10-12] MEDS ORDERED: FLUOROURACIL 5,050 MG in SODIUM CHLORIDE 0.2 ML CP ONE (12:30)
[2023-10-12 17:13] VITALS: BP 99/66; PULSE 83; RESP 20; TEMP 97.9
[2023-10-12] MEDS ORDERED: PORTA CATH FLUSH 10 ML IVPUSH PRN (17:13)
== END 2023-10-12 15:25 | disposition home or self-care (01) ==
LOC: JONCCHEMO 07:44 → J7W 07:45 → JONCCHEMO 15:25
PROVIDERS: ATTEND Internal Medicine Hematology & Oncology
DX: Z51.11 Encounter for antineoplastic chemotherapy (principal); C20 Malignant neoplasm of rectum
CPT/HCPCS: 36415; 80048; 80076; 83735; 84156; 85025; 96366; 96367; 96375; 96413; 96417; G0498; J2469; J9206; Q5107

== ENCOUNTER 2023-10-14 12:42 | Day surgery (SDC) | payer OTHER ==
[2023-10-14 15:37] VITALS: BP 117/67; PULSE 71; RESP 20; TEMP 97.8
[2023-10-14] MEDS ORDERED: PORTA CATH FLUSH 10 ML IVPUSH PRN (15:37)
== END 2023-10-14 14:40 | disposition home or self-care (01) ==
LOC: JONCCHEMO 12:42
PROVIDERS: ATTEND Internal Medicine Hematology & Oncology
PROC: 3E0437Z Introduction of Electrolytic and Water Balance Substance into Central Vein, Percutaneous Approach (ICD-10-PCS; principal; 2023-10-14)
DX: C20 Malignant neoplasm of rectum (principal); Z76.89 Persons encountering health services in other specified circumstances
CPT/HCPCS: 96360

== ENCOUNTER 2023-10-26 07:19 | Day surgery (SDC) | payer OTHER ==
[2023-10-26 08:32] LABS: BASO % 1.4 % (0-2.0); EOS % 10.6 % (0-4.5); HEMATOCRIT 39.4 % (35.4-49); HEMOGLOBIN 12.9 GM/dL (11.7-16.9); LYMPH % 13.9 % (8-40); MCH 32.7 pg (25.7-33.7); MCHC 32.8 g/dl (32.0-35.9); MEAN CELL VOLUME 99.8 fl (80-96); MONO % 10.6 % (3.8-10.2); NEUT % 63.5 % (42.8-82.8); PLATELET COUNT 190 10^3/uL (134-434); RBC 3.95 M/mm3 (4.00-5.60); RDW 16.3 % (11.9-15.9); WHITE BLOOD COUNT 5.6 K/mm3 (4.0-10.0)
[2023-10-26 08:45] LABS: BLOOD UREA NITROGEN 20.1 mg/dL (7-18); CALCIUM 8.8 mg/dL (8.5-10.1); MAGNESIUM 1.8 mg/dL (1.8-2.4)
[2023-10-26 08:47] LABS: ALBUMIN 3.4 g/dl (3.4-5.0)
[2023-10-26 08:48] LABS: BILIRUBIN,DIRECT 0.2 mg/dL (0.0-0.2); CREATININE 1.3 mg/dL (0.55-1.3)
[2023-10-26 08:50] LABS: BILIRUBIN,TOTAL 0.7 mg/dL (0.2-1); TOT PROT 6.9 g/dl (6.4-8.2)
[2023-10-26] MEDS ORDERED: SODIUM CHLORIDE 250 ML IV ONE (09:00)
[2023-10-26] MEDS ORDERED: ATROPINE SO4 0.4 MG/1 ML VIAL IVPUSH ONE (09:30)
[2023-10-26] MEDS ORDERED: PALONOSETRON HCL 0.25 MG/5 ML VIAL IVPUSH ONE (09:30)
[2023-10-26] MEDS ORDERED: DEXAMETHASONE SODIUM PHOSPHATE 6 MG in SODIUM CHLORIDE 50 ML IVPB ONE (09:30)
[2023-10-26] MEDS ORDERED: PROCHLORPERAZINE INJECTION 10 MG in SODIUM CHLORIDE 50 ML IVPB ONE (09:30)
[2023-10-26] MEDS ORDERED: BEVACIZUMAB AWWB IVPB ONE (10:00)
[2023-10-26] MEDS ORDERED: SODIUM CHLORIDE IVPB ONE (10:00)
[2023-10-26] MEDS ORDERED: IRINOTECAN HCL 380 MG in DEXTROSE 5%-WATER - 500 ML IVPB ONE (10:30)
[2023-10-26] MEDS ORDERED: DEXTROSE 5% IVPB ONE (10:30)
[2023-10-26] MEDS ORDERED: WATER IVPB ONE (10:30)
[2023-10-26] MEDS ORDERED: LEUCOVORIN CALCIUM IVPB ONE (10:30)
[2023-10-26] MEDS ORDERED: FLUOROURACIL 5,075 MG in SODIUM CHLORIDE 4.3 ML CP ONE (12:30)
[2023-10-26 16:57] VITALS: BP 97/60; PULSE 78; RESP 18; TEMP 98
[2023-10-26] MEDS ORDERED: PORTA CATH FLUSH 10 ML IVPUSH PRN (16:57)
== END 2023-10-26 14:40 | disposition home or self-care (01) ==
LOC: J7W 07:19 → JONCCHEMO 07:19
PROVIDERS: ATTEND Internal Medicine Hematology & Oncology
DX: Z51.11 Encounter for antineoplastic chemotherapy (principal); C20 Malignant neoplasm of rectum
CPT/HCPCS: 36415; 80048; 80076; 83735; 84156; 85025; 96366; 96367; 96375; 96413; 96417; G0498; J2469; J9206; Q5107

== ENCOUNTER 2023-10-28 15:44 | Day surgery (SDC) | payer OTHER ==
[2023-10-28] MEDS ORDERED: PORTA CATH FLUSH 10 ML IVPUSH PRN (18:21)
[2023-10-29 01:54] VITALS: BP 120/61; PULSE 72; RESP 18; TEMP 97.7
== END 2023-10-28 16:00 | disposition home or self-care (01) ==
LOC: JONCCHEMO 15:44
PROVIDERS: ATTEND Internal Medicine Hematology & Oncology
PROC: 3E0437Z Introduction of Electrolytic and Water Balance Substance into Central Vein, Percutaneous Approach (ICD-10-PCS; principal; 2023-10-28)
DX: C20 Malignant neoplasm of rectum (principal)
CPT/HCPCS: 96360

== ENCOUNTER 2023-11-08 07:46 | Day surgery (SDC) | payer OTHER ==
[2023-11-08] MEDS ORDERED: SODIUM CHLORIDE 250 ML IV ONE (09:00)
[2023-11-08] MEDS ORDERED: PALONOSETRON HCL 0.25 MG/5 ML VIAL IVPUSH ONE (10:00)
[2023-11-08] MEDS ORDERED: DEXAMETHASONE SODIUM PHOSPHATE 6 MG in SODIUM CHLORIDE 50 ML IVPB ONE (10:00)
[2023-11-08] MEDS ORDERED: ATROPINE SO4 0.4 MG/1 ML VIAL IVPUSH ONE (10:00)
[2023-11-08] MEDS ORDERED: PROCHLORPERAZINE INJECTION 10 MG in SODIUM CHLORIDE 50 ML IVPB ONE (10:00)
[2023-11-08 10:07] LABS: POTASSIUM 3.9 mmol/L (3.5-5.1)
[2023-11-08 10:10] LABS: ALBUMIN 3.6 g/dl (3.4-5.0); BLOOD UREA NITROGEN 17.8 mg/dL (7-18); CALCIUM 9.1 mg/dL (8.5-10.1); MAGNESIUM 1.9 mg/dL (1.8-2.4)
[2023-11-08 10:13] LABS: BILIRUBIN,DIRECT 0.2 mg/dL (0.0-0.2); CREATININE 0.9 mg/dL (0.55-1.3)
[2023-11-08 10:15] LABS: BILIRUBIN,TOTAL 0.8 mg/dL (0.2-1); TOT PROT 6.9 g/dl (6.4-8.2)
[2023-11-08] MEDS ORDERED: SODIUM CHLORIDE IVPB ONE (10:30)
[2023-11-08] MEDS ORDERED: BEVACIZUMAB AWWB IVPB ONE (10:30)
[2023-11-08 10:34] LABS: BASO % 1.2 % (0-2.0); EOS % 7.9 % (0-4.5); HEMATOCRIT 37.3 % (35.4-49); HEMOGLOBIN 12.7 GM/dL (11.7-16.9); LYMPH % 17.2 % (8-40); MCH 33.4 pg (25.7-33.7); MCHC 33.9 g/dl (32.0-35.9); MEAN CELL VOLUME 98.3 fl (80-96); MEAN PLT VOLUME 7.6 fl (7.5-11.1); NEUT % 62.7 % (42.8-82.8); PLATELET COUNT 182 10^3/uL (134-434); RDW 16.5 % (11.9-15.9); WHITE BLOOD COUNT 4.2 K/mm3 (4.0-10.0)
[2023-11-08] MEDS ORDERED: WATER IVPB ONE (11:00)
[2023-11-08] MEDS ORDERED: LEUCOVORIN CALCIUM IVPB ONE (11:00)
[2023-11-08] MEDS ORDERED: DEXTROSE 5% IVPB ONE (11:00)
[2023-11-08] MEDS ORDERED: IRINOTECAN HCL 380 MG in DEXTROSE 5%-WATER - 500 ML IVPB ONE (11:30)
[2023-11-08] MEDS ORDERED: FLUOROURACIL 5,025 MG in SODIUM CHLORIDE 37.5 ML CP ONE (13:00)
[2023-11-08] MEDS ORDERED: PORTA CATH FLUSH 10 ML IVPUSH PRN (17:51)
[2023-11-08 17:52] VITALS: BP 110/63; PULSE 84; RESP 20; TEMP 98.1
== END 2023-11-08 16:10 | disposition home or self-care (01) ==
LOC: JONCCHEMO 07:46 → J7W 07:47 → JONCCHEMO 16:10
PROVIDERS: ATTEND Internal Medicine Hematology & Oncology
DX: Z51.11 Encounter for antineoplastic chemotherapy (principal); C20 Malignant neoplasm of rectum
CPT/HCPCS: 36415; 80048; 80076; 83735; 84156; 85025; 96368; 96375; 96413; 96417; G0498; J2469; J9206; Q5107

== ENCOUNTER 2023-11-10 12:45 | Day surgery (SDC) | payer OTHER ==
[~2023-11-10 12:45] MED LIST changes: +MAGNESIUM SULFATE IN WATER 2 GM/50 ML IVPB IVPB ONE; -MAGNESIUM SULFATE IVPB ONE; -POTASSIUM CHLORIDE IVPB ONE; +SODIUM CHLORIDE 0.9%/KCL 10 MEQ/500 ML INFUS.BAG IV ONE; -SODIUM CHLORIDE IVPB ONE
[2023-11-10 18:10] VITALS: BP 132/70; RESP 18; TEMP 97.7
[2023-11-10 18:12] VITALS: PULSE 68
[2023-11-10] MEDS ORDERED: PORTA CATH FLUSH 10 ML IVPUSH PRN (18:12)
== END 2023-11-10 14:00 | disposition home or self-care (01) ==
LOC: JONCCHEMO 12:45 → J7W 12:45 → JONCCHEMO 14:00
PROVIDERS: ATTEND Internal Medicine Hematology & Oncology
PROC: 3E043GC Introduction of Other Therapeutic Substance into Central Vein, Percutaneous Approach (ICD-10-PCS; principal; 2023-11-10)
DX: C20 Malignant neoplasm of rectum (principal); Z76.89 Persons encountering health services in other specified circumstances
CPT/HCPCS: 96365

== ENCOUNTER 2023-11-22 07:24 | Day surgery (SDC) | payer OTHER ==
[2023-11-22 08:40] LABS: BASO % 1.2 % (0-2.0); EOS % 7.8 % (0-4.5); HEMATOCRIT 37.9 % (35.4-49); HEMOGLOBIN 12.2 GM/dL (11.7-16.9); LYMPH % 12.8 % (8-40); MCH 32.7 pg (25.7-33.7); MCHC 32.3 g/dl (32.0-35.9); MEAN CELL VOLUME 101.2 fl (80-96); MEAN PLT VOLUME 8.1 fl (7.5-11.1); MONO % 9.6 % (3.8-10.2); NEUT % 68.6 % (42.8-82.8); PLATELET COUNT 171 10^3/uL (134-434); RBC 3.74 M/mm3 (4.00-5.60); RDW 17.1 % (11.9-15.9); WHITE BLOOD COUNT 5.6 K/mm3 (4.0-10.0)
[2023-11-22 09:09] LABS: POTASSIUM 4.4 mmol/L (3.5-5.1)
[2023-11-22 09:11] LABS: BLOOD UREA NITROGEN 24.7 mg/dL (7-18); CALCIUM 9.1 mg/dL (8.5-10.1)
[2023-11-22 09:13] LABS: ALBUMIN 3.4 g/dl (3.4-5.0)
[2023-11-22 09:15] LABS: BILIRUBIN,DIRECT 0.2 mg/dL (0.0-0.2)
[2023-11-22 09:18] LABS: BILIRUBIN,TOTAL 0.6 mg/dL (0.2-1); TOT PROT 6.8 g/dl (6.4-8.2)
[2023-11-22] MEDS: SODIUM CHLORIDE 250 ML IV ONE (09:39)
[2023-11-22] MEDS: PROCHLORPERAZINE INJECTION 10 MG in SODIUM CHLORIDE 50 ML IVPB ONE (10:29)
[2023-11-22] MEDS: DEXAMETHASONE SODIUM PHOSPHATE 6 MG in SODIUM CHLORIDE 50 ML IVPB ONE (11:14)
[2023-11-22] MEDS: PALONOSETRON HCL 0.25 MG/5 ML VIAL IVPUSH ONE (11:36)
[2023-11-22] MEDS: SODIUM CHLORIDE IVPB ONE (11:54)
[2023-11-22] MEDS: BEVACIZUMAB AWWB IVPB ONE (11:54)
[2023-11-22] MEDS: WATER IVPB ONE (13:03)
[2023-11-22] MEDS: DEXTROSE 5% IVPB ONE (13:03)
[2023-11-22] MEDS: ATROPINE SO4 0.4 MG/1 ML VIAL IVPUSH ONE (13:03)
[2023-11-22] MEDS: LEUCOVORIN CALCIUM IVPB ONE (13:03)
[2023-11-22] MEDS: IRINOTECAN HCL 380 MG in DEXTROSE 5%-WATER - 500 ML IVPB ONE (13:34)
[2023-11-22] MEDS: FLUOROURACIL 5,025 MG in SODIUM CHLORIDE 0.7 ML CP ONE (15:19)
[2023-11-22 16:47] VITALS: RESP 18; TEMP 98.2
[2023-11-22 16:54] VITALS: BP 133/69; PULSE 59
[2023-11-22] MEDS ORDERED: PORTA CATH FLUSH 10 ML IVPUSH PRN (16:54)
== END 2023-11-22 16:00 | disposition home or self-care (01) ==
LOC: JONCCHEMO 07:24 → J7W 07:25 → JONCCHEMO 16:00
PROVIDERS: ATTEND Internal Medicine Hematology & Oncology
DX: Z51.11 Encounter for antineoplastic chemotherapy (principal); C20 Malignant neoplasm of rectum
CPT/HCPCS: 36415; 80048; 80076; 83735; 84156; 85025; 96375; 96413; 96415; 96417; G0498; J2469; J9206; Q5107

== ENCOUNTER 2023-11-24 12:15 | Day surgery (SDC) | payer OTHER ==
[~2023-11-24 12:15] MED LIST changes: -SODIUM CHLORIDE 0.9%/KCL 10 MEQ/500 ML INFUS.BAG IV ONE
[2023-11-24] MEDS: SODIUM CHLORIDE 0.9%/KCL 10 MEQ/500 ML INFUS.BAG IV ONE (13:04)
[2023-11-24] MEDS: MAGNESIUM SULFATE IN WATER 2 GM/50 ML IVPB IVPB ONE ×2 (13:19→13:20)
[2023-11-24] MEDS: PORTA CATH FLUSH 10 ML IVPUSH PRN (14:30)
[2023-11-24 17:59] VITALS: RESP 20; TEMP 98.4
[2023-11-24 18:05] VITALS: BP 117/65; PULSE 64
== END 2023-11-24 15:00 | disposition home or self-care (01) ==
LOC: J7W 12:15 → JONCCHEMO 12:15
PROVIDERS: ATTEND Internal Medicine Hematology & Oncology
PROC: 3E043GC Introduction of Other Therapeutic Substance into Central Vein, Percutaneous Approach (ICD-10-PCS; principal; 2023-11-24)
DX: C20 Malignant neoplasm of rectum (principal); Z76.89 Persons encountering health services in other specified circumstances
CPT/HCPCS: 96365

== ENCOUNTER 2023-12-06 08:06 | Day surgery (SDC) | payer OTHER ==
[2023-12-06 09:01] LABS: POTASSIUM 4.3 mmol/L (3.5-5.1)
[2023-12-06 09:03] LABS: CALCIUM 9.6 mg/dL (8.5-10.1)
[2023-12-06 09:04] LABS: ALBUMIN 3.6 g/dl (3.4-5.0); BLOOD UREA NITROGEN 20.4 mg/dL (7-18)
[2023-12-06 09:05] LABS: MAGNESIUM 1.8 mg/dL (1.8-2.4)
[2023-12-06 09:06] LABS: BILIRUBIN,DIRECT 0.2 mg/dL (0.0-0.2)
[2023-12-06 09:08] LABS: BILIRUBIN,TOTAL 0.7 mg/dL (0.2-1)
[2023-12-06 09:10] LABS: BASO % 1.3 % (0-2.0); EOS % 9.8 % (0-4.5); HEMOGLOBIN 12.5 GM/dL (11.7-16.9); MCH 33.3 pg (25.7-33.7); MCHC 32.9 g/dl (32.0-35.9); MEAN PLT VOLUME 7.8 fl (7.5-11.1); MONO % 10.3 % (3.8-10.2); NEUT % 63.6 % (42.8-82.8); PLATELET COUNT 170 10^3/uL (134-434); RBC 3.76 M/mm3 (4.00-5.60); RDW 17.8 % (11.9-15.9); WHITE BLOOD COUNT 5.1 K/mm3 (4.0-10.0)
[2023-12-06] MEDS: SODIUM CHLORIDE 250 ML IV ONE (10:15)
[2023-12-06] MEDS: PROCHLORPERAZINE INJECTION 10 MG in SODIUM CHLORIDE 50 ML IVPB ONE (10:23)
[2023-12-06] MEDS: DEXAMETHASONE SODIUM PHOSPHATE 6 MG in SODIUM CHLORIDE 50 ML IVPB ONE (10:51)
[2023-12-06] MEDS: PALONOSETRON HCL 0.25 MG/5 ML VIAL IVPUSH ONE (11:40)
[2023-12-06] MEDS: SODIUM CHLORIDE IVPB ONE (11:45)
[2023-12-06] MEDS: BEVACIZUMAB AWWB IVPB ONE (11:45)
[2023-12-06] MEDS: LEUCOVORIN CALCIUM IVPB ONE (12:15)
[2023-12-06] MEDS: DEXTROSE 5% IVPB ONE (12:15)
[2023-12-06] MEDS: WATER IVPB ONE (12:15)
[2023-12-06] MEDS: ATROPINE SO4 0.4 MG/1 ML VIAL IVPUSH ONE (12:59)
[2023-12-06] MEDS: IRINOTECAN HCL 370 MG in DEXTROSE 5%-WATER - 500 ML IVPB ONE (12:59)
[2023-12-06] MEDS: SODIUM CHLORIDE CP ONE (14:43)
[2023-12-06] MEDS: FLUOROURACIL CP ONE (14:43)
[2023-12-06] MEDS: PORTA CATH FLUSH 10 ML IVPUSH PRN (14:50)
[2023-12-06 16:21] VITALS: RESP 18
[2023-12-06 16:34] VITALS: BP 121/66; PULSE 72; TEMP 98.6
== END 2023-12-06 14:50 | disposition home or self-care (01) ==
LOC: JONCCHEMO 08:06 → J7W 08:07 → JONCCHEMO 14:50
PROVIDERS: ATTEND Internal Medicine Hematology & Oncology
DX: Z51.11 Encounter for antineoplastic chemotherapy (principal); C20 Malignant neoplasm of rectum
CPT/HCPCS: 36415; 80048; 80076; 83735; 84156; 85025; 96375; 96413; 96417; G0498; J2469; J9206; Q5107

== ENCOUNTER 2023-12-08 12:20 | Day surgery (SDC) | payer OTHER ==
[2023-12-08] MEDS: MAGNESIUM SULFATE IN WATER 2 GM/50 ML IVPB IVPB ONE (12:39)
[2023-12-08] MEDS: PORTA CATH FLUSH 10 ML IVPUSH PRN (12:40)
[2023-12-08] MEDS: SODIUM CHLORIDE 0.9%/KCL 10 MEQ/500 ML INFUS.BAG IV ONE (12:42)
[2023-12-08 13:10] VITALS: BP 114/66; RESP 20; TEMP 97.4
[2023-12-08 13:53] VITALS: PULSE 66
== END 2023-12-08 14:00 | disposition home or self-care (01) ==
LOC: JONCCHEMO 12:20 → J7W 12:20 → JONCCHEMO 14:00
PROVIDERS: ATTEND Internal Medicine Hematology & Oncology
PROC: 3E043GC Introduction of Other Therapeutic Substance into Central Vein, Percutaneous Approach (ICD-10-PCS; principal; 2023-12-08)
DX: C20 Malignant neoplasm of rectum (principal)
CPT/HCPCS: 96365

== ENCOUNTER 2023-12-20 07:00 | Day surgery (SDC) | payer OTHER ==
[2023-12-20 08:48] LABS: BASO % 1.1 % (0-2.0); EOS % 6.9 % (0-4.5); HEMATOCRIT 35.5 % (35.4-49); HEMOGLOBIN 11.9 GM/dL (11.7-16.9); MCH 34.3 pg (25.7-33.7); MCHC 33.6 g/dl (32.0-35.9); MEAN CELL VOLUME 102.1 fl (80-96); MEAN PLT VOLUME 7.9 fl (7.5-11.1); MONO % 11.4 % (3.8-10.2); NEUT % 66.6 % (42.8-82.8); PLATELET COUNT 176 10^3/uL (134-434); RBC 3.48 M/mm3 (4.00-5.60); RDW 17.8 % (11.9-15.9)
[2023-12-20 09:07] LABS: POTASSIUM 4.4 mmol/L (3.5-5.1)
[2023-12-20 09:10] LABS: ALBUMIN 3.3 g/dl (3.4-5.0); BLOOD UREA NITROGEN 21.2 mg/dL (7-18); CALCIUM 8.9 mg/dL (8.5-10.1); MAGNESIUM 1.9 mg/dL (1.8-2.4)
[2023-12-20 09:14] LABS: BILIRUBIN,DIRECT 0.2 mg/dL (0.0-0.2); BILIRUBIN,TOTAL 0.8 mg/dL (0.2-1); CREATININE 0.9 mg/dL (0.55-1.3); TOT PROT 6.6 g/dl (6.4-8.2)
[2023-12-20] MEDS: PORTA CATH FLUSH 10 ML IVPUSH PRN (09:30)
[2023-12-20] MEDS: SODIUM CHLORIDE 250 ML IV ONE (09:40)
[2023-12-20] MEDS: PROCHLORPERAZINE INJECTION 10 MG in SODIUM CHLORIDE 50 ML IVPB ONE (10:18)
[2023-12-20] MEDS: PALONOSETRON HCL 0.25 MG/5 ML VIAL IVPUSH ONE (10:18)
[2023-12-20] MEDS: DEXAMETHASONE SODIUM PHOSPHATE 6 MG in SODIUM CHLORIDE 50 ML IVPB ONE (10:41)
[2023-12-20] MEDS: BEVACIZUMAB AWWB IVPB ONE (11:17)
[2023-12-20] MEDS: SODIUM CHLORIDE IVPB ONE (11:17)
[2023-12-20] MEDS: DEXTROSE 5% IVPB ONE (12:14)
[2023-12-20] MEDS: LEUCOVORIN CALCIUM IVPB ONE (12:14)
[2023-12-20] MEDS: WATER IVPB ONE (12:14)
[2023-12-20] MEDS: ATROPINE SO4 0.4 MG/1 ML VIAL IVPUSH ONE (12:14)
[2023-12-20] MEDS: IRINOTECAN HCL 370 MG in DEXTROSE 5%-WATER - 500 ML IVPB ONE (12:15)
[2023-12-20] MEDS: FLUOROURACIL CP ONE (14:21)
[2023-12-20] MEDS: SODIUM CHLORIDE CP ONE (14:21)
[2023-12-20 18:16] VITALS: BP 128/78; PULSE 90; RESP 20; TEMP 98.3
== END 2023-12-20 16:15 | disposition home or self-care (01) ==
LOC: J7W 07:00 → JONCCHEMO 07:00
PROVIDERS: ATTEND Internal Medicine Hematology & Oncology
DX: Z51.11 Encounter for antineoplastic chemotherapy (principal); C20 Malignant neoplasm of rectum
CPT/HCPCS: 36415; 80048; 80076; 83735; 84156; 85025; 96367; 96375; 96413; 96417; G0498; J2469; J9206; Q5107

== ENCOUNTER 2023-12-22 12:30 | Day surgery (SDC) | payer OTHER ==
[2023-12-22] MEDS: POTASSIUM CHLORIDE IVPB ONE (12:42)
[2023-12-22] MEDS: MAGNESIUM SULFATE IVPB ONE (12:42)
[2023-12-22] MEDS: SODIUM CHLORIDE IVPB ONE (12:42)
[2023-12-22] MEDS: PORTA CATH FLUSH 10 ML IVPUSH PRN (13:45)
[2023-12-22 14:51] VITALS: RESP 20; TEMP 97.8
[2023-12-22 14:56] VITALS: BP 107/59; PULSE 72
== END 2023-12-22 14:15 | disposition home or self-care (01) ==
LOC: JONCCHEMO 12:30 → J7W 13:20 → JONCCHEMO 14:15
PROVIDERS: ATTEND Internal Medicine Hematology & Oncology
PROC: 3E0337Z Introduction of Electrolytic and Water Balance Substance into Peripheral Vein, Percutaneous Approach (ICD-10-PCS; principal; 2023-12-22)
DX: C20 Malignant neoplasm of rectum (principal)
CPT/HCPCS: 96360

== ENCOUNTER 2024-01-03 07:14 | Day surgery (SDC) | payer OTHER ==
[2024-01-03 08:06] LABS: EOS % 7.1 % (0-4.5); HEMOGLOBIN 12.1 GM/dL (11.7-16.9); LYMPH % 12.8 % (8-40); MCH 34.7 pg (25.7-33.7); MCHC 33.6 g/dl (32.0-35.9); MEAN CELL VOLUME 103.2 fl (80-96); MEAN PLT VOLUME 8.5 fl (7.5-11.1); MONO % 10.8 % (3.8-10.2); NEUT % 68.3 % (42.8-82.8); PLATELET COUNT 185 10^3/uL (134-434); RBC 3.49 M/mm3 (4.00-5.60); RDW 17.9 % (11.9-15.9); WHITE BLOOD COUNT 5.5 K/mm3 (4.0-10.0)
[2024-01-03 08:27] LABS: POTASSIUM 4.3 mmol/L (3.5-5.1)
[2024-01-03 08:29] LABS: ALBUMIN 3.4 g/dl (3.4-5.0); BLOOD UREA NITROGEN 24.9 mg/dL (7-18); CALCIUM 9.3 mg/dL (8.5-10.1); MAGNESIUM 1.9 mg/dL (1.8-2.4)
[2024-01-03 08:32] LABS: BILIRUBIN,DIRECT 0.2 mg/dL (0.0-0.2); CREATININE 1.1 mg/dL (0.55-1.3)
[2024-01-03 08:34] LABS: BILIRUBIN,TOTAL 0.6 mg/dL (0.2-1); TOT PROT 6.7 g/dl (6.4-8.2)
[2024-01-03 09:14] VITALS: BP 124/60; PULSE 93; RESP 20; TEMP 97.9
[2024-01-03] MEDS: SODIUM CHLORIDE 250 ML IV ONE (09:18)
[2024-01-03] MEDS: PROCHLORPERAZINE INJECTION 10 MG in SODIUM CHLORIDE 50 ML IVPB ONE (10:01)
[2024-01-03] MEDS: DEXAMETHASONE SODIUM PHOSPHATE 6 MG in SODIUM CHLORIDE 50 ML IVPB ONE (10:17)
[2024-01-03] MEDS: PALONOSETRON HCL 0.25 MG/5 ML VIAL IVPUSH ONE (10:31)
[2024-01-03] MEDS: SODIUM CHLORIDE IVPB ONE (10:36)
[2024-01-03] MEDS: BEVACIZUMAB AWWB IVPB ONE (10:36)
[2024-01-03] MEDS: ATROPINE SO4 0.4 MG/1 ML VIAL IVPUSH ONE (11:45)
[2024-01-03] MEDS: LEUCOVORIN CALCIUM IVPB ONE (11:46)
[2024-01-03] MEDS: WATER IVPB ONE (11:46)
[2024-01-03] MEDS: DEXTROSE 5% IVPB ONE (11:46)
[2024-01-03] MEDS: IRINOTECAN HCL 370 MG in DEXTROSE 5%-WATER - 500 ML IVPB ONE (11:48)
[2024-01-03] MEDS: SODIUM CHLORIDE CP ONE (14:58)
[2024-01-03] MEDS: PORTA CATH FLUSH 10 ML IVPUSH PRN (14:58)
[2024-01-03] MEDS: FLUOROURACIL CP ONE (14:58)
== END 2024-01-03 15:45 | disposition home or self-care (01) ==
LOC: JONCCHEMO 07:14 → J7W 07:15 → JONCCHEMO 15:45
PROVIDERS: ATTEND Internal Medicine Hematology & Oncology
DX: Z51.11 Encounter for antineoplastic chemotherapy (principal); C20 Malignant neoplasm of rectum
CPT/HCPCS: 36415; 80048; 80076; 83735; 84156; 85025; 96366; 96367; 96375; 96413; 96417; G0498; J2469; J9206; Q5107

== ENCOUNTER 2024-01-05 12:58 | Day surgery (SDC) | payer OTHER ==
[2024-01-05] MEDS: SODIUM CHLORIDE IVPB ONE (13:16)
[2024-01-05] MEDS: POTASSIUM CHLORIDE IVPB ONE (13:16)
[2024-01-05] MEDS: MAGNESIUM SULFATE IVPB ONE (13:16)
[2024-01-05] MEDS: PORTA CATH FLUSH 10 ML IVPUSH PRN (14:25)
[2024-01-05 15:46] VITALS: RESP 20; TEMP 98
[2024-01-05 15:52] VITALS: BP 107/62; PULSE 68
== END 2024-01-05 14:45 | disposition home or self-care (01) ==
LOC: JONCCHEMO 12:58 → J7W 12:59 → JONCCHEMO 14:45
PROVIDERS: ATTEND Internal Medicine Hematology & Oncology
PROC: 3E0437Z Introduction of Electrolytic and Water Balance Substance into Central Vein, Percutaneous Approach (ICD-10-PCS; principal; 2024-01-05)
DX: Z51.11 Encounter for antineoplastic chemotherapy (principal); C20 Malignant neoplasm of rectum
CPT/HCPCS: 96365

== ENCOUNTER 2024-01-17 07:23 | Day surgery (SDC) | payer OTHER ==
[2024-01-17 08:29] LABS: BASO % 1.2 % (0-2.0); EOS % 10.1 % (0-4.5); HEMATOCRIT 35.4 % (35.4-49); HEMOGLOBIN 11.8 GM/dL (11.7-16.9); LYMPH % 11.3 % (8-40); MCH 34.7 pg (25.7-33.7); MCHC 33.4 g/dl (32.0-35.9); MEAN PLT VOLUME 8.2 fl (7.5-11.1); MONO % 10.6 % (3.8-10.2); NEUT % 66.8 % (42.8-82.8); PLATELET COUNT 189 10^3/uL (134-434); POTASSIUM 3.9 mmol/L (3.5-5.1); WHITE BLOOD COUNT 4.9 K/mm3 (4.0-10.0)
[2024-01-17 08:32] LABS: CALCIUM 8.7 mg/dL (8.5-10.1)
[2024-01-17 08:33] LABS: ALBUMIN 3.4 g/dl (3.4-5.0); BLOOD UREA NITROGEN 24.6 mg/dL (7-18); MAGNESIUM 1.8 mg/dL (1.8-2.4)
[2024-01-17 08:36] LABS: BILIRUBIN,DIRECT 0.2 mg/dL (0.0-0.2); CREATININE 1.4 mg/dL (0.55-1.3)
[2024-01-17 08:37] LABS: TOT PROT 6.5 g/dl (6.4-8.2)
[2024-01-17 08:38] LABS: BILIRUBIN,TOTAL 0.7 mg/dL (0.2-1)
[2024-01-17] MEDS: PORTA CATH FLUSH 10 ML IVPUSH PRN (09:30)
[2024-01-17] MEDS: SODIUM CHLORIDE 250 ML IV ONE (09:41)
[2024-01-17] MEDS: SODIUM CHLORIDE 0.9% 500 ML INFUS.BAG IV ONE (09:42)
[2024-01-17] MEDS: PALONOSETRON HCL 0.25 MG/5 ML VIAL IVPUSH ONE (10:38)
[2024-01-17] MEDS: PROCHLORPERAZINE INJECTION 10 MG in SODIUM CHLORIDE 50 ML IVPB ONE (10:38)
[2024-01-17] MEDS: DEXAMETHASONE SODIUM PHOSPHATE 6 MG in SODIUM CHLORIDE 50 ML IVPB ONE (11:11)
[2024-01-17] MEDS: SODIUM CHLORIDE IVPB ONE (11:30)
[2024-01-17] MEDS: BEVACIZUMAB AWWB IVPB ONE (11:30)
[2024-01-17] MEDS: WATER IVPB ONE (12:03)
[2024-01-17] MEDS: DEXTROSE 5% IVPB ONE (12:03)
[2024-01-17] MEDS: ATROPINE SO4 0.4 MG/1 ML VIAL IVPUSH ONE (12:03)
[2024-01-17] MEDS: LEUCOVORIN CALCIUM IVPB ONE (12:03)
[2024-01-17] MEDS: IRINOTECAN HCL 370 MG in DEXTROSE 5%-WATER - 500 ML IVPB ONE (12:28)
[2024-01-17] MEDS: FLUOROURACIL CP ONE (14:20)
[2024-01-17] MEDS: SODIUM CHLORIDE CP ONE (14:20)
[2024-01-17 16:41] VITALS: BP 83/51; PULSE 83; RESP 16; TEMP 98.6
== END 2024-01-17 14:45 | disposition home or self-care (01) ==
LOC: JONCCHEMO 07:23 → J7W 07:24 → JONCCHEMO 14:45
PROVIDERS: ATTEND Internal Medicine Hematology & Oncology
DX: Z51.11 Encounter for antineoplastic chemotherapy (principal); C20 Malignant neoplasm of rectum
CPT/HCPCS: 36415; 80048; 80076; 83735; 84156; 85025; 96367; 96375; 96413; 96417; G0498; J2469; J9206; Q5107

== ENCOUNTER 2024-01-19 12:30 | Day surgery (SDC) | payer OTHER ==
[2024-01-19] MEDS: POTASSIUM CHLORIDE IVPB ONE (12:40)
[2024-01-19] MEDS: SODIUM CHLORIDE IVPB ONE (12:40)
[2024-01-19] MEDS: MAGNESIUM SULFATE IVPB ONE (12:40)
[2024-01-19] MEDS: PORTA CATH FLUSH 10 ML IVPUSH PRN (13:45)
[2024-01-19 14:33] VITALS: TEMP 97.8
[2024-01-19 14:39] VITALS: BP 112/64; PULSE 64; RESP 20
== END 2024-01-19 13:50 | disposition home or self-care (01) ==
LOC: JONCCHEMO 12:30 → J7W 14:38
PROVIDERS: ATTEND Internal Medicine Hematology & Oncology
PROC: 3E043GC Introduction of Other Therapeutic Substance into Central Vein, Percutaneous Approach (ICD-10-PCS; principal; 2024-01-19)
DX: C20 Malignant neoplasm of rectum (principal); Z76.89 Persons encountering health services in other specified circumstances
CPT/HCPCS: 96365

== ENCOUNTER 2024-01-31 08:01 | Day surgery (SDC) | payer OTHER ==
[2024-01-31 08:15] LABS: BASO % 2.1 % (0-2.0); EOS % 9.1 % (0-4.5); LYMPH % 16.8 % (8-40); MCHC 33.4 g/dl (32.0-35.9); MEAN CELL VOLUME 104.6 fl (80-96); MEAN PLT VOLUME 8.1 fl (7.5-11.1); MONO % 14.2 % (3.8-10.2); NEUT % 57.8 % (42.8-82.8); PLATELET COUNT 161 10^3/uL (134-434); RBC 3.45 M/mm3 (4.00-5.60); RDW 17.4 % (11.9-15.9); WHITE BLOOD COUNT 3.6 K/mm3 (4.0-10.0)
[2024-01-31 08:30] LABS: ALBUMIN 3.1 g/dl (3.4-5.0); BLOOD UREA NITROGEN 17.1 mg/dL (7-18); CALCIUM 8.9 mg/dL (8.5-10.1); MAGNESIUM 1.9 mg/dL (1.8-2.4)
[2024-01-31 08:32] LABS: BILIRUBIN,DIRECT 0.2 mg/dL (0.0-0.2)
[2024-01-31 08:33] LABS: CREATININE 0.9 mg/dL (0.55-1.3)
[2024-01-31 08:35] LABS: BILIRUBIN,TOTAL 0.6 mg/dL (0.2-1); TOT PROT 6.1 g/dl (6.4-8.2)
[2024-01-31] MEDS: SODIUM CHLORIDE 250 ML IV ONE (09:25)
[2024-01-31] MEDS: PROCHLORPERAZINE INJECTION 10 MG in SODIUM CHLORIDE 50 ML IVPB ONE (10:16)
[2024-01-31] MEDS: DEXAMETHASONE SODIUM PHOSPHATE 6 MG in SODIUM CHLORIDE 50 ML IVPB ONE (10:34)
[2024-01-31] MEDS: PALONOSETRON HCL 0.25 MG/5 ML VIAL IVPUSH ONE (10:40)
[2024-01-31] MEDS: BEVACIZUMAB AWWB IVPB ONE (10:56)
[2024-01-31] MEDS: SODIUM CHLORIDE IVPB ONE (10:56)
[2024-01-31] MEDS: ATROPINE SO4 0.4 MG/1 ML VIAL IVPUSH ONE (11:38)
[2024-01-31] MEDS: IRINOTECAN HCL 370 MG in DEXTROSE 5%-WATER - 500 ML IVPB ONE (11:40)
[2024-01-31] MEDS: WATER IVPB ONE (11:40)
[2024-01-31] MEDS: DEXTROSE 5% IVPB ONE (11:40)
[2024-01-31] MEDS: LEUCOVORIN CALCIUM IVPB ONE (11:40)
[2024-01-31] MEDS: PORTA CATH FLUSH 10 ML IVPUSH PRN (14:00)
[2024-01-31] MEDS: SODIUM CHLORIDE CP ONE (14:01)
[2024-01-31] MEDS: FLUOROURACIL CP ONE (14:01)
[2024-01-31 16:46] VITALS: BP 113/65; PULSE 78; RESP 20; TEMP 98.2
== END 2024-01-31 14:30 | disposition home or self-care (01) ==
LOC: JONCCHEMO 08:01 → J7W 08:02 → JONCCHEMO 14:30
PROVIDERS: ATTEND Internal Medicine Hematology & Oncology
DX: Z51.11 Encounter for antineoplastic chemotherapy (principal); C20 Malignant neoplasm of rectum
CPT/HCPCS: 36415; 80048; 80076; 83735; 84156; 85025; 96367; 96375; 96413; 96417; G0498; J2469; J9206; Q5107

== ENCOUNTER 2024-02-02 12:37 | Day surgery (SDC) | payer OTHER ==
[2024-02-02] MEDS: POTASSIUM CHLORIDE IVPB ONE (12:38)
[2024-02-02] MEDS: SODIUM CHLORIDE IVPB ONE (12:38)
[2024-02-02] MEDS: MAGNESIUM SULFATE IVPB ONE (12:38)
[2024-02-02 12:47] VITALS: TEMP 97.8
[2024-02-02 13:55] VITALS: BP 120/69; PULSE 66; RESP 18
[2024-02-02] MEDS: PORTA CATH FLUSH 10 ML IVPUSH PRN (13:55)
== END 2024-02-02 14:00 | disposition home or self-care (01) ==
LOC: JONCCHEMO 12:37 → J7W 12:38 → JONCCHEMO 14:00
PROVIDERS: ATTEND Internal Medicine Hematology & Oncology
PROC: 3E0437Z Introduction of Electrolytic and Water Balance Substance into Central Vein, Percutaneous Approach (ICD-10-PCS; principal; 2024-02-02)
DX: C20 Malignant neoplasm of rectum (principal); Z76.89 Persons encountering health services in other specified circumstances
CPT/HCPCS: 96360

== ENCOUNTER 2024-02-14 07:57 | Day surgery (SDC) | payer OTHER ==
[2024-02-14 08:33] LABS: BASO % 1.2 % (0-2.0); EOS % 11.7 % (0-4.5); HEMATOCRIT 39.4 % (35.4-49); HEMOGLOBIN 12.9 GM/dL (11.7-16.9); MCH 34.5 pg (25.7-33.7); MCHC 32.8 g/dl (32.0-35.9); MEAN CELL VOLUME 105.2 fl (80-96); MEAN PLT VOLUME 8.7 fl (7.5-11.1); MONO % 10.8 % (3.8-10.2); NEUT % 62.3 % (42.8-82.8); PLATELET COUNT 186 10^3/uL (134-434); RBC 3.74 M/mm3 (4.00-5.60); RDW 17.5 % (11.9-15.9); WHITE BLOOD COUNT 4.5 K/mm3 (4.0-10.0)
[2024-02-14 08:46] LABS: CALCIUM 9.5 mg/dL (8.5-10.1)
[2024-02-14 08:47] LABS: ALBUMIN 3.5 g/dl (3.4-5.0); BLOOD UREA NITROGEN 19.3 mg/dL (7-18)
[2024-02-14 08:49] LABS: BILIRUBIN,DIRECT 0.2 mg/dL (0.0-0.2)
[2024-02-14 08:51] LABS: BILIRUBIN,TOTAL 0.7 mg/dL (0.2-1); TOT PROT 6.5 g/dl (6.4-8.2)
[2024-02-14] MEDS: SODIUM CHLORIDE 250 ML IV ONE (09:00)
[2024-02-14 09:38] LABS: ANISOCYTOSIS 1+; MACROCYTOSIS 2+
[2024-02-14] MEDS: DEXAMETHASONE SODIUM PHOSPHATE 6 MG in SODIUM CHLORIDE 50 ML IVPB ONE (10:03)
[2024-02-14] MEDS: PROCHLORPERAZINE INJECTION 10 MG in SODIUM CHLORIDE 50 ML IVPB ONE (10:21)
[2024-02-14] MEDS: PALONOSETRON HCL 0.25 MG/5 ML VIAL IVPUSH ONE (10:39)
[2024-02-14] MEDS: SODIUM CHLORIDE IVPB ONE (10:49)
[2024-02-14] MEDS: BEVACIZUMAB AWWB IVPB ONE (10:49)
[2024-02-14] MEDS: ATROPINE SO4 0.4 MG/1 ML VIAL IVPUSH ONE (11:32)
[2024-02-14] MEDS: DEXTROSE 5% IVPB ONE (11:33)
[2024-02-14] MEDS: WATER IVPB ONE (11:33)
[2024-02-14] MEDS: LEUCOVORIN CALCIUM IVPB ONE (11:33)
[2024-02-14] MEDS: IRINOTECAN HCL 370 MG in DEXTROSE 5%-WATER - 500 ML IVPB ONE (11:34)
[2024-02-14] MEDS: SODIUM CHLORIDE CP ONE (13:59)
[2024-02-14] MEDS: FLUOROURACIL CP ONE (13:59)
[2024-02-14 17:26] VITALS: BP 114/67; PULSE 87; RESP 20; TEMP 98.6
[2024-02-14] MEDS ORDERED: PORTA CATH FLUSH 10 ML IVPUSH PRN (17:26)
== END 2024-02-14 14:35 | disposition home or self-care (01) ==
LOC: JONCCHEMO 07:57 → J7W 07:58 → JONCCHEMO 14:35
PROVIDERS: ATTEND Internal Medicine Hematology & Oncology
DX: Z51.11 Encounter for antineoplastic chemotherapy (principal); C20 Malignant neoplasm of rectum
CPT/HCPCS: 36415; 80048; 80076; 83735; 84156; 85025; 96367; 96375; 96413; 96417; G0498; J2469; J9206; Q5107

== ENCOUNTER 2024-02-16 12:36 | Day surgery (SDC) | payer OTHER ==
[2024-02-16] MEDS: SODIUM CHLORIDE 0.9%/KCL 10 MEQ/500 ML INFUS.BAG IV ONE (12:52)
[2024-02-16] MEDS: PORTA CATH FLUSH 10 ML IVPUSH PRN (12:52)
[2024-02-16] MEDS: MAGNESIUM SULFATE IN WATER 2 GM/50 ML IVPB IVPB ONE (12:52)
[2024-02-16 17:03] VITALS: RESP 20; TEMP 97.8
[2024-02-16 17:20] VITALS: BP 131/73; PULSE 60
== END 2024-02-16 14:10 | disposition home or self-care (01) ==
LOC: J7W 12:36 → JONCCHEMO 12:36
PROVIDERS: ATTEND Internal Medicine Hematology & Oncology
PROC: 3E043GC Introduction of Other Therapeutic Substance into Central Vein, Percutaneous Approach (ICD-10-PCS; principal; 2024-02-16)
DX: C20 Malignant neoplasm of rectum (principal); Z76.89 Persons encountering health services in other specified circumstances
CPT/HCPCS: 96365; 96368

== ENCOUNTER 2024-02-28 07:35 | Day surgery (SDC) | payer OTHER ==
[2024-02-28 08:26] LABS: BASO % 1.8 % (0-2.0); EOS % 8.1 % (0-4.5); HEMATOCRIT 36.1 % (35.4-49); HEMOGLOBIN 12.1 GM/dL (11.7-16.9); LYMPH % 15.2 % (8-40); MCH 34.9 pg (25.7-33.7); MCHC 33.7 g/dl (32.0-35.9); MEAN CELL VOLUME 103.7 fl (80-96); MEAN PLT VOLUME 8.3 fl (7.5-11.1); MONO % 12.9 % (3.8-10.2); PLATELET COUNT 170 10^3/uL (134-434); RBC 3.48 M/mm3 (4.00-5.60); RDW 16.8 % (11.9-15.9); WHITE BLOOD COUNT 4.6 K/mm3 (4.0-10.0)
[2024-02-28 08:36] LABS: POTASSIUM 3.9 mmol/L (3.5-5.1)
[2024-02-28 08:38] LABS: CALCIUM 8.5 mg/dL (8.5-10.1)
[2024-02-28 08:39] LABS: ALBUMIN 3.2 g/dl (3.4-5.0); BLOOD UREA NITROGEN 24.6 mg/dL (7-18)
[2024-02-28 08:41] LABS: BILIRUBIN,DIRECT 0.2 mg/dL (0.0-0.2)
[2024-02-28 08:42] LABS: CREATININE 0.9 mg/dL (0.55-1.3)
[2024-02-28 08:43] LABS: BILIRUBIN,TOTAL 0.5 mg/dL (0.2-1); TOT PROT 6.3 g/dl (6.4-8.2)
[2024-02-28] MEDS: SODIUM CHLORIDE 250 ML IV ONE (09:38)
[2024-02-28] MEDS: PROCHLORPERAZINE INJECTION 10 MG in SODIUM CHLORIDE 50 ML IVPB ONE (10:31)
[2024-02-28] MEDS: ATROPINE SO4 0.4 MG/1 ML VIAL IVPUSH ONE (10:47)
[2024-02-28] MEDS: PALONOSETRON HCL 0.25 MG/5 ML VIAL IVPUSH ONE (10:51)
[2024-02-28] MEDS: DEXAMETHASONE SODIUM PHOSPHATE 6 MG in SODIUM CHLORIDE 50 ML IVPB ONE (10:54)
[2024-02-28] MEDS: BEVACIZUMAB AWWB IVPB ONE (11:13)
[2024-02-28] MEDS: SODIUM CHLORIDE IVPB ONE (11:13)
[2024-02-28] MEDS: DEXTROSE 5% IVPB ONE (11:58)
[2024-02-28] MEDS: WATER IVPB ONE (11:58)
[2024-02-28] MEDS: LEUCOVORIN CALCIUM IVPB ONE (11:58)
[2024-02-28] MEDS: IRINOTECAN HCL 370 MG in DEXTROSE 5%-WATER - 500 ML IVPB ONE (11:59)
[2024-02-28] MEDS: SODIUM CHLORIDE CP ONE (14:29)
[2024-02-28] MEDS: FLUOROURACIL CP ONE (14:29)
[2024-02-28 14:54] VITALS: RESP 20; TEMP 98.5
[2024-02-28 15:13] VITALS: BP 143/68; PULSE 59
[2024-02-28] MEDS ORDERED: PORTA CATH FLUSH 10 ML IVPUSH PRN (15:13)
== END 2024-02-28 15:22 | disposition home or self-care (01) ==
LOC: JONCCHEMO 07:35 → J7W 07:36 → JONCCHEMO 15:22
PROVIDERS: ATTEND Internal Medicine Hematology & Oncology
DX: Z51.11 Encounter for antineoplastic chemotherapy (principal); C20 Malignant neoplasm of rectum
CPT/HCPCS: 36415; 80048; 80076; 83735; 84156; 85025; G0498; J2469; J9206; Q5107

== ENCOUNTER 2024-03-13 07:32 | Day surgery (SDC) | payer OTHER ==
[2024-03-13 08:30] LABS: EOS % 11.3 % (0-4.5); HEMATOCRIT 37.8 % (35.4-49); HEMOGLOBIN 12.8 GM/dL (11.7-16.9); LYMPH % 13.3 % (8-40); MCH 34.5 pg (25.7-33.7); MCHC 33.8 g/dl (32.0-35.9); MEAN PLT VOLUME 7.9 fl (7.5-11.1); MONO % 12.1 % (3.8-10.2); NEUT % 61.3 % (42.8-82.8); PLATELET COUNT 180 10^3/uL (134-434); RDW 16.8 % (11.9-15.9); WHITE BLOOD COUNT 4.1 K/mm3 (4.0-10.0)
[2024-03-13 08:48] LABS: CHLORIDE 104 mmol/L (98-107); POTASSIUM 3.9 mmol/L (3.5-5.1); SODIUM 140 mmol/L (136-145)
[2024-03-13 08:51] LABS: ANION GAP 6 mmol/L (4-13); BLOOD UREA NITROGEN 19.6 mg/dL (7-18); CALCIUM 8.8 mg/dL (8.5-10.1); CO2 30 mmol/L (21-32)
[2024-03-13 08:52] LABS: ALBUMIN 3.5 g/dl (3.4-5.0); GLUCOSE,RANDOM 107 mg/dL (74-106)
[2024-03-13 08:54] LABS: BILIRUBIN,DIRECT 0.2 mg/dL (0.0-0.2); SGOT/AST 24 U/L (15-37); SGPT/ALT 38 U/L (13-61)
[2024-03-13 08:56] LABS: BILIRUBIN,TOTAL 0.6 mg/dL (0.2-1); TOT PROT 6.6 g/dl (6.4-8.2)
[2024-03-13 08:57] LABS: ALK PHOS 79 U/L (45-117)
[2024-03-13] MEDS: SODIUM CHLORIDE 250 ML IV ONE (09:22)
[2024-03-13] MEDS: PORTA CATH FLUSH 10 ML IVPUSH PRN (09:22)
[2024-03-13] MEDS: PROCHLORPERAZINE INJECTION 10 MG in SODIUM CHLORIDE 50 ML IVPB ONE (10:00)
[2024-03-13] MEDS ORDERED: BEVACIZUMAB IV ONE (10:00)
[2024-03-13] MEDS ORDERED: SODIUM CHLORIDE IV ONE (10:00)
[2024-03-13] MEDS: DEXAMETHASONE SODIUM PHOSPHATE 6 MG in SODIUM CHLORIDE 50 ML IVPB ONE (10:25)
[2024-03-13] MEDS: PALONOSETRON HCL 0.25 MG/5 ML VIAL IVPUSH ONE (11:05)
[2024-03-13] MEDS: BEVACIZUMAB AWWB IVPB ONE (11:08)
[2024-03-13] MEDS: SODIUM CHLORIDE IVPB ONE (11:08)
[2024-03-13] MEDS: ATROPINE SO4 0.4 MG/1 ML VIAL IVPUSH ONE (12:04)
[2024-03-13] MEDS: IRINOTECAN HCL 370 MG in DEXTROSE 5%-WATER - 500 ML IVPB ONE (12:04)
[2024-03-13] MEDS: DEXTROSE 5% IVPB ONE (12:04)
[2024-03-13] MEDS: WATER IVPB ONE (12:04)
[2024-03-13] MEDS: LEUCOVORIN CALCIUM IVPB ONE (12:04)
[2024-03-13] MEDS: SODIUM CHLORIDE CP ONE (14:17)
[2024-03-13] MEDS: FLUOROURACIL CP ONE (14:17)
[2024-03-13 16:06] VITALS: RESP 20; TEMP 98.3
[2024-03-13 16:18] VITALS: BP 140/73; PULSE 63
== END 2024-03-13 14:20 | disposition home or self-care (01) ==
LOC: JONCCHEMO 07:32 → J7W 07:33 → JONCCHEMO 14:20
PROVIDERS: ATTEND Internal Medicine Hematology & Oncology
PROC: 3E04305 Introduction of Other Antineoplastic into Central Vein, Percutaneous Approach (ICD-10-PCS; principal; 2024-03-13)
PROC: 3E04305 Introduction of Other Antineoplastic into Central Vein, Percutaneous Approach (ICD-10-PCS; 2024-03-13)
PROC: 3E043GC Introduction of Other Therapeutic Substance into Central Vein, Percutaneous Approach (ICD-10-PCS; 2024-03-13)
PROC: 3E0437Z Introduction of Electrolytic and Water Balance Substance into Central Vein, Percutaneous Approach (ICD-10-PCS; 2024-03-13)
DX: Z51.11 Encounter for antineoplastic chemotherapy (principal); C20 Malignant neoplasm of rectum
CPT/HCPCS: 36415; 80048; 80076; 83735; 84156; 85025; 96361; 96367; 96375; 96413; 96417; G0498; J2469; J9206; Q5107

== ENCOUNTER 2024-03-15 12:40 | Day surgery (SDC) | payer OTHER ==
[2024-03-15] MEDS: MAGNESIUM SULFATE IN WATER 2 GM/50 ML IVPB IVPB ONE (12:48)
[2024-03-15] MEDS: SODIUM CHLORIDE 0.9%/KCL 10 MEQ/500 ML INFUS.BAG IV ONE (12:48)
[2024-03-15] MEDS: PORTA CATH FLUSH 10 ML IVPUSH PRN (13:55)
[2024-03-15 14:12] VITALS: RESP 20; TEMP 98.2
[2024-03-15 14:18] VITALS: BP 127/70; PULSE 64
== END 2024-03-15 14:35 | disposition home or self-care (01) ==
LOC: J7W 12:40 → JONCCHEMO 12:40
PROVIDERS: ATTEND Internal Medicine Hematology & Oncology
PROC: 3E043GC Introduction of Other Therapeutic Substance into Central Vein, Percutaneous Approach (ICD-10-PCS; principal; 2024-03-15)
PROC: 3E0437Z Introduction of Electrolytic and Water Balance Substance into Central Vein, Percutaneous Approach (ICD-10-PCS; 2024-03-15)
DX: Z76.89 Persons encountering health services in other specified circumstances (principal); C20 Malignant neoplasm of rectum
CPT/HCPCS: 96365

== ENCOUNTER 2024-04-03 08:04 | Day surgery (SDC) | payer OTHER ==
[2024-04-03 08:50] LABS: HEMATOCRIT 37.3 % (35.4-49); HEMOGLOBIN 12.5 GM/dL (11.7-16.9); MCH 33.9 pg (25.7-33.7); MCHC 33.5 g/dl (32.0-35.9); MEAN CELL VOLUME 101.1 fl (80-96); MEAN PLT VOLUME 8.5 fl (7.5-11.1); PLATELET COUNT 184 10^3/uL (134-434); RBC 3.69 M/mm3 (4.00-5.60); RDW 16.7 % (11.9-15.9); WHITE BLOOD COUNT 4.1 K/mm3 (4.0-10.0)
[2024-04-03 08:59] LABS: CHLORIDE 102 mmol/L (98-107); SODIUM 138 mmol/L (136-145)
[2024-04-03 09:01] LABS: ALBUMIN 3.5 g/dl (3.4-5.0); ANION GAP 7 mmol/L (4-13); BLOOD UREA NITROGEN 24.6 mg/dL (7-18); CALCIUM 8.9 mg/dL (8.5-10.1); CO2 28 mmol/L (21-32); GLUCOSE,RANDOM 118 mg/dL (74-106)
[2024-04-03 09:04] LABS: BILIRUBIN,DIRECT 0.3 mg/dL (0.0-0.2); SGOT/AST 28 U/L (15-37); SGPT/ALT 36 U/L (13-61)
[2024-04-03 09:06] LABS: BILIRUBIN,TOTAL 1.2 mg/dL (0.2-1); TOT PROT 6.6 g/dl (6.4-8.2)
[2024-04-03 09:07] LABS: ALK PHOS 76 U/L (45-117)
[2024-04-03] MEDS: SODIUM CHLORIDE 250 ML IV ONE (09:51)
[2024-04-03 10:54] LABS: ANISOCYTOSIS 1+; MACROCYTOSIS 1+
[2024-04-03] MEDS: DEXAMETHASONE SODIUM PHOSPHATE 6 MG in SODIUM CHLORIDE 50 ML IVPB ONE (11:07)
[2024-04-03] MEDS: PALONOSETRON HCL 0.25 MG/5 ML VIAL IVPUSH ONE (11:26)
[2024-04-03] MEDS: PROCHLORPERAZINE INJECTION 10 MG in SODIUM CHLORIDE 50 ML IVPB ONE (11:26)
[2024-04-03] MEDS: SODIUM CHLORIDE IVPB ONE (12:12)
[2024-04-03] MEDS: BEVACIZUMAB AWWB IVPB ONE (12:12)
[2024-04-03] MEDS: ATROPINE SO4 0.4 MG/1 ML VIAL IVPUSH ONE (12:45)
[2024-04-03] MEDS: DEXTROSE 5% IVPB ONE (12:58)
[2024-04-03] MEDS: IRINOTECAN HCL 370 MG in DEXTROSE 5%-WATER - 500 ML IVPB ONE (12:58)
[2024-04-03] MEDS: WATER IVPB ONE (12:58)
[2024-04-03] MEDS: LEUCOVORIN CALCIUM IVPB ONE (12:58)
[2024-04-03] MEDS: PORTA CATH FLUSH 10 ML IVPUSH PRN (15:10)
[2024-04-03] MEDS: FLUOROURACIL 4,975 MG in SODIUM CHLORIDE 1.7 ML CP ONE (15:11)
[2024-04-03 16:09] VITALS: RESP 16; TEMP 98.4
[2024-04-03 16:18] VITALS: BP 105/58; PULSE 88
== END 2024-04-03 15:20 | disposition home or self-care (01) ==
LOC: JONCCHEMO 08:04 → J7W 08:05 → JONCCHEMO 15:20
PROVIDERS: ATTEND Internal Medicine Hematology & Oncology
DX: Z51.11 Encounter for antineoplastic chemotherapy (principal); C20 Malignant neoplasm of rectum
CPT/HCPCS: 36415; 80048; 80076; 83735; 84156; 85025; 96368; 96375; 96413; 96417; G0498; J2469; J9206; Q5107

== ENCOUNTER 2024-04-05 12:39 | Day surgery (SDC) | payer OTHER ==
[2024-04-05] MEDS: MAGNESIUM SULFATE IN WATER 2 GM/50 ML IVPB IVPB ONE (12:50)
[2024-04-05] MEDS: SODIUM CHLORIDE 0.9%/KCL 10 MEQ/500 ML INFUS.BAG IV ONE (12:50)
[2024-04-05] MEDS: PORTA CATH FLUSH 10 ML IVPUSH PRN (13:55)
[2024-04-05 14:35] VITALS: BP 120/70; PULSE 65; RESP 20; TEMP 98.2
== END 2024-04-05 14:30 | disposition home or self-care (01) ==
LOC: JONCCHEMO 12:39 → J7W 12:43 → JONCCHEMO 14:00
PROVIDERS: ATTEND Internal Medicine Hematology & Oncology
PROC: 3E043GC Introduction of Other Therapeutic Substance into Central Vein, Percutaneous Approach (ICD-10-PCS; principal; 2024-04-05)
DX: C20 Malignant neoplasm of rectum (principal); Z76.89 Persons encountering health services in other specified circumstances
CPT/HCPCS: 96365

== ENCOUNTER 2024-04-17 07:20 | Day surgery (SDC) | payer OTHER ==
[2024-04-17 08:31] LABS: EOS % 11.7 % (0-4.5); HEMATOCRIT 36.5 % (35.4-49); LYMPH % 14.6 % (8-40); MCH 33.6 pg (25.7-33.7); MCHC 32.9 g/dl (32.0-35.9); MEAN CELL VOLUME 102.1 fl (80-96); MEAN PLT VOLUME 7.8 fl (7.5-11.1); MONO % 10.1 % (3.8-10.2); NEUT % 62.6 % (42.8-82.8); PLATELET COUNT 169 10^3/uL (134-434); RBC 3.58 M/mm3 (4.00-5.60); RDW 16.4 % (11.9-15.9); WHITE BLOOD COUNT 4.8 K/mm3 (4.0-10.0)
[2024-04-17 09:21] LABS: POTASSIUM 4.1 mmol/L (3.5-5.1)
[2024-04-17 09:23] LABS: CALCIUM 9.5 mg/dL (8.5-10.1)
[2024-04-17 09:24] LABS: ALBUMIN 3.5 g/dl (3.4-5.0); MAGNESIUM 1.7 mg/dL (1.8-2.4)
[2024-04-17 09:27] LABS: BILIRUBIN,DIRECT 0.3 mg/dL (0.0-0.2); CREATININE 1.4 mg/dL (0.55-1.3)
[2024-04-17 09:28] LABS: BILIRUBIN,TOTAL 0.8 mg/dL (0.2-1); TOT PROT 6.6 g/dl (6.4-8.2)
[2024-04-17] MEDS: SODIUM CHLORIDE 250 ML IV ONE (09:44)
[2024-04-17] MEDS: PROCHLORPERAZINE INJECTION 10 MG in SODIUM CHLORIDE 50 ML IVPB ONE (10:27)
[2024-04-17] MEDS: DEXAMETHASONE SODIUM PHOSPHATE 6 MG in SODIUM CHLORIDE 50 ML IVPB ONE (11:07)
[2024-04-17] MEDS: PALONOSETRON HCL 0.25 MG/5 ML VIAL IVPUSH ONE (11:07)
[2024-04-17] MEDS: SODIUM CHLORIDE IVPB ONE (11:45)
[2024-04-17] MEDS: BEVACIZUMAB AWWB IVPB ONE (11:45)
[2024-04-17] MEDS: WATER IVPB ONE (12:24)
[2024-04-17] MEDS: DEXTROSE 5% IVPB ONE (12:24)
[2024-04-17] MEDS: MAGNESIUM OXIDE 400 MG TABLET (FP) PO ONE (12:24)
[2024-04-17] MEDS: LEUCOVORIN CALCIUM IVPB ONE (12:24)
[2024-04-17] MEDS: ATROPINE SO4 0.4 MG/1 ML VIAL IVPUSH ONE (12:52)
[2024-04-17] MEDS: IRINOTECAN HCL 370 MG in DEXTROSE 5%-WATER - 500 ML IVPB ONE (12:57)
[2024-04-17] MEDS: SODIUM CHLORIDE 250 ML IV STA (14:35)
[2024-04-17 14:37] VITALS: RESP 20; TEMP 98.5
[2024-04-17] MEDS ORDERED: PORTA CATH FLUSH 10 ML IVPUSH PRN (14:46)
[2024-04-17] MEDS: FLUOROURACIL CP ONE (15:23)
[2024-04-17] MEDS: SODIUM CHLORIDE CP ONE (15:23)
[2024-04-17 15:46] VITALS: BP 130/58; PULSE 62
== END 2024-04-17 15:55 | disposition home or self-care (01) ==
LOC: J7W 07:20 → JONCCHEMO 07:20
PROVIDERS: ATTEND Internal Medicine Hematology & Oncology
DX: Z51.11 Encounter for antineoplastic chemotherapy (principal); C20 Malignant neoplasm of rectum
CPT/HCPCS: 36415; 80048; 80076; 83735; 84156; 85025; 96368; 96375; 96413; 96417; G0498; J2469; J9206; Q5107

== ENCOUNTER 2024-04-19 12:45 | Day surgery (SDC) | payer OTHER ==
[2024-04-19] MEDS: SODIUM CHLORIDE IVPB ONE (12:51)
[2024-04-19] MEDS: POTASSIUM CHLORIDE IVPB ONE (12:51)
[2024-04-19] MEDS: MAGNESIUM SULFATE IVPB ONE (12:51)
[2024-04-19] MEDS: PORTA CATH FLUSH 10 ML IVPUSH PRN (14:00)
[2024-04-19 14:03] VITALS: RESP 20; TEMP 98.1
[2024-04-19 14:08] VITALS: BP 116/65; PULSE 62
== END 2024-04-19 14:15 | disposition home or self-care (01) ==
LOC: J7W 12:45 → JONCCHEMO 12:45
PROVIDERS: ATTEND Internal Medicine Hematology & Oncology
PROC: 3E0437Z Introduction of Electrolytic and Water Balance Substance into Central Vein, Percutaneous Approach (ICD-10-PCS; principal; 2024-04-19)
DX: C20 Malignant neoplasm of rectum (principal)
CPT/HCPCS: 96360

== ENCOUNTER 2024-05-01 07:17 | Day surgery (SDC) | payer OTHER ==
[2024-05-01 08:03] LABS: BASO % 1.6 % (0-2.0); EOS % 14.9 % (0-4.5); HEMATOCRIT 36.4 % (35.4-49); LYMPH % 22.3 % (8-40); MCH 33.3 pg (25.7-33.7); MCHC 32.9 g/dl (32.0-35.9); MEAN CELL VOLUME 101.1 fl (80-96); MONO % 15.9 % (3.8-10.2); NEUT % 45.3 % (42.8-82.8); PLATELET COUNT 168 10^3/uL (134-434); RDW 16.8 % (11.9-15.9); WHITE BLOOD COUNT 2.4 K/mm3 (4.0-10.0)
[2024-05-01 08:40] LABS: CHLORIDE 106 mmol/L (98-107); SODIUM 143 mmol/L (136-145)
[2024-05-01 08:42] LABS: ALBUMIN 3.4 g/dl (3.4-5.0); BLOOD UREA NITROGEN 15.7 mg/dL (7-18); CALCIUM 8.8 mg/dL (8.5-10.1)
[2024-05-01 08:43] LABS: ANION GAP 7 mmol/L (4-13); CO2 29 mmol/L (21-32); GLUCOSE,RANDOM 126 mg/dL (74-106); MAGNESIUM 1.8 mg/dL (1.8-2.4)
[2024-05-01 08:45] LABS: BILIRUBIN,DIRECT 0.2 mg/dL (0.0-0.2)
[2024-05-01 08:46] LABS: CREATININE 0.9 mg/dL (0.55-1.3); SGOT/AST 26 U/L (15-37); SGPT/ALT 42 U/L (13-61)
[2024-05-01 08:47] LABS: BILIRUBIN,TOTAL 0.5 mg/dL (0.2-1); TOT PROT 6.5 g/dl (6.4-8.2)
[2024-05-01 08:49] LABS: ALK PHOS 87 U/L (45-117)
[2024-05-01] MEDS: SODIUM CHLORIDE 250 ML IV ONE (09:22)
[2024-05-01 10:33] LABS: BASO % 1.5 % (0-2.0); EOS % 16.1 % (0-4.5); HEMATOCRIT 33.4 % (35.4-49); HEMOGLOBIN 11.3 GM/dL (11.7-16.9); LYMPH % 21.3 % (8-40); MCH 33.9 pg (25.7-33.7); MCHC 33.9 g/dl (32.0-35.9); MEAN PLT VOLUME 7.9 fl (7.5-11.1); MONO % 14.9 % (3.8-10.2); NEUT % 46.2 % (42.8-82.8); PLATELET COUNT 153 10^3/uL (134-434); RBC 3.34 M/mm3 (4.00-5.60); RDW 17.1 % (11.9-15.9); WHITE BLOOD COUNT 2.1 K/mm3 (4.0-10.0)
[2024-05-01 10:58] LABS: POTASSIUM 3.5 mmol/L (3.5-5.1)
[2024-05-01 11:00] LABS: BLOOD UREA NITROGEN 15.7 mg/dL (7-18); CALCIUM 8.8 mg/dL (8.5-10.1)
[2024-05-01] MEDS ORDERED: IRINOTECAN HCL 370 MG in DEXTROSE 5%-WATER - 500 ML IVPB ONE (11:00)
[2024-05-01 11:01] LABS: ALBUMIN 3.1 g/dl (3.4-5.0)
[2024-05-01 11:05] LABS: BILIRUBIN,TOTAL 0.5 mg/dL (0.2-1); TOT PROT 5.8 g/dl (6.4-8.2)
[2024-05-01] MEDS: PROCHLORPERAZINE INJECTION 10 MG in SODIUM CHLORIDE 50 ML IVPB ONE (11:42)
[2024-05-01] MEDS: PALONOSETRON HCL 0.25 MG/5 ML VIAL IVPUSH ONE (12:08)
[2024-05-01] MEDS: DEXAMETHASONE SODIUM PHOSPHATE 6 MG in SODIUM CHLORIDE 50 ML IVPB ONE (12:12)
[2024-05-01] MEDS ORDERED: FLUOROURACIL 4,975 MG in SODIUM CHLORIDE 1.7 ML CP ONE (12:30)
[2024-05-01] MEDS: BEVACIZUMAB AWWB IVPB ONE (13:12)
[2024-05-01] MEDS: SODIUM CHLORIDE IVPB ONE (13:12)
[2024-05-01] MEDS: ATROPINE SO4 0.4 MG/1 ML VIAL IVPUSH ONE (14:25)
[2024-05-01] MEDS: IRINOTECAN HCL 200 MG in DEXTROSE 5%-WATER - 500 ML IVPB ONE (14:30)
[2024-05-01] MEDS: DEXTROSE 5% IVPB ONE (14:30)
[2024-05-01] MEDS: WATER IVPB ONE (14:30)
[2024-05-01] MEDS: LEUCOVORIN CALCIUM IVPB ONE (14:30)
[2024-05-01] MEDS: PORTA CATH FLUSH 10 ML IVPUSH PRN (16:35)
[2024-05-01] MEDS: FLUOROURACIL 2,500 MG in SODIUM CHLORIDE 42 ML CP ONE (16:39)
[2024-05-01 17:13] VITALS: TEMP 98.1
[2024-05-01 17:28] VITALS: BP 110/65; PULSE 81; RESP 20
== END 2024-05-01 17:28 | disposition home or self-care (01) ==
LOC: J7W 07:17 → JONCCHEMO 07:17
PROVIDERS: ATTEND Internal Medicine Hematology & Oncology
DX: Z51.11 Encounter for antineoplastic chemotherapy (principal); C20 Malignant neoplasm of rectum
CPT/HCPCS: 36415; 80048; 80053; 80076; 83735; 84156; 85025; 96368; 96375; 96415; 96416; 96417; G0498; J2469; J9206; Q5107

== ENCOUNTER 2024-05-03 12:40 | Day surgery (SDC) | payer OTHER ==
[2024-05-03] MEDS: SODIUM CHLORIDE 0.9%/KCL 10 MEQ/500 ML INFUS.BAG IV ONE (12:45)
[2024-05-03] MEDS: MAGNESIUM SULFATE IN WATER 2 GM/50 ML IVPB IVPB ONE (12:46)
[2024-05-03] MEDS: PORTA CATH FLUSH 10 ML IVPUSH PRN (14:45)
[2024-05-03 15:31] VITALS: BP 136/74; PULSE 65; RESP 20; TEMP 97.7
== END 2024-05-03 15:00 | disposition home or self-care (01) ==
LOC: JONCCHEMO 12:40 → J7W 12:53 → JONCCHEMO 15:00
PROVIDERS: ATTEND Internal Medicine Hematology & Oncology
PROC: 3E043GC Introduction of Other Therapeutic Substance into Central Vein, Percutaneous Approach (ICD-10-PCS; principal; 2024-05-03)
DX: C20 Malignant neoplasm of rectum (principal); C78.7 Secondary malignant neoplasm of liver and intrahepatic bile duct
CPT/HCPCS: 96365

== ENCOUNTER 2024-05-04 14:00 | Day surgery (SDC) | payer OTHER ==
[2024-05-04] MEDS: TBO-FILGRASTIM 480 MCG/0.8 ML DISP.SYRIN SQ ONE (14:47)
[2024-05-04 15:01] VITALS: BP 138/77; PULSE 80; RESP 20; TEMP 97.8
== END 2024-05-04 14:50 | disposition home or self-care (01) ==
LOC: J7W 14:00 → JONCCHEMO 14:00
PROVIDERS: ATTEND Internal Medicine Hematology & Oncology
PROC: 3E013GC Introduction of Other Therapeutic Substance into Subcutaneous Tissue, Percutaneous Approach (ICD-10-PCS; principal; 2024-05-04)
DX: C20 Malignant neoplasm of rectum (principal); Z76.89 Persons encountering health services in other specified circumstances
CPT/HCPCS: 96372; J1447

== ENCOUNTER 2024-05-05 11:30 | Day surgery (SDC) | payer OTHER ==
[2024-05-05] MEDS: TBO-FILGRASTIM 480 MCG/0.8 ML DISP.SYRIN SQ ONE (11:47)
[2024-05-05 17:26] VITALS: BP 140/75; PULSE 73; RESP 20; TEMP 97.8
== END 2024-05-05 12:00 | disposition home or self-care (01) ==
LOC: JONCCHEMO 11:30 → J7W 12:03
PROVIDERS: ATTEND Internal Medicine Hematology & Oncology
PROC: 3E013GC Introduction of Other Therapeutic Substance into Subcutaneous Tissue, Percutaneous Approach (ICD-10-PCS; principal; 2024-05-05)
DX: C20 Malignant neoplasm of rectum (principal); Z76.89 Persons encountering health services in other specified circumstances
CPT/HCPCS: 96372; J1447

== ENCOUNTER 2024-05-15 07:36 | Day surgery (SDC) | payer OTHER ==
[2024-05-15 07:59] LABS: HEMATOCRIT 35.9 % (35.4-49); HEMOGLOBIN 12.1 GM/dL (11.7-16.9); MCH 33.3 pg (25.7-33.7); MCHC 33.6 g/dl (32.0-35.9); MEAN PLT VOLUME 8.1 fl (7.5-11.1); PLATELET COUNT 160 10^3/uL (134-434); RBC 3.62 M/mm3 (4.00-5.60)
[2024-05-15 08:24] LABS: CHLORIDE 105 mmol/L (98-107); POTASSIUM 3.7 mmol/L (3.5-5.1); SODIUM 141 mmol/L (136-145)
[2024-05-15 08:29] LABS: CALCIUM 9.3 mg/dL (8.5-10.1)
[2024-05-15 08:30] LABS: ALBUMIN 3.2 g/dl (3.4-5.0); ANION GAP 7 mmol/L (4-13); BLOOD UREA NITROGEN 17.6 mg/dL (7-18); CO2 29 mmol/L (21-32); GLUCOSE,RANDOM 115 mg/dL (74-106); MAGNESIUM 1.8 mg/dL (1.8-2.4)
[2024-05-15 08:32] LABS: BILIRUBIN,DIRECT 0.2 mg/dL (0.0-0.2); SGPT/ALT 43 U/L (13-61)
[2024-05-15 08:33] LABS: SGOT/AST 27 U/L (15-37)
[2024-05-15 08:34] LABS: BILIRUBIN,TOTAL 0.6 mg/dL (0.2-1); TOT PROT 6.4 g/dl (6.4-8.2)
[2024-05-15 08:35] LABS: ALK PHOS 82 U/L (45-117)
[2024-05-15] MEDS: SODIUM CHLORIDE 250 ML IV ONE (09:57)
[2024-05-15 10:35] LABS: ANISOCYTOSIS 0; HELMET CELLS 0; HOWELL-JOLLY BODIES 0; MACROCYTOSIS 0; OVALOCYTE 0; ROULEAU 0; SICKELED CELLS 0; TARGET CELLS 0; TEAR DROP CELLS 0; TOXIC GRANULATION 0
[2024-05-15] MEDS: DEXAMETHASONE SODIUM PHOSPHATE 6 MG in SODIUM CHLORIDE 50 ML IVPB ONE (10:50)
[2024-05-15] MEDS: PROCHLORPERAZINE INJECTION 10 MG in SODIUM CHLORIDE 50 ML IVPB ONE (11:09)
[2024-05-15 11:10] VITALS: RESP 20; TEMP 98.3
[2024-05-15] MEDS: PALONOSETRON HCL 0.25 MG/5 ML VIAL IVPUSH ONE (11:48)
[2024-05-15] MEDS: SODIUM CHLORIDE IVPB ONE (11:55)
[2024-05-15] MEDS: BEVACIZUMAB AWWB IVPB ONE (11:55)
[2024-05-15] MEDS: WATER IVPB ONE (12:28)
[2024-05-15] MEDS: LEUCOVORIN CALCIUM IVPB ONE (12:28)
[2024-05-15] MEDS: DEXTROSE 5% IVPB ONE (12:28)
[2024-05-15] MEDS: ATROPINE SO4 0.4 MG/1 ML VIAL IVPUSH ONE (13:04)
[2024-05-15] MEDS: IRINOTECAN HCL 200 MG in DEXTROSE 5%-WATER - 500 ML IVPB ONE (13:05)
[2024-05-15] MEDS: FLUOROURACIL 2,500 MG in SODIUM CHLORIDE 42 ML CP ONE (14:45)
[2024-05-15 15:03] VITALS: BP 145/60; PULSE 60
== END 2024-05-15 15:20 | disposition home or self-care (01) ==
LOC: JONCCHEMO 07:36 → J7W 07:39 → JONCCHEMO 15:20
PROVIDERS: ATTEND Internal Medicine Hematology & Oncology
DX: Z51.11 Encounter for antineoplastic chemotherapy (principal); C20 Malignant neoplasm of rectum
CPT/HCPCS: 36415; 80048; 80076; 83735; 84156; 85025; 96368; 96375; 96413; 96417; G0498; J2469; J9206; Q5107

== ENCOUNTER 2024-05-17 12:53 | Day surgery (SDC) | payer OTHER ==
[2024-05-17] MEDS: MAGNESIUM SULFATE IN WATER 2 GM/50 ML IVPB IVPB ONE (13:20)
[2024-05-17] MEDS: SODIUM CHLORIDE 0.9%/KCL 10 MEQ/500 ML INFUS.BAG IV ONE (13:20)
[2024-05-17] MEDS: PORTA CATH FLUSH 10 ML IVPUSH PRN (14:30)
[2024-05-17 18:06] VITALS: BP 104/71; PULSE 87; RESP 20; TEMP 97.6
== END 2024-05-17 14:40 | disposition home or self-care (01) ==
LOC: JONCCHEMO 12:53 → J7W 12:54 → JONCCHEMO 14:40
PROVIDERS: ATTEND Internal Medicine Hematology & Oncology
PROC: 3E043GC Introduction of Other Therapeutic Substance into Central Vein, Percutaneous Approach (ICD-10-PCS; principal; 2024-05-17)
DX: C20 Malignant neoplasm of rectum (principal); Z76.89 Persons encountering health services in other specified circumstances
CPT/HCPCS: 96365

== ENCOUNTER 2024-05-29 07:44 | Day surgery (SDC) | payer OTHER ==
[2024-05-29 08:44] LABS: BASO % 1.2 % (0-2.0); EOS % 7.5 % (0-4.5); HEMOGLOBIN 12.7 GM/dL (11.7-16.9); LYMPH % 14.4 % (8-40); MCHC 33.5 g/dl (32.0-35.9); MEAN CELL VOLUME 98.4 fl (80-96); MEAN PLT VOLUME 8.1 fl (7.5-11.1); MONO % 12.4 % (3.8-10.2); NEUT % 64.5 % (42.8-82.8); PLATELET COUNT 169 10^3/uL (134-434); RBC 3.86 M/mm3 (4.00-5.60); WHITE BLOOD COUNT 5.3 K/mm3 (4.0-10.0)
[2024-05-29 09:03] LABS: CHLORIDE 102 mmol/L (98-107); POTASSIUM 4.1 mmol/L (3.5-5.1); SODIUM 140 mmol/L (136-145)
[2024-05-29 09:04] LABS: CALCIUM 9.3 mg/dL (8.5-10.1)
[2024-05-29 09:06] LABS: ALBUMIN 3.4 g/dl (3.4-5.0); ANION GAP 7 mmol/L (4-13); BLOOD UREA NITROGEN 16.6 mg/dL (7-18); CO2 31 mmol/L (21-32); GLUCOSE,RANDOM 113 mg/dL (74-106); MAGNESIUM 1.8 mg/dL (1.8-2.4)
[2024-05-29 09:08] LABS: BILIRUBIN,DIRECT 0.2 mg/dL (0.0-0.2); CREATININE 0.9 mg/dL (0.55-1.3); SGOT/AST 25 U/L (15-37); SGPT/ALT 39 U/L (13-61)
[2024-05-29 09:10] LABS: BILIRUBIN,TOTAL 0.7 mg/dL (0.2-1); TOT PROT 6.5 g/dl (6.4-8.2)
[2024-05-29 09:12] LABS: ALK PHOS 85 U/L (45-117)
[2024-05-29] MEDS: SODIUM CHLORIDE 250 ML IV ONE (09:30)
[2024-05-29] MEDS: PROCHLORPERAZINE INJECTION 10 MG in SODIUM CHLORIDE 50 ML IVPB ONE (10:20)
[2024-05-29] MEDS: PALONOSETRON HCL 0.25 MG/5 ML VIAL IVPUSH ONE (10:20)
[2024-05-29] MEDS: DEXAMETHASONE SODIUM PHOSPHATE 6 MG in SODIUM CHLORIDE 50 ML IVPB ONE (10:35)
[2024-05-29] MEDS: SODIUM CHLORIDE IVPB ONE (11:32)
[2024-05-29] MEDS: BEVACIZUMAB AWWB IVPB ONE (11:32)
[2024-05-29] MEDS: WATER IVPB ONE (12:14)
[2024-05-29] MEDS: LEUCOVORIN CALCIUM IVPB ONE (12:14)
[2024-05-29] MEDS: DEXTROSE 5% IVPB ONE (12:14)
[2024-05-29] MEDS: IRINOTECAN HCL 200 MG in DEXTROSE 5%-WATER - 500 ML IVPB ONE (12:17)
[2024-05-29] MEDS: ATROPINE SO4 0.4 MG/1 ML VIAL IVPUSH ONE (12:17)
[2024-05-29 14:30] VITALS: RESP 16; TEMP 98.4
[2024-05-29] MEDS: FLUOROURACIL 2,500 MG in SODIUM CHLORIDE 42 ML CP ONE (14:45)
[2024-05-29 15:32] VITALS: BP 149/71; PULSE 82
== END 2024-05-29 15:00 | disposition home or self-care (01) ==
LOC: JONCCHEMO 07:44 → J7W 07:45 → JONCCHEMO 15:00
PROVIDERS: ATTEND Internal Medicine Hematology & Oncology
DX: Z51.11 Encounter for antineoplastic chemotherapy (principal); C20 Malignant neoplasm of rectum
CPT/HCPCS: 36415; 80048; 80076; 83735; 84156; 85025; 96368; 96375; 96413; 96417; G0498; J2469; J9206; Q5107

== ENCOUNTER 2024-05-31 12:37 | Day surgery (SDC) | payer OTHER ==
[2024-05-31] MEDS: SODIUM CHLORIDE 0.9%/KCL 10 MEQ/500 ML INFUS.BAG IV ONE (12:49)
[2024-05-31] MEDS: MAGNESIUM SULFATE IN WATER 2 GM/50 ML IVPB IVPB ONE (12:49)
[2024-05-31] MEDS: PORTA CATH FLUSH 10 ML IVPUSH PRN (13:50)
[2024-05-31 15:10] VITALS: BP 137/67; PULSE 61; RESP 18; TEMP 97
== END 2024-05-31 14:00 | disposition home or self-care (01) ==
LOC: JONCCHEMO 12:37 → J7W 12:37 → JONCCHEMO 14:00
PROVIDERS: ATTEND Internal Medicine Hematology & Oncology
PROC: 3E043GC Introduction of Other Therapeutic Substance into Central Vein, Percutaneous Approach (ICD-10-PCS; principal; 2024-05-31)
DX: C20 Malignant neoplasm of rectum (principal); Z76.89 Persons encountering health services in other specified circumstances
CPT/HCPCS: 96365; 96368

== ENCOUNTER 2024-06-13 07:23 | Day surgery (SDC) | payer OTHER ==
[2024-06-13 08:33] LABS: BASO % 1.4 % (0-2.0); HEMATOCRIT 37.5 % (35.4-49); HEMOGLOBIN 12.8 GM/dL (11.7-16.9); LYMPH % 14.5 % (8-40); MCH 33.1 pg (25.7-33.7); MEAN CELL VOLUME 97.4 fl (80-96); MEAN PLT VOLUME 7.8 fl (7.5-11.1); MONO % 11.6 % (3.8-10.2); NEUT % 66.5 % (42.8-82.8); PLATELET COUNT 163 10^3/uL (134-434); RBC 3.85 M/mm3 (4.00-5.60); RDW 16.7 % (11.9-15.9)
[2024-06-13 08:52] LABS: CHLORIDE 104 mmol/L (98-107); POTASSIUM 4.1 mmol/L (3.5-5.1); SODIUM 140 mmol/L (136-145)
[2024-06-13 08:55] LABS: ALBUMIN 3.4 g/dl (3.4-5.0); ANION GAP 5 mmol/L (4-13); BLOOD UREA NITROGEN 23.6 mg/dL (7-18); CO2 32 mmol/L (21-32); GLUCOSE,RANDOM 108 mg/dL (74-106); MAGNESIUM 1.9 mg/dL (1.8-2.4)
[2024-06-13 08:58] LABS: BILIRUBIN,DIRECT 0.1 mg/dL (0.0-0.2); CREATININE 0.9 mg/dL (0.55-1.3); SGOT/AST 25 U/L (15-37); SGPT/ALT 43 U/L (13-61)
[2024-06-13 09:00] LABS: BILIRUBIN,TOTAL 0.5 mg/dL (0.2-1); TOT PROT 6.5 g/dl (6.4-8.2)
[2024-06-13 09:01] LABS: ALK PHOS 93 U/L (45-117)
[2024-06-13] MEDS: SODIUM CHLORIDE 250 ML IV ONE (09:10)
[2024-06-13] MEDS: PROCHLORPERAZINE INJECTION 10 MG in SODIUM CHLORIDE 50 ML IVPB ONE (10:38)
[2024-06-13] MEDS: DEXAMETHASONE SODIUM PHOSPHATE 6 MG in SODIUM CHLORIDE 50 ML IVPB ONE (11:00)
[2024-06-13] MEDS: PALONOSETRON HCL 0.25 MG/5 ML VIAL IVPUSH ONE (11:25)
[2024-06-13] MEDS: BEVACIZUMAB AWWB IVPB ONE (11:28)
[2024-06-13] MEDS: SODIUM CHLORIDE IVPB ONE (11:28)
[2024-06-13] MEDS: ATROPINE SO4 0.4 MG/1 ML VIAL IVPUSH ONE (12:20)
[2024-06-13] MEDS: DEXTROSE 5% IVPB ONE (12:22)
[2024-06-13] MEDS: IRINOTECAN HCL 200 MG in DEXTROSE 5%-WATER - 500 ML IVPB ONE (12:22)
[2024-06-13] MEDS: WATER IVPB ONE (12:22)
[2024-06-13] MEDS: LEUCOVORIN CALCIUM IVPB ONE (12:22)
[2024-06-13] MEDS: PORTA CATH FLUSH 10 ML IVPUSH PRN (14:33)
[2024-06-13] MEDS: FLUOROURACIL 2,500 MG in SODIUM CHLORIDE 42 ML CP ONE (14:34)
[2024-06-13 17:34] VITALS: BP 112/68; PULSE 85; RESP 18; TEMP 98.5
== END 2024-06-13 14:45 | disposition home or self-care (01) ==
LOC: JONCCHEMO 07:23 → J7W 07:27 → JONCCHEMO 14:45
PROVIDERS: ATTEND Internal Medicine Hematology & Oncology
PROC: 3E04305 Introduction of Other Antineoplastic into Central Vein, Percutaneous Approach (ICD-10-PCS; principal; 2024-06-13)
PROC: 3E04305 Introduction of Other Antineoplastic into Central Vein, Percutaneous Approach (ICD-10-PCS; 2024-06-13)
PROC: 3E0437Z Introduction of Electrolytic and Water Balance Substance into Central Vein, Percutaneous Approach (ICD-10-PCS; 2024-06-13)
PROC: 3E043GC Introduction of Other Therapeutic Substance into Central Vein, Percutaneous Approach (ICD-10-PCS; 2024-06-13)
PROC: 3E04305 Introduction of Other Antineoplastic into Central Vein, Percutaneous Approach (ICD-10-PCS; 2024-06-13)
DX: Z51.11 Encounter for antineoplastic chemotherapy (principal); C20 Malignant neoplasm of rectum
CPT/HCPCS: 36415; 80048; 80076; 83735; 84156; 85025; 96367; 96368; 96375; 96413; 96417; G0498; J2469; J9206; Q5107

== ENCOUNTER 2024-06-15 12:36 | Day surgery (SDC) | payer OTHER ==
[2024-06-15] MEDS: MAGNESIUM SULFATE IN WATER 2 GM/50 ML IVPB IVPB ONE (12:46)
[2024-06-15] MEDS: SODIUM CHLORIDE 0.9%/KCL 10 MEQ/500 ML INFUS.BAG IV ONE (12:54)
[2024-06-15] MEDS: PORTA CATH FLUSH 10 ML IVPUSH PRN (14:05)
[2024-06-15 15:38] VITALS: TEMP 97.7
[2024-06-15 15:40] VITALS: BP 133/68; PULSE 63; RESP 20
== END 2024-06-15 14:15 | disposition home or self-care (01) ==
LOC: J7W 12:36 → JONCCHEMO 12:36
PROVIDERS: ATTEND Internal Medicine Hematology & Oncology
PROC: 3E033GC Introduction of Other Therapeutic Substance into Peripheral Vein, Percutaneous Approach (ICD-10-PCS; principal; 2024-06-15)
DX: C20 Malignant neoplasm of rectum (principal)
CPT/HCPCS: 96365

== ENCOUNTER 2024-06-26 08:08 | Day surgery (SDC) | payer OTHER ==
[2024-06-26 09:13] LABS: BASO % 1.2 % (0-2.0); EOS % 6.4 % (0-4.5); HEMATOCRIT 38.6 % (35.4-49); HEMOGLOBIN 12.7 GM/dL (11.7-16.9); MCH 32.7 pg (25.7-33.7); MCHC 32.8 g/dl (32.0-35.9); MEAN CELL VOLUME 99.8 fl (80-96); MONO % 10.1 % (3.8-10.2); NEUT % 68.3 % (42.8-82.8); PLATELET COUNT 182 10^3/uL (134-434); RBC 3.87 M/mm3 (4.00-5.60); RDW 16.7 % (11.9-15.9); WHITE BLOOD COUNT 5.2 K/mm3 (4.0-10.0)
[2024-06-26 09:35] LABS: POTASSIUM 4.4 mmol/L (3.5-5.1)
[2024-06-26 09:36] LABS: CALCIUM 9.4 mg/dL (8.5-10.1)
[2024-06-26 09:37] LABS: ALBUMIN 3.5 g/dl (3.4-5.0); BLOOD UREA NITROGEN 24.6 mg/dL (7-18); MAGNESIUM 1.7 mg/dL (1.8-2.4)
[2024-06-26 09:40] LABS: BILIRUBIN,DIRECT 0.2 mg/dL (0.0-0.2); CREATININE 1.1 mg/dL (0.55-1.3)
[2024-06-26 09:42] LABS: BILIRUBIN,TOTAL 0.4 mg/dL (0.2-1); TOT PROT 6.8 g/dl (6.4-8.2)
[2024-06-26] MEDS: SODIUM CHLORIDE 250 ML IV ONE (09:45)
[2024-06-26] MEDS: PROCHLORPERAZINE INJECTION 10 MG in SODIUM CHLORIDE 50 ML IVPB ONE (10:10)
[2024-06-26] MEDS: DEXAMETHASONE SODIUM PHOSPHATE 6 MG in SODIUM CHLORIDE 50 ML IVPB ONE (11:07)
[2024-06-26] MEDS: PALONOSETRON HCL 0.25 MG/5 ML VIAL IVPUSH ONE (11:08)
[2024-06-26] MEDS: BEVACIZUMAB AWWB IVPB ONE (12:20)
[2024-06-26] MEDS: SODIUM CHLORIDE IVPB ONE (12:20)
[2024-06-26] MEDS: MAGNESIUM OXIDE 400 MG TABLET (FP) PO ONE (12:25)
[2024-06-26] MEDS: ATROPINE SO4 0.4 MG/1 ML VIAL IVPUSH ONE (12:59)
[2024-06-26] MEDS: LEUCOVORIN CALCIUM IVPB ONE (13:00)
[2024-06-26] MEDS: DEXTROSE 5% IVPB ONE (13:00)
[2024-06-26] MEDS: WATER IVPB ONE (13:00)
[2024-06-26] MEDS: IRINOTECAN HCL 370 MG in DEXTROSE 5%-WATER - 500 ML IVPB ONE (13:06)
[2024-06-26] MEDS: PORTA CATH FLUSH 10 ML IVPUSH PRN (15:28)
[2024-06-26] MEDS: SODIUM CHLORIDE CP ONE (15:28)
[2024-06-26] MEDS: FLUOROURACIL CP ONE (15:28)
[2024-06-26 17:27] VITALS: BP 103/57; PULSE 79; RESP 20; TEMP 98.5
== END 2024-06-26 15:59 | disposition home or self-care (01) ==
LOC: JONCCHEMO 08:08 → J7W 08:09 → JONCCHEMO 15:59
PROVIDERS: ATTEND Internal Medicine Hematology & Oncology
PROC: 3E04305 Introduction of Other Antineoplastic into Central Vein, Percutaneous Approach (ICD-10-PCS; principal; 2024-06-26)
PROC: 3E0437Z Introduction of Electrolytic and Water Balance Substance into Central Vein, Percutaneous Approach (ICD-10-PCS; 2024-06-26)
PROC: 3E043GC Introduction of Other Therapeutic Substance into Central Vein, Percutaneous Approach (ICD-10-PCS; 2024-06-26)
PROC: 3E04305 Introduction of Other Antineoplastic into Central Vein, Percutaneous Approach (ICD-10-PCS; 2024-06-26)
DX: Z51.11 Encounter for antineoplastic chemotherapy (principal); C20 Malignant neoplasm of rectum
CPT/HCPCS: 36415; 80048; 80076; 83735; 84156; 85025; 96367; 96368; 96375; 96413; G0498; J2469; J9206; Q5107

== ENCOUNTER 2024-06-28 12:41 | Day surgery (SDC) | payer OTHER ==
[2024-06-28] MEDS: SODIUM CHLORIDE IVPB ONE (12:45)
[2024-06-28] MEDS: MAGNESIUM SULFATE IVPB ONE (12:45)
[2024-06-28] MEDS: POTASSIUM CHLORIDE IVPB ONE (12:45)
[2024-06-28 16:29] VITALS: RESP 16; TEMP 97.7
[2024-06-28 16:32] VITALS: BP 127/73; PULSE 68
== END 2024-06-28 13:00 | disposition home or self-care (01) ==
LOC: J7W 12:41 → JONCCHEMO 12:41
PROVIDERS: ATTEND Internal Medicine Hematology & Oncology
PROC: 3E033GC Introduction of Other Therapeutic Substance into Peripheral Vein, Percutaneous Approach (ICD-10-PCS; principal; 2024-06-28)
DX: Z76.89 Persons encountering health services in other specified circumstances (principal); C20 Malignant neoplasm of rectum
CPT/HCPCS: 96365

== ENCOUNTER 2024-07-10 08:25 | Day surgery (SDC) | payer OTHER ==
[2024-07-10 09:10] LABS: HEMATOCRIT 36.2 % (35.4-49); HEMOGLOBIN 12.2 GM/dL (11.7-16.9); MCH 33.1 pg (25.7-33.7); MCHC 33.7 g/dl (32.0-35.9); MEAN CELL VOLUME 98.2 fl (80-96); MEAN PLT VOLUME 8.1 fl (7.5-11.1); PLATELET COUNT 166 10^3/uL (134-434); RBC 3.69 M/mm3 (4.00-5.60); RDW 16.6 % (11.9-15.9); WHITE BLOOD COUNT 3.8 K/mm3 (4.0-10.0)
[2024-07-10 09:33] LABS: CHLORIDE 104 mmol/L (98-107); POTASSIUM 3.9 mmol/L (3.5-5.1); SODIUM 139 mmol/L (136-145)
[2024-07-10 09:35] LABS: CALCIUM 9.2 mg/dL (8.5-10.1); GLUCOSE,RANDOM 127 mg/dL (74-106)
[2024-07-10 09:36] LABS: ALBUMIN 3.4 g/dl (3.4-5.0); ANION GAP 5 mmol/L (4-13); BLOOD UREA NITROGEN 17.7 mg/dL (7-18); CO2 30 mmol/L (21-32)
[2024-07-10 09:38] LABS: BILIRUBIN,DIRECT 0.3 mg/dL (0.0-0.2); CREATININE 0.9 mg/dL (0.55-1.3); SGPT/ALT 36 U/L (13-61)
[2024-07-10 09:39] LABS: SGOT/AST 25 U/L (15-37)
[2024-07-10 09:40] LABS: BILIRUBIN,TOTAL 0.8 mg/dL (0.2-1); TOT PROT 6.5 g/dl (6.4-8.2)
[2024-07-10 09:41] LABS: ALK PHOS 72 U/L (45-117)
[2024-07-10] MEDS: SODIUM CHLORIDE 250 ML IV ONE (10:20)
[2024-07-10 10:36] LABS: ANISOCYTOSIS 2+; MACROCYTOSIS 0
[2024-07-10] MEDS: PROCHLORPERAZINE INJECTION 10 MG in SODIUM CHLORIDE 50 ML IVPB ONE (10:49)
[2024-07-10] MEDS: ATROPINE SO4 0.4 MG/1 ML VIAL IVPUSH ONE (10:52)
[2024-07-10] MEDS: PALONOSETRON HCL 0.25 MG/5 ML VIAL IVPUSH ONE (10:54)
[2024-07-10] MEDS: DEXAMETHASONE SODIUM PHOSPHATE 6 MG in SODIUM CHLORIDE 50 ML IVPB ONE (11:34)
[2024-07-10] MEDS: SODIUM CHLORIDE IVPB ONE (11:55)
[2024-07-10] MEDS: BEVACIZUMAB AWWB IVPB ONE (11:55)
[2024-07-10] MEDS: WATER IVPB ONE (12:34)
[2024-07-10] MEDS: LEUCOVORIN CALCIUM IVPB ONE (12:34)
[2024-07-10] MEDS: DEXTROSE 5% IVPB ONE (12:34)
[2024-07-10] MEDS: IRINOTECAN HCL 370 MG in DEXTROSE 5%-WATER - 500 ML IVPB ONE (12:43)
[2024-07-10] MEDS: FLUOROURACIL 4,975 MG in SODIUM CHLORIDE 1.7 ML CP ONE (15:11)
[2024-07-10 15:36] VITALS: RESP 20; TEMP 98.4
[2024-07-10 16:01] VITALS: BP 139/70; PULSE 68
[2024-07-10] MEDS ORDERED: PORTA CATH FLUSH 10 ML IVPUSH PRN (16:01)
== END 2024-07-10 15:20 | disposition home or self-care (01) ==
LOC: JONCCHEMO 08:25 → J7W 08:26 → JONCCHEMO 15:20
PROVIDERS: ATTEND Internal Medicine Hematology & Oncology
DX: Z51.11 Encounter for antineoplastic chemotherapy (principal); C20 Malignant neoplasm of rectum
CPT/HCPCS: 80048; 80076; 82378; 83735; 84156; 85027; 96368; 96375; 96413; 96417; G0498; J9206; Q5107

== ENCOUNTER 2024-07-12 13:07 | Day surgery (SDC) | payer OTHER ==
[2024-07-12] MEDS: POTASSIUM CHLORIDE IVPB ONE (13:09)
[2024-07-12] MEDS: SODIUM CHLORIDE IVPB ONE (13:09)
[2024-07-12] MEDS: MAGNESIUM SULFATE IVPB ONE (13:09)
[2024-07-12 18:27] VITALS: BP 113/67; PULSE 65; RESP 20; TEMP 97.6
[2024-07-12] MEDS: PORTA CATH FLUSH 10 ML IVPUSH PRN (18:28)
== END 2024-07-12 14:30 | disposition home or self-care (01) ==
LOC: JONCCHEMO 13:07 → J7W 13:08 → JONCCHEMO 14:30
PROVIDERS: ATTEND Internal Medicine Hematology & Oncology
PROC: 3E0437Z Introduction of Electrolytic and Water Balance Substance into Central Vein, Percutaneous Approach (ICD-10-PCS; principal; 2024-07-12)
DX: C20 Malignant neoplasm of rectum (principal); Z76.89 Persons encountering health services in other specified circumstances
CPT/HCPCS: 96360

== ENCOUNTER 2024-07-24 07:34 | Day surgery (SDC) | payer OTHER ==
[2024-07-24 08:18] LABS: BASO % 1.2 % (0-2.0); EOS % 8.9 % (0-4.5); HEMATOCRIT 36.6 % (35.4-49); HEMOGLOBIN 12.2 GM/dL (11.7-16.9); LYMPH % 13.9 % (8-40); MCHC 33.3 g/dl (32.0-35.9); MEAN CELL VOLUME 99.1 fl (80-96); MEAN PLT VOLUME 7.2 fl (7.5-11.1); MONO % 11.4 % (3.8-10.2); NEUT % 64.6 % (42.8-82.8); PLATELET COUNT 195 10^3/uL (134-434); RDW 17.2 % (11.9-15.9); WHITE BLOOD COUNT 4.2 K/mm3 (4.0-10.0)
[2024-07-24 08:38] LABS: CHLORIDE 104 mmol/L (98-107); POTASSIUM 4.5 mmol/L (3.5-5.1); SODIUM 141 mmol/L (136-145)
[2024-07-24 08:40] LABS: ALBUMIN 3.3 g/dl (3.4-5.0); ANION GAP 4 mmol/L (4-13); BLOOD UREA NITROGEN 16.4 mg/dL (7-18); CALCIUM 9.1 mg/dL (8.5-10.1); CO2 33 mmol/L (21-32); MAGNESIUM 1.9 mg/dL (1.8-2.4)
[2024-07-24 08:41] LABS: GLUCOSE,RANDOM 134 mg/dL (74-106)
[2024-07-24 08:43] LABS: BILIRUBIN,DIRECT 0.2 mg/dL (0.0-0.2); SGOT/AST 33 U/L (15-37); SGPT/ALT 43 U/L (13-61)
[2024-07-24 08:44] LABS: CREATININE 0.9 mg/dL (0.55-1.3)
[2024-07-24 08:45] LABS: BILIRUBIN,TOTAL 0.6 mg/dL (0.2-1); TOT PROT 6.2 g/dl (6.4-8.2)
[2024-07-24 08:46] LABS: ALK PHOS 76 U/L (45-117)
[2024-07-24] MEDS: SODIUM CHLORIDE 250 ML IV ONE (10:10)
[2024-07-24] MEDS: PALONOSETRON HCL 0.25 MG/5 ML VIAL IVPUSH ONE (10:45)
[2024-07-24] MEDS: PROCHLORPERAZINE INJECTION 10 MG in SODIUM CHLORIDE 50 ML IVPB ONE (10:46)
[2024-07-24] MEDS: DEXAMETHASONE SODIUM PHOSPHATE 6 MG in SODIUM CHLORIDE 50 ML IVPB ONE (11:15)
[2024-07-24] MEDS: BEVACIZUMAB AWWB IVPB ONE (11:32)
[2024-07-24] MEDS: SODIUM CHLORIDE IVPB ONE (11:32)
[2024-07-24] MEDS: ATROPINE SO4 0.4 MG/1 ML VIAL IVPUSH ONE (12:09)
[2024-07-24] MEDS: LEUCOVORIN CALCIUM IVPB ONE (12:10)
[2024-07-24] MEDS: WATER IVPB ONE (12:10)
[2024-07-24] MEDS: DEXTROSE 5% IVPB ONE (12:10)
[2024-07-24] MEDS: IRINOTECAN HCL 370 MG in DEXTROSE 5%-WATER - 500 ML IVPB ONE (12:13)
[2024-07-24] MEDS: FLUOROURACIL 4,975 MG in SODIUM CHLORIDE 1.7 ML CP ONE (14:30)
[2024-07-24 15:06] VITALS: TEMP 98.2
[2024-07-24 15:16] VITALS: BP 121/64; PULSE 57; RESP 18
[2024-07-24] MEDS ORDERED: PORTA CATH FLUSH 10 ML IVPUSH PRN (15:17)
== END 2024-07-24 14:45 | disposition home or self-care (01) ==
LOC: JONCCHEMO 07:34 → J7W 07:36 → JONCCHEMO 14:45
PROVIDERS: ATTEND Internal Medicine Hematology & Oncology
DX: Z51.11 Encounter for antineoplastic chemotherapy (principal)
CPT/HCPCS: 36415; 80048; 80076; 83735; 84156; 85025; 96367; 96375; 96413; 96417; G0498; J9206; Q5107

== ENCOUNTER 2024-07-26 13:00 | Day surgery (SDC) | payer OTHER ==
[2024-07-26] MEDS: MAGNESIUM SULFATE IVPB ONE (13:00)
[2024-07-26] MEDS: SODIUM CHLORIDE IVPB ONE (13:00)
[2024-07-26] MEDS: POTASSIUM CHLORIDE IVPB ONE (13:00)
[2024-07-26] MEDS: PORTA CATH FLUSH 10 ML IVPUSH PRN (14:20)
[2024-07-26 17:55] VITALS: TEMP 98
[2024-07-26 18:00] VITALS: BP 141/72; PULSE 77; RESP 18
== END 2024-07-26 14:30 | disposition home or self-care (01) ==
LOC: JONCCHEMO 13:00 → J7W 13:00 → JONCCHEMO 14:30
PROVIDERS: ATTEND Internal Medicine Hematology & Oncology
PROC: 3E043GC Introduction of Other Therapeutic Substance into Central Vein, Percutaneous Approach (ICD-10-PCS; principal; 2024-07-26)
DX: C20 Malignant neoplasm of rectum (principal); Z76.89 Persons encountering health services in other specified circumstances
CPT/HCPCS: 96365

== ENCOUNTER 2024-08-07 07:47 | Day surgery (SDC) | payer OTHER ==
[2024-08-07 08:41] LABS: BASO % 1.1 % (0-2.0); HEMATOCRIT 36.3 % (35.4-49); HEMOGLOBIN 12.1 GM/dL (11.7-16.9); MCH 32.6 pg (25.7-33.7); MCHC 33.2 g/dl (32.0-35.9); MEAN CELL VOLUME 98.1 fl (80-96); MEAN PLT VOLUME 7.7 fl (7.5-11.1); MONO % 8.7 % (3.8-10.2); NEUT % 70.2 % (42.8-82.8); PLATELET COUNT 225 10^3/uL (134-434); RDW 17.3 % (11.9-15.9); WHITE BLOOD COUNT 4.8 K/mm3 (4.0-10.0)
[2024-08-07 09:01] LABS: ALBUMIN 3.4 g/dl (3.4-5.0)
[2024-08-07 09:03] LABS: CALCIUM 9.2 mg/dL (8.5-10.1); MAGNESIUM 1.6 mg/dL (1.8-2.4)
[2024-08-07 09:04] LABS: BILIRUBIN,DIRECT 0.2 mg/dL (0.0-0.2)
[2024-08-07 09:06] LABS: BILIRUBIN,TOTAL 0.5 mg/dL (0.2-1); TOT PROT 6.5 g/dl (6.4-8.2)
[2024-08-07] MEDS: SODIUM CHLORIDE 250 ML IV ONE (09:27)
[2024-08-07] MEDS: MAGNESIUM 2GM/50ML STERILE WATER IVPB IVPB ONE (09:55)
[2024-08-07] MEDS: PALONOSETRON HCL 0.25 MG/5 ML VIAL IVPUSH ONE (10:48)
[2024-08-07] MEDS: DEXAMETHASONE SODIUM PHOSPHATE 6 MG in SODIUM CHLORIDE 50 ML IVPB ONE (10:50)
[2024-08-07] MEDS: PROCHLORPERAZINE INJECTION 10 MG in SODIUM CHLORIDE 50 ML IVPB ONE (11:24)
[2024-08-07] MEDS: SODIUM CHLORIDE IV ONE (11:44)
[2024-08-07] MEDS: BEVACIZUMAB IV ONE (11:44)
[2024-08-07] MEDS: ATROPINE SO4 0.4 MG/1 ML VIAL IVPUSH ONE (12:27)
[2024-08-07] MEDS: DEXTROSE 5% IVPB ONE (12:30)
[2024-08-07] MEDS: LEUCOVORIN CALCIUM IVPB ONE (12:30)
[2024-08-07] MEDS: WATER IVPB ONE (12:30)
[2024-08-07] MEDS: IRINOTECAN HCL 370 MG in DEXTROSE 5%-WATER - 500 ML IVPB ONE (14:00)
[2024-08-07] MEDS: FLUOROURACIL 5,000 MG in SODIUM CHLORIDE 38 ML CP ONE (15:59)
[2024-08-07] MEDS: PORTA CATH FLUSH 10 ML IVPUSH PRN (16:05)
[2024-08-07 16:06] VITALS: RESP 18; TEMP 98.3
[2024-08-07 16:15] VITALS: BP 117/68; PULSE 70
== END 2024-08-07 16:15 | disposition home or self-care (01) ==
LOC: JONCCHEMO 07:47 → J7W 07:48 → JONCCHEMO 16:15
PROVIDERS: ATTEND Internal Medicine Hematology & Oncology
DX: Z51.11 Encounter for antineoplastic chemotherapy (principal); C20 Malignant neoplasm of rectum
CPT/HCPCS: 36415; 80048; 80076; 82378; 83735; 84156; 85025; 96366; 96367; 96375; 96413; 96417; G0498; J9035; J9206

== ENCOUNTER 2024-08-09 12:40 | Day surgery (SDC) | payer OTHER ==
[2024-08-09] MEDS: MAGNESIUM SULFATE IVPB ONE (12:47)
[2024-08-09] MEDS: SODIUM CHLORIDE IVPB ONE (12:47)
[2024-08-09] MEDS: POTASSIUM CHLORIDE IVPB ONE (12:47)
[2024-08-09 13:17] VITALS: PULSE 72; RESP 20; TEMP 97.5
[2024-08-09] MEDS: PORTA CATH FLUSH 10 ML IVPUSH PRN (14:05)
[2024-08-09 15:41] VITALS: BP 106/59
== END 2024-08-09 14:45 | disposition home or self-care (01) ==
LOC: JONCCHEMO 12:40 → J7W 12:40 → JONCCHEMO 14:45
PROVIDERS: ATTEND Internal Medicine Hematology & Oncology
PROC: 3E043GC Introduction of Other Therapeutic Substance into Central Vein, Percutaneous Approach (ICD-10-PCS; principal; 2024-08-09)
DX: C20 Malignant neoplasm of rectum (principal); Z76.89 Persons encountering health services in other specified circumstances
CPT/HCPCS: 96365

== ENCOUNTER 2024-08-21 07:37 | Day surgery (SDC) | payer OTHER ==
[2024-08-21 08:21] LABS: BASO % 0.7 % (0-2.0); EOS % 4.8 % (0-4.5); HEMATOCRIT 35.6 % (35.4-49); HEMOGLOBIN 12.1 GM/dL (11.7-16.9); LYMPH % 13.2 % (8-40); MCH 33.6 pg (25.7-33.7); MCHC 33.9 g/dl (32.0-35.9); MEAN CELL VOLUME 99.3 fl (80-96); MEAN PLT VOLUME 7.6 fl (7.5-11.1); MONO % 12.4 % (3.8-10.2); NEUT % 68.9 % (42.8-82.8); PLATELET COUNT 181 10^3/uL (134-434); RBC 3.58 M/mm3 (4.00-5.60); RDW 18.5 % (11.9-15.9); WHITE BLOOD COUNT 4.6 K/mm3 (4.0-10.0)
[2024-08-21 08:42] LABS: POTASSIUM 4.2 mmol/L (3.5-5.1)
[2024-08-21 08:44] LABS: ALBUMIN 3.5 g/dl (3.4-5.0); BLOOD UREA NITROGEN 27.1 mg/dL (7-18); CALCIUM 9.5 mg/dL (8.5-10.1); MAGNESIUM 1.9 mg/dL (1.8-2.4)
[2024-08-21 08:47] LABS: BILIRUBIN,DIRECT 0.2 mg/dL (0.0-0.2); CREATININE 1.1 mg/dL (0.55-1.3)
[2024-08-21 08:49] LABS: BILIRUBIN,TOTAL 0.6 mg/dL (0.2-1); TOT PROT 6.6 g/dl (6.4-8.2)
[2024-08-21] MEDS: SODIUM CHLORIDE 250 ML IV ONE (09:13)
[2024-08-21] MEDS: DEXAMETHASONE SODIUM PHOSPHATE 6 MG in SODIUM CHLORIDE 50 ML IVPB ONE (09:15)
[2024-08-21] MEDS: PROCHLORPERAZINE INJECTION 10 MG in SODIUM CHLORIDE 50 ML IVPB ONE (09:32)
[2024-08-21] MEDS: ATROPINE SO4 0.4 MG/1 ML VIAL IVPUSH ONE (10:02)
[2024-08-21] MEDS: PALONOSETRON HCL 0.25 MG/5 ML VIAL IVPUSH ONE (10:02)
[2024-08-21] MEDS: SODIUM CHLORIDE IV ONE (10:27)
[2024-08-21] MEDS: BEVACIZUMAB IV ONE (10:27)
[2024-08-21] MEDS: WATER IVPB ONE (11:12)
[2024-08-21] MEDS: IRINOTECAN HCL 370 MG in DEXTROSE 5%-WATER - 500 ML IVPB ONE (11:12)
[2024-08-21] MEDS: LEUCOVORIN CALCIUM IVPB ONE (11:12)
[2024-08-21] MEDS: DEXTROSE 5% IVPB ONE (11:12)
[2024-08-21] MEDS: FLUOROURACIL 5,000 MG in SODIUM CHLORIDE 38 ML CP ONE (13:37)
[2024-08-21 15:01] VITALS: TEMP 98.4
[2024-08-21 15:40] VITALS: BP 107/61; PULSE 65; RESP 18
[2024-08-21] MEDS ORDERED: PORTA CATH FLUSH 10 ML IVPUSH PRN (15:40)
== END 2024-08-21 14:00 | disposition home or self-care (01) ==
LOC: J7W 07:37 → JONCCHEMO 07:37
PROVIDERS: ATTEND Internal Medicine Hematology & Oncology
PROC: 3E04305 Introduction of Other Antineoplastic into Central Vein, Percutaneous Approach (ICD-10-PCS; principal; 2024-08-21)
PROC: 3E043GC Introduction of Other Therapeutic Substance into Central Vein, Percutaneous Approach (ICD-10-PCS; 2024-08-21)
DX: Z51.11 Encounter for antineoplastic chemotherapy (principal); C20 Malignant neoplasm of rectum
CPT/HCPCS: 36415; 80048; 80076; 82378; 83735; 84156; 85025; 96365; 96367; 96413; 96415; 96417; G0498; J9035; J9206

== ENCOUNTER 2024-09-04 07:17 | Day surgery (SDC) | payer OTHER ==
[2024-09-04 08:12] LABS: EOS % 9.6 % (0-4.5); HEMATOCRIT 37.2 % (35.4-49); HEMOGLOBIN 12.2 GM/dL (11.7-16.9); LYMPH % 22.6 % (8-40); MCH 32.9 pg (25.7-33.7); MCHC 32.8 g/dl (32.0-35.9); MEAN CELL VOLUME 100.5 fl (80-96); MEAN PLT VOLUME 7.7 fl (7.5-11.1); MONO % 13.2 % (3.8-10.2); NEUT % 53.3 % (42.8-82.8); PLATELET COUNT 174 10^3/uL (134-434); RBC 3.71 M/mm3 (4.00-5.60); RDW 17.8 % (11.9-15.9)
[2024-09-04 08:13] LABS: BASO % 1.3 % (0-2.0); POTASSIUM 3.9 mmol/L (3.5-5.1)
[2024-09-04 08:15] LABS: ALBUMIN 3.5 g/dl (3.4-5.0); CALCIUM 9.5 mg/dL (8.5-10.1)
[2024-09-04 08:16] LABS: BLOOD UREA NITROGEN 24.1 mg/dL (7-18); MAGNESIUM 1.8 mg/dL (1.8-2.4)
[2024-09-04 08:18] LABS: BILIRUBIN,DIRECT 0.2 mg/dL (0.0-0.2)
[2024-09-04 08:20] LABS: BILIRUBIN,TOTAL 0.6 mg/dL (0.2-1); TOT PROT 6.8 g/dl (6.4-8.2)
[2024-09-04 09:01] LABS: PH,URINE 5.5 (5.0-8.0); URINE APPEARANCE CLEAR; URINE BILIRUBIN NEGATIVE (NEGATIVE); URINE COLOR YELLOW; URINE GLUCOSE (UA) NEGATIVE (NEGATIVE); URINE KETONE NEGATIVE (NEGATIVE); URINE LEUK ESTERASE NEGATIVE (NEGATIVE); URINE NITRITE NEGATIVE (NEGATIVE); URINE PROTEIN TRACE (NEGATIVE); URINE UROBILINOGEN 0.2 mg/dL (0.2-1.0)
[2024-09-04] MEDS: SODIUM CHLORIDE 250 ML IV ONE (10:00)
[2024-09-04] MEDS: PROCHLORPERAZINE INJECTION 10 MG in SODIUM CHLORIDE 50 ML IVPB ONE (10:41)
[2024-09-04] MEDS: PALONOSETRON HCL 0.25 MG/5 ML VIAL IVPUSH ONE (11:06)
[2024-09-04] MEDS: DEXAMETHASONE SODIUM PHOSPHATE 6 MG in SODIUM CHLORIDE 50 ML IVPB ONE (11:06)
[2024-09-04] MEDS: SODIUM CHLORIDE IV ONE (11:23)
[2024-09-04] MEDS: BEVACIZUMAB IV ONE (11:23)
[2024-09-04] MEDS: ATROPINE SO4 0.4 MG/1 ML VIAL IVPUSH ONE (12:13)
[2024-09-04] MEDS: WATER IVPB ONE (12:16)
[2024-09-04] MEDS: DEXTROSE 5% IVPB ONE (12:16)
[2024-09-04] MEDS: LEUCOVORIN IVPB ONE (12:16)
[2024-09-04] MEDS: IRINOTECAN HCL 370 MG in DEXTROSE 5%-WATER - 500 ML IVPB ONE (12:17)
[2024-09-04] MEDS: FLUOROURACIL CP ONE (14:43)
[2024-09-04] MEDS: SODIUM CHLORIDE CP ONE (14:43)
[2024-09-04] MEDS ORDERED: PORTA CATH FLUSH 10 ML IVPUSH PRN (16:00)
[2024-09-04 16:23] VITALS: BP 91/61; PULSE 90; RESP 20; TEMP 98.5
== END 2024-09-04 15:45 | disposition home or self-care (01) ==
LOC: JONCCHEMO 07:17 → J7W 07:21 → JONCCHEMO 15:45
PROVIDERS: ATTEND Internal Medicine Hematology & Oncology
PROC: 3E04305 Introduction of Other Antineoplastic into Central Vein, Percutaneous Approach (ICD-10-PCS; principal; 2024-09-04)
PROC: 3E043GC Introduction of Other Therapeutic Substance into Central Vein, Percutaneous Approach (ICD-10-PCS; 2024-09-04)
DX: Z51.11 Encounter for antineoplastic chemotherapy (principal); C20 Malignant neoplasm of rectum
CPT/HCPCS: 36415; 80048; 80076; 81003; 82607; 82746; 83735; 84156; 84443; 85025; 96374; 96375; 96413; 96415; 96417; J9035; J9206

== ENCOUNTER 2024-09-06 12:50 | Day surgery (SDC) | payer OTHER ==
[2024-09-06] MEDS: SODIUM CHLORIDE IV ONE (12:59)
[2024-09-06] MEDS: POTASSIUM CHLORIDE IV ONE (12:59)
[2024-09-06] MEDS: MAGNESIUM SULFATE IV ONE (12:59)
[2024-09-06] MEDS: PORTA CATH FLUSH 10 ML IVPUSH PRN (14:30)
[2024-09-06 18:59] VITALS: BP 130/68; PULSE 72; RESP 20; TEMP 97.3
== END 2024-09-06 14:30 | disposition home or self-care (01) ==
LOC: JONCCHEMO 12:50 → J7W 14:36
PROVIDERS: ATTEND Internal Medicine Hematology & Oncology
PROC: 3E0337Z Introduction of Electrolytic and Water Balance Substance into Peripheral Vein, Percutaneous Approach (ICD-10-PCS; principal; 2024-09-06)
DX: Z76.89 Persons encountering health services in other specified circumstances (principal); C20 Malignant neoplasm of rectum
CPT/HCPCS: 96365

== ENCOUNTER 2024-09-18 07:46 | Day surgery (SDC) | payer OTHER ==
[2024-09-18 08:23] LABS: BASO % 1.2 % (0-2.0); EOS % 6.3 % (0-4.5); HEMATOCRIT 35.1 % (35.4-49); HEMOGLOBIN 11.6 GM/dL (11.7-16.9); MCH 33.7 pg (25.7-33.7); MCHC 33.1 g/dl (32.0-35.9); MEAN CELL VOLUME 101.6 fl (80-96); MEAN PLT VOLUME 7.6 fl (7.5-11.1); MONO % 11.4 % (3.8-10.2); NEUT % 68.1 % (42.8-82.8); PLATELET COUNT 191 10^3/uL (134-434); RBC 3.45 M/mm3 (4.00-5.60); RDW 18.5 % (11.9-15.9); WHITE BLOOD COUNT 3.3 K/mm3 (4.0-10.0)
[2024-09-18 08:48] LABS: CHLORIDE 105 mmol/L (98-107); POTASSIUM 3.9 mmol/L (3.5-5.1); SODIUM 141 mmol/L (136-145)
[2024-09-18 08:50] LABS: ALBUMIN 3.3 g/dl (3.4-5.0); ANION GAP 5 mmol/L (4-13); BLOOD UREA NITROGEN 15.6 mg/dL (7-18); CALCIUM 9.3 mg/dL (8.5-10.1); CO2 30 mmol/L (21-32); GLUCOSE,RANDOM 126 mg/dL (74-106); MAGNESIUM 1.8 mg/dL (1.8-2.4)
[2024-09-18 08:53] LABS: BILIRUBIN,DIRECT 0.3 mg/dL (0.0-0.2); SGOT/AST 24 U/L (15-37); SGPT/ALT 40 U/L (13-61)
[2024-09-18 08:55] LABS: BILIRUBIN,TOTAL 0.8 mg/dL (0.2-1); TOT PROT 6.4 g/dl (6.4-8.2)
[2024-09-18 08:56] LABS: ALK PHOS 83 U/L (45-117)
[2024-09-18] MEDS: SODIUM CHLORIDE 250 ML IV ONE (09:10)
[2024-09-18] MEDS: PROCHLORPERAZINE INJECTION 10 MG in SODIUM CHLORIDE 50 ML IVPB ONE (10:10)
[2024-09-18] MEDS: PALONOSETRON HCL 0.25 MG/5 ML VIAL IVPUSH ONE (10:38)
[2024-09-18] MEDS: DEXAMETHASONE SODIUM PHOSPHATE 6 MG in SODIUM CHLORIDE 50 ML IVPB ONE (10:39)
[2024-09-18] MEDS: BEVACIZUMAB IV ONE (11:51)
[2024-09-18] MEDS: SODIUM CHLORIDE IV ONE (11:51)
[2024-09-18] MEDS: ATROPINE SO4 0.4 MG/1 ML VIAL IVPUSH ONE (12:24)
[2024-09-18] MEDS: WATER IVPB ONE (12:28)
[2024-09-18] MEDS: LEUCOVORIN CALCIUM IVPB ONE (12:28)
[2024-09-18] MEDS: IRINOTECAN HCL 370 MG in DEXTROSE 5%-WATER - 500 ML IVPB ONE (12:28)
[2024-09-18] MEDS: DEXTROSE 5% IVPB ONE (12:28)
[2024-09-18] MEDS: SODIUM CHLORIDE CP ONE (14:37)
[2024-09-18] MEDS: FLUOROURACIL CP ONE (14:37)
[2024-09-18 15:00] VITALS: RESP 20; TEMP 98.1
[2024-09-18] MEDS: PORTA CATH FLUSH 10 ML IVPUSH PRN (15:00)
[2024-09-18 15:27] VITALS: BP 120/65; PULSE 72
== END 2024-09-18 15:00 | disposition home or self-care (01) ==
LOC: JONCCHEMO 07:46 → J7W 07:47 → JONCCHEMO 15:00
PROVIDERS: ATTEND Internal Medicine Hematology & Oncology
DX: Z51.11 Encounter for antineoplastic chemotherapy (principal); C20 Malignant neoplasm of rectum
CPT/HCPCS: 36415; 80048; 80076; 83735; 84156; 85025; 96368; 96375; 96413; 96417; G0498; J9035; J9206

== ENCOUNTER 2024-09-20 15:27 | Day surgery (SDC) | payer OTHER ==
[2024-09-20] MEDS: MAGNESIUM SULFATE IV ONE (12:51)
[2024-09-20] MEDS: POTASSIUM CHLORIDE IV ONE (12:51)
[2024-09-20] MEDS: SODIUM CHLORIDE IV ONE (12:51)
[2024-09-20] MEDS: PORTA CATH FLUSH 10 ML IVPUSH PRN (13:55)
[2024-09-20 16:52] VITALS: RESP 18; TEMP 98.1
[2024-09-20 17:00] VITALS: BP 115/55; PULSE 54
== END 2024-09-20 16:00 | disposition home or self-care (01) ==
LOC: J7W 15:27 → JONCCHEMO 15:27
PROVIDERS: ATTEND Internal Medicine Hematology & Oncology
PROC: 3E043GC Introduction of Other Therapeutic Substance into Central Vein, Percutaneous Approach (ICD-10-PCS; principal; 2024-09-20)
DX: C20 Malignant neoplasm of rectum (principal); Z76.89 Persons encountering health services in other specified circumstances
CPT/HCPCS: 96365

== ENCOUNTER 2024-10-10 07:21 | Day surgery (SDC) | payer OTHER ==
[2024-10-10 08:43] LABS: HEMATOCRIT 36.3 % (35.4-49); HEMOGLOBIN 12.2 GM/dL (11.7-16.9); MCH 34.5 pg (25.7-33.7); MCHC 33.6 g/dl (32.0-35.9); MEAN CELL VOLUME 102.6 fl (80-96); MEAN PLT VOLUME 8.4 fl (7.5-11.1); PLATELET COUNT 186 10^3/uL (134-434); RBC 3.54 M/mm3 (4.00-5.60); RDW 17.8 % (11.9-15.9)
[2024-10-10 08:56] LABS: POTASSIUM 3.9 mmol/L (3.5-5.1)
[2024-10-10 08:57] LABS: CALCIUM 8.9 mg/dL (8.5-10.1)
[2024-10-10 08:58] LABS: ALBUMIN 3.2 g/dl (3.4-5.0); BLOOD UREA NITROGEN 18.7 mg/dL (7-18); MAGNESIUM 1.8 mg/dL (1.8-2.4)
[2024-10-10 09:01] LABS: BILIRUBIN,DIRECT 0.2 mg/dL (0.0-0.2); CREATININE 0.9 mg/dL (0.55-1.3)
[2024-10-10 09:02] LABS: BILIRUBIN,TOTAL 0.7 mg/dL (0.2-1); TOT PROT 6.4 g/dl (6.4-8.2)
[2024-10-10] MEDS: SODIUM CHLORIDE 250 ML IV ONE (09:22)
[2024-10-10 09:31] LABS: ANISOCYTOSIS 1+; MACROCYTOSIS 1+
[2024-10-10] MEDS: PROCHLORPERAZINE INJECTION 10 MG in SODIUM CHLORIDE 50 ML IVPB ONE (09:46)
[2024-10-10] MEDS: DEXAMETHASONE SODIUM PHOSPHATE 6 MG in SODIUM CHLORIDE 50 ML IVPB ONE (10:22)
[2024-10-10] MEDS: PALONOSETRON HCL 0.25 MG/5 ML VIAL IVPUSH ONE (11:09)
[2024-10-10] MEDS: SODIUM CHLORIDE IV ONE (11:11)
[2024-10-10] MEDS: BEVACIZUMAB IV ONE (11:11)
[2024-10-10] MEDS: ATROPINE SO4 0.4 MG/1 ML VIAL IVPUSH ONE (11:49)
[2024-10-10] MEDS: IRINOTECAN HCL 370 MG in DEXTROSE 5%-WATER - 500 ML IVPB ONE (11:50)
[2024-10-10] MEDS: LEUCOVORIN IVPB ONE (11:50)
[2024-10-10] MEDS: DEXTROSE 5% IVPB ONE (11:50)
[2024-10-10] MEDS: WATER IVPB ONE (11:50)
[2024-10-10] MEDS: FLUOROURACIL 500 MG/10 ML VIAL IVPUSH ONE (14:18)
[2024-10-10] MEDS: SODIUM CHLORIDE CP ONE (14:18)
[2024-10-10] MEDS: FLUOROURACIL CP ONE (14:18)
[2024-10-10 16:31] VITALS: RESP 18; TEMP 98.6
[2024-10-10 16:42] VITALS: BP 117/68; PULSE 69
[2024-10-10] MEDS ORDERED: PORTA CATH FLUSH 10 ML IVPUSH PRN (16:42)
== END 2024-10-10 14:30 | disposition home or self-care (01) ==
LOC: JONCCHEMO 07:21 → J7W 07:22 → JONCCHEMO 14:30
PROVIDERS: ATTEND Internal Medicine Hematology & Oncology
DX: Z51.11 Encounter for antineoplastic chemotherapy (principal); C20 Malignant neoplasm of rectum
CPT/HCPCS: 36415; 80048; 80076; 83735; 84156; 84443; 85025; 96368; 96375; 96411; 96413; 96417; G0498; J9035; J9190; J9206

== ENCOUNTER 2024-10-12 13:10 | Day surgery (SDC) | payer OTHER ==
[2024-10-12] MEDS: POTASSIUM CHLORIDE IVPB ONE (12:46)
[2024-10-12] MEDS: MAGNESIUM SULFATE IVPB ONE (12:46)
[2024-10-12] MEDS: SODIUM CHLORIDE IVPB ONE (12:46)
[2024-10-12] MEDS: PORTA CATH FLUSH 10 ML IVPUSH PRN (13:50)
[2024-10-12 18:19] VITALS: RESP 18; TEMP 97.4
[2024-10-12 18:22] VITALS: BP 133/78; PULSE 79
== END 2024-10-12 14:00 | disposition home or self-care (01) ==
LOC: JONCCHEMO 13:10 → J7W 13:11 → JONCCHEMO 14:00
PROVIDERS: ATTEND Internal Medicine Hematology & Oncology
PROC: 3E043GC Introduction of Other Therapeutic Substance into Central Vein, Percutaneous Approach (ICD-10-PCS; principal; 2024-10-12)
DX: C20 Malignant neoplasm of rectum (principal)
CPT/HCPCS: 96365

== ENCOUNTER 2024-10-23 07:19 | Day surgery (SDC) | payer OTHER ==
[2024-10-23 08:20] LABS: CHLORIDE 101 mmol/L (98-107); POTASSIUM 3.9 mmol/L (3.5-5.1); SODIUM 139 mmol/L (136-145)
[2024-10-23 08:24] LABS: CALCIUM 9.3 mg/dL (8.5-10.1)
[2024-10-23 08:26] LABS: ALBUMIN 3.3 g/dl (3.4-5.0); ANION GAP 7 mmol/L (4-13); BLOOD UREA NITROGEN 33.2 mg/dL (7-18); CO2 32 mmol/L (21-32); GLUCOSE,RANDOM 121 mg/dL (74-106); MAGNESIUM 1.9 mg/dL (1.8-2.4)
[2024-10-23 08:28] LABS: CREATININE 1.2 mg/dL (0.55-1.3); SGPT/ALT 32 U/L (13-61)
[2024-10-23 08:30] LABS: BILIRUBIN,DIRECT 0.2 mg/dL (0.0-0.2); BILIRUBIN,TOTAL 0.5 mg/dL (0.2-1); SGOT/AST 23 U/L (15-37)
[2024-10-23 08:32] LABS: ALK PHOS 92 U/L (45-117); TOT PROT 6.6 g/dl (6.4-8.2)
[2024-10-23 08:47] LABS: BASO % 1.3 % (0-2.0); EOS % 7.8 % (0-4.5); HEMATOCRIT 35.3 % (35.4-49); HEMOGLOBIN 11.9 GM/dL (11.7-16.9); LYMPH % 15.9 % (8-40); MCH 34.5 pg (25.7-33.7); MCHC 33.6 g/dl (32.0-35.9); MEAN CELL VOLUME 102.7 fl (80-96); MEAN PLT VOLUME 8.2 fl (7.5-11.1); MONO % 10.7 % (3.8-10.2); NEUT % 64.3 % (42.8-82.8); PLATELET COUNT 202 10^3/uL (134-434); RBC 3.44 M/mm3 (4.00-5.60); RDW 17.1 % (11.9-15.9); WHITE BLOOD COUNT 4.2 K/mm3 (4.0-10.0)
[2024-10-23] MEDS: SODIUM CHLORIDE 250 ML IV ONE (09:20)
[2024-10-23 09:30] VITALS: RESP 18; TEMP 98.2
[2024-10-23] MEDS: PROCHLORPERAZINE INJECTION 10 MG in SODIUM CHLORIDE 50 ML IVPB ONE (10:13)
[2024-10-23] MEDS: DEXAMETHASONE SODIUM PHOSPHATE 6 MG in SODIUM CHLORIDE 50 ML IVPB ONE (10:37)
[2024-10-23] MEDS: PALONOSETRON HCL 0.25 MG/5 ML VIAL IVPUSH ONE (11:04)
[2024-10-23] MEDS: SODIUM CHLORIDE IV ONE (11:04)
[2024-10-23] MEDS: BEVACIZUMAB IV ONE (11:04)
[2024-10-23] MEDS: ATROPINE SO4 0.4 MG/1 ML VIAL IVPUSH ONE (11:45)
[2024-10-23] MEDS: WATER IVPB ONE (11:46)
[2024-10-23] MEDS: LEUCOVORIN IVPB ONE (11:46)
[2024-10-23] MEDS: DEXTROSE 5% IVPB ONE (11:46)
[2024-10-23] MEDS: IRINOTECAN HCL 370 MG in DEXTROSE 5%-WATER - 500 ML IVPB ONE (11:46)
[2024-10-23] MEDS ORDERED: PORTA CATH FLUSH 10 ML IVPUSH PRN (14:04)
[2024-10-23] MEDS: FLUOROURACIL 500 MG/10 ML VIAL IVPUSH ONE (14:37)
[2024-10-23] MEDS: SODIUM CHLORIDE CP ONE (14:43)
[2024-10-23] MEDS: FLUOROURACIL CP ONE (14:43)
[2024-10-23 14:56] VITALS: BP 112/66; PULSE 70
== END 2024-10-23 15:00 | disposition home or self-care (01) ==
LOC: JONCCHEMO 07:19 → J7W 07:20 → JONCCHEMO 15:00
PROVIDERS: ATTEND Internal Medicine Hematology & Oncology
PROC: 3E04305 Introduction of Other Antineoplastic into Central Vein, Percutaneous Approach (ICD-10-PCS; principal; 2024-10-23)
PROC: 3E0437Z Introduction of Electrolytic and Water Balance Substance into Central Vein, Percutaneous Approach (ICD-10-PCS; 2024-10-23)
PROC: 3E043GC Introduction of Other Therapeutic Substance into Central Vein, Percutaneous Approach (ICD-10-PCS; 2024-10-23)
PROC: 3E043GC Introduction of Other Therapeutic Substance into Central Vein, Percutaneous Approach (ICD-10-PCS; 2024-10-23)
PROC: 3E043GC Introduction of Other Therapeutic Substance into Central Vein, Percutaneous Approach (ICD-10-PCS; 2024-10-23)
DX: Z51.11 Encounter for antineoplastic chemotherapy (principal); C20 Malignant neoplasm of rectum
CPT/HCPCS: 36415; 80048; 80076; 82378; 82607; 83735; 84156; 84443; 85025; 96365; 96366; 96375; 96413; 96417; G0498; J9035; J9190; J9206

== ENCOUNTER 2024-10-25 12:50 | Day surgery (SDC) | payer OTHER ==
[2024-10-25] MEDS: SODIUM CHLORIDE IVPB ONE (12:56)
[2024-10-25] MEDS: POTASSIUM CHLORIDE IVPB ONE (12:56)
[2024-10-25] MEDS: MAGNESIUM SULFATE IVPB ONE (12:56)
[2024-10-25] MEDS: PORTA CATH FLUSH 10 ML IVPUSH PRN (14:15)
[2024-10-25 14:45] VITALS: PULSE 78; RESP 18; TEMP 97.5
[2024-10-25 14:48] VITALS: BP 95/53
== END 2024-10-25 14:20 | disposition home or self-care (01) ==
LOC: JONCCHEMO 12:50 → J7W 12:51 → JONCCHEMO 14:20
PROVIDERS: ATTEND Internal Medicine Hematology & Oncology
PROC: 3E0437Z Introduction of Electrolytic and Water Balance Substance into Central Vein, Percutaneous Approach (ICD-10-PCS; principal; 2024-10-25)
DX: C20 Malignant neoplasm of rectum (principal); Z76.89 Persons encountering health services in other specified circumstances
CPT/HCPCS: 96360

== ENCOUNTER 2024-11-22 07:45 | Day surgery (SDC) | payer OTHER ==
[2024-11-22 08:09] LABS: HEMATOCRIT 35.4 % (35.4-49); HEMOGLOBIN 11.5 GM/dL (11.7-16.9); MCH 33.9 pg (25.7-33.7); MCHC 32.5 g/dl (32.0-35.9); WHITE BLOOD COUNT 8.1 K/mm3 (4.0-10.0)
[2024-11-22 08:10] LABS: MEAN PLT VOLUME 7.8 fl (7.5-11.1); PLATELET COUNT 136 10^3/uL (134-434); RDW 17.8 % (11.9-15.9)
[2024-11-22 09:13] LABS: ANISOCYTOSIS 1+; MACROCYTOSIS 1+
[2024-11-22] MEDS: SODIUM CHLORIDE 250 ML IV ONE (09:30)
[2024-11-22] MEDS: DEXAMETHASONE SODIUM PHOSPHATE 6 MG in SODIUM CHLORIDE 50 ML IVPB ONE (09:44)
[2024-11-22] MEDS: PROCHLORPERAZINE INJECTION 10 MG in SODIUM CHLORIDE 50 ML IVPB ONE (10:15)
[2024-11-22] MEDS: PALONOSETRON HCL 0.25 MG/5 ML VIAL IVPUSH ONE (10:30)
[2024-11-22] MEDS: BEVACIZUMAB IV ONE (10:39)
[2024-11-22] MEDS: SODIUM CHLORIDE IV ONE (10:39)
[2024-11-22] MEDS: ATROPINE SO4 0.4 MG/1 ML VIAL IVPUSH ONE (11:25)
[2024-11-22] MEDS: LEUCOVORIN IVPB ONE (11:28)
[2024-11-22] MEDS: WATER IVPB ONE (11:28)
[2024-11-22] MEDS: DEXTROSE 5% IVPB ONE (11:28)
[2024-11-22] MEDS: IRINOTECAN HCL 370 MG in DEXTROSE 5%-WATER - 500 ML IVPB ONE (11:29)
[2024-11-22] MEDS: FLUOROURACIL 500 MG/10 ML VIAL IVPUSH ONE (13:44)
[2024-11-22] MEDS: SODIUM CHLORIDE CP ONE (13:45)
[2024-11-22] MEDS: FLUOROURACIL CP ONE (13:45)
[2024-11-22 14:27] VITALS: TEMP 98.1
[2024-11-22 14:47] VITALS: BP 110/57; PULSE 68; RESP 16
[2024-11-22] MEDS ORDERED: PORTA CATH FLUSH 10 ML IVPUSH PRN (14:47)
== END 2024-11-22 14:00 | disposition home or self-care (01) ==
LOC: J7W 07:45 → JONCCHEMO 07:45
PROVIDERS: ATTEND Internal Medicine Hematology & Oncology
DX: Z51.11 Encounter for antineoplastic chemotherapy (principal); C20 Malignant neoplasm of rectum
CPT/HCPCS: 36415; 85025; 96368; 96375; 96411; 96413; 96417; G0498; J9035; J9190; J9206

== ENCOUNTER 2024-11-24 12:46 | Day surgery (SDC) | payer OTHER ==
[2024-11-24] MEDS: SODIUM CHLORIDE IVPB ONE (12:59)
[2024-11-24] MEDS: MAGNESIUM SULFATE IVPB ONE (12:59)
[2024-11-24] MEDS: POTASSIUM CHLORIDE IVPB ONE (12:59)
[2024-11-24] MEDS: PORTA CATH FLUSH 10 ML IVPUSH PRN (14:00)
[2024-11-24 14:48] VITALS: PULSE 62; TEMP 97.6
[2024-11-24 14:55] VITALS: BP 109/53; RESP 18
== END 2024-11-24 14:00 | disposition home or self-care (01) ==
LOC: JONCCHEMO 12:46
PROVIDERS: ATTEND Internal Medicine Hematology & Oncology
PROC: 3E043GC Introduction of Other Therapeutic Substance into Central Vein, Percutaneous Approach (ICD-10-PCS; principal; 2024-11-24)
DX: C20 Malignant neoplasm of rectum (principal); Z76.89 Persons encountering health services in other specified circumstances
CPT/HCPCS: 96365

== ENCOUNTER 2024-12-04 07:23 | Day surgery (SDC) | payer OTHER ==
[2024-12-04] MEDS ORDERED: SODIUM CHLORIDE 250 ML IV ONE (08:00)
[2024-12-04] MEDS ORDERED: DEXAMETHASONE SODIUM PHOSPHATE 6 MG in SODIUM CHLORIDE 50 ML IVPB ONE (08:00)
[2024-12-04] MEDS ORDERED: PROCHLORPERAZINE INJECTION 10 MG in SODIUM CHLORIDE 50 ML IVPB ONE (08:00)
[2024-12-04] MEDS ORDERED: ATROPINE SO4 0.4 MG/1 ML VIAL IVPUSH ONE (08:00)
[2024-12-04] MEDS ORDERED: PALONOSETRON HCL 0.25 MG/5 ML VIAL IVPUSH ONE (08:15)
[2024-12-04 08:30] LABS: HEMATOCRIT 33.8 % (35.4-49); HEMOGLOBIN 11.4 GM/dL (11.7-16.9); MCH 34.4 pg (25.7-33.7); MCHC 33.6 g/dl (32.0-35.9); MEAN CELL VOLUME 102.5 fl (80-96); MEAN PLT VOLUME 7.5 fl (7.5-11.1); PLATELET COUNT 263 10^3/uL (134-434); RDW 17.2 % (11.9-15.9)
[2024-12-04] MEDS ORDERED: BEVACIZUMAB IV ONE (08:30)
[2024-12-04] MEDS ORDERED: SODIUM CHLORIDE IV ONE (08:30)
[2024-12-04 08:41] LABS: WHITE BLOOD COUNT 1.3 K/mm3 (4.0-10.0)
[2024-12-04 08:55] LABS: POTASSIUM 3.5 mmol/L (3.5-5.1)
[2024-12-04 08:57] LABS: ALBUMIN 3.2 g/dl (3.4-5.0); CALCIUM 9.2 mg/dL (8.5-10.1)
[2024-12-04 08:58] LABS: BLOOD UREA NITROGEN 24.6 mg/dL (7-18); MAGNESIUM 1.5 mg/dL (1.8-2.4)
[2024-12-04 09:00] LABS: BILIRUBIN,DIRECT 0.3 mg/dL (0.0-0.2)
[2024-12-04] MEDS ORDERED: DEXTROSE 5% IVPB ONE (09:00)
[2024-12-04] MEDS ORDERED: LEUCOVORIN IVPB ONE (09:00)
[2024-12-04] MEDS ORDERED: WATER IVPB ONE (09:00)
[2024-12-04 09:01] LABS: CREATININE 1.2 mg/dL (0.55-1.3)
[2024-12-04 09:02] LABS: BILIRUBIN,TOTAL 0.7 mg/dL (0.2-1); TOT PROT 6.7 g/dl (6.4-8.2)
[2024-12-04] MEDS: SODIUM CHLORIDE 0.9% 500 ML INFUS.BAG IV ONE (09:05)
[2024-12-04] MEDS ORDERED: IRINOTECAN HCL 370 MG in DEXTROSE 5%-WATER - 500 ML IVPB ONE (09:30)
[2024-12-04 10:22] LABS: ANISOCYTOSIS 1+; MACROCYTOSIS 1+; PLATELET ESTIMATE ADEQUATE
[2024-12-04] MEDS ORDERED: FLUOROURACIL CP ONE (11:00)
[2024-12-04] MEDS: SODIUM CHLORIDE 500 ML IV ONE (11:00)
[2024-12-04] MEDS ORDERED: SODIUM CHLORIDE CP ONE (11:00)
[2024-12-04] MEDS ORDERED: FLUOROURACIL 500 MG/10 ML VIAL IVPUSH ONE (11:00)
[2024-12-04] MEDS: TBO-FILGRASTIM 480 MCG/0.8 ML DISP.SYRIN SQ ONE (12:41)
[2024-12-04] MEDS: PORTA CATH FLUSH 10 ML IVPUSH PRN (13:00)
[2024-12-04 14:02] VITALS: RESP 20; TEMP 97.3
[2024-12-04 14:07] VITALS: BP 96/50; PULSE 81
[2024-12-04] MEDS: MAGNESIUM 2GM/50ML STERILE WATER IVPB IVPB ONE (14:27)
== END 2024-12-04 13:00 | disposition home or self-care (01) ==
LOC: JONCCHEMO 07:23 → J7W 07:36 → JONCCHEMO 13:00
PROVIDERS: ATTEND Internal Medicine Hematology & Oncology
PROC: 3E0437Z Introduction of Electrolytic and Water Balance Substance into Central Vein, Percutaneous Approach (ICD-10-PCS; principal; 2024-12-04)
PROC: 3E013GC Introduction of Other Therapeutic Substance into Subcutaneous Tissue, Percutaneous Approach (ICD-10-PCS; 2024-12-04)
DX: C20 Malignant neoplasm of rectum (principal); Z76.89 Persons encountering health services in other specified circumstances
CPT/HCPCS: 36415; 80048; 80076; 82378; 83735; 84156; 85025; 96360; 96361; 96372; J1447

== ENCOUNTER 2024-12-05 10:36 | Day surgery (SDC) | payer OTHER ==
[2024-12-05] MEDS: MAGNESIUM SULFATE IN WATER 2 GM/50 ML IVPB IVPB ONE (10:40)
[2024-12-05] MEDS: TBO-FILGRASTIM 480 MCG/0.8 ML DISP.SYRIN SQ ONE (10:50)
[2024-12-05] MEDS: PORTA CATH FLUSH 10 ML IVPUSH PRN (11:40)
[2024-12-05 15:42] VITALS: TEMP 98.4
[2024-12-05 15:44] VITALS: BP 98/49; PULSE 93; RESP 18
== END 2024-12-05 11:40 | disposition home or self-care (01) ==
LOC: JONCCHEMO 10:36 → J7W 10:37 → JONCCHEMO 11:40
PROVIDERS: ATTEND Internal Medicine Hematology & Oncology
PROC: 3E043GC Introduction of Other Therapeutic Substance into Central Vein, Percutaneous Approach (ICD-10-PCS; principal; 2024-12-05)
PROC: 3E013GC Introduction of Other Therapeutic Substance into Subcutaneous Tissue, Percutaneous Approach (ICD-10-PCS; 2024-12-05)
DX: C20 Malignant neoplasm of rectum (principal); Z76.89 Persons encountering health services in other specified circumstances
CPT/HCPCS: 96365; 96372; J1447

== ENCOUNTER 2024-12-06 07:59 | Day surgery (SDC) | payer OTHER ==
[2024-12-06 07:58] LABS: HEMATOCRIT 32.4 % (35.4-49); HEMOGLOBIN 10.8 GM/dL (11.7-16.9); MCH 34.1 pg (25.7-33.7); MCHC 33.3 g/dl (32.0-35.9); MEAN CELL VOLUME 102.4 fl (80-96); MEAN PLT VOLUME 7.4 fl (7.5-11.1); PLATELET COUNT 211 10^3/uL (134-434); RBC 3.17 M/mm3 (4.00-5.60); RDW 17.3 % (11.9-15.9); WHITE BLOOD COUNT 8.9 K/mm3 (4.0-10.0)
[2024-12-06] MEDS: SODIUM CHLORIDE 0.9% 500 ML INFUS.BAG IV ONE (08:45)
[2024-12-06 09:17] LABS: ANISOCYTOSIS 0; MACROCYTOSIS 0
[2024-12-06] MEDS: PROCHLORPERAZINE INJECTION 10 MG in SODIUM CHLORIDE 50 ML IVPB ONE (10:27)
[2024-12-06] MEDS: DEXAMETHASONE SODIUM PHOSPHATE 6 MG in SODIUM CHLORIDE 50 ML IVPB ONE (10:52)
[2024-12-06] MEDS: PALONOSETRON HCL 0.25 MG/5 ML VIAL IVPUSH ONE (11:27)
[2024-12-06] MEDS: SODIUM CHLORIDE IV ONE (11:29)
[2024-12-06] MEDS: BEVACIZUMAB IV ONE (11:29)
[2024-12-06] MEDS: ATROPINE SO4 0.4 MG/1 ML VIAL IVPUSH ONE (12:01)
[2024-12-06] MEDS: WATER IVPB ONE (12:05)
[2024-12-06] MEDS: DEXTROSE 5% IVPB ONE (12:05)
[2024-12-06] MEDS: LEUCOVORIN IVPB ONE (12:05)
[2024-12-06] MEDS: IRINOTECAN HCL 360 MG in DEXTROSE 5%-WATER - 500 ML IVPB ONE (12:05)
[2024-12-06 14:29] VITALS: PULSE 107; RESP 18; TEMP 98.9
[2024-12-06] MEDS: SODIUM CHLORIDE CP ONE (14:31)
[2024-12-06] MEDS: FLUOROURACIL CP ONE (14:31)
[2024-12-06] MEDS: PORTA CATH FLUSH 10 ML IVPUSH PRN (14:31)
[2024-12-06] MEDS: FLUOROURACIL 500 MG/10 ML VIAL IVPUSH ONE (14:31)
[2024-12-06 16:58] VITALS: BP 145/74
== END 2024-12-06 14:45 | disposition home or self-care (01) ==
LOC: JONCCHEMO 07:59 → J7W 08:00 → JONCCHEMO 14:45
PROVIDERS: ATTEND Internal Medicine Hematology & Oncology
PROC: 3E0437Z Introduction of Electrolytic and Water Balance Substance into Central Vein, Percutaneous Approach (ICD-10-PCS; principal; 2024-12-06)
PROC: 3E04305 Introduction of Other Antineoplastic into Central Vein, Percutaneous Approach (ICD-10-PCS; 2024-12-06)
DX: Z51.11 Encounter for antineoplastic chemotherapy (principal); C20 Malignant neoplasm of rectum
CPT/HCPCS: 36415; 85025; 96361; 96367; 96375; 96413; 96415; G0498; J9035; J9190; J9206

== ENCOUNTER 2024-12-08 13:05 | Day surgery (SDC) | payer OTHER ==
[2024-12-08] MEDS: POTASSIUM CHLORIDE IV ONE (13:16)
[2024-12-08] MEDS: SODIUM CHLORIDE IV ONE (13:16)
[2024-12-08] MEDS: MAGNESIUM SULFATE IV ONE (13:16)
[2024-12-08] MEDS: PORTA CATH FLUSH 10 ML IVPUSH PRN (14:25)
[2024-12-08 15:02] VITALS: RESP 20; TEMP 97.5
[2024-12-08 15:06] VITALS: BP 129/63; PULSE 69
== END 2024-12-08 14:45 | disposition home or self-care (01) ==
LOC: JONCCHEMO 13:05
PROVIDERS: ATTEND Internal Medicine Hematology & Oncology
PROC: 3E0437Z Introduction of Electrolytic and Water Balance Substance into Central Vein, Percutaneous Approach (ICD-10-PCS; principal; 2024-12-08)
DX: C20 Malignant neoplasm of rectum (principal); Z76.89 Persons encountering health services in other specified circumstances
CPT/HCPCS: 96360

== ENCOUNTER 2024-12-18 09:33 | Day surgery (SDC) | payer OTHER ==
[2024-12-18 09:00] LABS: HEMATOCRIT 32.5 % (35.4-49); HEMOGLOBIN 10.7 GM/dL (11.7-16.9); MCH 33.5 pg (25.7-33.7); MCHC 32.8 g/dl (32.0-35.9); MEAN CELL VOLUME 102.1 fl (80-96); MEAN PLT VOLUME 7.3 fl (7.5-11.1); PLATELET COUNT 212 10^3/uL (134-434); RBC 3.18 M/mm3 (4.00-5.60); RDW 17.7 % (11.9-15.9)
[2024-12-18 09:08] LABS: WHITE BLOOD COUNT 1.6 K/mm3 (4.0-10.0)
[2024-12-18 09:12] LABS: ALBUMIN 3.2 g/dl (3.4-5.0); ANION GAP 7 mmol/L (4-13); BLOOD UREA NITROGEN 15.9 mg/dL (7-18); CALCIUM 8.4 mg/dL (8.5-10.1); CHLORIDE 102 mmol/L (98-107); CO2 32 mmol/L (21-32); GLUCOSE,RANDOM 110 mg/dL (74-106); MAGNESIUM 1.7 mg/dL (1.8-2.4); POTASSIUM 3.6 mmol/L (3.5-5.1); SODIUM 142 mmol/L (136-145)
[2024-12-18 09:15] LABS: SGOT/AST 25 U/L (15-37); SGPT/ALT 32 U/L (13-61)
[2024-12-18 09:17] LABS: BILIRUBIN,TOTAL 0.9 mg/dL (0.2-1); CREATININE 0.8 mg/dL (0.55-1.3)
[2024-12-18 09:18] LABS: ALK PHOS 89 U/L (45-117); TOT PROT 6.2 g/dl (6.4-8.2)
[~2024-12-18 09:33] MED LIST changes: +ATROPINE SO4 0.4 MG/1 ML VIAL IVPUSH ONE; +DEXAMETHASONE SODIUM PHOSPHATE 6 MG in SODIUM CHLORIDE 50 ML IVPB ONE; -MAGNESIUM SULFATE IN WATER 2 GM/50 ML IVPB IVPB ONE; +PALONOSETRON HCL 0.25 MG/5 ML VIAL IVPUSH ONE; +PROCHLORPERAZINE INJECTION 10 MG in SODIUM CHLORIDE 50 ML IVPB ONE; +SODIUM CHLORIDE 250 ML IV ONE; +SODIUM CHLORIDE 500 ML IV ONE
[2024-12-18] MEDS ORDERED: BEVACIZUMAB IV ONE (10:00)
[2024-12-18] MEDS ORDERED: SODIUM CHLORIDE IV ONE (10:00)
[2024-12-18] MEDS ORDERED: LEUCOVORIN IVPB ONE (10:30)
[2024-12-18] MEDS ORDERED: WATER IVPB ONE (10:30)
[2024-12-18] MEDS ORDERED: IRINOTECAN HCL 360 MG in DEXTROSE 5%-WATER - 500 ML IVPB ONE (10:30)
[2024-12-18] MEDS ORDERED: DEXTROSE 5% IVPB ONE (10:30)
[2024-12-18 10:39] LABS: ANISOCYTOSIS 0; MACROCYTOSIS 1+
[2024-12-18 11:45] VITALS: BP 106/59; PULSE 92; RESP 18; TEMP 99
[2024-12-18] MEDS: TBO-FILGRASTIM 480 MCG/0.8 ML DISP.SYRIN SQ SCH (12:20)
[2024-12-18] MEDS ORDERED: FLUOROURACIL 500 MG/10 ML VIAL IVPUSH ONE (12:30)
[2024-12-18] MEDS ORDERED: FLUOROURACIL CP ONE (12:45)
[2024-12-18] MEDS ORDERED: SODIUM CHLORIDE CP ONE (12:45)
== END 2024-12-18 12:30 | disposition home or self-care (01) ==
LOC: J7W 09:33 → JONCCHEMO 09:33
PROVIDERS: ATTEND Internal Medicine Hematology & Oncology
PROC: 3E013GC Introduction of Other Therapeutic Substance into Subcutaneous Tissue, Percutaneous Approach (ICD-10-PCS; principal; 2024-12-18)
DX: C20 Malignant neoplasm of rectum (principal); Z76.89 Persons encountering health services in other specified circumstances
CPT/HCPCS: 36415; 80053; 83735; 84156; 85025; 96372; J1447

== ENCOUNTER 2024-12-19 10:30 | Day surgery (SDC) | payer OTHER ==
[2024-12-19] MEDS: TBO-FILGRASTIM 480 MCG/0.8 ML DISP.SYRIN SQ ONE (11:07)
[2024-12-19 12:41] VITALS: BP 116/72; PULSE 88; RESP 20; TEMP 98
== END 2024-12-19 11:25 | disposition home or self-care (01) ==
LOC: JONCNONCHE 10:30 → J7W 11:33
PROVIDERS: ATTEND Internal Medicine Hematology & Oncology
PROC: 3E023GC Introduction of Other Therapeutic Substance into Muscle, Percutaneous Approach (ICD-10-PCS; principal; 2024-12-19)
DX: C20 Malignant neoplasm of rectum (principal); Z76.89 Persons encountering health services in other specified circumstances
CPT/HCPCS: 96372; J1447

== ENCOUNTER 2024-12-20 07:30 | Day surgery (SDC) | payer OTHER ==
[2024-12-20 08:57] LABS: HEMOGLOBIN 11.5 GM/dL (11.7-16.9); MCH 34.6 pg (25.7-33.7); MCHC 33.7 g/dl (32.0-35.9); MEAN CELL VOLUME 102.5 fl (80-96); MEAN PLT VOLUME 7.7 fl (7.5-11.1); PLATELET COUNT 196 10^3/uL (134-434); RBC 3.32 M/mm3 (4.00-5.60); RDW 17.9 % (11.9-15.9); WHITE BLOOD COUNT 6.7 K/mm3 (4.0-10.0)
[2024-12-20] MEDS ORDERED: TBO-FILGRASTIM 480 MCG/0.8 ML DISP.SYRIN SQ ONE (10:00)
[2024-12-20 10:05] LABS: ANISOCYTOSIS 0; MACROCYTOSIS 1+
[2024-12-20] MEDS: SODIUM CHLORIDE 500 ML IV ONE (10:28)
[2024-12-20] MEDS: PROCHLORPERAZINE INJECTION 10 MG in SODIUM CHLORIDE 50 ML IVPB ONE (11:05)
[2024-12-20] MEDS: PALONOSETRON HCL 0.25 MG/5 ML VIAL IVPUSH ONE (11:55)
[2024-12-20] MEDS: DEXAMETHASONE SODIUM PHOSPHATE 6 MG in SODIUM CHLORIDE 50 ML IVPB ONE (11:58)
[2024-12-20] MEDS: BEVACIZUMAB IV ONE (12:15)
[2024-12-20] MEDS: SODIUM CHLORIDE IV ONE (12:15)
[2024-12-20] MEDS: DEXTROSE 5% IVPB ONE (12:55)
[2024-12-20] MEDS: WATER IVPB ONE (12:55)
[2024-12-20] MEDS: ATROPINE SO4 0.4 MG/1 ML VIAL IVPUSH ONE (12:55)
[2024-12-20] MEDS: LEUCOVORIN IVPB ONE (12:55)
[2024-12-20] MEDS: IRINOTECAN HCL 360 MG in DEXTROSE 5%-WATER - 500 ML IVPB ONE (12:57)
[2024-12-20] MEDS: FLUOROURACIL 500 MG/10 ML VIAL IVPUSH ONE (15:20)
[2024-12-20] MEDS: PORTA CATH FLUSH 10 ML IVPUSH PRN (15:20)
[2024-12-20] MEDS: SODIUM CHLORIDE CP ONE (15:21)
[2024-12-20] MEDS: FLUOROURACIL CP ONE (15:21)
[2024-12-20 16:14] VITALS: TEMP 98.2
[2024-12-20 16:30] VITALS: BP 104/52; PULSE 77; RESP 16
== END 2024-12-20 15:30 | disposition home or self-care (01) ==
LOC: JONCCHEMO 07:30
PROVIDERS: ATTEND Internal Medicine Hematology & Oncology
PROC: 3E04305 Introduction of Other Antineoplastic into Central Vein, Percutaneous Approach (ICD-10-PCS; principal; 2024-12-20)
PROC: 3E0437Z Introduction of Electrolytic and Water Balance Substance into Central Vein, Percutaneous Approach (ICD-10-PCS; 2024-12-20)
PROC: 3E043GC Introduction of Other Therapeutic Substance into Central Vein, Percutaneous Approach (ICD-10-PCS; 2024-12-20)
DX: Z51.11 Encounter for antineoplastic chemotherapy (principal); C20 Malignant neoplasm of rectum
CPT/HCPCS: 36415; 85025; 96361; 96375; 96411; 96413; 96417; G0498; J9035; J9190; J9206

== ENCOUNTER 2024-12-22 12:30 | Day surgery (SDC) | payer OTHER ==
[2024-12-22] MEDS: SODIUM CHLORIDE IV ONE (12:45)
[2024-12-22] MEDS: POTASSIUM CHLORIDE IV ONE (12:45)
[2024-12-22] MEDS: MAGNESIUM SULFATE IV ONE (12:45)
[2024-12-22 13:02] VITALS: RESP 18; TEMP 98.4
[2024-12-22] MEDS: PORTA CATH FLUSH 10 ML IVPUSH PRN (13:50)
[2024-12-22 14:17] VITALS: BP 104/52; PULSE 59
== END 2024-12-22 14:00 | disposition home or self-care (01) ==
LOC: JONCCHEMO 12:30 → J7W 12:56 → JONCCHEMO 14:00
PROVIDERS: ATTEND Internal Medicine Hematology & Oncology
PROC: 3E0437Z Introduction of Electrolytic and Water Balance Substance into Central Vein, Percutaneous Approach (ICD-10-PCS; principal; 2024-12-22)
DX: C20 Malignant neoplasm of rectum (principal); Z76.89 Persons encountering health services in other specified circumstances
CPT/HCPCS: 96365; 96368

== ENCOUNTER 2025-01-01 07:25 | Day surgery (SDC) | payer OTHER ==
[2025-01-01 08:22] LABS: HEMATOCRIT 35.3 % (40.1-51.0); HEMOGLOBIN 11.1 g/dL (13.7-17.5); MCHC 31.4 g/dl (32.3-36.5); MEAN CELL VOLUME 105.4 fl (79.0-92.2); MEAN PLT VOLUME 9.5 fl (9.4-12.4); PLATELET COUNT 221 x10^3/uL (163-337); RDW 16.3 % (12.2-16.4)
[2025-01-01 08:52] LABS: CHLORIDE 102 mmol/L (98-107); POTASSIUM 3.8 mmol/L (3.5-5.1); SODIUM 141 mmol/L (136-145)
[2025-01-01 08:54] LABS: ALBUMIN 3.2 g/dl (3.4-5.0); ANION GAP 6 mmol/L (4-13); CO2 33 mmol/L (21-32); GLUCOSE,RANDOM 119 mg/dL (74-106); MAGNESIUM 2.1 mg/dL (1.8-2.4)
[2025-01-01 08:57] LABS: SGPT/ALT 23 U/L (13-61)
[2025-01-01 08:58] LABS: BILIRUBIN,TOTAL 0.7 mg/dL (0.2-1); CREATININE 0.8 mg/dL (0.55-1.3); SGOT/AST 22 U/L (15-37); TOT PROT 6.5 g/dl (6.4-8.2)
[2025-01-01 09:00] LABS: ALK PHOS 94 U/L (45-117)
[2025-01-01] MEDS: SODIUM CHLORIDE 500 ML IV ONE (09:12)
[2025-01-01] MEDS: TBO-FILGRASTIM 480 MCG/0.8 ML DISP.SYRIN SQ ONE (09:12)
[2025-01-01] MEDS ORDERED: PROCHLORPERAZINE INJECTION 10 MG in SODIUM CHLORIDE 50 ML IVPB ONE (10:30)
[2025-01-01] MEDS ORDERED: ATROPINE SO4 0.4 MG/1 ML VIAL IVPUSH ONE (10:30)
[2025-01-01] MEDS ORDERED: DEXAMETHASONE SODIUM PHOSPHATE 6 MG in SODIUM CHLORIDE 50 ML IVPB ONE (10:30)
[2025-01-01] MEDS ORDERED: PALONOSETRON HCL 0.25 MG/5 ML VIAL IVPUSH ONE (10:30)
[2025-01-01] MEDS ORDERED: BEVACIZUMAB IV ONE (11:00)
[2025-01-01] MEDS ORDERED: SODIUM CHLORIDE IV ONE (11:00)
[2025-01-01] MEDS ORDERED: DEXTROSE 5% IVPB ONE (11:30)
[2025-01-01] MEDS ORDERED: WATER IVPB ONE (11:30)
[2025-01-01] MEDS ORDERED: IRINOTECAN HCL 360 MG in DEXTROSE 5%-WATER - 500 ML IVPB ONE (11:30)
[2025-01-01] MEDS: PORTA CATH FLUSH 10 ML IVPUSH PRN (11:30)
[2025-01-01] MEDS ORDERED: LEUCOVORIN IVPB ONE (11:30)
[2025-01-01] MEDS ORDERED: FLUOROURACIL 500 MG/10 ML VIAL IVPUSH ONE (13:30)
[2025-01-01] MEDS ORDERED: SODIUM CHLORIDE CP ONE (13:45)
[2025-01-01] MEDS ORDERED: FLUOROURACIL CP ONE (13:45)
[2025-01-01 15:22] VITALS: TEMP 98.1
[2025-01-01 15:26] VITALS: BP 118/64; PULSE 83; RESP 18
== END 2025-01-01 11:30 | disposition home or self-care (01) ==
LOC: JONCCHEMO 07:25 → J7W 07:25 → JONCCHEMO 11:30
PROVIDERS: ATTEND Internal Medicine Hematology & Oncology
PROC: 3E013GC Introduction of Other Therapeutic Substance into Subcutaneous Tissue, Percutaneous Approach (ICD-10-PCS; principal; 2025-01-01)
PROC: 3E0437Z Introduction of Electrolytic and Water Balance Substance into Central Vein, Percutaneous Approach (ICD-10-PCS; 2025-01-01)
DX: C20 Malignant neoplasm of rectum (principal); Z76.89 Persons encountering health services in other specified circumstances
CPT/HCPCS: 36415; 80053; 83735; 84156; 85025; 96360; 96361; 96372; J1447

== ENCOUNTER 2025-01-02 10:30 | Day surgery (SDC) | payer OTHER ==
[2025-01-02] MEDS: TBO-FILGRASTIM 480 MCG/0.8 ML DISP.SYRIN SQ ONE (10:22)
[2025-01-02 18:11] VITALS: BP 127/69; PULSE 87; RESP 20; TEMP 98.1
== END 2025-01-02 10:40 | disposition home or self-care (01) ==
LOC: JONCCHEMO 10:30 → J7W 11:01
PROVIDERS: ATTEND Internal Medicine Hematology & Oncology
PROC: 3E023GC Introduction of Other Therapeutic Substance into Muscle, Percutaneous Approach (ICD-10-PCS; principal; 2025-01-02)
DX: C20 Malignant neoplasm of rectum (principal); Z76.89 Persons encountering health services in other specified circumstances
CPT/HCPCS: 96372; J1447

== ENCOUNTER 2025-01-15 07:17 | Day surgery (SDC) | payer OTHER ==
[2025-01-15 07:47] LABS: ABSOLUTE IMMATURE GRANULOCYTES 0.04 x10^3/uL (0.0-0.031); BASOPHILS # 0.09 x10^3/uL (0.01-0.08); EOSINOPHIL % 2.1 % (0.8-7.0); EOSINOPHILS # 0.11 x10^3/uL (0.04-0.54); HEMATOCRIT 38.5 % (40.1-51.0); HEMOGLOBIN 11.8 g/dL (13.7-17.5); MCHC 30.6 g/dl (32.3-36.5); MEAN CELL VOLUME 105.8 fl (79.0-92.2); MEAN PLT VOLUME 10.1 fl (9.4-12.4); MONOCYTE # 0.51 x10^3/uL (0.30-0.82); MONOCYTE % 9.9 % (5.3-12.2); PLATELET COUNT 185 x10^3/uL (163-337); RDW 16.7 % (12.2-16.4)
[2025-01-15 08:14] LABS: POTASSIUM 4.2 mmol/L (3.5-5.1)
[2025-01-15 08:16] LABS: CALCIUM 9.4 mg/dL (8.5-10.1)
[2025-01-15 08:17] LABS: ALBUMIN 3.3 g/dl (3.4-5.0); BLOOD UREA NITROGEN 17.8 mg/dL (7-18)
[2025-01-15 08:18] LABS: MAGNESIUM 2.1 mg/dL (1.8-2.4)
[2025-01-15 08:20] LABS: CREATININE 0.9 mg/dL (0.55-1.3)
[2025-01-15 08:21] LABS: BILIRUBIN,TOTAL 0.8 mg/dL (0.2-1); TOT PROT 6.7 g/dl (6.4-8.2)
[2025-01-15] MEDS: SODIUM CHLORIDE 500 ML IV ONE (10:45)
[2025-01-15] MEDS: PROCHLORPERAZINE INJECTION 10 MG in SODIUM CHLORIDE 50 ML IVPB ONE (10:53)
[2025-01-15] MEDS: DEXAMETHASONE SODIUM PHOSPHATE 6 MG in SODIUM CHLORIDE 50 ML IVPB ONE (11:15)
[2025-01-15] MEDS: BEVACIZUMAB IV ONE (11:53)
[2025-01-15] MEDS: SODIUM CHLORIDE IV ONE (11:53)
[2025-01-15] MEDS: WATER IVPB ONE (12:30)
[2025-01-15] MEDS: DEXTROSE 5% IVPB ONE (12:30)
[2025-01-15] MEDS: LEUCOVORIN IVPB ONE (12:30)
[2025-01-15] MEDS: PALONOSETRON HCL 0.25 MG/5 ML VIAL IVPUSH ONE (12:30)
[2025-01-15] MEDS: ATROPINE SO4 0.4 MG/1 ML VIAL IVPUSH ONE (12:31)
[2025-01-15] MEDS: IRINOTECAN HCL 360 MG in DEXTROSE 5%-WATER - 500 ML IVPB ONE (12:32)
[2025-01-15 14:42] VITALS: TEMP 97.8
[2025-01-15] MEDS: SODIUM CHLORIDE CP ONE (14:55)
[2025-01-15] MEDS: FLUOROURACIL CP ONE (14:55)
[2025-01-15] MEDS: FLUOROURACIL 500 MG/10 ML VIAL IVPUSH ONE (14:55)
[2025-01-15 15:22] VITALS: BP 140/73; PULSE 70; RESP 18
[2025-01-15] MEDS ORDERED: PORTA CATH FLUSH 10 ML IVPUSH PRN (15:22)
== END 2025-01-15 16:00 | disposition home or self-care (01) ==
LOC: JONCCHEMO 07:17
PROVIDERS: ATTEND Internal Medicine Hematology & Oncology
DX: Z51.11 Encounter for antineoplastic chemotherapy (principal); C20 Malignant neoplasm of rectum
CPT/HCPCS: 36415; 80053; 83735; 84156; 85025; 96368; 96375; 96411; 96413; 96417; G0498; J9035; J9190; J9206

== ENCOUNTER 2025-01-17 12:30 | Day surgery (SDC) | payer OTHER ==
[2025-01-17] MEDS: SODIUM CHLORIDE IV ONE (12:41)
[2025-01-17] MEDS: MAGNESIUM SULFATE IV ONE (12:41)
[2025-01-17] MEDS: POTASSIUM CHLORIDE IV ONE (12:41)
[2025-01-17] MEDS: PORTA CATH FLUSH 10 ML IVPUSH PRN (13:45)
[2025-01-17 18:31] VITALS: BP 134/68; PULSE 65; RESP 20; TEMP 98.1
== END 2025-01-17 14:00 | disposition home or self-care (01) ==
LOC: JONCCHEMO 12:30
PROVIDERS: ATTEND Internal Medicine Hematology & Oncology
PROC: 3E043GC Introduction of Other Therapeutic Substance into Central Vein, Percutaneous Approach (ICD-10-PCS; principal; 2025-01-17)
DX: C20 Malignant neoplasm of rectum (principal)
CPT/HCPCS: 96365

== ENCOUNTER 2025-01-31 12:21 | Day surgery (SDC) | payer OTHER ==
[2025-01-31] MEDS: POTASSIUM CHLORIDE IVPB ONE (12:26)
[2025-01-31] MEDS: MAGNESIUM SULFATE IVPB ONE (12:26)
[2025-01-31] MEDS: SODIUM CHLORIDE IVPB ONE (12:26)
[2025-01-31] MEDS: MAGNESIUM SULFATE IN WATER 2 GM/50 ML IVPB IVPB ONE (13:36)
[2025-01-31] MEDS: LOPERAMIDE HCL 2 MG CAPSULE PO ONE (13:37)
[2025-01-31] MEDS: PORTA CATH FLUSH 10 ML IVPUSH PRN (14:35)
[2025-01-31 16:30] VITALS: BP 113/60; PULSE 78; RESP 20; TEMP 97.6
== END 2025-01-31 14:40 | disposition home or self-care (01) ==
LOC: JONCCHEMO 12:21 → J7W 12:28 → JONCCHEMO 14:40
PROVIDERS: ATTEND Internal Medicine Hematology & Oncology
PROC: 3E043GC Introduction of Other Therapeutic Substance into Central Vein, Percutaneous Approach (ICD-10-PCS; principal; 2025-01-31)
DX: C20 Malignant neoplasm of rectum (principal)
CPT/HCPCS: 96365

== ENCOUNTER 2025-02-16 12:45 | Day surgery (SDC) | payer OTHER ==
[2025-02-16] MEDS: POTASSIUM CHLORIDE IVPB ONE (13:01)
[2025-02-16] MEDS: MAGNESIUM SULFATE IVPB ONE (13:01)
[2025-02-16] MEDS: SODIUM CHLORIDE IVPB ONE (13:01)
[2025-02-16] MEDS: MAGNESIUM SULFATE IN WATER 2 GM/50 ML IVPB IVPB ONE (14:00)
[2025-02-16] MEDS: PORTA CATH FLUSH 10 ML IVPUSH PRN (15:00)
[2025-02-16 16:32] VITALS: PULSE 66; RESP 20; TEMP 98.1
[2025-02-16 16:38] VITALS: BP 128/68
== END 2025-02-16 15:15 | disposition home or self-care (01) ==
LOC: JONCCHEMO 12:45
PROVIDERS: ATTEND Internal Medicine Hematology & Oncology
PROC: 3E043GC Introduction of Other Therapeutic Substance into Central Vein, Percutaneous Approach (ICD-10-PCS; principal; 2025-02-16)
DX: C20 Malignant neoplasm of rectum (principal); Z76.89 Persons encountering health services in other specified circumstances
CPT/HCPCS: 96365; 96372

== ENCOUNTER 2025-02-26 08:15 | Day surgery (SDC) | payer OTHER ==
[2025-02-26 09:13] LABS: HEMOGLOBIN 11.3 g/dL (13.7-17.5); MEAN PLT VOLUME 9.9 fl (9.4-12.4)
[2025-02-26 09:15] LABS: HEMATOCRIT 35.7 % (40.1-51.0); MCHC 31.7 g/dl (32.3-36.5); PLATELET COUNT 251 x10^3/uL (163-337); RDW 15.8 % (12.2-16.4)
[2025-02-26 09:30] LABS: POTASSIUM 3.2 mmol/L (3.5-5.1)
[2025-02-26 09:32] LABS: ALBUMIN 3.3 g/dl (3.4-5.0); BLOOD UREA NITROGEN 18.1 mg/dL (7-18); CALCIUM 9.4 mg/dL (8.5-10.1); MAGNESIUM 1.9 mg/dL (1.8-2.4)
[2025-02-26 09:35] LABS: CREATININE 1.1 mg/dL (0.55-1.3)
[2025-02-26 09:37] LABS: BILIRUBIN,TOTAL 0.5 mg/dL (0.2-1); TOT PROT 6.8 g/dl (6.4-8.2)
[2025-02-26] MEDS ORDERED: IRINOTECAN HCL 370 MG in DEXTROSE 5%-WATER - 500 ML IVPB ONE (10:00)
[2025-02-26] MEDS: KCL 10 MEQ IVPB 10 MEQ/100 ML INFUS.BAG IVPB SCH (11:00)
[2025-02-26] MEDS: SODIUM CHLORIDE 500 ML IV ONE (11:02)
[2025-02-26] MEDS: MAGNESIUM SULFATE IN WATER 2 GM/50 ML IVPB IVPB ONE (11:02)
[2025-02-26] MEDS: LOPERAMIDE HCL 2 MG CAPSULE PO ONE (11:04)
[2025-02-26] MEDS ORDERED: FLUOROURACIL 500 MG/10 ML VIAL IVPUSH ONE (12:00)
[2025-02-26] MEDS: DEXAMETHASONE SODIUM PHOSPHATE 6 MG in SODIUM CHLORIDE 50 ML IVPB ONE (12:10)
[2025-02-26] MEDS: PALONOSETRON HCL 0.25 MG/5 ML VIAL IVPUSH ONE (12:33)
[2025-02-26] MEDS: PROCHLORPERAZINE INJECTION 10 MG in SODIUM CHLORIDE 50 ML IVPB ONE (12:35)
[2025-02-26] MEDS: BEVACIZUMAB IV ONE (13:04)
[2025-02-26] MEDS: SODIUM CHLORIDE IV ONE (13:04)
[2025-02-26] MEDS: ATROPINE SO4 0.4 MG/1 ML VIAL IVPUSH ONE (13:41)
[2025-02-26] MEDS: DEXTROSE 5% IVPB ONE (13:45)
[2025-02-26] MEDS: LEUCOVORIN IVPB ONE (13:45)
[2025-02-26] MEDS: WATER IVPB ONE (13:45)
[2025-02-26] MEDS: IRINOTECAN HCL 270 MG in DEXTROSE 5%-WATER - 500 ML IVPB ONE (13:47)
[2025-02-26] MEDS: POTASSIUM CHLORIDE TABS 20 MEQ TABLET.ER (FP) PO ONE (15:54)
[2025-02-26] MEDS: FLUOROURACIL 3,500 MG in SODIUM CHLORIDE 22 ML CP ONE (15:57)
[2025-02-26 17:21] VITALS: TEMP 98.4
[2025-02-26] MEDS ORDERED: PORTA CATH FLUSH 10 ML IVPUSH PRN (17:42)
[2025-02-26 18:04] VITALS: BP 126/64; PULSE 76; RESP 18
== END 2025-02-26 16:15 | disposition home or self-care (01) ==
LOC: JONCCHEMO 08:15 → J7W 08:15 → JONCCHEMO 16:15
PROVIDERS: ATTEND Internal Medicine Hematology & Oncology
DX: Z51.11 Encounter for antineoplastic chemotherapy (principal); C20 Malignant neoplasm of rectum
CPT/HCPCS: 36415; 80053; 83735; 84156; 85025; 88300-TC; 96366; 96367; 96368; 96375; 96413; 96417; G0498; J9035; J9206

== ENCOUNTER 2025-02-28 12:47 | Day surgery (SDC) | payer OTHER ==
[2025-02-28] MEDS: POTASSIUM CHLORIDE IVPB ONE (13:01)
[2025-02-28] MEDS: MAGNESIUM SULFATE IVPB ONE (13:01)
[2025-02-28] MEDS: SODIUM CHLORIDE IVPB ONE (13:01)
[2025-02-28 13:07] VITALS: RESP 20; TEMP 97.5
[2025-02-28] MEDS: MAGNESIUM SULFATE IN WATER 2 GM/50 ML IVPB IVPB ONE (14:15)
[2025-02-28] MEDS: PORTA CATH FLUSH 10 ML IVPUSH PRN (15:06)
[2025-02-28 15:20] VITALS: BP 121/52; PULSE 67
== END 2025-02-28 15:50 | disposition home or self-care (01) ==
LOC: JONCCHEMO 12:47 → J7W 12:48 → JONCCHEMO 15:50
PROVIDERS: ATTEND Internal Medicine Hematology & Oncology
PROC: 3E043GC Introduction of Other Therapeutic Substance into Central Vein, Percutaneous Approach (ICD-10-PCS; principal; 2025-02-28)
DX: C20 Malignant neoplasm of rectum (principal)
CPT/HCPCS: 96365; 96366

== ENCOUNTER 2025-03-12 07:11 | Day surgery (SDC) | payer OTHER ==
[2025-03-12 08:29] LABS: ABSOLUTE IMMATURE GRANULOCYTES 0.03 x10^3/uL (0.0-0.031); BASOPHILS # 0.07 x10^3/uL (0.01-0.08); EOSINOPHIL % 3.8 % (0.8-7.0); EOSINOPHILS # 0.21 x10^3/uL (0.04-0.54); HEMATOCRIT 32.7 % (40.1-51.0); MCHC 30.6 g/dl (32.3-36.5); MEAN CELL VOLUME 104.8 fl (79.0-92.2); PLATELET COUNT 213 x10^3/uL (163-337); RDW 15.9 % (12.2-16.4)
[2025-03-12 08:30] LABS: CHLORIDE 105 mmol/L (98-107); SODIUM 142 mmol/L (136-145)
[2025-03-12 08:32] LABS: CALCIUM 9.6 mg/dL (8.5-10.1)
[2025-03-12 08:33] LABS: ANION GAP 7 mmol/L (4-13); BLOOD UREA NITROGEN 23.5 mg/dL (7-18); CO2 29 mmol/L (21-32); GLUCOSE,RANDOM 119 mg/dL (74-106)
[2025-03-12 08:36] LABS: SGOT/AST 18 U/L (15-37); SGPT/ALT 22 U/L (13-61)
[2025-03-12 08:37] LABS: BILIRUBIN,TOTAL 0.4 mg/dL (0.2-1); TOT PROT 6.4 g/dl (6.4-8.2)
[2025-03-12 08:39] LABS: ALK PHOS 108 U/L (45-117)
[2025-03-12] MEDS: SODIUM CHLORIDE 500 ML IV ONE (09:27)
[2025-03-12] MEDS: MAGNESIUM SULFATE IN WATER 2 GM/50 ML IVPB IVPB ONE (09:29)
[2025-03-12 10:07] VITALS: RESP 20; TEMP 98.2
[2025-03-12] MEDS: PROCHLORPERAZINE INJECTION 10 MG in SODIUM CHLORIDE 50 ML IVPB ONE (10:24)
[2025-03-12] MEDS: PALONOSETRON HCL 0.25 MG/5 ML VIAL IVPUSH ONE (10:44)
[2025-03-12] MEDS: DEXAMETHASONE SODIUM PHOSPHATE 6 MG in SODIUM CHLORIDE 50 ML IVPB ONE (10:45)
[2025-03-12] MEDS: SODIUM CHLORIDE IV ONE (11:43)
[2025-03-12] MEDS: BEVACIZUMAB IV ONE (11:43)
[2025-03-12] MEDS: ATROPINE SO4 0.4 MG/1 ML VIAL IVPUSH ONE (12:20)
[2025-03-12] MEDS: LEUCOVORIN IVPB ONE (12:24)
[2025-03-12] MEDS: DEXTROSE 5% IVPB ONE (12:24)
[2025-03-12] MEDS: WATER IVPB ONE (12:24)
[2025-03-12] MEDS: IRINOTECAN HCL 370 MG in DEXTROSE 5%-WATER - 500 ML IVPB ONE (12:27)
[2025-03-12] MEDS: FLUOROURACIL 500 MG/10 ML VIAL IVPUSH ONE (14:31)
[2025-03-12] MEDS: SODIUM CHLORIDE CP ONE (14:32)
[2025-03-12] MEDS: FLUOROURACIL CP ONE (14:32)
[2025-03-12 15:33] VITALS: BP 132/67; PULSE 58
== END 2025-03-12 15:15 | disposition home or self-care (01) ==
LOC: JONCCHEMO 07:11 → J7W 08:18 → JONCCHEMO 15:15
PROVIDERS: ATTEND Internal Medicine Hematology & Oncology
DX: Z51.11 Encounter for antineoplastic chemotherapy (principal); C20 Malignant neoplasm of rectum
CPT/HCPCS: 36415; 80053; 83735; 84156; 85025; 96375; 96411; 96413; 96416; 96417; G0498; J9035; J9190; J9206

== ENCOUNTER 2025-03-15 10:40 | Day surgery (SDC) | payer OTHER ==
[2025-03-15] MEDS: TBO-FILGRASTIM 480 MCG/0.8 ML DISP.SYRIN SQ ONE (10:42)
[2025-03-15 11:40] VITALS: BP 117/63; PULSE 66; RESP 20; TEMP 97.6
== END 2025-03-15 11:00 | disposition home or self-care (01) ==
LOC: JONCNONCHE 10:40
PROVIDERS: ATTEND Internal Medicine Hematology & Oncology
PROC: 3E013GC Introduction of Other Therapeutic Substance into Subcutaneous Tissue, Percutaneous Approach (ICD-10-PCS; principal; 2025-03-15)
DX: C20 Malignant neoplasm of rectum (principal); Z76.89 Persons encountering health services in other specified circumstances
CPT/HCPCS: 96372; J1447

== ENCOUNTER 2025-04-11 12:20 | Day surgery (SDC) | payer OTHER ==
[~2025-04-11 12:20] MED LIST changes: -ATROPINE SO4 0.4 MG/1 ML VIAL IVPUSH ONE; -DEXAMETHASONE SODIUM PHOSPHATE 6 MG in SODIUM CHLORIDE 50 ML IVPB ONE; +MAGNESIUM SULFATE IN WATER 2 GM/50 ML IVPB IVPB ONE; -PALONOSETRON HCL 0.25 MG/5 ML VIAL IVPUSH ONE; -PROCHLORPERAZINE INJECTION 10 MG in SODIUM CHLORIDE 50 ML IVPB ONE; -SODIUM CHLORIDE 250 ML IV ONE; -SODIUM CHLORIDE 500 ML IV ONE
[2025-04-11] MEDS: SODIUM CHLORIDE 0.9%/KCL 10 MEQ/500 ML INFUS.BAG IV ONE (12:48)
[2025-04-11] MEDS: MAGNESIUM SULFATE IN WATER 2 GM/50 ML IVPB IVPB ONE (12:48)
[2025-04-11] MEDS: PORTA CATH FLUSH 10 ML IVPUSH PRN (14:00)
[2025-04-11 14:50] VITALS: TEMP 98
[2025-04-11 15:06] VITALS: BP 136/75; PULSE 66; RESP 18
== END 2025-04-11 14:00 | disposition home or self-care (01) ==
LOC: J7W 12:20 → JONCCHEMO 12:20
PROVIDERS: ATTEND Internal Medicine Hematology & Oncology
PROC: 3E043GC Introduction of Other Therapeutic Substance into Central Vein, Percutaneous Approach (ICD-10-PCS; principal; 2025-04-11)
DX: C20 Malignant neoplasm of rectum (principal); Z76.89 Persons encountering health services in other specified circumstances
CPT/HCPCS: 96365

== ENCOUNTER 2025-05-16 12:06 | Day surgery (SDC) | payer OTHER ==
[2025-05-16] MEDS: POTASSIUM CHLORIDE IVPB ONE (12:20)
[2025-05-16] MEDS: SODIUM CHLORIDE IVPB ONE (12:20)
[2025-05-16] MEDS: MAGNESIUM SULFATE IVPB ONE (12:20)
[2025-05-16 13:33] VITALS: RESP 20; TEMP 97.9
[2025-05-16 13:38] VITALS: BP 117/55; PULSE 62
[2025-05-16] MEDS: PORTA CATH FLUSH 10 ML IVPUSH PRN (13:40)
== END 2025-05-16 14:00 | disposition home or self-care (01) ==
LOC: JONCCHEMO 12:06 → J7W 12:07 → JONCCHEMO 14:00
PROVIDERS: ATTEND Internal Medicine Hematology & Oncology
DX: Z53.8 Procedure and treatment not carried out for other reasons (principal)
CPT/HCPCS: 96365

== ENCOUNTER 2025-06-25 08:57 | Day surgery (SDC) | payer OTHER ==
[2025-06-25 09:00] LABS: MCHC 30.1 g/dl (32.3-36.5); MEAN CELL VOLUME 104.8 fl (79.0-92.2); MEAN PLT VOLUME 10.3 fl (9.4-12.4); RDW 16.3 % (12.2-16.4)
[2025-06-25] MEDS: SODIUM CHLORIDE 500 ML IV ONE (09:20)
[2025-06-25] MEDS: SODIUM CHLORIDE 250 ML IV ONE (09:20)
[2025-06-25 09:28] LABS: GLUCOSE,RANDOM 93.0 mg/dL (74-106); TOT PROT 6.8 g/dl (6.4-8.2)
[2025-06-25 09:29] LABS: CO2 31.0 mmol/L (21-32)
[2025-06-25 09:31] LABS: ALK PHOS 91.0 U/L (40-150)
[2025-06-25 09:34] LABS: CREATININE 0.74 mg/dL (0.55-1.3); SGOT/AST 32.0 U/L (5-34)
[2025-06-25] MEDS: MAGNESIUM 2GM/50ML STERILE WATER IVPB IVPB ONE (09:58)
[2025-06-25 10:04] LABS: SGPT/ALT 23.0 U/L (0-55)
[2025-06-25] MEDS: PALONOSETRON HCL 0.25 MG/5 ML VIAL IVPUSH ONE (11:13)
[2025-06-25] MEDS: DEXAMETHASONE SODIUM PHOSPHATE 12 MG in SODIUM CHLORIDE 50 ML IVPB ONE (11:17)
[2025-06-25] MEDS: SODIUM CHLORIDE IV ONE (11:54)
[2025-06-25] MEDS: BEVACIZUMAB BVZR IV ONE (11:54)
[2025-06-25] MEDS: DIPHENHYDRAMINE 25 MG in SODIUM CHLORIDE 50 ML IVPB ONE ×2 (12:00→13:20)
[2025-06-25] MEDS: LEUCOVORIN IVPB ONE (12:28)
[2025-06-25] MEDS: DEXTROSE 5% IVPB ONE (12:28)
[2025-06-25] MEDS: WATER IVPB ONE (12:28)
[2025-06-25] MEDS: FLUOROURACIL 500 MG/10 ML VIAL IVPUSH ONE (15:16)
[2025-06-25] MEDS: SODIUM CHLORIDE CP ONE (15:16)
[2025-06-25] MEDS: FLUOROURACIL CP ONE (15:16)
[2025-06-25 15:21] VITALS: RESP 20; TEMP 98.4
[2025-06-25] MEDS ORDERED: PORTA CATH FLUSH 10 ML IVPUSH PRN (15:31)
[2025-06-25 15:35] VITALS: BP 130/67; PULSE 59
== END 2025-06-25 16:00 | disposition home or self-care (01) ==
LOC: JONCCHEMO 08:57 → J7W 09:12 → JONCCHEMO 16:00
PROVIDERS: ATTEND Internal Medicine Hematology & Oncology
DX: Z51.11 Encounter for antineoplastic chemotherapy (principal); C20 Malignant neoplasm of rectum
CPT/HCPCS: 36415; 80053; 82378; 82607; 83735; 84156; 85025; 96367; 96368; 96375; 96411; 96413; 96415; 96417; G0498; J8499; J9190; J9263; Q5118

== ENCOUNTER 2025-07-02 11:40 | Day surgery (SDC) | payer OTHER ==
[2025-07-02] MEDS: TBO-FILGRASTIM 480 MCG/0.8 ML DISP.SYRIN SQ ONE (11:54)
[2025-07-02 17:26] VITALS: BP 109/66; PULSE 93; RESP 20; TEMP 98
== END 2025-07-02 12:00 | disposition home or self-care (01) ==
LOC: JONCNONCHE 11:40
PROVIDERS: ATTEND Internal Medicine Hematology & Oncology
PROC: 3E013GC Introduction of Other Therapeutic Substance into Subcutaneous Tissue, Percutaneous Approach (ICD-10-PCS; principal; 2025-07-02)
DX: C20 Malignant neoplasm of rectum (principal); C78.7 Secondary malignant neoplasm of liver and intrahepatic bile duct; Z76.89 Persons encountering health services in other specified circumstances
CPT/HCPCS: J1447